=== PATIENT | female | born 1960 | race African-American/Black ===

== ENCOUNTER 2017-01-29 19:29 | Inpatient (IN) | payer OTHER ==
[2017-01-29 20:25] VITALS: BMI 20.4
--- NOTE | 2017-01-29 21:06 | HP ---
COWS - Scale Resting Pulse: 0= [place] 80 or Below Sweatin=Flushed/Facial Moisture Restless Observation: 5= Unable to Sit Still Pupil Size: 1= Pupils >than Normal Bone or Joint Aches: 4=Acute Joint/Muscle Pain Runny Nose/ Eye Tearin= Runny Nose/Eyes GI Upset > 30mins: 1= Stomach Cramp Tremor Observation: 2= Slight Tremor Visible Yawning Observation: 0= None Anxiety or Irritability: 2=Irritable/Anxious Goose Flesh Skin: 0=Smooth Skin COWS Score: 19 CIWA Score - CIWA Score Nausea/Vomitin-No Nausea/No Vomiting Muscle Tremors: 4-Moderate,w/Arms Extend Anxiety: 4-Mod. Anxious/Guarded Agitation: 4-Moderately Restless Paroxysmal Sweats: 3 Orientation: 0-Oriented Tacttile Disturbances: 2-Mild Itch/Numbness/Burn Auditory Disturbances: 2-Mild Harshness/Frighten Visual Disturbances: 2-Mild Sensitivity Headache: 3-Moderate CIWA-Ar Total Score: 24 Admission [facility] - HPI Chief Complaint: WITHDRAWAL SX'S. SEEKING DETOX TXMENT. Allergies/Adverse Reactions: Allergies Allergy/AdvReac Type Severity Reaction Status Date / Time No Known Allergies Allergy Verified 01/29/17 20:35 History of Present Illness: 56 Y.O FEMALE WITH ALCOHOL, OPIATE DEPENDENCE ADMITTED FOR DETOX TXMENT. CLIENT REPORTS A PERIOD OF 1 YEAR CLEAN TIME RELAPSING 4 MONTHS AGO. Exam Limitations: No Limitations - Ebola screening Have you traveled outside of the country in the last 21 days: No Have you had contact with anyone from an Ebola affected area: No Have you been sick,other than usual withdrawal symptoms: No Do you have a fever: No - Review of Systems Constitutional: Chills, Malaise, Night Sweats EENT: reports: Nose Congestion Respiratory: reports: Shortness of Breath Cardiac: reports: No Symptoms Reported GI: reports: Abdominal cramping : reports: Dysuria Musculoskeletal: reports: Back Pain Integumentary: reports: No Symptoms Reported Neuro: reports: No Symptoms reported Endocrine: reports: No Symptoms Reported Hematology: reports: No Symptoms Reported Psychiatric: reports: Agitated, Anxious, Depressed Other Systems: Reviewed and Negative Patient History - Patient Medical History Hx Anemia: No Hx Asthma: Yes Hx Chronic Obstructive Pulmonary Disease (COPD): No Hx Cancer: No Hx Cardiac Disorders: No Hx Congestive Heart Failure: No Hx Hypertension: Yes Hx Hypercholesterolemia: No Hx Pacemaker: No HX Cerebrovascular Accident: No Hx Seizures: No Hx Dementia: No Hx Diabetes: No Hx Gastrointestinal Disorders: No Hx Liver Disease: No Hx Genitourinary Disorders: No Hx Sexually Transmitted Disorders: Yes Hx Renal Disease (ESRD): No Hx Thyroid Disease: No Hx Human Immunodeficiency Virus (HIV): Yes (ATRIPLA) Hx Hepatitis C: No Hx Depression: Yes Hx Suicide Attempt: No Hx Bipolar Disorder: Yes Hx Schizophrenia: No Other Medical History: DENIES - Patient Surgical History Past Surgical History: Yes Hx Neurologic Surgery: No Hx Cataract Extraction: No Hx Cardiac Surgery: No Hx Lung Surgery: No Hx Breast Surgery: No Hx Breast Biopsy: No Hx Abdominal Surgery: No Hx Appendectomy: No Hx Cholecystectomy: No Hx Genitourinary Surgery: No Hx Section: Yes (IN 1992) Hx Orthopedic Surgery: No Other Surgical History: ECTOPIC Anesthesia Reaction: No - PPD History Previous Implant?: Yes Documented Results: Negative w/proof Implanted On Prior [facility] Admission?: Yes Date: 07/30/15 PPD to be Administered?: Yes - Smoking Cessation Smoking history: Current every day smoker Have you smoked in the past 12 months: Yes Aproximately how many cigarettes per day: 8 Hx Chewing Tobacco Use: No Initiated information on smoking cessation: Yes 'Breaking Loose' booklet given: 01/29/17 - Substance & Tx. History Hx Alcohol Use: Yes Hx Substance Use: Yes Substance Use Type: Alcohol, Cocaine, Heroin, Marijuana, Opiates (OXY), Tranquilizers (PCP/MDMA) Hx Substance Use Treatment: Yes ([facility]) - Substances Abused Alcohol Route: Oral Frequency: Daily Amount used: 5 beers/ 12 OZ Age of first use: 14 Date of Last Use: 01/29/17 Cocaine Route: Smoking Frequency: Daily Amount used: $100 Age of first use: 56 Date of Last Use: 01/28/17 Heroin Route: Inhalation Frequency: Daily Amount used: 3 bags Age of first use: 28 Date of Last Use: 01/29/17 Family Disease History - Family Disease History Family Disease History: CA: Father (FATHER WAS ADDICTED TO ETOH AND HAD CA. OF THE LUNGS AND ), Other: Father Admission Physical Exam BHS - Vital Signs Vital Signs: Vital Signs - 24 hr 01/29/17 20:21 Temperature 97.8 F Pulse Rate 80 Respiratory 20 Rate Blood Pressure 135/81 - Physical General Appearance: Yes: Appropriately Dressed, Irritable, Anxious HEENTM: Yes: EOMI, Normocephalic, Normal Voice, YOKASTA, Pharynx Normal, Other ( GLASSES) Respiratory: Yes: Chest Non-Tender, Lungs Clear, Normal Breath Sounds, No Respiratory Distress, No Accessory Muscle Use Neck: Yes: No masses,lesions,Nodules, Supple, Trachea in good position Breast: Yes: Breast Exam Deferred Cardiology: Yes: Regular Rhythm, Regular Rate, S1, S2 Abdominal: Yes: Normal Bowel Sounds, Non Tender, Soft Genitourinary: Yes: Within Normal Limits Back: Yes: Normal Inspection Musculoskeletal: Yes: full range of Motion, Gait Steady Extremities: Yes: Normal Range of Motion, Non-Tender, Tremors Neurological: Yes: note taker II-XII NML intact, Fully Oriented, Alert, Motor Strength 5/5 Integumentary: Yes: Warm, Moist Lymphatic: Yes: Within Normal Limits - Diagnostic (1) Asthma Current Visit: Yes Status: Chronic Qualifiers: Asthma severity: mild intermittent Asthma complication type: uncomplicated Qualified Code(s): J45.20 - Mild intermittent asthma, uncomplicated (2) AIDS Current Visit: Yes Status: Chronic (3) Nicotine dependence Current Visit: Yes Status: Chronic Qualifiers: Nicotine product type: cigarettes Substance use status: uncomplicated Qualified Code(s): F17.210 - Nicotine dependence, cigarettes, uncomplicated (4) Alcohol dependence with uncomplicated withdrawal Current Visit: Yes Status: Chronic (5) Opioid dependence with withdrawal Current Visit: Yes Status: Chronic (6) Cocaine dependence, uncomplicated Current Visit: Yes Status: Chronic (7) Cannabis dependence, uncomplicated Current Visit: Yes Status: Chronic Cleared for Admission [facility] - Detox or Rehab [facility] Level of Care: Medically Managed Detox Regimen/Protocol: Methadone/Librium [facility] Breath Alcohol Content Breath Alcohol Content: 0 Urine Pregancy Test - Result Urine Test Results: Negative- NO Line Present Urine Drug Screen - Results Drug Screen Negative: No Urine Drug Screen Results: THC-Marijuana, SKY-Cocaine, OPI-Opiates, PCP- Phencyclidine, MDMA-Ecstasy, OXY-Oxycodone
[2017-01-29] MEDS ORDERED: NICOTINE POLACRILEX 2 MG GUM BC PRN (21:18)
[2017-01-29] MEDS ORDERED: LOPERAMIDE HCL 2 MG CAPSULE PO PRN (21:18)
[2017-01-29] MEDS ORDERED: MAGNESIUM CITRATE 300 ML BOTTLE PO PRN (21:18)
[2017-01-29] MEDS ORDERED: hydrOXYzine PAMOATE 50 MG CAPSULE (FP) PO PRN (21:18)
[2017-01-29] MEDS ORDERED: MENTHOL/PHENOL 1 EACH UD MM PRN (21:18)
[2017-01-29] MEDS ORDERED: ACETAMINOPHEN 325 MG TABLET (FP) PO PRN (21:18)
[2017-01-29] MEDS ORDERED: MAGNESIUM HYDROX 2400MG/30ML ORAL SUSPENSION 30 ML CUP PO PRN (21:18)
[2017-01-29] MEDS ORDERED: P-EPHED 60MG/TRIPROLIDI 2.5MG TABLET PO PRN (21:18)
[2017-01-29] MEDS ORDERED: METHADONE HCL 10 MG TABLET (FOR DETOX USE ONLY) PO ONE ×2 (21:18→23:00)
[2017-01-29] MEDS ORDERED: MAG HYDROX/AL HYDROX/SIMETH 30 ML UNIT-DOSE CUP PO PRN (21:18)
[2017-01-29] MEDS ORDERED: chlordiazePOXIDE HCL 25 MG CAPSULE PO PRN (21:18)
[2017-01-29] MEDS ORDERED: guaiFENesin/D-METHORPHAN HB 10 ML UNIT-DOSE CUPS PO PRN (21:18)
[2017-01-29] MEDS ORDERED: IBUPROFEN 400 MG TABLET (FP) PO PRN (21:18)
[2017-01-29] MEDS ORDERED: ALBUTEROL SO4 6.7 GM HFA INHALER IH PRN (21:22)
[2017-01-29] MEDS: chlordiazePOXIDE HCL 25 MG CAPSULE PO SCH (22:35)
[2017-01-29] MEDS: THIAMINE HCL 100 MG TABLET (FP) PO SCH (22:36)
[2017-01-29] MEDS: diphenhydrAMINE HCL 50 MG CAPSULE PO PRN (22:36)
[2017-01-29] MEDS: NICOTINE 14 MG/24 HOURS TOPICAL PATCH TD SCH (22:51)
[2017-01-29 23:28] LABS: URINE APPEARANCE CLOUDY; URINE BILIRUBIN NEGATIVE (NEGATIVE); URINE COLOR YELLOW; URINE GLUCOSE (UA) NEGATIVE (NEGATIVE); URINE KETONE NEGATIVE (NEGATIVE); URINE NITRITE POSITIVE (NEGATIVE); URINE UROBILINOGEN NEGATIVE E.U./dl (0.2-1.0)
[2017-01-29 23:31] LABS: URINE BLOOD 3+ (NEGATIVE); URINE LEUK ESTERASE 3+ (NEGATIVE); URINE PROTEIN 1+ (NEGATIVE)
[2017-01-29 23:32] LABS: CALCIUM OXALATE CRYSTALS MANY /hpf (NONE SEEN); URINE BACTERIA MANY /hpf (NONE SEEN); URINE MUCUS RARE; URINE RBC 144 /hpf (0-3); URINE WBC 807 /hpf (3-5); YEAST MANY
[2017-01-30] MEDS: chlordiazePOXIDE HCL 25 MG CAPSULE PO SCH ×4 (05:50→22:36)
[2017-01-30] MEDS ORDERED: PATIENT'S OWN MEDICATION (NON-FORMULARY) (Efavirenz/Emtricitab/Tenofovir 1 TAB) PO SCH (10:00)
[2017-01-30] MEDS ORDERED: METHADONE HCL 10 MG TABLET (FOR DETOX USE ONLY) PO SCH (10:00)
[2017-01-30 10:04] LABS: MCH 24.8 pg (25.7-33.7); MCHC 32.3 g/dl (32.0-36.0); MEAN CELL VOLUME 76.7 fl (80-96); MEAN PLT VOLUME 8.8 fl (7.5-11.1); PLATELET COUNT 130 K/MM3 (134-434); RDW 15.7 % (11.6-15.6); WHITE BLOOD COUNT 4.4 K/mm3 (4.0-10.0)
[2017-01-30 10:23] LABS: ALBUMIN 3.3 g/dl (3.4-5.0); ALK PHOS 70 U/L (45-117); ANION GAP 5 (8-16); BILIRUBIN,TOTAL 0.3 mg/dL (0.2-1.0); CALCIUM 9.1 mg/dL (8.5-10.1); CO2 32 mmol/L (21-32); CREATININE 0.9 mg/dL (0.55-1.02); GLUCOSE,RANDOM 87 mg/dL (74-106); SGOT/AST 13 U/L (15-37); SGPT/ALT 12 U/L (12-78); TOT PROT 6.5 g/dl (6.4-8.2)
[2017-01-30] MEDS: PRENATAL VITAMINS W/ FOLIC ACID TABLET (FP) PO SCH (10:26)
[2017-01-30] MEDS: EFAVIRENZ 600 MG TABLET PO SCH (10:26)
[2017-01-30] MEDS: NICOTINE 14 MG/24 HOURS TOPICAL PATCH TD SCH (10:26)
--- NOTE | 2017-01-30 10:54 | PN ---
[facility] CIWA - CIWA Score Nausea/Vomitin-No Nausea/No Vomiting Muscle Tremors: 3 Anxiety: 3 Agitation: 3 Paroxysmal Sweats: 3 Orientation: 0-Oriented Tacttile Disturbances: 0-None Auditory Disturbances: 0-None Visual Disturbances: 0-None Headache: 1-Very Mild CIWA-Ar Total Score: 13 BHS COWS - Scale Resting Pulse: 0= [place] 80 or Below Sweatin=Flushed/Facial Moisture Restless Observation: 1= Difficult to Sit Still Pupil Size: 0= Normal to Room Light Bone or Joint Aches: 2= Severe Diffuse Aches Runny Nose/ Eye Tearin= Runny Nose/Eyes GI Upset > 30mins: 0= None Tremor Observation of Outstretched Hands: 2= Slight Tremor Visible Yawning Observation: 2= >3x During Session Anxiety or Irritability: 2=Irritable/Anxious Goose Flesh Skin: 3=Piloerection COWS Score: 16 S Progress Note (SOAP) Subjective: sweats shakes interrupted sleep body aches irritable agitation Objective: 01/30/17 10:52 Vital Signs Temperature 96.6 F L 01/30/17 10:15 Pulse Rate 64 01/30/17 10:15 Respiratory Rate 16 01/30/17 10:15 Blood Pressure 107/66 01/30/17 10:15 O2 Sat by Pulse Oximetry (%) Laboratory Tests 01/29/17 01/30/17 01/30/17 23:25 07:30 07:30 WBC 4.4 RBC 4.48 Hgb 11.1 Hct 34.4 MCV 76.7 L MCHC 32.3 RDW 15.7 H D Plt Count 130 L MPV 8.8 Sodium 143 Potassium 3.9 Chloride 106 Carbon Dioxide 32 Anion Gap 5 L BUN 13 Creatinine 0.9 Creat Clearance w eGFR > 60 Random Glucose 87 Calcium 9.1 Total Bilirubin 0.3 D AST 13 L ALT 12 D Alkaline Phosphatase 70 Total Protein 6.5 Albumin 3.3 L Urine Color Yellow Urine Appearance Cloudy Urine pH 5.0 Ur Specific [place] 1.023 Urine Protein 1+ H Urine Glucose (UA) Negative Urine Ketones Negative Urine Blood 3+ H Urine Nitrite Positive Urine Bilirubin Negative Urine Urobilinogen Negative Ur Leukocyte Esterase 3+ H Urine RBC 144 Urine WBC 807 Ur Epithelial Cells Moderate Calcium Oxalate Crystal Many Urine Bacteria Many Urine Mucus Rare Urine Yeast Many repeat u/a with C&S awake/alert lying in bed no acute distress Assessment: 01/30/17 10:53 withdrawal sx Plan: continue detox increase fluids f/u pending labs
[2017-01-30] MEDS: EMTRICITABINE 200MG/TENOFOVIR 300MG PO SCH (11:00)
[2017-01-30] MEDS ORDERED: PNEUMOC 13-VAL CONJ-DIP CRM/PF 0.5 ML DISP.SYRIN IM ONE (12:00)
[2017-01-30] MEDS ORDERED: INFLUENZA VACCINE 45 MCG/0.5 ML (MDV 16-17) IM ONE (12:00)
--- NOTE | 2017-01-30 12:00 | CONSULT ---
[facility] Psychiatric Consult - Data Date of interview: 01/30/17 Admission source: [facility] Identifying data: Readmission to [facility] for this 56 y/o AA female seeking detox treatment on for alcohol,cocaine,marijuana,heroin and tranquilizers (PCP/MDMA) dependence.Patient is single,a mother of three, domiciled,unemployed and supported on SSI benefits. Substance Abuse History: - Smoking Cessation. Smoking history: Current every day smoker. Have you smoked in the past 12 months: Yes. Aproximately how many cigarettes per day: 8. Hx Chewing Tobacco Use: No. Initiated information on smoking cessation: Yes. 'Breaking Loose' booklet given: 01/29/17. - Substance & Tx. History. Hx Alcohol Use: Yes. Hx Substance Use: Yes. Substance Use Type : Alcohol, Cocaine, Heroin, Marijuana, Opiates (OXY), Tranquilizers (PCP/MDMA). Hx Substance Use Treatment: Yes ([facility] - Substances Abused. Alcohol. Route: Oral. Frequency: Daily. Amount used: 5 beers/ 12 OZ. Age of first use : 14. Date of Last Use: 01/29/17. Cocaine. Route: Smoking. Frequency: Daily. Amount used: $100. Age of first use: 56. Date of Last Use: 01/28/17. Heroin. Route: Inhalation. Frequency: Daily. Amount used: 3 bags. Age of first use: 28. Date of Last Use: 01/29/17. Confirmed by patient in my interview. Medical History: HIV infection,bronchial asthma and hypertension. Psychiatric History: Patient denies history of mental illness or psychiatric hospitalizations.Review of previous records indicates a brief history of OPD care at the [facility] drug program (trazodone was utilized for insomnia).Ms Ludwig denies history of suicide attempts. Physical/Sexual Abuse/Trauma History: Patient declines to discuss this topic. Additional Comment: Urine Drug Screen Results: THC-Marijuana, SKY-Cocaine, OPI- Opiates, PCP-Phencyclidine, MDMA-Ecstasy, OXY-Oxycodone.Noted. Mental Status Exam - Mental Status Exam Alert and Oriented to: Time, Place, Person Cognitive Function: Grossly Intact Patient Appearance: Well Groomed Mood: Withdrawn Affect: Constricted Patient Behavior: Sedated (moderately), Fatigued, Cooperative (superficially cooperative.) Speech Pattern: Delayed, Slurred (slow,non-spontaneous but coherent and relevant ) Voice Loudness: Moderately Soft/Quiet Thought Process: Goal Oriented Thought Disorder: Not Present Hallucinations: Denies Suicidal Ideation: Denies Homicidal Ideation: Denies Insight/Judgement: Poor Sleep: Fair Appetite: Good Muscle strength/Tone: Normal Gait/Station: Normal (Observed walking earlier) Psychiatric Findings - Problem List ([place] 1, 2,3) (1) Alcohol dependence with uncomplicated withdrawal Current Visit: Yes Status: Acute (2) Cannabis dependence, uncomplicated Current Visit: Yes Status: Acute (3) Cocaine dependence, uncomplicated Current Visit: Yes Status: Acute (4) Opioid dependence with withdrawal Current Visit: Yes Status: Acute (5) Nicotine dependence Current Visit: Yes Status: Acute Qualifiers: Nicotine product type: cigarettes Substance use status: uncomplicated Qualified Code(s): F17.210 - Nicotine dependence, cigarettes, uncomplicated (6) PCP (phencyclidine) abuse Current Visit: Yes Status: Acute (7) MDMA abuse Current Visit: Yes Status: Acute (8) Substance induced mood disorder Current Visit: Yes Status: Chronic (9) AIDS Current Visit: Yes Status: Chronic (10) Asthma Current Visit: Yes Status: Chronic Qualifiers: Asthma severity: mild intermittent Asthma complication type: uncomplicated Qualified Code(s): J45.20 - Mild intermittent asthma, uncomplicated - Initial Treatment Plan Initial Treatment Plan: Psychoeducation.Detoxification in progress.Observation.
--- NOTE | 2017-01-30 15:19 | EKG ---
Test Reason : Blood Pressure : / mmHG Vent. Rate : 062 BPM Atrial Rate : 062 BPM P-R Int : 134 ms QRS Dur : 096 ms QT Int : 406 ms P-R-T Axes : 075 080 074 degrees QTc Int : 412 ms NORMAL SINUS RHYTHM VOLTAGE CRITERIA FOR LEFT VENTRICULAR HYPERTROPHY NONSPECIFIC ST ABNORMALITY EARLY REPOLARIZATION ABNORMAL ECG NO PREVIOUS ECGS AVAILABLE Confirmed by TR DAIGLE MD ([id number]) on 01/30/2017 3:19:08 PM Referred By: Confirmed By:TR DAIGLE MD
[2017-01-30] MEDS: THIAMINE HCL 100 MG TABLET (FP) PO SCH (22:36)
[2017-01-30] MEDS: diphenhydrAMINE HCL 50 MG CAPSULE PO PRN (22:36)
[2017-01-31] MEDS: chlordiazePOXIDE HCL 25 MG CAPSULE PO SCH ×3 (05:43→17:40)
[2017-01-31] MEDS: NICOTINE 14 MG/24 HOURS TOPICAL PATCH TD SCH (10:36)
[2017-01-31] MEDS: EFAVIRENZ 600 MG TABLET PO SCH (10:36)
[2017-01-31] MEDS: EMTRICITABINE 200MG/TENOFOVIR 300MG PO SCH (10:36)
[2017-01-31] MEDS: PRENATAL VITAMINS W/ FOLIC ACID TABLET (FP) PO SCH (10:36)
[2017-01-31] MEDS: METHADONE HCL 5 MG TABLET (FOR DETOX USE ONLY) PO SCH (10:36)
--- NOTE | 2017-01-31 12:44 | PN ---
[facility] CIWA - CIWA Score Nausea/Vomitin Muscle Tremors: 3 Anxiety: 3 Agitation: 2 Paroxysmal Sweats: 1-Minimal Palms Moist Orientation: 0-Oriented Tacttile Disturbances: 1-Very Mild Itch/Numbness Auditory Disturbances: 1-Very Mild Visual Disturbances: 1-Very Mild Sensitivity Headache: 2-Mild CIWA-Ar Total Score: 17 BHS COWS - Scale Resting Pulse: 0= [place] 80 or Below Sweatin= Chills/Flushing Restless Observation: 3= Extraneous Movement Pupil Size: 1= Pupils >than Normal Bone or Joint Aches: 2= Severe Diffuse Aches Runny Nose/ Eye Tearin= Runny Nose/Eyes GI Upset > 30mins: 2= Nausea/Diarrhea Tremor Observation of Outstretched Hands: 2= Slight Tremor Visible Yawning Observation: 1= 1-2x During Session Anxiety or Irritability: 2=Irritable/Anxious Goose Flesh Skin: 0=Smooth Skin COWS Score: 16 S Progress Note (SOAP) Subjective: ALERT,IRRITABLE,ANXIOUS,INTERRUPTED SLEEP,TREMOR Objective: 01/31/17 12:41 Vital Signs Temperature 97.7 F 01/31/17 10:26 Pulse Rate 67 01/31/17 10:26 Respiratory Rate 20 01/31/17 10:26 Blood Pressure 109/79 01/31/17 10:26 O2 Sat by Pulse Oximetry (%) 01/31/17 12:43 Laboratory Last Values WBC 4.4 K/mm3 (4.0-10.0) 01/30/17 07:30 RBC 4.48 M/mm3 (3.60-5.2) 01/30/17 07:30 Hgb 11.1 GM/dL (10.7-15.3) 01/30/17 07:30 Hct 34.4 % (32.4-45.2) 01/30/17 07:30 MCV 76.7 fl (80-96) L 01/30/17 07:30 MCHC 32.3 g/dl (32.0-36.0) 01/30/17 07:30 RDW 15.7 % (11.6-15.6) H D 01/30/17 07:30 Plt Count 130 K/MM3 (134-434) L 01/30/17 07:30 MPV 8.8 fl (7.5-11.1) 01/30/17 07:30 Sodium 143 mmol/L (136-145) 01/30/17 07:30 Potassium 3.9 mmol/L (3.5-5.1) 01/30/17 07:30 Chloride 106 mmol/L (98-107) 01/30/17 07:30 Carbon Dioxide 32 mmol/L (21-32) 01/30/17 07:30 Anion Gap 5 (8-16) L 01/30/17 07:30 BUN 13 mg/dL (7-18) 01/30/17 07:30 Creatinine 0.9 mg/dL (0.55-1.02) 01/30/17 07:30 Creat Clearance w eGFR > 60 (>60) 01/30/17 07:30 Random Glucose 87 mg/dL (74-106) 01/30/17 07:30 Calcium 9.1 mg/dL (8.5-10.1) 01/30/17 07:30 Total Bilirubin 0.3 mg/dL (0.2-1.0) D 01/30/17 07:30 AST 13 U/L (15-37) L 01/30/17 07:30 ALT 12 U/L (12-78) D 01/30/17 07:30 Alkaline Phosphatase 70 U/L (45-117) 01/30/17 07:30 Total Protein 6.5 g/dl (6.4-8.2) 01/30/17 07:30 Albumin 3.3 g/dl (3.4-5.0) L 01/30/17 07:30 Urine Color Yellow 01/29/17 23:25 Urine Appearance Cloudy 01/29/17 23:25 Urine pH 5.0 (5.0-8.0) 01/29/17 23:25 Ur Specific [place] 1.023 (1.001-1.035) 01/29/17 23:25 Urine Protein 1+ (NEGATIVE) H 01/29/17 23:25 Urine Glucose (UA) Negative (NEGATIVE) 01/29/17 23:25 Urine Ketones Negative (NEGATIVE) 01/29/17 23:25 Urine Blood 3+ (NEGATIVE) H 01/29/17 23:25 Urine Nitrite Positive (NEGATIVE) 01/29/17 23:25 Urine Bilirubin Negative (NEGATIVE) 01/29/17 23:25 Urine Urobilinogen Negative E.U./dl (0.2-1.0) 01/29/17 23:25 Ur Leukocyte Esterase 3+ (NEGATIVE) H 01/29/17 23:25 Urine RBC 144 /hpf (0-3) 01/29/17 23:25 Urine WBC 807 /hpf (3-5) 01/29/17 23:25 Ur Epithelial Cells Moderate /hpf (FEW) 01/29/17 23:25 Calcium Oxalate Crystal Many /hpf (NONE SEEN) 01/29/17 23:25 Urine Bacteria Many /hpf (NONE SEEN) 01/29/17 23:25 Urine Mucus Rare 01/29/17 23:25 Urine Yeast Many 01/29/17 23:25 RPR Titer Nonreactive (NONREACTIVE) 01/30/17 07:30 Hepatitis C Antibody 1.0 s/co ratio (0.0-0.9) H 01/29/17 07:30 01/31/17 12:51 Assessment: 01/31/17 12:51 WITHDRAWAL SYMPTOM Plan: CONTINUE DETOX,REPEAT UA AND URINE FOR C/S,R/O UTI
[2017-01-31] MEDS ORDERED: SULFAMETHOXAZOLE/TRIMETHOPRIM 800MG/160MG D.S. TABLET PO ONE (12:53)
[2017-01-31] MEDS: SULFAMETHOXAZOLE/TRIMETHOPRIM 800MG/160MG D.S. TABLET PO SCH (22:35)
[2017-01-31] MEDS: diphenhydrAMINE HCL 50 MG CAPSULE PO PRN (22:36)
[2017-01-31] MEDS: chlordiazePOXIDE 5 MG CAPSULE PO SCH (22:36)
[2017-01-31] MEDS: THIAMINE HCL 100 MG TABLET (FP) PO SCH (22:36)
[2017-02-01 00:20] LABS: URINE APPEARANCE TURBID; URINE BILIRUBIN NEGATIVE (NEGATIVE); URINE COLOR YELLOW; URINE GLUCOSE (UA) NEGATIVE (NEGATIVE); URINE KETONE NEGATIVE (NEGATIVE); URINE NITRITE POSITIVE (NEGATIVE); URINE UROBILINOGEN NEGATIVE E.U./dl (0.2-1.0)
[2017-02-01 00:34] LABS: URINE BLOOD 1+ (NEGATIVE); URINE LEUK ESTERASE 3+ (NEGATIVE); URINE PROTEIN 1+ (NEGATIVE)
[2017-02-01 01:46] LABS: URINE BACTERIA RARE /hpf (NONE SEEN); URINE RBC 40 /hpf (0-3); URINE WBC 957 /hpf (3-5)
[2017-02-01] MEDS: chlordiazePOXIDE 5 MG CAPSULE PO SCH ×3 (05:42→17:58)
[2017-02-01] MEDS: METHADONE HCL 5 MG TABLET (FOR DETOX USE ONLY) PO SCH (10:18)
[2017-02-01] MEDS: EFAVIRENZ 600 MG TABLET PO SCH (10:18)
[2017-02-01] MEDS: SULFAMETHOXAZOLE/TRIMETHOPRIM 800MG/160MG D.S. TABLET PO SCH ×2 (10:18→22:24)
[2017-02-01] MEDS: PRENATAL VITAMINS W/ FOLIC ACID TABLET (FP) PO SCH (10:18)
[2017-02-01] MEDS: EMTRICITABINE 200MG/TENOFOVIR 300MG PO SCH (10:18)
[2017-02-01] MEDS: NICOTINE 14 MG/24 HOURS TOPICAL PATCH TD SCH (10:23)
--- NOTE | 2017-02-01 12:56 | PN ---
[facility] Progress Note (SOAP) Subjective: ALERT,IRRITABLE,ANXIOUS,INTERRUPTED SLEEP, Objective: 02/01/17 12:53 Vital Signs Temperature 98.5 F 02/01/17 09:56 Pulse Rate 70 02/01/17 09:56 Respiratory Rate 20 02/01/17 09:56 Blood Pressure 105/59 02/01/17 09:56 O2 Sat by Pulse Oximetry (%) Abnormal Lab Results 01/31/17 23:03 Urine Protein 1+ H Urine Blood 1+ H Ur Leukocyte Esterase 3+ H 02/01/17 12:54 Abnormal Lab Results 01/31/17 23:03 Urine Protein 1+ H Urine Blood 1+ H Ur Leukocyte Esterase 3+ H 02/01/17 12:54 Laboratory Last Values WBC 4.4 K/mm3 (4.0-10.0) 01/30/17 07:30 RBC 4.48 M/mm3 (3.60-5.2) 01/30/17 07:30 Hgb 11.1 GM/dL (10.7-15.3) 01/30/17 07:30 Hct 34.4 % (32.4-45.2) 01/30/17 07:30 MCV 76.7 fl (80-96) L 01/30/17 07:30 MCHC 32.3 g/dl (32.0-36.0) 01/30/17 07:30 RDW 15.7 % (11.6-15.6) H D 01/30/17 07:30 Plt Count 130 K/MM3 (134-434) L 01/30/17 07:30 MPV 8.8 fl (7.5-11.1) 01/30/17 07:30 Sodium 143 mmol/L (136-145) 01/30/17 07:30 Potassium 3.9 mmol/L (3.5-5.1) 01/30/17 07:30 Chloride 106 mmol/L (98-107) 01/30/17 07:30 Carbon Dioxide 32 mmol/L (21-32) 01/30/17 07:30 Anion Gap 5 (8-16) L 01/30/17 07:30 BUN 13 mg/dL (7-18) 01/30/17 07:30 Creatinine 0.9 mg/dL (0.55-1.02) 01/30/17 07:30 Creat Clearance w eGFR > 60 (>60) 01/30/17 07:30 Random Glucose 87 mg/dL (74-106) 01/30/17 07:30 Calcium 9.1 mg/dL (8.5-10.1) 01/30/17 07:30 Total Bilirubin 0.3 mg/dL (0.2-1.0) D 01/30/17 07:30 AST 13 U/L (15-37) L 01/30/17 07:30 ALT 12 U/L (12-78) D 01/30/17 07:30 Alkaline Phosphatase 70 U/L (45-117) 01/30/17 07:30 Total Protein 6.5 g/dl (6.4-8.2) 01/30/17 07:30 Albumin 3.3 g/dl (3.4-5.0) L 01/30/17 07:30 Urine Color Yellow 01/31/17 23:03 Urine Appearance Turbid 01/31/17 23:03 Urine pH 6.0 (5.0-8.0) 01/31/17 23:03 Ur Specific [place] 1.017 (1.001-1.035) 01/31/17 23:03 Urine Protein 1+ (NEGATIVE) H 01/31/17 23:03 Urine Glucose (UA) Negative (NEGATIVE) 01/31/17 23:03 Urine Ketones Negative (NEGATIVE) 01/31/17 23:03 Urine Blood 1+ (NEGATIVE) H 01/31/17 23:03 Urine Nitrite Positive (NEGATIVE) 01/31/17 23:03 Urine Bilirubin Negative (NEGATIVE) 01/31/17 23:03 Urine Urobilinogen Negative E.U./dl (0.2-1.0) 01/31/17 23:03 Ur Leukocyte Esterase 3+ (NEGATIVE) H 01/31/17 23:03 Urine RBC 40 /hpf (0-3) 01/31/17 23:03 Urine WBC 957 /hpf (3-5) 01/31/17 23:03 Ur Epithelial Cells Many /hpf (FEW) 01/31/17 23:03 Calcium Oxalate Crystal Many /hpf (NONE SEEN) 01/29/17 23:25 Urine Bacteria Rare /hpf (NONE SEEN) 01/31/17 23:03 Urine Mucus Rare 01/29/17 23:25 Urine Yeast Many 01/29/17 23:25 RPR Titer Nonreactive (NONREACTIVE) 01/30/17 07:30 Hepatitis C Antibody 1.0 s/co ratio (0.0-0.9) H 01/29/17 07:30 Assessment: 02/01/17 12:55WITHDRAWAL SYMPTOM 02/01/17 12:56 Plan: WITHDRAWAL SYMPTOM,URINE FOR C/S PENDING
[2017-02-01] MEDS: chlordiazePOXIDE HCL 10 MG CAPSULE PO SCH (22:24)
[2017-02-01] MEDS: THIAMINE HCL 100 MG TABLET (FP) PO SCH (22:24)
[2017-02-01] MEDS: diphenhydrAMINE HCL 50 MG CAPSULE PO PRN (22:24)
[2017-02-02] MEDS: chlordiazePOXIDE HCL 10 MG CAPSULE PO SCH (05:56)
[2017-02-02] MEDS: EFAVIRENZ 600 MG TABLET PO SCH (09:25)
[2017-02-02] MEDS: SULFAMETHOXAZOLE/TRIMETHOPRIM 800MG/160MG D.S. TABLET PO SCH (09:25)
[2017-02-02] MEDS: PRENATAL VITAMINS W/ FOLIC ACID TABLET (FP) PO SCH (09:25)
[2017-02-02] MEDS: EMTRICITABINE 200MG/TENOFOVIR 300MG PO SCH (09:25)
[2017-02-02] MEDS ORDERED: METHADONE HCL 10 MG TABLET (FOR DETOX USE ONLY) PO SCH (10:00)
[2017-02-02 10:17] VITALS: BP 98/58; PULSE 75; TEMP 97.7
--- NOTE | 2017-02-02 10:20 | DS ---
[facility] Detox Discharge Summary Admission Date: 01/29/17 Discharge Date: 02/02/17 - History Present History: Alcohol Dependence, Cannabis Dependence, Cocaine Dependence, Opioid Dependence - Physical Exam Results Vital Signs: Vital Signs Temperature 98.1 F 02/02/17 06:22 Pulse Rate 71 02/02/17 06:22 Respiratory Rate 16 02/02/17 06:22 Blood Pressure 134/58 02/02/17 06:22 O2 Sat by Pulse Oximetry (%) - Treatment Hospital Course: Detox Protocol Followed, Detoxed Safely, Responded well, Discharged Condition Good - Medication Discharge Medications: Ambulatory Orders Albuterol Sulfate Inhaler - [Ventolin HFA Inhaler -] 2 inh PO Q4H PRN 12/30/13 Trazodone HCl [Desyrel -] 100 mg PO HS #30 tablet 07/30/15 Efavirenz/Emtricitab/Tenofovir [Atripla Tablet -] 1 tab PO DAILY #30 tab Gabapentin [Neurontin -] 300 mg PO BID #60 capsule 08/02/15 Clonidine HCl [Catapres] 0.1 mg PO DAILY 01/29/17 - Diagnosis (1) Alcohol dependence with uncomplicated withdrawal Current Visit: Yes Status: Chronic (2) Cannabis dependence, uncomplicated Current Visit: Yes Status: Chronic (3) Cocaine dependence, uncomplicated Current Visit: Yes Status: Chronic (4) Nicotine dependence Current Visit: Yes Status: Chronic Qualifiers: Nicotine product type: cigarettes Substance use status: uncomplicated Qualified Code(s): F17.210 - Nicotine dependence, cigarettes, uncomplicated (5) Opioid dependence with withdrawal Current Visit: Yes Status: Chronic (6) AIDS Current Visit: Yes Status: Chronic (7) Asthma Current Visit: Yes Status: Chronic Qualifiers: Asthma severity: mild intermittent Asthma complication type: uncomplicated Qualified Code(s): J45.20 - Mild intermittent asthma, uncomplicated (8) Depressive Disorder NOS Current Visit: Yes Status: Chronic - AMA Did Patient Leave Against Medical Advice: No (but was given early d/c to care for her sick mother )
[2017-02-03] MEDS ORDERED: METHADONE HCL 5 MG TABLET (FOR DETOX USE ONLY) PO SCH (06:00)
== END 2017-02-02 10:38 | disposition home or self-care (01) | DRG 773 ==
LOC: YASAS 19:29 → Y6N 21:04
PROVIDERS: ADMIT Internal Medicine Addiction Medicine; ATTEND Internal Medicine Addiction Medicine
PROC: HZ2ZZZZ Detoxification Services for Substance Abuse Treatment (ICD-10-PCS; principal; 2017-01-29)
DX: F11.23 Opioid dependence with withdrawal (principal); F10.230 Alcohol dependence with withdrawal, uncomplicated; F14.20 Cocaine dependence, uncomplicated; F16.10 Hallucinogen abuse, uncomplicated; F17.210 Nicotine dependence, cigarettes, uncomplicated; F32.9 Major depressive disorder, single episode, unspecified; B20 Human immunodeficiency virus [HIV] disease; J45.20 Mild intermittent asthma, uncomplicated; I10 Essential (primary) hypertension; Z87.42 Personal history of other diseases of the female genital tract
CPT/HCPCS: 36415; 80053; 81003; 81015; 85027; 86593; 87086; 87186; 87522; 90670; 93005; 93010

== ENCOUNTER 2017-03-17 15:56 | Inpatient (IN) | payer OTHER ==
[2017-03-17 18:08] VITALS: BMI 20.2
--- NOTE | 2017-03-17 19:43 | HP ---
COWS - Scale Resting Pulse: 0= GA 80 or Below Sweatin=Flushed/Facial Moisture Restless Observation: 3= Extraneous Movement Pupil Size: 2= Moderately Dilated Bone or Joint Aches: 2= Severe Diffuse Aches Runny Nose/ Eye Tearin= Runny Nose/Eyes GI Upset > 30mins: 3= Vomiting/Diarrhea Tremor Observation: 2= Slight Tremor Visible Yawning Observation: 2= >3x During Session Anxiety or Irritability: 2=Irritable/Anxious Goose Flesh Skin: 0=Smooth Skin COWS Score: 20 CIWA Score - CIWA Score Nausea/Vomitin Muscle Tremors: 3 Anxiety: 3 Agitation: 3 Paroxysmal Sweats: 2 Orientation: 0-Oriented Tacttile Disturbances: 2-Mild Itch/Numbness/Burn Auditory Disturbances: 2-Mild Harshness/Frighten Visual Disturbances: 2-Mild Sensitivity Headache: 2-Mild CIWA-Ar Total Score: 22 Admission ROS BHS - HPI Chief Complaint: I NEED HELP TO STOP DRINKING HEROIN,ALCOHOL,COCAINE,MARIJUANA,PCP Allergies/Adverse Reactions: Allergies Allergy/AdvReac Type Severity Reaction Status Date / Time No Known Allergies Allergy Verified 03/17/17 19:10 History of Present Illness: THIS 56 YEARS OLD FEMALE PATIENT WITH HEROIN,COCAINE,ALCOHOL,MARIJUANA,PCP DEPENDENCE,WITHDRAWAL SYMPTOM,LAST DETOX [facility] 01/29/17 TO 02/02/17 WEIGHT LOSS SYNCOPE NICOTINE DEPENDENCE BIPOLAR DISORDER AND DEPRESSION LONGEST PERIOD OF SOBRIETY 1 YEAR Exam Limitations: No Limitations - Ebola screening Have you traveled outside of the country in the last 21 days: No Have you had contact with anyone from an Ebola affected area: No Have you been sick,other than usual withdrawal symptoms: No - Review of Systems Constitutional: Chills, Diaphoresis, Loss of Appetite, Malaise, Night Sweats, Changes in sleep, Weakness, Unintentional Wgt. Loss EENT: reports: Tearing, Nose Congestion Respiratory: reports: No Symptoms reported Cardiac: reports: Palpitations GI: reports: Diarrhea, Nausea, Vomiting, Abdominal cramping : reports: No Symptoms Reported Musculoskeletal: reports: Back Pain, Joint Pain, Muscle Pain, Joint Stiffness Integumentary: reports: Dryness Neuro: reports: Headache, Tremors Endocrine: reports: No Symptoms Reported Hematology: reports: No Symptoms Reported, Other (SICE 1992) Psychiatric: reports: Judgement Intact, Mood/Affect Appropiate, Orientated x3 ( BIPOLOR DISORDER DEPRESSION), Depressed Patient History - Patient Medical History Hx Anemia: No Hx Asthma: Yes (ON ALBUTEROL INHALER) Hx Chronic Obstructive Pulmonary Disease (COPD): No Hx Cancer: No Hx Cardiac Disorders: No Hx Congestive Heart Failure: No Hx Hypertension: Yes (NON COMPLIANCE) Hx Hypercholesterolemia: No Hx Pacemaker: No HX Cerebrovascular Accident: No Hx Seizures: No Hx Dementia: No Hx Diabetes: No Hx Gastrointestinal Disorders: No Hx Liver Disease: No Hx Genitourinary Disorders: No Hx Sexually Transmitted Disorders: Yes (HIV SINCE 1992) Hx Renal Disease (ESRD): No Hx Thyroid Disease: No Hx Human Immunodeficiency Virus (HIV): Yes (ATRIPLA) Hx Hepatitis C: No Hx Depression: Yes Hx Suicide Attempt: No Hx Bipolar Disorder: Yes (ON MED) Hx Schizophrenia: No Other Medical History: NO SUICIDAL,NO HOMICIDAL - Patient Surgical History Past Surgical History: Yes Hx Neurologic Surgery: No Hx Cataract Extraction: No Hx Cardiac Surgery: No Hx Lung Surgery: No Hx Breast Surgery: No Hx Breast Biopsy: No Hx Abdominal Surgery: No Hx Appendectomy: No Hx Cholecystectomy: No Hx Genitourinary Surgery: No Hx Section: Yes (IN 1992) Hx Orthopedic Surgery: No Other Surgical History: ECTOPIC Anesthesia Reaction: No - PPD History Previous Implant?: No Implanted On Prior [facility] Admission?: No Date: 01/31/17 PPD to be Administered?: No - Reproductive History Patient is a Female of Child Bearing Age (11 -55 yrs old): Yes Patient : No - Smoking Cessation Smoking history: Current every day smoker Have you smoked in the past 12 months: Yes Aproximately how many cigarettes per day: 15 Hx Chewing Tobacco Use: No Initiated information on smoking cessation: Yes 'Breaking Loose' booklet given: 03/17/17 - Substance & Tx. History Hx Alcohol Use: Yes Hx Substance Use: Yes Substance Use Type: Alcohol, Cocaine, Heroin, Marijuana Hx Substance Use Treatment: Yes ([facility] 01/29/17 TO 02/02/17) - Substances Abused Heroin Route: Inhalation Frequency: Daily Amount used: 4 bundles Age of first use: 14 Date of Last Use: 03/17/17 Crack Route: Inhalation Frequency: Daily Amount used: $40 Age of first use: 18 Date of Last Use: 03/17/17 Family Disease History - Family Disease History Family Disease History: CA: Father (FATHER WAS ADDICTED TO ETOH AND HAD CA. OF THE LUNGS AND ), Other: Father Admission Physical Exam [facility] - Vital Signs Vital Signs: Vital Signs - 24 hr 03/17/17 18:06 Temperature 98.6 F Pulse Rate 68 Respiratory 18 Rate Blood Pressure 155/84 - Physical General Appearance: Yes: Moderate Distress, Intoxicated, Tremorous, Irritable, Anxious HEENTM: Yes: Hearing grossly Normal, Normal ENT Inspection, Nasal Congestion Respiratory: Yes: Lungs Clear, Normal Breath Sounds Neck: Yes: Supple, Trachea in good position Breast: Yes: Breast Exam Deferred Cardiology: Yes: Within Normal Limits, Regular Rhythm, Regular Rate, S1, S2 Abdominal: Yes: Within Normal Limits, Normal Bowel Sounds, Non Tender, Flat, Soft, Surgical Scar Genitourinary: Yes: Within Normal Limits Back: Yes: Normal Inspection, Muscle Spasm Musculoskeletal: Yes: Back pain, Joint Stiffness, Muscle Pain Extremities: Yes: Tremors Neurological: Yes: pipe cutter II-XII NML intact, Fully Oriented, Alert, Motor Strength 5/5 Integumentary: Yes: Dry Lymphatic: Yes: Within Normal Limits - Diagnostic (1) PCP abuse Current Visit: No Status: Acute (2) AIDS Current Visit: No Status: Chronic (3) Alcohol dependence with uncomplicated withdrawal Current Visit: No Status: Chronic (4) Asthma Current Visit: No Status: Chronic Qualifiers: Asthma severity: mild intermittent Asthma complication type: uncomplicated Qualified Code(s): J45.20 - Mild intermittent asthma, uncomplicated (5) Cocaine dependence, uncomplicated Current Visit: No Status: Chronic (6) Nicotine dependence Current Visit: No Status: Chronic Qualifiers: Nicotine product type: cigarettes Substance use status: uncomplicated Qualified Code(s): F17.210 - Nicotine dependence, cigarettes, uncomplicated (7) Opioid dependence with withdrawal Current Visit: No Status: Chronic (8) Weight loss Current Visit: Yes Status: Acute (9) Bipolar disorder Current Visit: Yes Status: Acute Cleared for Admission [facility] - Detox or Rehab [facility] Level of Care: Medically Managed Detox Regimen/Protocol: Librium [facility] Breath Alcohol Content Breath Alcohol Content: 0 Urine Pregancy Test - Result Urine Test Results: Negative- NO Line Present Urine Drug Screen - Results Drug Screen Negative: No Urine Drug Screen Results: THC-Marijuana, SKY-Cocaine, OPI-Opiates, PCP- Phencyclidine
[2017-03-17] MEDS ORDERED: MENTHOL/PHENOL 1 EACH UD MM PRN (20:02)
[2017-03-17] MEDS ORDERED: P-EPHED 60MG/TRIPROLIDI 2.5MG TABLET PO PRN (20:02)
[2017-03-17] MEDS ORDERED: MAG HYDROX/AL HYDROX/SIMETH 30 ML UNIT-DOSE CUP PO PRN (20:02)
[2017-03-17] MEDS ORDERED: MAGNESIUM CITRATE 300 ML BOTTLE PO PRN (20:02)
[2017-03-17] MEDS ORDERED: METHADONE HCL 10 MG TABLET (FOR DETOX USE ONLY) PO ONE ×2 (20:02→23:00)
[2017-03-17] MEDS ORDERED: guaiFENesin/D-METHORPHAN HB 10 ML UNIT-DOSE CUPS PO PRN (20:02)
[2017-03-17] MEDS ORDERED: chlordiazePOXIDE HCL 25 MG CAPSULE PO ONE (20:02)
[2017-03-17] MEDS ORDERED: ACETAMINOPHEN 325 MG TABLET (FP) PO PRN (20:02)
[2017-03-17] MEDS ORDERED: hydrOXYzine PAMOATE 25 MG CAPSULE (FP) PO PRN (20:02)
[2017-03-17] MEDS ORDERED: IBUPROFEN 400 MG TABLET (FP) PO PRN (20:02)
[2017-03-17] MEDS ORDERED: chlordiazePOXIDE HCL 25 MG CAPSULE PO PRN (20:02)
[2017-03-17] MEDS ORDERED: MAGNESIUM HYDROX 2400MG/30ML ORAL SUSPENSION 30 ML CUP PO PRN (20:02)
[2017-03-17] MEDS ORDERED: LOPERAMIDE HCL 2 MG CAPSULE PO PRN (20:02)
[2017-03-17] MEDS ORDERED: diphenhydrAMINE HCL 50 MG CAPSULE PO PRN (20:02)
[2017-03-17] MEDS ORDERED: ALBUTEROL SO4 6.7 GM HFA INHALER IH PRN (20:08)
[2017-03-17] MEDS ORDERED: GABAPENTIN 300 MG CAPSULE (FP) PO SCH (22:00)
[2017-03-17] MEDS: CYCLOBENZAPRINE HCL 10 MG TABLET (FP) PO PRN (22:47)
[2017-03-17] MEDS: cloNIDine HCL 0.1 MG TABLET PO SCH (22:47)
[2017-03-17] MEDS: THIAMINE HCL 100 MG TABLET (FP) PO SCH (22:48)
[2017-03-17 23:31] LABS: URINE APPEARANCE CLOUDY; URINE BILIRUBIN NEGATIVE (NEGATIVE); URINE COLOR YELLOW; URINE GLUCOSE (UA) NEGATIVE (NEGATIVE); URINE KETONE NEGATIVE (NEGATIVE); URINE NITRITE POSITIVE (NEGATIVE); URINE UROBILINOGEN NEGATIVE E.U./dl (0.2-1.0)
[2017-03-17 23:36] LABS: URINE BLOOD 1+ (NEGATIVE); URINE LEUK ESTERASE 3+ (NEGATIVE); URINE PROTEIN 1+ (NEGATIVE)
[2017-03-17 23:41] LABS: URINE MUCUS RARE; URINE RBC 90 /hpf (0-3); URINE WBC 840 /hpf (3-5); YEAST FEW
[2017-03-17] MEDS: chlordiazePOXIDE HCL 25 MG CAPSULE PO SCH (23:49)
[2017-03-17] MEDS: EFAVIRENZ 600 MG TABLET PO SCH (23:50)
[2017-03-17] MEDS: EMTRICITABINE 200MG/TENOFOVIR 300MG PO SCH (23:50)
[2017-03-17] MEDS: NICOTINE 21 MG/24 HOURS TOPICAL PATCH TD SCH (23:50)
[2017-03-18] MEDS: chlordiazePOXIDE HCL 25 MG CAPSULE PO SCH ×4 (05:52→22:23)
--- NOTE | 2017-03-18 09:13 | CONSULT ---
[facility] Psychiatric Consult - Data Date of interview: 03/18/17 Admission source: [facility] Identifying data: This is 56 years old female with no psychiatric hospitalization history intoxicated with: Cocaine, Nicotine, MDMA, Opioids Substance Abuse History: - Smoking Cessation. Smoking history: Current every day smoker. Have you smoked in the past 12 months: Yes. Aproximately how many cigarettes per day: 15. Hx Chewing Tobacco Use: No. Initiated information on smoking cessation: Yes. 'Breaking Loose' booklet given: 03/17/17. - Substance & Tx. History. Hx Alcohol Use: Yes. Hx Substance Use: Yes. Substance Use Type : Alcohol, Cocaine, Heroin, Marijuana. Hx Substance Use Treatment: Yes ([facility] TO 02/02/17). - Substances Abused. Heroin. Route: Inhalation. Frequency: Daily. Amount used: 4 bundles. Age of first use: 14. Date of Last Use: 03/17/17. Crack. Route: Inhalation. Frequency: Daily. Amount used: $ 40. Age of first use: 18. Date of Last Use: 03/17/17 Medical History: Weight loss, AIDS, Asthma, Psychiatric History: Patient reprots history of depression, Bipolar disorder type 2, reports taking prior to admision: Trazodone 100mg po qhs. Gabapentin 300mg po tid Physical/Sexual Abuse/Trauma History: Denies Additional Comment: Trazodone 100mg po qhs. Gabapentin 300mg po tid Mental Status Exam - Mental Status Exam Alert and Oriented to: Person Cognitive Function: Fair Patient Appearance: Unkempt Mood: Sad Affect: Flat Patient Behavior: Sedated Speech Pattern: Delayed Voice Loudness: Mildly Soft/Quiet Thought Process: Goal Oriented Thought Disorder: Being Controlled Hallucinations: Denies Suicidal Ideation: Denies Homicidal Ideation: Denies Insight/Judgement: Fair Sleep: Difficulty falling asleep Appetite: Weight loss Muscle strength/Tone: Normal Gait/Station: Normal Additional Comments: Trazodone 100mg po qhs. Gabapentin 300mg po tid Psychiatric Findings - Problem List ([place] 1, 2,3) (1) Bipolar disorder Current Visit: Yes Status: Acute (2) Neuropathy Current Visit: Yes Status: Acute (3) Weight loss Current Visit: Yes Status: Acute (4) Cannabis dependence, uncomplicated Current Visit: Yes Status: Chronic (5) Cocaine dependence Current Visit: Yes Status: Chronic (6) Alcohol abuse Current Visit: No Status: Acute (7) MDMA abuse Current Visit: No Status: Acute (8) Opiate addiction Current Visit: No Status: Acute (9) PCP abuse Current Visit: No Status: Acute (10) Alcohol dependence Current Visit: No Status: Chronic (11) Alcohol dependence with uncomplicated withdrawal Current Visit: No Status: Chronic (12) Cocaine abuse Current Visit: No Status: Chronic (13) Cocaine dependence, uncomplicated Current Visit: No Status: Chronic (14) Depressive Disorder NOS Current Visit: No Status: Chronic (15) Nicotine dependence Current Visit: No Status: Chronic Qualifiers: Nicotine product type: cigarettes Substance use status: uncomplicated Qualified Code(s): F17.210 - Nicotine dependence, cigarettes, uncomplicated (16) Opioid dependence Current Visit: No Status: Chronic (17) Opioid dependence with withdrawal Current Visit: No Status: Chronic (18) Substance induced mood disorder Current Visit: No Status: Chronic (19) Substance-induced sleep disorder Current Visit: No Status: Chronic - Initial Treatment Plan Initial Treatment Plan: Trazodone 100mg po qhs. Gabapentin 300mg po tid
[2017-03-18] MEDS ORDERED: METHADONE HCL 10 MG TABLET (FOR DETOX USE ONLY) PO SCH (10:00)
[2017-03-18] MEDS: cloNIDine HCL 0.1 MG TABLET PO SCH ×2 (10:33→22:23)
[2017-03-18] MEDS: SULFAMETHOXAZOLE/TRIMETHOPRIM 800MG/160MG D.S. TABLET PO SCH (10:33)
[2017-03-18] MEDS: PRENATAL VITAMINS W/ FOLIC ACID TABLET (FP) PO SCH (10:33)
--- NOTE | 2017-03-18 10:34 | EKG ---
Test Reason : Blood Pressure : / mmHG Vent. Rate : 060 BPM Atrial Rate : 060 BPM P-R Int : 134 ms QRS Dur : 088 ms QT Int : 406 ms P-R-T Axes : 072 075 075 degrees QTc Int : 406 ms NORMAL SINUS RHYTHM VOLTAGE CRITERIA FOR LEFT VENTRICULAR HYPERTROPHY ST ELEVATION, CONSIDER EARLY REPOLARIZATION, PERICARDITIS, OR INJURY ABNORMAL ECG WHEN COMPARED WITH ECG OF 29-JAN-2017 22:14, NO SIGNIFICANT CHANGE WAS FOUND Confirmed by BASILIA NAVARRO MD ([id number]) on 03/18/2017 10:34:01 AM Referred By: Confirmed By:BASILIA NAVARRO MD
[2017-03-18 11:00] LABS: MCH 25.6 pg (25.7-33.7); MEAN CELL VOLUME 77.6 fl (80-96); PLATELET COUNT 127 K/MM3 (134-434); RDW 15.6 % (11.6-15.6); WHITE BLOOD COUNT 3.1 K/mm3 (4.0-10.0)
[2017-03-18 11:14] LABS: ALBUMIN 3.5 g/dl (3.4-5.0); ALK PHOS 69 U/L (45-117); ANION GAP 7 (8-16); BILIRUBIN,TOTAL 0.4 mg/dL (0.2-1.0); CALCIUM 8.9 mg/dL (8.5-10.1); CO2 30 mmol/L (21-32); COCKROFT - GAULT 57.5705; CREATININE 0.9 mg/dL (0.55-1.02); GLUCOSE,RANDOM 120 mg/dL (74-106); SGOT/AST 14 U/L (15-37); SGPT/ALT 18 U/L (12-78); TOT PROT 6.9 g/dl (6.4-8.2)
[2017-03-18] MEDS: NICOTINE 21 MG/24 HOURS TOPICAL PATCH TD SCH (11:24)
--- NOTE | 2017-03-18 12:07 | PN ---
S CIWA - CIWA Score Nausea/Vomitin Muscle Tremors: 2 Anxiety: 3 Agitation: 2 Paroxysmal Sweats: 3 Orientation: 0-Oriented Tacttile Disturbances: 1-Very Mild Itch/Numbness Auditory Disturbances: 0-None Visual Disturbances: 0-None Headache: 0-None Present CIWA-Ar Total Score: 14 BHS COWS - Scale Resting Pulse: 0= IN 80 or Below Sweatin= Chills/Flushing Restless Observation: 1= Difficult to Sit Still Pupil Size: 1= Pupils >than Normal Bone or Joint Aches: 1= Mild Discomfort Runny Nose/ Eye Tearin= Nasal Congestion GI Upset > 30mins: 1= Stomach Cramp Tremor Observation of Outstretched Hands: 1= Tremor [place], Not Seen Yawning Observation: 0= None Anxiety or Irritability: 2=Irritable/Anxious Goose Flesh Skin: 0=Smooth Skin COWS Score: 9 BHS Progress Note (SOAP) Subjective: interrupted sleep, sweats Objective: 03/18/17 12:04 Vital Signs Temperature 97.7 F 03/18/17 06:00 Pulse Rate 63 03/18/17 06:00 Respiratory Rate 16 03/18/17 06:00 Blood Pressure 99/55 03/18/17 06:00 O2 Sat by Pulse Oximetry (%) Laboratory Tests 03/17/17 03/18/17 03/18/17 22:06 07:00 07:00 WBC 3.1 L RBC 4.61 Hgb 11.8 Hct 35.8 MCV 77.6 L MCHC 33.0 RDW 15.6 Plt Count 127 L MPV 9.0 Sodium 143 Potassium 4.1 Chloride 106 Carbon Dioxide 30 Anion Gap 7 L BUN 16 D Creatinine 0.9 Creat Clearance w eGFR > 60 Random Glucose 120 H D Calcium 8.9 Total Bilirubin 0.4 D AST 14 L ALT 18 D Alkaline Phosphatase 69 Total Protein 6.9 Albumin 3.5 Urine Color Yellow Urine Appearance Cloudy Urine pH 6.0 Ur Specific [place] 1.021 Urine Protein 1+ H Urine Glucose (UA) Negative Urine Ketones Negative Urine Blood 1+ H Urine Nitrite Positive Urine Bilirubin Negative Urine Urobilinogen Negative Ur Leukocyte Esterase 3+ H Urine RBC 90 Urine WBC 840 Ur Epithelial Cells Rare Urine Mucus Rare Urine Yeast Few pt aox3 in nad ambulating 04/09/17 10:51 Assessment: 03/18/17 12:06 withdrawal sx's abn.u/a 04/09/17 10:52 Plan: cont. detox increase fluids
[2017-03-18] MEDS: GABAPENTIN 300 MG CAPSULE (FP) PO SCH ×2 (14:27→22:22)
[2017-03-18] MEDS: CYCLOBENZAPRINE HCL 10 MG TABLET (FP) PO PRN (22:22)
[2017-03-18] MEDS: traZODone HCL 100 MG TABLET (FP) PO SCH (22:22)
[2017-03-18] MEDS: THIAMINE HCL 100 MG TABLET (FP) PO SCH (22:22)
[2017-03-18] MEDS: EMTRICITABINE 200MG/TENOFOVIR 300MG PO SCH (22:23)
[2017-03-18] MEDS: EFAVIRENZ 600 MG TABLET PO SCH (22:23)
[2017-03-19] MEDS: GABAPENTIN 300 MG CAPSULE (FP) PO SCH ×3 (07:47→23:32)
[2017-03-19] MEDS: chlordiazePOXIDE HCL 25 MG CAPSULE PO SCH ×3 (08:04→18:29)
[2017-03-19] MEDS: PRENATAL VITAMINS W/ FOLIC ACID TABLET (FP) PO SCH (11:24)
[2017-03-19] MEDS: METHADONE HCL 5 MG TABLET (FOR DETOX USE ONLY) PO SCH (11:25)
[2017-03-19] MEDS: cloNIDine HCL 0.1 MG TABLET PO SCH ×2 (11:26→22:58)
[2017-03-19] MEDS: SULFAMETHOXAZOLE/TRIMETHOPRIM 800MG/160MG D.S. TABLET PO SCH (11:26)
--- NOTE | 2017-03-19 11:58 | PN ---
S CIWA - CIWA Score Nausea/Vomitin Muscle Tremors: 2 Anxiety: 3 Agitation: 2 Paroxysmal Sweats: 3 Orientation: 0-Oriented Tacttile Disturbances: 1-Very Mild Itch/Numbness Auditory Disturbances: 0-None Visual Disturbances: 0-None Headache: 0-None Present CIWA-Ar Total Score: 13 BHS COWS - Scale Resting Pulse: 0= [place] 80 or Below Sweatin= Chills/Flushing Restless Observation: 1= Difficult to Sit Still Pupil Size: 1= Pupils >than Normal Bone or Joint Aches: 1= Mild Discomfort Runny Nose/ Eye Tearin= Nasal Congestion GI Upset > 30mins: 1= Stomach Cramp Tremor Observation of Outstretched Hands: 1= Tremor [place], Not Seen Yawning Observation: 1= 1-2x During Session Anxiety or Irritability: 1=Feels Anxious/Irritable Goose Flesh Skin: 0=Smooth Skin COWS Score: 9 S Progress Note (SOAP) Subjective: feelig ok some interrupted sleep Objective: 03/19/17 11:58 Vital Signs Temperature 97.3 F L 03/19/17 10:03 Pulse Rate 67 03/19/17 10:03 Respiratory Rate 20 03/19/17 10:03 Blood Pressure 94/58 03/19/17 10:03 O2 Sat by Pulse Oximetry (%) Laboratory Tests 03/17/17 03/18/17 03/18/17 22:06 07:00 07:00 WBC 3.1 L RBC 4.61 Hgb 11.8 Hct 35.8 MCV 77.6 L MCHC 33.0 RDW 15.6 Plt Count 127 L MPV 9.0 Sodium 143 Potassium 4.1 Chloride 106 Carbon Dioxide 30 Anion Gap 7 L BUN 16 D Creatinine 0.9 Creat Clearance w eGFR > 60 Random Glucose 120 H D Calcium 8.9 Total Bilirubin 0.4 D AST 14 L ALT 18 D Alkaline Phosphatase 69 Total Protein 6.9 Albumin 3.5 Urine Color Yellow Urine Appearance Cloudy Urine pH 6.0 Ur Specific [place] 1.021 Urine Protein 1+ H Urine Glucose (UA) Negative Urine Ketones Negative Urine Blood 1+ H Urine Nitrite Positive Urine Bilirubin Negative Urine Urobilinogen Negative Ur Leukocyte Esterase 3+ H Urine RBC 90 Urine WBC 840 Ur Epithelial Cells Rare Urine Mucus Rare Urine Yeast Few RPR Titer 03/18/17 07:00 WBC RBC Hgb Hct MCV MCHC RDW Plt Count MPV Sodium Potassium Chloride Carbon Dioxide Anion Gap BUN Creatinine Creat Clearance w eGFR Random Glucose Calcium Total Bilirubin AST ALT Alkaline Phosphatase Total Protein Albumin Urine Color Urine Appearance Urine pH Ur Specific [place] Urine Protein Urine Glucose (UA) Urine Ketones Urine Blood Urine Nitrite Urine Bilirubin Urine Urobilinogen Ur Leukocyte Esterase Urine RBC Urine WBC Ur Epithelial Cells Urine Mucus Urine Yeast RPR Titer Nonreactive 04/09/17 10:48 pt aox3 in nad ambulating Assessment: 03/19/17 11:58 withdrawal sx's abn. u/a 04/09/17 10:49 Plan: cont. detox increase fluids f/up u/cx
[2017-03-19] MEDS: NICOTINE 21 MG/24 HOURS TOPICAL PATCH TD SCH (12:36)
[2017-03-19] MEDS: EFAVIRENZ 600 MG TABLET PO SCH (23:09)
[2017-03-19] MEDS: EMTRICITABINE 200MG/TENOFOVIR 300MG PO SCH (23:11)
[2017-03-19] MEDS: THIAMINE HCL 100 MG TABLET (FP) PO SCH (23:11)
[2017-03-19] MEDS: CYCLOBENZAPRINE HCL 10 MG TABLET (FP) PO PRN (23:12)
[2017-03-19] MEDS: traZODone HCL 100 MG TABLET (FP) PO SCH (23:31)
[2017-03-19] MEDS: chlordiazePOXIDE 5 MG CAPSULE PO SCH (23:32)
[2017-03-20 01:32] LABS: URINE APPEARANCE CLOUDY; URINE BILIRUBIN NEGATIVE (NEGATIVE); URINE BLOOD NEGATIVE (NEGATIVE); URINE COLOR YELLOW; URINE GLUCOSE (UA) NEGATIVE (NEGATIVE); URINE KETONE NEGATIVE (NEGATIVE); URINE NITRITE POSITIVE (NEGATIVE); URINE PROTEIN NEGATIVE (NEGATIVE); URINE UROBILINOGEN NEGATIVE E.U./dl (0.2-1.0)
[2017-03-20 01:39] LABS: URINE LEUK ESTERASE 3+ (NEGATIVE)
[2017-03-20 01:46] LABS: URINE MUCUS RARE; URINE RBC 15 /hpf (0-3); URINE WBC 568 /hpf (3-5)
[2017-03-20] MEDS: chlordiazePOXIDE 5 MG CAPSULE PO SCH ×3 (05:56→17:22)
[2017-03-20] MEDS: GABAPENTIN 300 MG CAPSULE (FP) PO SCH ×3 (05:56→23:05)
[2017-03-20] MEDS: PRENATAL VITAMINS W/ FOLIC ACID TABLET (FP) PO SCH (11:27)
[2017-03-20] MEDS: SULFAMETHOXAZOLE/TRIMETHOPRIM 800MG/160MG D.S. TABLET PO SCH (11:28)
[2017-03-20] MEDS: cloNIDine HCL 0.1 MG TABLET PO SCH ×2 (11:28→23:05)
[2017-03-20] MEDS: METHADONE HCL 5 MG TABLET (FOR DETOX USE ONLY) PO SCH (11:28)
[2017-03-20] MEDS: NICOTINE 21 MG/24 HOURS TOPICAL PATCH TD SCH (11:28)
--- NOTE | 2017-03-20 14:13 | PN ---
BHS Progress Note (SOAP) Subjective: Sweating, Tremors. Objective: PT. A & O X 2 (DISORIENTED ABOUT DAY /DATE). 03/20/17 14:09 Vital Signs Temperature 98.1 F 03/20/17 14:02 Pulse Rate 78 03/20/17 14:02 Respiratory Rate 16 03/20/17 14:02 Blood Pressure 105/65 03/20/17 14:02 O2 Sat by Pulse Oximetry (%) Laboratory Last Values WBC 3.1 K/mm3 (4.0-10.0) L 03/18/17 07:00 RBC 4.61 M/mm3 (3.60-5.2) 03/18/17 07:00 Hgb 11.8 GM/dL (10.7-15.3) 03/18/17 07:00 Hct 35.8 % (32.4-45.2) 03/18/17 07:00 MCV 77.6 fl (80-96) L 03/18/17 07:00 MCHC 33.0 g/dl (32.0-36.0) 03/18/17 07:00 RDW 15.6 % (11.6-15.6) 03/18/17 07:00 Plt Count 127 K/MM3 (134-434) L 03/18/17 07:00 MPV 9.0 fl (7.5-11.1) 03/18/17 07:00 Sodium 143 mmol/L (136-145) 03/18/17 07:00 Potassium 4.1 mmol/L (3.5-5.1) 03/18/17 07:00 Chloride 106 mmol/L (98-107) 03/18/17 07:00 Carbon Dioxide 30 mmol/L (21-32) 03/18/17 07:00 Anion Gap 7 (8-16) L 03/18/17 07:00 BUN 16 mg/dL (7-18) D 03/18/17 07:00 Creatinine 0.9 mg/dL (0.55-1.02) 03/18/17 07:00 Creat Clearance w eGFR > 60 (>60) 03/18/17 07:00 Random Glucose 120 mg/dL (74-106) H D 03/18/17 07:00 Calcium 8.9 mg/dL (8.5-10.1) 03/18/17 07:00 Total Bilirubin 0.4 mg/dL (0.2-1.0) D 03/18/17 07:00 AST 14 U/L (15-37) L 03/18/17 07:00 ALT 18 U/L (12-78) D 03/18/17 07:00 Alkaline Phosphatase 69 U/L (45-117) 03/18/17 07:00 Total Protein 6.9 g/dl (6.4-8.2) 03/18/17 07:00 Albumin 3.5 g/dl (3.4-5.0) 03/18/17 07:00 Urine Color Yellow 03/19/17 22:00 Urine Appearance Cloudy 03/19/17 22:00 Urine pH 5.0 (5.0-8.0) 03/19/17 22:00 Ur Specific [place] 1.015 (1.001-1.035) 03/19/17 22:00 Urine Protein Negative (NEGATIVE) 03/19/17 22:00 Urine Glucose (UA) Negative (NEGATIVE) 03/19/17 22:00 Urine Ketones Negative (NEGATIVE) 03/19/17 22:00 Urine Blood Negative (NEGATIVE) 03/19/17 22:00 Urine Nitrite Positive (NEGATIVE) 03/19/17 22:00 Urine Bilirubin Negative (NEGATIVE) 03/19/17 22:00 Urine Urobilinogen Negative E.U./dl (0.2-1.0) 03/19/17 22:00 Ur Leukocyte Esterase 3+ (NEGATIVE) H 03/19/17 22:00 Urine RBC 15 /hpf (0-3) 03/19/17 22:00 Urine WBC 568 /hpf (3-5) 03/19/17 22:00 Ur Epithelial Cells Few /hpf (FEW) 03/19/17 22:00 Urine Mucus Rare 03/19/17 22:00 Urine Yeast Few 03/17/17 22:06 RPR Titer Nonreactive (NONREACTIVE) 03/18/17 07:00 LABS NOTED. Assessment: 03/20/17 14:11 WITHDRAWAL SYMPTOMS. Plan: CONTINUE DETOX. ADVISED PATIENT TO FOLLOW-UP WITH [facility] / REHAB MEDICAL PROVIDER AFTER DISCHARGE FROM DETOX FOR GENERAL MEDICAL ASSESSMENT AND FOR ABNORMAL ADMISSION LAB VALUES.
[2017-03-20] MEDS: traZODone HCL 100 MG TABLET (FP) PO SCH (23:04)
[2017-03-20] MEDS: THIAMINE HCL 100 MG TABLET (FP) PO SCH (23:04)
[2017-03-20] MEDS: chlordiazePOXIDE HCL 10 MG CAPSULE PO SCH (23:04)
[2017-03-20] MEDS: EFAVIRENZ 600 MG TABLET PO SCH (23:08)
[2017-03-20] MEDS: EMTRICITABINE 200MG/TENOFOVIR 300MG PO SCH (23:09)
[2017-03-21] MEDS: GABAPENTIN 300 MG CAPSULE (FP) PO SCH ×3 (07:36→23:12)
[2017-03-21] MEDS: chlordiazePOXIDE HCL 10 MG CAPSULE PO SCH ×3 (07:36→17:47)
[2017-03-21] MEDS ORDERED: METHADONE HCL 10 MG TABLET (FOR DETOX USE ONLY) PO SCH (10:00)
[2017-03-21] MEDS: SULFAMETHOXAZOLE/TRIMETHOPRIM 800MG/160MG D.S. TABLET PO SCH (11:03)
[2017-03-21] MEDS: PRENATAL VITAMINS W/ FOLIC ACID TABLET (FP) PO SCH (11:03)
[2017-03-21] MEDS: NICOTINE 21 MG/24 HOURS TOPICAL PATCH TD SCH (11:05)
[2017-03-21] MEDS: cloNIDine HCL 0.1 MG TABLET PO SCH ×2 (11:06→23:15)
[2017-03-21] MEDS: CYCLOBENZAPRINE HCL 10 MG TABLET (FP) PO PRN (14:22)
--- NOTE | 2017-03-21 19:37 | PN ---
S Progress Note (SOAP) Subjective: Sweating only Detox symptom reported by pt. today. Objective: PT. A & O X 1 (DISORIENTED ABOUT DAY / DATE). PT. OBSERVED AMBULATING ON UNIT. 03/21/17 19:32 Vital Signs Temperature 99.0 F 03/21/17 14:41 Pulse Rate 80 03/21/17 14:41 Respiratory Rate 16 03/21/17 14:41 Blood Pressure 100/51 03/21/17 14:41 O2 Sat by Pulse Oximetry (%) Laboratory Last Values WBC 3.1 K/mm3 (4.0-10.0) L 03/18/17 07:00 RBC 4.61 M/mm3 (3.60-5.2) 03/18/17 07:00 Hgb 11.8 GM/dL (10.7-15.3) 03/18/17 07:00 Hct 35.8 % (32.4-45.2) 03/18/17 07:00 MCV 77.6 fl (80-96) L 03/18/17 07:00 MCHC 33.0 g/dl (32.0-36.0) 03/18/17 07:00 RDW 15.6 % (11.6-15.6) 03/18/17 07:00 Plt Count 127 K/MM3 (134-434) L 03/18/17 07:00 MPV 9.0 fl (7.5-11.1) 03/18/17 07:00 Sodium 143 mmol/L (136-145) 03/18/17 07:00 Potassium 4.1 mmol/L (3.5-5.1) 03/18/17 07:00 Chloride 106 mmol/L (98-107) 03/18/17 07:00 Carbon Dioxide 30 mmol/L (21-32) 03/18/17 07:00 Anion Gap 7 (8-16) L 03/18/17 07:00 BUN 16 mg/dL (7-18) D 03/18/17 07:00 Creatinine 0.9 mg/dL (0.55-1.02) 03/18/17 07:00 Creat Clearance w eGFR > 60 (>60) 03/18/17 07:00 Random Glucose 120 mg/dL (74-106) H D 03/18/17 07:00 Calcium 8.9 mg/dL (8.5-10.1) 03/18/17 07:00 Total Bilirubin 0.4 mg/dL (0.2-1.0) D 03/18/17 07:00 AST 14 U/L (15-37) L 03/18/17 07:00 ALT 18 U/L (12-78) D 03/18/17 07:00 Alkaline Phosphatase 69 U/L (45-117) 03/18/17 07:00 Total Protein 6.9 g/dl (6.4-8.2) 03/18/17 07:00 Albumin 3.5 g/dl (3.4-5.0) 03/18/17 07:00 Urine Color Yellow 03/19/17 22:00 Urine Appearance Cloudy 03/19/17 22:00 Urine pH 5.0 (5.0-8.0) 03/19/17 22:00 Ur Specific [place] 1.015 (1.001-1.035) 03/19/17 22:00 Urine Protein Negative (NEGATIVE) 03/19/17 22:00 Urine Glucose (UA) Negative (NEGATIVE) 03/19/17 22:00 Urine Ketones Negative (NEGATIVE) 03/19/17 22:00 Urine Blood Negative (NEGATIVE) 03/19/17 22:00 Urine Nitrite Positive (NEGATIVE) 03/19/17 22:00 Urine Bilirubin Negative (NEGATIVE) 03/19/17 22:00 Urine Urobilinogen Negative E.U./dl (0.2-1.0) 03/19/17 22:00 Ur Leukocyte Esterase 3+ (NEGATIVE) H 03/19/17 22:00 Urine RBC 15 /hpf (0-3) 03/19/17 22:00 Urine WBC 568 /hpf (3-5) 03/19/17 22:00 Ur Epithelial Cells Few /hpf (FEW) 03/19/17 22:00 Urine Mucus Rare 03/19/17 22:00 Urine Yeast Few 03/17/17 22:06 RPR Titer Nonreactive (NONREACTIVE) 03/18/17 07:00 LABS NOTED. URINE CULTURE REPORT FROM 03/19/2017 NOTED. Assessment: 03/21/17 19:34 WITHDRAWAL SYMPTOMS. Plan: CONTINUE DETOX. AUGMENTIN, 875 MG PO BID ORDERED. PT. ADVISED TO COMPLETE REMAINDER OF COURSE OF AUGMENTIN AFTER DISCHARGE FROM DETOX. ADVISED PATIENT TO FOLLOW-UP WITH HEALTH INFORMATION MANAGER / REHAB MEDICAL PROVIDER AFTER DISCHARGE FROM DETOX FOR GENERAL MEDICAL ASSESSMENT AND FOR ABNORMAL ADMISSION LAB VALUES AND FOR FURTHER EVALUATION OF URINE CULTURE RESULT.
[2017-03-21] MEDS: EMTRICITABINE 200MG/TENOFOVIR 300MG PO SCH (23:12)
[2017-03-21] MEDS: EFAVIRENZ 600 MG TABLET PO SCH (23:12)
[2017-03-21] MEDS: traZODone HCL 100 MG TABLET (FP) PO SCH (23:12)
[2017-03-21] MEDS: THIAMINE HCL 100 MG TABLET (FP) PO SCH (23:12)
[2017-03-22] MEDS ORDERED: METHADONE HCL 5 MG TABLET (FOR DETOX USE ONLY) PO SCH (06:00)
[2017-03-22] MEDS ORDERED: AMOX TR/POT CLAV 875MG/125MG TABLETS (FP) PO SCH (08:00)
[2017-03-22] MEDS: GABAPENTIN 300 MG CAPSULE (FP) PO SCH (08:11)
--- NOTE | 2017-03-22 10:34 | DS ---
[facility] Detox Discharge Summary Admission Date: 03/17/17 Discharge Date: 03/22/17 - History Present History: Alcohol Dependence, Cannabis Dependence Pertinent Past History: AIDS Asthma - Physical Exam Results Vital Signs: Vital Signs Temperature 96.8 F L 03/22/17 06:00 Pulse Rate 68 03/22/17 06:00 Respiratory Rate 18 03/22/17 06:00 Blood Pressure 90/58 03/22/17 06:00 O2 Sat by Pulse Oximetry (%) Pertinent Admission Physical Exam Findings: Withdrawal sx. Laboratory Last Values WBC 3.1 K/mm3 (4.0-10.0) L 03/18/17 07:00 RBC 4.61 M/mm3 (3.60-5.2) 03/18/17 07:00 Hgb 11.8 GM/dL (10.7-15.3) 03/18/17 07:00 Hct 35.8 % (32.4-45.2) 03/18/17 07:00 MCV 77.6 fl (80-96) L 03/18/17 07:00 MCHC 33.0 g/dl (32.0-36.0) 03/18/17 07:00 RDW 15.6 % (11.6-15.6) 03/18/17 07:00 Plt Count 127 K/MM3 (134-434) L 03/18/17 07:00 MPV 9.0 fl (7.5-11.1) 03/18/17 07:00 Sodium 143 mmol/L (136-145) 03/18/17 07:00 Potassium 4.1 mmol/L (3.5-5.1) 03/18/17 07:00 Chloride 106 mmol/L (98-107) 03/18/17 07:00 Carbon Dioxide 30 mmol/L (21-32) 03/18/17 07:00 Anion Gap 7 (8-16) L 03/18/17 07:00 BUN 16 mg/dL (7-18) D 03/18/17 07:00 Creatinine 0.9 mg/dL (0.55-1.02) 03/18/17 07:00 Creat Clearance w eGFR > 60 (>60) 03/18/17 07:00 Random Glucose 120 mg/dL (74-106) H D 03/18/17 07:00 Calcium 8.9 mg/dL (8.5-10.1) 03/18/17 07:00 Total Bilirubin 0.4 mg/dL (0.2-1.0) D 03/18/17 07:00 AST 14 U/L (15-37) L 03/18/17 07:00 ALT 18 U/L (12-78) D 03/18/17 07:00 Alkaline Phosphatase 69 U/L (45-117) 03/18/17 07:00 Total Protein 6.9 g/dl (6.4-8.2) 03/18/17 07:00 Albumin 3.5 g/dl (3.4-5.0) 03/18/17 07:00 Urine Color Yellow 03/19/17 22:00 Urine Appearance Cloudy 03/19/17 22:00 Urine pH 5.0 (5.0-8.0) 03/19/17 22:00 Ur Specific [place] 1.015 (1.001-1.035) 03/19/17 22:00 Urine Protein Negative (NEGATIVE) 03/19/17 22:00 Urine Glucose (UA) Negative (NEGATIVE) 03/19/17 22:00 Urine Ketones Negative (NEGATIVE) 03/19/17 22:00 Urine Blood Negative (NEGATIVE) 03/19/17 22:00 Urine Nitrite Positive (NEGATIVE) 03/19/17 22:00 Urine Bilirubin Negative (NEGATIVE) 03/19/17 22:00 Urine Urobilinogen Negative E.U./dl (0.2-1.0) 03/19/17 22:00 Ur Leukocyte Esterase 3+ (NEGATIVE) H 03/19/17 22:00 Urine RBC 15 /hpf (0-3) 03/19/17 22:00 Urine WBC 568 /hpf (3-5) 03/19/17 22:00 Ur Epithelial Cells Few /hpf (FEW) 03/19/17 22:00 Urine Mucus Rare 03/19/17 22:00 Urine Yeast Few 03/17/17 22:06 RPR Titer Nonreactive (NONREACTIVE) 03/18/17 07:00 Microbiology 03/19/17 22:00 Urine Culture - Final Urine - Urine Clean Catch Escherichia Coli labs noted,well give nitrofurantoin 50mg q6h for 7 days - Treatment Hospital Course: Detox Protocol Followed, Detoxed Safely, Responded well, Discharged Condition Good, Rehab Referral Accepted Patient has Accepted a Rehab Referral to: [facility] - Medication Discharge Medications: Ambulatory Orders Trazodone HCl [Desyrel -] 100 mg PO HS #30 tablet 07/30/15 Gabapentin [Neurontin -] 300 mg PO BID #60 capsule 08/02/15 Clonidine HCl [Catapres] 0.1 mg PO DAILY 01/29/17 Albuterol Sulfate Inhaler - [Ventolin HFA Inhaler -] 2 inh PO Q4H PRN #1 inhaler 02/02/17 Efavirenz/Emtricitab/Tenofovir [Atripla Tablet -] 1 tab PO DAILY #30 tab Sulfamethoxazole/Trimethoprim [Bactrim DS -] 1 each PO BID #14 tablet 02/02/17 Gabapentin [Neurontin -] 300 mg PO TID #90 cap 03/18/17 Trazodone HCl [Desyrel -] 100 mg PO HS #30 tablet 03/18/17 Nitrofurantoin Macrocrystal [Macrodantin -] 50 mg PO Q6HPO #28 mg 03/22/17 - Diagnosis (1) Cannabis dependence, uncomplicated Current Visit: Yes Status: Chronic (2) Cocaine dependence Current Visit: Yes Status: Chronic Qualifiers: Substance use status: uncomplicated Qualified Code(s): F14.20 - Cocaine dependence, uncomplicated (3) AIDS Current Visit: Yes Status: Chronic (4) Alcohol dependence with uncomplicated withdrawal Current Visit: Yes Status: Chronic (5) Asthma Current Visit: Yes Status: Chronic Qualifiers: Asthma severity: mild intermittent Asthma complication type: uncomplicated Qualified Code(s): J45.20 - Mild intermittent asthma, uncomplicated (6) Nicotine dependence Current Visit: Yes Status: Chronic Qualifiers: Nicotine product type: cigarettes Substance use status: uncomplicated Qualified Code(s): F17.210 - Nicotine dependence, cigarettes, uncomplicated (7) Opioid dependence with withdrawal Current Visit: Yes Status: Chronic (8) Bipolar disorder Current Visit: Yes Status: Acute (9) Neuropathy Current Visit: Yes Status: Acute (10) Depressive Disorder NOS Current Visit: Yes Status: Chronic (11) Substance induced mood disorder Current Visit: Yes Status: Chronic (12) Substance-induced sleep disorder Current Visit: Yes Status: Chronic - AMA Did Patient Leave Against Medical Advice: No
[2017-03-22 10:56] VITALS: BP 113/72; PULSE 59; TEMP 98.4
[2017-03-22] MEDS ORDERED: NITROFURANTOIN MACROCRYSTAL 50 MG CAPSULE (FP) PO SCH (12:00)
[2017-03-22] MEDS: SULFAMETHOXAZOLE/TRIMETHOPRIM 800MG/160MG D.S. TABLET PO SCH (12:18)
[2017-03-22] MEDS: cloNIDine HCL 0.1 MG TABLET PO SCH (12:18)
[2017-03-22] MEDS: NICOTINE 21 MG/24 HOURS TOPICAL PATCH TD SCH (12:19)
[2017-03-22] MEDS: PRENATAL VITAMINS W/ FOLIC ACID TABLET (FP) PO SCH (12:19)
== END 2017-03-22 10:26 | disposition home or self-care (01) | DRG 773 ==
LOC: YASAS 15:56 → Y6N 19:22
PROVIDERS: ADMIT Internal Medicine Addiction Medicine; ATTEND Internal Medicine Addiction Medicine
PROC: HZ2ZZZZ Detoxification Services for Substance Abuse Treatment (ICD-10-PCS; principal; 2017-03-17)
DX: F11.23 Opioid dependence with withdrawal (principal); F10.230 Alcohol dependence with withdrawal, uncomplicated; F14.20 Cocaine dependence, uncomplicated; F12.20 Cannabis dependence, uncomplicated; F17.210 Nicotine dependence, cigarettes, uncomplicated; F31.9 Bipolar disorder, unspecified; F32.9 Major depressive disorder, single episode, unspecified; F19.24 Other psychoactive substance dependence with psychoactive substance-induced mood disorder; F19.282 Other psychoactive substance dependence with psychoactive substance-induced sleep disorder; I10 Essential (primary) hypertension; B20 Human immunodeficiency virus [HIV] disease; J45.20 Mild intermittent asthma, uncomplicated; G62.9 Polyneuropathy, unspecified; Z91.14 Patient's other noncompliance with medication regimen; Z87.898 Personal history of other specified conditions
CPT/HCPCS: 36415; 80053; 81003; 81015; 85027; 86593; 87086; 87186; 93005; 93010

== ENCOUNTER 2017-07-23 10:20 | Inpatient (IN) | payer OTHER ==
[2017-07-23 10:47] VITALS: BMI 18.1
--- NOTE | 2017-07-23 14:08 | HP ---
COWS - Scale Resting Pulse: 0= [place] 80 or Below Admission [facility] - HPI Chief Complaint: DETOX TX FOR HEROIN AND ALCOHOL DEPENDENCE. Allergies/Adverse Reactions: Allergies Allergy/AdvReac Type Severity Reaction Status Date / Time No Known Allergies Allergy Verified 07/23/17 12:14 History of Present Illness: 57 Y/O AA/FEMALE WITH A HX OF HEROIN, ALCOHOL, AND COCAINE DEPENDENCE NAD MARIJUANA US SEEKING DETOX TX. PT STATES WAS REFERRED TO DETOX FROM [address] BY HER MOLD [employer] [facility] [place]. PT IS ON DESCOVY 200/25 MG DAILY; NORVIR 100 MG PO DAILY; PREZISTA 800 MG DAILY. PT SAYS SHE HAS NOT BEEN TAKING IT BECAUSE OF UNPLEASANT SIDE EFFECTS AND SHE IS TO GO BACK TO HER PMD FOR GENOTYPE TESTING BEFORE STARTING ANOTHER ANTIRETROVIRAL DRUGS. Exam Limitations: No Limitations - Ebola screening Have you traveled outside of the country in the last 21 days: No Have you had contact with anyone from an Ebola affected area: No Have you been sick,other than usual withdrawal symptoms: No Do you have a fever: No - Review of Systems Constitutional: Chills, Loss of Appetite, Night Sweats, Changes in sleep, Unintentional Wgt. Loss EENT: reports: Blurred Vision (WEARS GLASSES), Tearing, Nose Congestion, Dental Problems (NO TEETH. UPPER DENTURE IN PLACE.) Respiratory: reports: Shortness of Breath (HX ASTHMA- ON MDI), Wheezing Cardiac: reports: Lightheadedness GI: reports: Constipated, Diarrhea, Nausea, Poor Appetite, Poor Fluid Intake, Vomiting : reports: Discharge (WHITISH) Musculoskeletal: reports: Back Pain, Joint Pain, Muscle Pain Integumentary: reports: No Symptoms Reported Neuro: reports: Headache, Numbness, Tingling, Tremors, Unsteady Gait, Dizziness Endocrine: reports: No Symptoms Reported Hematology: reports: Anemia Psychiatric: reports: Orientated x3, Anxious, Depressed Other Systems: Reviewed and Negative Patient History - Patient Medical History Hx Anemia: Yes (NO MEDS) Hx Asthma: Yes (MDI) Hx Chronic Obstructive Pulmonary Disease (COPD): No Hx Cancer: No Hx Cardiac Disorders: No Hx Congestive Heart Failure: No Hx Hypertension: Yes (ON/OFF) Hx Hypercholesterolemia: No Hx Pacemaker: No HX Cerebrovascular Accident: No Hx Seizures: No Hx Dementia: No Hx Diabetes: No Hx Gastrointestinal Disorders: No Hx Liver Disease: No Hx Genitourinary Disorders: No Hx Sexually Transmitted Disorders: No Hx Renal Disease (ESRD): No Hx Thyroid Disease: No Hx Human Immunodeficiency Virus (HIV): Yes (SINCE 1992;CURRENTLY ON PREZISTA, DESCOVEY & NORVIR BUT NONCOMPLIANT.) Hx Hepatitis C: No Hx Depression: Yes (ON MED) Hx Suicide Attempt: No Hx Bipolar Disorder: Yes (ON MED) Hx Schizophrenia: No Other Medical History: PT STATES WANTS TO GO BACK FOR GENOTYPE TEST BEFORE RESTARTING ARTV DRUGS - Patient Surgical History Past Surgical History: Yes Hx Neurologic Surgery: No Hx Cataract Extraction: No Hx Cardiac Surgery: No Hx Lung Surgery: No Hx Breast Surgery: No Hx Breast Biopsy: No Hx Abdominal Surgery: No Hx Appendectomy: No Hx Cholecystectomy: No Hx Genitourinary Surgery: No Hx Section: Yes (in 1992) Hx Orthopedic Surgery: No Other Surgical History: ectopic in 1986 Anesthesia Reaction: No - PPD History Previous Implant?: Yes Documented Results: Negative w/proof Implanted On Prior [facility] Admission?: Yes Date: 01/31/17 Results: 0 mm PPD to be Administered?: No - Reproductive History Patient is a Female of Child Bearing Age (11 -55 yrs old): Yes (POST MENOPAUSAL WOMAN) LMP comment: AT 48 YRS OLD Patient : No - Smoking Cessation Smoking history: Current every day smoker Have you smoked in the past 12 months: Yes Aproximately how many cigarettes per day: 10 Hx Chewing Tobacco Use: No Initiated information on smoking cessation: Yes 'Breaking Loose' booklet given: 07/23/17 - Substance & Tx. History Hx Alcohol Use: Yes (VODKA/BEER) Hx Substance Use: Yes (HEROIN/CRACK) Substance Use Type: Alcohol, Cocaine, Heroin Hx Substance Use Treatment: Yes (LAST [place] [facility]-DETOX) - Substances Abused Heroin Route: Inhalation Frequency: Daily Amount used: 7 bags Age of first use: 28 Date of Last Use: 07/22/17 Crack Route: Smoking Frequency: Daily Amount used: $100 Age of first use: 30 Date of Last Use: 07/22/17 Alcohol-vodka/beer Route: Oral Frequency: Daily Amount used: 3 pts./1-6 pk. Age of first use: 14 Date of Last Use: 07/23/17 Family Disease History - Family Disease History Family Disease History: CA: Father (FATHER WAS ADDICTED TO ETOH AND HAD CA. OF THE LUNGS AND ), Other: Father Admission Physical Exam [facility] - Vital Signs Vital Signs: Vital Signs - 24 hr 07/23/17 10:40 Temperature 97.7 F Pulse Rate 76 Respiratory 18 Rate Blood Pressure 113/75 - Physical General Appearance: Yes: Moderate Distress, Anxious HEENTM: Yes: Normocephalic, Normal Voice, YOKASTA, Pharynx Normal Respiratory: Yes: Chest Non-Tender, Lungs Clear, Normal Breath Sounds, No Respiratory Distress Neck: Yes: No masses,lesions,Nodules, Supple, Trachea in good position Breast: Yes: Breast Exam Deferred Cardiology: Yes: Regular Rhythm, Regular Rate, S1, S2 Abdominal: Yes: Normal Bowel Sounds, Non Tender, Soft Genitourinary: Yes: Other (N/C) Back: Yes: Within Normal Limits Musculoskeletal: Yes: full range of Motion, Gait Steady Extremities: Yes: Normal Range of Motion, Non-Tender Neurological: Yes: patent solicitor II-XII NML intact, Fully Oriented, Alert Integumentary: Yes: Dry, Warm Lymphatic: Yes: Within Normal Limits - Diagnostic (1) Neuropathy Current Visit: Yes Status: Chronic (2) Weight loss Current Visit: Yes Status: Chronic (3) AIDS Current Visit: Yes Status: Chronic (4) Alcohol dependence with uncomplicated withdrawal Current Visit: Yes Status: Acute (5) Asthma Current Visit: Yes Status: Chronic Qualifiers: Asthma severity: mild intermittent Asthma complication type: uncomplicated Qualified Code(s): J45.20 - Mild intermittent asthma, uncomplicated (6) Cocaine dependence, uncomplicated Current Visit: Yes Status: Chronic (7) Nicotine dependence Current Visit: Yes Status: Acute Qualifiers: Nicotine product type: cigarettes Substance use status: in withdrawal Qualified Code(s): F17.213 - Nicotine dependence, cigarettes, with withdrawal (8) Opioid dependence with withdrawal Current Visit: Yes Status: Acute Cleared for Admission [facility] - Detox or Rehab [facility] Level of Care: Medically Managed Detox Regimen/Protocol: Methadone/Librium [facility] Breath Alcohol Content Breath Alcohol Content: 0 Urine Pregancy Test - Result Urine Test Results: Negative- NO Line Present Urine Drug Screen - Results Drug Screen Negative: No Urine Drug Screen Results: SKY-Cocaine, OPI-Opiates
[2017-07-23] MEDS ORDERED: P-EPHED 60MG/TRIPROLIDI 2.5MG TABLET PO PRN (14:35)
[2017-07-23] MEDS ORDERED: chlordiazePOXIDE HCL 25 MG CAPSULE PO PRN (14:35)
[2017-07-23] MEDS ORDERED: MAG HYDROX/AL HYDROX/SIMETH 30 ML UNIT-DOSE CUP PO PRN (14:35)
[2017-07-23] MEDS ORDERED: guaiFENesin/D-METHORPHAN HB 10 ML UNIT-DOSE CUPS PO PRN (14:35)
[2017-07-23] MEDS ORDERED: MAGNESIUM HYDROX 2400MG/30ML ORAL SUSPENSION 30 ML CUP PO PRN (14:35)
[2017-07-23] MEDS ORDERED: MAGNESIUM CITRATE 300 ML BOTTLE PO PRN (14:35)
[2017-07-23] MEDS ORDERED: IBUPROFEN 400 MG TABLET (FP) PO PRN (14:35)
[2017-07-23] MEDS ORDERED: ACETAMINOPHEN 325 MG TABLET (FP) PO PRN (14:35)
[2017-07-23] MEDS ORDERED: LOPERAMIDE HCL 2 MG CAPSULE PO PRN (14:35)
[2017-07-23] MEDS ORDERED: MENTHOL/PHENOL 1 EACH UD MM PRN (14:35)
[2017-07-23] MEDS ORDERED: NICOTINE POLACRILEX 2 MG GUM BC PRN (14:35)
[2017-07-23] MEDS ORDERED: diphenhydrAMINE HCL 50 MG CAPSULE PO PRN (14:35)
[2017-07-23] MEDS ORDERED: ALBUTEROL SO4 6.7 GM HFA INHALER IH PRN (14:54)
[2017-07-23] MEDS ORDERED: METHADONE HCL 10 MG TABLET (FOR DETOX USE ONLY) PO ONE ×2 (15:00→23:00)
[2017-07-23] MEDS ORDERED: chlordiazePOXIDE HCL 25 MG CAPSULE PO ONE (15:00)
[2017-07-23] MEDS: NICOTINE 14 MG/24 HOURS TOPICAL PATCH TD SCH (15:20)
--- NOTE | 2017-07-23 16:21 | EKG ---
Test Reason : Blood Pressure : / mmHG Vent. Rate : 059 BPM Atrial Rate : 059 BPM P-R Int : 124 ms QRS Dur : 090 ms QT Int : 422 ms P-R-T Axes : 073 076 073 degrees QTc Int : 417 ms SINUS BRADYCARDIA VOLTAGE CRITERIA FOR LEFT VENTRICULAR HYPERTROPHY EARLY REPOLARIZATION ABNORMAL ECG WHEN COMPARED WITH ECG OF 17-MAR-2017 20:40, NO SIGNIFICANT CHANGE WAS FOUND Confirmed by NOHEMY HUERTA MD ([id number]) on 07/23/2017 4:20:28 PM Referred By: Confirmed By:NOHEMY HUERTA MD
[2017-07-23 17:02] LABS: MCH 26.5 pg (25.7-33.7); MCHC 32.9 g/dl (32.0-36.0); MEAN CELL VOLUME 80.4 fl (80-96); PLATELET COUNT 139 K/MM3 (134-434); RDW 15.7 % (11.6-15.6)
[2017-07-23 17:08] LABS: URINE APPEARANCE TURBID; URINE BILIRUBIN NEGATIVE (NEGATIVE); URINE BLOOD 2+ (NEGATIVE); URINE COLOR YELLOW; URINE GLUCOSE (UA) NEGATIVE (NEGATIVE); URINE KETONE NEGATIVE (NEGATIVE); URINE LEUK ESTERASE 3+ (NEGATIVE); URINE NITRITE POSITIVE (NEGATIVE); URINE PROTEIN 1+ (NEGATIVE); URINE UROBILINOGEN NEGATIVE mg/dL (0.2-1.0)
[2017-07-23 17:15] LABS: URINE RBC 38 /hpf (0-3); URINE WBC 1707 /hpf (3-5)
[2017-07-23 17:19] LABS: ALBUMIN 3.9 g/dl (3.4-5.0); ANION GAP 7 (8-16); CALCIUM 9.2 mg/dL (8.5-10.1); CO2 28 mmol/L (21-32); GLUCOSE,RANDOM 90 mg/dL (74-106)
[2017-07-23 17:22] LABS: ALK PHOS 69 U/L (45-117); BILIRUBIN,TOTAL 0.4 mg/dL (0.2-1.0); CREATININE 0.8 mg/dL (0.55-1.02); SGPT/ALT 20 U/L (12-78); TOT PROT 7.3 g/dl (6.4-8.2)
[2017-07-23 17:24] LABS: SGOT/AST 14 U/L (15-37)
[2017-07-23] MEDS: chlordiazePOXIDE HCL 25 MG CAPSULE PO SCH ×2 (17:54→22:31)
[2017-07-23] MEDS: THIAMINE HCL 100 MG TABLET (FP) PO SCH (22:31)
[2017-07-24] MEDS: chlordiazePOXIDE HCL 25 MG CAPSULE PO SCH ×4 (06:16→22:25)
[2017-07-24] MEDS ORDERED: METHADONE HCL 10 MG TABLET (FOR DETOX USE ONLY) PO SCH (10:00)
[2017-07-24] MEDS: PRENATAL VITAMINS W/ FOLIC ACID TABLET (FP) PO SCH (10:49)
[2017-07-24] MEDS: NICOTINE 14 MG/24 HOURS TOPICAL PATCH TD SCH (10:50)
--- NOTE | 2017-07-24 12:02 | PN ---
[facility] CIWA - CIWA Score Nausea/Vomitin Muscle Tremors: 3 Anxiety: 3 Agitation: 2 Paroxysmal Sweats: 1-Minimal Palms Moist Orientation: 0-Oriented Tacttile Disturbances: 1-Very Mild Itch/Numbness Auditory Disturbances: 1-Very Mild Visual Disturbances: 1-Very Mild Sensitivity Headache: 2-Mild CIWA-Ar Total Score: 17 BHS COWS - Scale Resting Pulse: 0= [place] 80 or Below Sweatin= Chills/Flushing Restless Observation: 3= Extraneous Movement Pupil Size: 1= Pupils >than Normal Bone or Joint Aches: 2= Severe Diffuse Aches Runny Nose/ Eye Tearin= Runny Nose/Eyes GI Upset > 30mins: 2= Nausea/Diarrhea Tremor Observation of Outstretched Hands: 2= Slight Tremor Visible Yawning Observation: 1= 1-2x During Session Anxiety or Irritability: 2=Irritable/Anxious Goose Flesh Skin: 0=Smooth Skin COWS Score: 16 S Progress Note (SOAP) Subjective: ALERT,IRRITABLE,ANXIOUS,INTERRUPTED SLEEP,TREMOR,PAIN IN THE BODY AND BACK Objective: 07/24/17 12:00 Vital Signs Temperature 98.2 F 07/24/17 10:21 Pulse Rate 74 07/24/17 10:21 Respiratory Rate 16 07/24/17 10:21 Blood Pressure 108/64 07/24/17 10:21 O2 Sat by Pulse Oximetry (%) EKG SINUS BRADYCARDIA,59/MIN NO CHEST PAIN,NO SOB,NO DIZZINESS 07/24/17 12:01 07/23/17 07/23/17 13:00 13:00 WBC 3.0 L RBC 4.60 Hgb 12.2 Hct 37.0 MCV 80.4 MCHC 32.9 RDW 15.7 H Plt Count 139 Sodium 143 Potassium 4.4 Chloride 108 H Carbon Dioxide 28 Anion Gap 7 L BUN 14 Creatinine 0.8 LABS PENDING Assessment: 07/24/17 12:01 WITHDRAWAL SYMPTOM Plan: CONTINUE DETOX
[2017-07-24] MEDS: MEGESTROL ACETATE 400 MG/10 ML UNIT DOSE CUP PO SCH (17:28)
--- NOTE | 2017-07-24 17:37 | CONSULT ---
[facility] Psychiatric Consult - Data Date of interview: 07/24/17 Admission source: [facility] Identifying data: Another admission to [facility] for this 57 y/o AA female seeking detox treatment on for alcohol,cocaine,marijuana and heroin dependence.Patient is single,a mother of four (claimed three dependents in my previous interview of 01/30/17),domiciled,unemployed and supported on SSI benefits. Substance Abuse History: Confirmed by patient in this interview. Smoking Cessation. Smoking history: Current every day smoker. Have you smoked in the past 12 months: Yes. Aproximately how many cigarettes per day: 10. Hx Chewing Tobacco Use: No. Initiated information on smoking cessation: Yes. 'Breaking Loose' booklet given: 07/23/17. - Substance & Tx. History. Hx Alcohol Use: Yes (VODKA/BEER). Hx Substance Use: Yes (HEROIN/CRACK). Substance Use Type: Alcohol, Cocaine, Heroin. Hx Substance Use Treatment: Yes (LAST [place] [facility]-DETOX) . - Substances Abused. Heroin. Route: Inhalation. Frequency: Daily. Amount used: 7 bags. Age of first use: 28. Date of Last Use: 07/22/17. Crack. Route: Smoking. Frequency: Daily. Amount used: $100. Age of first use : 30. Date of Last Use: 07/22/17. Alcohol-vodka/beer. Route: Oral. Frequency: Daily. Amount used: 3 pts./1-6 pk. Age of first use: 14. Date of Last Use: 07/23/17 Medical History: Remarkable for anemia,weight loss,HIV infection since 1992, bronchial asthma and hypertension.Noted remote history of ectopic pregnacy (1986 ). Psychiatric History: Patient reports a history of three psychiatric hospitalizations (all at [facility]) in this interview.Reportedly diagnosed with Bipolar Disorder.No clear information about current psychiatric OPD care (records indicate a brief history of psychiatric outpatient care at the [facility] drug program).Ms Ludwig indicates that she is prescribed ambien for insomnia.Patient denies history of suicide attempts. Physical/Sexual Abuse/Trauma History: Patient denies. Additional Comment: Urine Drug Screen Results: SKY-Cocaine, OPI-Opiates.Noted. Mental Status Exam - Mental Status Exam Alert and Oriented to: Time, Place, Person Cognitive Function: Grossly Intact Patient Appearance: Well Groomed (thin habitus,frail looking ) Mood: Nervous, Withdrawn Affect: Mood Congruent Patient Behavior: Fatigued, Appropriate, Cooperative Speech Pattern: Clear Voice Loudness: Moderately Soft/Quiet Thought Process: Goal Oriented Thought Disorder: Not Present Hallucinations: Denies Suicidal Ideation: Denies Homicidal Ideation: Denies Insight/Judgement: Poor Sleep: Poorly, Difficulty falling asleep Appetite: Poor, Weight loss Gait/Station: Normal Psychiatric Findings - Problem List ([place] 1, 2,3) (1) Alcohol dependence with uncomplicated withdrawal Current Visit: Yes Status: Acute (2) Opioid dependence with withdrawal Current Visit: Yes Status: Acute (3) Cocaine dependence, uncomplicated Current Visit: Yes Status: Acute (4) Nicotine dependence Current Visit: Yes Status: Acute Qualifiers: Nicotine product type: cigarettes Substance use status: in withdrawal Qualified Code(s): F17.213 - Nicotine dependence, cigarettes, with withdrawal (5) Substance induced mood disorder Current Visit: Yes Status: Acute (6) AIDS Current Visit: Yes Status: Chronic (7) Neuropathy Current Visit: Yes Status: Chronic (8) Weight loss Current Visit: Yes Status: Chronic (9) Asthma Current Visit: Yes Status: Chronic Qualifiers: Asthma severity: mild intermittent Asthma complication type: uncomplicated Qualified Code(s): J45.20 - Mild intermittent asthma, uncomplicated (10) Insomnia Current Visit: Yes Status: Acute - Initial Treatment Plan Initial Treatment Plan: Psychoeducation.Detoxification.Ambien 5 mg po hs prn.Patient is informed of risk of parasomnias.She is in agreement with this careplan.Observation.
[2017-07-24] MEDS: THIAMINE HCL 100 MG TABLET (FP) PO SCH (22:25)
[2017-07-24] MEDS: ZOLPIDEM TARTRATE 5 MG TABLET PO PRN (22:25)
[2017-07-25] MEDS: chlordiazePOXIDE HCL 25 MG CAPSULE PO SCH ×2 (06:33→11:09)
[2017-07-25] MEDS: NICOTINE 14 MG/24 HOURS TOPICAL PATCH TD SCH (11:09)
[2017-07-25] MEDS: PRENATAL VITAMINS W/ FOLIC ACID TABLET (FP) PO SCH (11:09)
[2017-07-25] MEDS: METHADONE HCL 5 MG TABLET (FOR DETOX USE ONLY) PO SCH (11:10)
--- NOTE | 2017-07-25 14:12 | PN ---
S CIWA - CIWA Score Nausea/Vomitin Muscle Tremors: 3 Anxiety: 3 Agitation: 2 Paroxysmal Sweats: 1-Minimal Palms Moist Orientation: 0-Oriented Tacttile Disturbances: 1-Very Mild Itch/Numbness Auditory Disturbances: 1-Very Mild Visual Disturbances: 1-Very Mild Sensitivity Headache: 2-Mild CIWA-Ar Total Score: 17 BHS COWS - Scale Resting Pulse: 0= [place] 80 or Below Sweatin= Chills/Flushing Restless Observation: 3= Extraneous Movement Pupil Size: 1= Pupils >than Normal Bone or Joint Aches: 2= Severe Diffuse Aches Runny Nose/ Eye Tearin= Runny Nose/Eyes GI Upset > 30mins: 2= Nausea/Diarrhea Tremor Observation of Outstretched Hands: 2= Slight Tremor Visible Yawning Observation: 1= 1-2x During Session Anxiety or Irritability: 2=Irritable/Anxious Goose Flesh Skin: 0=Smooth Skin COWS Score: 16 S Progress Note (SOAP) Subjective: alert,irritable,anxious,interrupted sleep,tremor,pain in the body Objective: 07/25/17 14:10 Vital Signs Temperature 98.2 F 07/25/17 10:00 Pulse Rate 68 07/25/17 10:00 Respiratory Rate 18 07/25/17 10:00 Blood Pressure 115/67 07/25/17 10:00 O2 Sat by Pulse Oximetry (%) Laboratory Last Values WBC 3.0 K/mm3 (4.0-10.0) L 07/23/17 13:00 RBC 4.60 M/mm3 (3.60-5.2) 07/23/17 13:00 Hgb 12.2 GM/dL (10.7-15.3) 07/23/17 13:00 Hct 37.0 % (32.4-45.2) 07/23/17 13:00 MCV 80.4 fl (80-96) 07/23/17 13:00 MCH 26.5 pg (25.7-33.7) 07/23/17 13:00 MCHC 32.9 g/dl (32.0-36.0) 07/23/17 13:00 RDW 15.7 % (11.6-15.6) H 07/23/17 13:00 Plt Count 139 K/MM3 (134-434) 07/23/17 13:00 MPV 9.0 fl (7.5-11.1) 07/23/17 13:00 Sodium 143 mmol/L (136-145) 07/23/17 13:00 Potassium 4.4 mmol/L (3.5-5.1) 07/23/17 13:00 Chloride 108 mmol/L (98-107) H 07/23/17 13:00 Carbon Dioxide 28 mmol/L (21-32) 07/23/17 13:00 Anion Gap 7 (8-16) L 07/23/17 13:00 BUN 14 mg/dL (7-18) 07/23/17 13:00 Creatinine 0.8 mg/dL (0.55-1.02) 07/23/17 13:00 Creat Clearance w eGFR > 60 (>60) 07/23/17 13:00 Random Glucose 90 mg/dL (74-106) D 07/23/17 13:00 Calcium 9.2 mg/dL (8.5-10.1) 07/23/17 13:00 Total Bilirubin 0.4 mg/dL (0.2-1.0) 07/23/17 13:00 AST 14 U/L (15-37) L 07/23/17 13:00 ALT 20 U/L (12-78) 07/23/17 13:00 Alkaline Phosphatase 69 U/L (45-117) 07/23/17 13:00 Total Protein 7.3 g/dl (6.4-8.2) 07/23/17 13:00 Albumin 3.9 g/dl (3.4-5.0) 07/23/17 13:00 Urine Color Yellow 07/23/17 15:00 Urine Appearance Turbid 07/23/17 15:00 Urine pH 6.0 (5.0-8.0) 07/23/17 15:00 Ur Specific [place] 1.025 (1.005-1.025) 07/23/17 15:00 Urine Protein 1+ (NEGATIVE) H 07/23/17 15:00 Urine Glucose (UA) Negative (NEGATIVE) 07/23/17 15:00 Urine Ketones Negative (NEGATIVE) 07/23/17 15:00 Urine Blood 2+ (NEGATIVE) H 07/23/17 15:00 Urine Nitrite Positive (NEGATIVE) 07/23/17 15:00 Urine Bilirubin Negative (NEGATIVE) 07/23/17 15:00 Urine Urobilinogen Negative mg/dL (0.2-1.0) 07/23/17 15:00 Ur Leukocyte Esterase 3+ (NEGATIVE) H 07/23/17 15:00 Urine RBC 38 /hpf (0-3) 07/23/17 15:00 Urine WBC 1707 /hpf (3-5) 07/23/17 15:00 Ur Epithelial Cells Few /hpf (FEW) 07/23/17 15:00 RPR Titer Nonreactive (NONREACTIVE) 07/23/17 13:00 Assessment: 07/25/17 14:11 withdrawal symptom Plan: continue detox,urine for c/s,bactrim ds 1 tab po bid for uti,encourage oral fluid
[2017-07-25] MEDS: chlordiazePOXIDE 5 MG CAPSULE PO SCH ×2 (17:19→22:26)
[2017-07-25] MEDS: MEGESTROL ACETATE 400 MG/10 ML UNIT DOSE CUP PO SCH ×2 (17:19→23:10)
[2017-07-25] MEDS: SULFAMETHOXAZOLE/TRIMETHOPRIM 800MG/160MG D.S. TABLET PO SCH (22:26)
[2017-07-25] MEDS: ZOLPIDEM TARTRATE 5 MG TABLET PO PRN (22:26)
[2017-07-25] MEDS: THIAMINE HCL 100 MG TABLET (FP) PO SCH (22:26)
[2017-07-26] MEDS: MEGESTROL ACETATE 400 MG/10 ML UNIT DOSE CUP PO SCH ×2 (06:02→16:47)
[2017-07-26] MEDS: chlordiazePOXIDE 5 MG CAPSULE PO SCH ×2 (06:02→10:53)
[2017-07-26] MEDS: PRENATAL VITAMINS W/ FOLIC ACID TABLET (FP) PO SCH (10:52)
[2017-07-26] MEDS: METHADONE HCL 5 MG TABLET (FOR DETOX USE ONLY) PO SCH (10:53)
[2017-07-26] MEDS: SULFAMETHOXAZOLE/TRIMETHOPRIM 800MG/160MG D.S. TABLET PO SCH ×2 (10:53→22:15)
[2017-07-26] MEDS: NICOTINE 14 MG/24 HOURS TOPICAL PATCH TD SCH (10:54)
--- NOTE | 2017-07-26 11:57 | PN ---
S Progress Note (SOAP) Subjective: ALERT,IRRITABLE,ANXIOUS,INTERRUPTED SLEEP Objective: 07/26/17 11:56 Vital Signs Temperature 96.8 F L 07/26/17 10:00 Pulse Rate 76 07/26/17 10:00 Respiratory Rate 18 07/26/17 10:00 Blood Pressure 108/60 07/26/17 10:00 O2 Sat by Pulse Oximetry (%) 07/26/17 11:56 Assessment: 07/26/17 11:56 WITHDRAWAL SYMPTOM Plan: CONTINUE DETOX,URINE FOR C/C PENDING,CONTINUE DETOX
[2017-07-26] MEDS: chlordiazePOXIDE HCL 10 MG CAPSULE PO SCH ×2 (16:49→22:15)
[2017-07-26] MEDS: THIAMINE HCL 100 MG TABLET (FP) PO SCH (22:15)
[2017-07-26] MEDS: ZOLPIDEM TARTRATE 5 MG TABLET PO PRN (22:15)
[2017-07-27] MEDS: chlordiazePOXIDE HCL 10 MG CAPSULE PO SCH (05:25)
[2017-07-27] MEDS: MEGESTROL ACETATE 400 MG/10 ML UNIT DOSE CUP PO SCH (06:22)
[2017-07-27 06:26] VITALS: BP 101/50; PULSE 68; TEMP 98.1
--- NOTE | 2017-07-27 08:24 | DS ---
[facility] Detox Discharge Summary Admission Date: 07/23/17 Discharge Date: 07/27/17 - History Present History: Alcohol Dependence, Cocaine Dependence, Opioid Dependence Pertinent Past History: asthma neuropathy aids weight loss nicotine dependence - Physical Exam Results Vital Signs: Vital Signs Temperature 98.1 F 07/27/17 06:25 Pulse Rate 68 07/27/17 06:25 Respiratory Rate 16 07/27/17 06:25 Blood Pressure 101/50 07/27/17 06:25 O2 Sat by Pulse Oximetry (%) Pertinent Admission Physical Exam Findings: withdrawal symptom - Treatment Hospital Course: Detox Protocol Followed, Detoxed Safely, Responded well, Discharged Condition Good Patient has Accepted a Rehab Referral to: declined - Medication Discharge Medications: Ambulatory Orders Clonidine HCl [Catapres] 0.1 mg PO DAILY 01/29/17 Albuterol Sulfate Inhaler - [Ventolin HFA Inhaler -] 2 inh PO Q4H PRN #1 inhaler 02/02/17 Sulfamethoxazole/Trimethoprim [Bactrim DS -] 1 each PO BID #14 tablet 02/02/17 Gabapentin [Neurontin -] 300 mg PO TID #90 cap 03/18/17 - Diagnosis (1) Opioid dependence with withdrawal Current Visit: Yes Status: Acute (2) UTI (urinary tract infection) Current Visit: Yes Status: Acute (3) Alcohol dependence with uncomplicated withdrawal Current Visit: Yes Status: Acute (4) Cocaine dependence, uncomplicated Current Visit: Yes Status: Acute (5) AIDS Current Visit: Yes Status: Chronic (6) Asthma Current Visit: Yes Status: Chronic Qualifiers: Asthma severity: mild intermittent Asthma complication type: uncomplicated Qualified Code(s): J45.20 - Mild intermittent asthma, uncomplicated (7) Neuropathy Current Visit: Yes Status: Chronic (8) Weight loss Current Visit: Yes Status: Chronic - AMA Did Patient Leave Against Medical Advice: No
--- NOTE | 2017-07-27 08:27 | PN ---
[facility] Progress Note (SOAP) Subjective: alert,no complaint Objective: 07/27/17 08:25 Vital Signs Temperature 98.1 F 07/27/17 06:25 Pulse Rate 68 07/27/17 06:25 Respiratory Rate 16 07/27/17 06:25 Blood Pressure 101/50 07/27/17 06:25 O2 Sat by Pulse Oximetry (%) Assessment: 07/27/17 08:25 patient is stable for discharge today Plan: follow up with after care program as arrangement
[2017-07-27] MEDS ORDERED: METHADONE HCL 10 MG TABLET (FOR DETOX USE ONLY) PO SCH (10:00)
[2017-07-28] MEDS ORDERED: METHADONE HCL 5 MG TABLET (FOR DETOX USE ONLY) PO SCH (06:00)
== END 2017-07-27 08:35 | disposition home or self-care (01) | DRG 773 ==
LOC: YASAS 10:20 → Y6N 12:40
PROVIDERS: ADMIT Internal Medicine; ATTEND Internal Medicine
PROC: HZ2ZZZZ Detoxification Services for Substance Abuse Treatment (ICD-10-PCS; principal; 2017-07-23)
DX: F11.23 Opioid dependence with withdrawal (principal); F10.230 Alcohol dependence with withdrawal, uncomplicated; F14.20 Cocaine dependence, uncomplicated; F17.213 Nicotine dependence, cigarettes, with withdrawal; F19.24 Other psychoactive substance dependence with psychoactive substance-induced mood disorder; B20 Human immunodeficiency virus [HIV] disease; J45.20 Mild intermittent asthma, uncomplicated; G62.9 Polyneuropathy, unspecified; N39.0 Urinary tract infection, site not specified; G47.00 Insomnia, unspecified; R00.1 Bradycardia, unspecified; Z86.2 Personal history of diseases of the blood and blood-forming organs and certain disorders involving the immune mechanism; Z87.898 Personal history of other specified conditions
CPT/HCPCS: 36415; 80053; 81003; 81015; 85027; 86593; 87086; 87186; 93005; 93010

== ENCOUNTER 2017-08-31 14:31 | Inpatient (IN) | payer OTHER ==
[2017-08-31 16:19] VITALS: BMI 17.8
--- NOTE | 2017-08-31 20:32 | HP ---
COWS - Scale Resting Pulse: 0= [place] 80 or Below Sweatin= Chills/Flushing Restless Observation: 5= Unable to Sit Still Pupil Size: 1= Pupils >than Normal Bone or Joint Aches: 4=Acute Joint/Muscle Pain Runny Nose/ Eye Tearin= Runny Nose/Eyes GI Upset > 30mins: 2= Nausea/Diarrhea Tremor Observation: 2= Slight Tremor Visible Yawning Observation: 0= None Anxiety or Irritability: 2=Irritable/Anxious Goose Flesh Skin: 0=Smooth Skin COWS Score: 19 CIWA Score - CIWA Score Nausea/Vomitin-Mild Nausea/No Vomiting Muscle Tremors: 3 Anxiety: 4-Mod. Anxious/Guarded Agitation: 4-Moderately Restless Paroxysmal Sweats: 3 Orientation: 0-Oriented Tacttile Disturbances: 3-Moderate Itch/Numb/Burn Auditory Disturbances: 0-None Visual Disturbances: 0-None Headache: 0-None Present CIWA-Ar Total Score: 18 Admission ROS BHS - HPI Chief Complaint: c/o withdrawal sx's. seeking detox txment. Allergies/Adverse Reactions: Allergies Allergy/AdvReac Type Severity Reaction Status Date / Time No Known Allergies Allergy Verified 08/31/17 17:00 History of Present Illness: 57 Y.O. FEMALE WITH LONG HISTORY OF SUBSTANCE ABUSE ADMITTED TO DETOX FOR ALCOHOLISM AND OPIOID DEPENDENCE. SHE IS KNOWN TO [facility] LAST HERE 06/2017. SELF REFERRED. REPORTS LONGEST CLEAN TIME 2 YEARS, RELAPSING 8 MONTHS AGO. SHE IS ALSO H/O HIV. DOES NOT WANT HER ANTIVIRALS WHILE HERE. DETOX 10 X REHAB: ONCE DID NOT COMPLETE Exam Limitations: No Limitations - Ebola screening Have you traveled outside of the country in the last 21 days: No Have you had contact with anyone from an Ebola affected area: No Have you been sick,other than usual withdrawal symptoms: No - Review of Systems Constitutional: Chills, Loss of Appetite, Malaise, Night Sweats, Unintentional Wgt. Loss EENT: reports: No Symptoms Reported Respiratory: reports: No Symptoms reported Cardiac: reports: No Symptoms Reported GI: reports: Diarrhea, Poor Appetite : reports: No Symptoms Reported Musculoskeletal: reports: Back Pain Integumentary: reports: Other (R MIDDLE FINGER CUT FROM A RAZOR) Neuro: reports: No Symptoms reported Endocrine: reports: No Symptoms Reported Hematology: reports: No Symptoms Reported Psychiatric: reports: Anxious, Depressed Other Systems: Reviewed and Negative Patient History - Patient Medical History Hx Anemia: Yes (NO MEDS) Hx Asthma: Yes (MDI) Hx Chronic Obstructive Pulmonary Disease (COPD): No Hx Cancer: No Hx Cardiac Disorders: No Hx Congestive Heart Failure: No Hx Hypertension: Yes (NO MEDS) Hx Hypercholesterolemia: No Hx Pacemaker: No HX Cerebrovascular Accident: No Hx Seizures: No Hx Dementia: No Hx Diabetes: No Hx Gastrointestinal Disorders: No Hx Liver Disease: No Hx Genitourinary Disorders: No Hx Sexually Transmitted Disorders: No Hx Renal Disease (ESRD): No Hx Thyroid Disease: No Hx Human Immunodeficiency Virus (HIV): Yes (SINCE 1992;CURRENTLY ON PREZISTA, DESCOVEY & NORVIR BUT NONCOMPLIANT.) Hx Hepatitis C: No Hx Depression: Yes (ON MED) Hx Suicide Attempt: No Hx Bipolar Disorder: Yes (ON MED) Hx Schizophrenia: No Other Medical History: DENIES - Patient Surgical History Past Surgical History: Yes Hx Neurologic Surgery: No Hx Cataract Extraction: No Hx Cardiac Surgery: No Hx Lung Surgery: No Hx Breast Surgery: No Hx Breast Biopsy: No Hx Abdominal Surgery: No Hx Appendectomy: No Hx Cholecystectomy: No Hx Genitourinary Surgery: No Hx Section: Yes (in 1992) Hx Orthopedic Surgery: No Other Surgical History: ectopic in 1986 Anesthesia Reaction: No - PPD History Previous Implant?: Yes Documented Results: Negative w/proof Date: 01/31/17 Results: 0 mm PPD to be Administered?: No - Reproductive History Patient is a Female of Child Bearing Age (11 -55 yrs old): No Patient : No (NEG [facility] [place]) - Smoking Cessation Smoking history: Current every day smoker Have you smoked in the past 12 months: Yes Aproximately how many cigarettes per day: 10 Cigars Per Day: 0 Hx Chewing Tobacco Use: No Initiated information on smoking cessation: Yes 'Breaking Loose' booklet given: 08/31/17 - Substance & Tx. History Hx Alcohol Use: Yes Hx Substance Use: Yes Substance Use Type: Alcohol, Cocaine, Heroin, Marijuana Hx Substance Use Treatment: Yes ([facility]) - Substances Abused Alcohol Route: Oral Frequency: Daily Amount used: liquor- 4 pints, beer- 3,16oz Age of first use: 14 Date of Last Use: 10/01/17 Heroin Route: Inhalation Frequency: Daily Amount used: 7 bags Age of first use: 14 Date of Last Use: 08/31/17 Crack Route: Smoking Frequency: Daily Amount used: $500 Age of first use: 14 Date of Last Use: 08/30/17 Family Disease History - Family Disease History Family Disease History: CA: Father (FATHER WAS ADDICTED TO ETOH AND HAD CA. OF THE LUNGS AND ), Other: Father Admission Physical Exam BHS - Vital Signs Vital Signs: Vital Signs - 24 hr 08/31/17 16:15 Temperature 98 F Pulse Rate 66 Respiratory 20 Rate Blood Pressure 98/57 - Physical General Appearance: Yes: Appropriately Dressed, Mild Distress, Thin, Tremorous, Anxious HEENTM: Yes: EOMI, Normocephalic, Normal Voice, Pharynx Normal, Rhinorrhea Respiratory: Yes: Chest Non-Tender, Lungs Clear, Normal Breath Sounds, No Respiratory Distress, No Accessory Muscle Use Neck: Yes: No masses,lesions,Nodules, Supple, Trachea in good position Breast: Yes: Breast Exam Deferred Cardiology: Yes: Regular Rhythm, Regular Rate, S1, S2 Abdominal: Yes: Non Tender, Soft, Increased Bowel Sounds Genitourinary: Yes: Within Normal Limits, Vaginal Discharge (PT REPORTS), Other (STATES PRESENTLY ON FLAGYL FOR BV ONLY TOOK ONE DAY) Back: Yes: Normal Inspection Musculoskeletal: Yes: full range of Motion, Gait Steady Extremities: Yes: Normal Range of Motion, Non-Tender, Tremors Neurological: Yes: Fully Oriented, Alert, Motor Strength 5/5 Integumentary: Yes: Dry, Warm, Other (BLISTER LIKE LESION TO RIGHT BUTTOCKS WITH PRURULENT SUBSTANCE) Lymphatic: Yes: Within Normal Limits - Diagnostic (1) Alcohol dependence with uncomplicated withdrawal Current Visit: Yes Status: Chronic (2) Cocaine dependence, uncomplicated Current Visit: Yes Status: Chronic (3) Nicotine dependence Current Visit: Yes Status: Chronic Qualifiers: Nicotine product type: cigarettes Substance use status: in withdrawal Qualified Code(s): F17.213 - Nicotine dependence, cigarettes, with withdrawal; F17.213 - Nicotine dependence, cigarettes, with withdrawal (4) Opioid dependence with withdrawal Current Visit: Yes Status: Chronic (5) AIDS Current Visit: Yes Status: Chronic (6) Asthma Current Visit: Yes Status: Chronic Qualifiers: Asthma severity: mild Asthma persistence: intermittent Asthma complication type: uncomplicated Qualified Code(s): J45.20 - Mild intermittent asthma, uncomplicated; J45.20 - Mild intermittent asthma, uncomplicated; J45.20 - Mild intermittent asthma, uncomplicated (7) Cannabis dependence, uncomplicated Current Visit: Yes Status: Chronic (8) BV (bacterial vaginosis) Current Visit: Yes Status: Chronic Cleared for Admission [facility] - Detox or Rehab [facility] Level of Care: Medically Managed Detox Regimen/Protocol: Methadone/Librium S Breath Alcohol Content Breath Alcohol Content: 0 Urine Pregancy Test - Result Urine Test Results: Negative- NO Line Present Urine Drug Screen - Results Drug Screen Negative: No Urine Drug Screen Results: THC-Marijuana, SKY-Cocaine, OPI-Opiates
[2017-08-31] MEDS ORDERED: ACETAMINOPHEN 325 MG TABLET (FP) PO PRN (20:37)
[2017-08-31] MEDS ORDERED: diphenhydrAMINE HCL 50 MG CAPSULE PO PRN (20:37)
[2017-08-31] MEDS ORDERED: MAG HYDROX/AL HYDROX/SIMETH 30 ML UNIT-DOSE CUP PO PRN (20:37)
[2017-08-31] MEDS ORDERED: chlordiazePOXIDE HCL 25 MG CAPSULE PO PRN (20:37)
[2017-08-31] MEDS ORDERED: NICOTINE POLACRILEX 2 MG GUM BC PRN (20:37)
[2017-08-31] MEDS ORDERED: LOPERAMIDE HCL 2 MG CAPSULE PO PRN (20:37)
[2017-08-31] MEDS ORDERED: P-EPHED 60MG/TRIPROLIDI 2.5MG TABLET PO PRN (20:37)
[2017-08-31] MEDS ORDERED: IBUPROFEN 400 MG TABLET (FP) PO PRN (20:37)
[2017-08-31] MEDS ORDERED: MAGNESIUM CITRATE 300 ML BOTTLE PO PRN (20:37)
[2017-08-31] MEDS ORDERED: MAGNESIUM HYDROX 2400MG/30ML ORAL SUSPENSION 30 ML CUP PO PRN (20:37)
[2017-08-31] MEDS ORDERED: guaiFENesin/D-METHORPHAN HB 10 ML UNIT-DOSE CUPS PO PRN (20:37)
[2017-08-31] MEDS ORDERED: MENTHOL/PHENOL 1 EACH UD MM PRN (20:37)
[2017-08-31] MEDS ORDERED: METHADONE HCL 10 MG TABLET (FOR DETOX USE ONLY) PO ONE ×2 (20:37→23:00)
[2017-08-31] MEDS ORDERED: ALBUTEROL SO4 18 GM HFA INHALER IH PRN (20:39)
[2017-08-31] MEDS: metroNIDAZOLE 250 MG TABLET PO SCH (21:38)
[2017-08-31] MEDS: NICOTINE 14 MG/24 HOURS TOPICAL PATCH TD SCH (22:23)
[2017-08-31] MEDS: MEGESTROL ACETATE 40 MG TABLET PO SCH (22:31)
[2017-08-31] MEDS: chlordiazePOXIDE HCL 25 MG CAPSULE PO SCH (22:53)
[2017-08-31] MEDS: THIAMINE HCL 100 MG TABLET (FP) PO SCH (22:53)
[2017-08-31 23:25] LABS: URINE APPEARANCE TURBID; URINE BILIRUBIN NEGATIVE (NEGATIVE); URINE BLOOD 3+ (NEGATIVE); URINE COLOR YELLOW; URINE GLUCOSE (UA) NEGATIVE (NEGATIVE); URINE KETONE NEGATIVE (NEGATIVE); URINE NITRITE POSITIVE (NEGATIVE); URINE UROBILINOGEN NEGATIVE mg/dL (0.2-1.0)
[2017-08-31 23:29] LABS: URINE LEUK ESTERASE 2+ (NEGATIVE); URINE PROTEIN 2+ (NEGATIVE)
[2017-08-31 23:31] LABS: URINE BACTERIA MANY /hpf (NONE SEEN); URINE HYALINE CAST 19 /lpf; URINE MUCUS MANY; URINE RBC 79 /hpf (0-3); URINE WBC 2424 /hpf (3-5)
[2017-09-01] MEDS: chlordiazePOXIDE HCL 25 MG CAPSULE PO SCH ×4 (06:00→22:14)
[2017-09-01 09:42] LABS: MCH 26.2 pg (25.7-33.7); MCHC 32.2 g/dl (32.0-36.0); MEAN CELL VOLUME 81.3 fl (80-96); MEAN PLT VOLUME 8.9 fl (7.5-11.1); PLATELET COUNT 134 K/MM3 (134-434); RDW 14.5 % (11.6-15.6); WHITE BLOOD COUNT 3.6 K/mm3 (4.0-10.0)
--- NOTE | 2017-09-01 09:56 | EKG ---
Test Reason : Blood Pressure : / mmHG Vent. Rate : 061 BPM Atrial Rate : 061 BPM P-R Int : 122 ms QRS Dur : 094 ms QT Int : 416 ms P-R-T Axes : 075 077 074 degrees QTc Int : 418 ms NORMAL SINUS RHYTHM EARLY REPOLARIZATION NORMAL ECG WHEN COMPARED WITH ECG OF 23-JUL-2017 14:00, NO SIGNIFICANT CHANGE WAS FOUND Confirmed by NALINI SALMON MD ([id number]) on 09/01/2017 9:56:35 AM Referred By: Pranav Sandy Confirmed By:NALINI SALMON MD
[2017-09-01] MEDS ORDERED: METHADONE HCL 10 MG TABLET (FOR DETOX USE ONLY) PO SCH (10:00)
[2017-09-01 10:08] LABS: ALK PHOS 56 U/L (45-117); ANION GAP 3 (8-16); BILIRUBIN,TOTAL 0.2 mg/dL (0.2-1.0); CALCIUM 8.8 mg/dL (8.5-10.1); CO2 31 mmol/L (21-32); CREATININE 0.9 mg/dL (0.55-1.02); GLUCOSE,RANDOM 101 mg/dL (74-106); SGOT/AST 11 U/L (15-37); SGPT/ALT 14 U/L (12-78)
[2017-09-01] MEDS: metroNIDAZOLE 250 MG TABLET PO SCH ×2 (10:39→22:13)
[2017-09-01] MEDS: NICOTINE 14 MG/24 HOURS TOPICAL PATCH TD SCH (10:40)
[2017-09-01] MEDS: PRENATAL VITAMINS W/ FOLIC ACID TABLET (FP) PO SCH (10:40)
[2017-09-01] MEDS: MEGESTROL ACETATE 40 MG TABLET PO SCH (10:40)
--- NOTE | 2017-09-01 11:26 | PN ---
[facility] CIWA - CIWA Score Nausea/Vomitin-No Nausea/No Vomiting Muscle Tremors: 4-Moderate,w/Arms Extend Anxiety: 3 Agitation: 4-Moderately Restless Paroxysmal Sweats: 3 Orientation: 0-Oriented Tacttile Disturbances: 0-None Auditory Disturbances: 0-None Visual Disturbances: 0-None Headache: 0-None Present CIWA-Ar Total Score: 14 S COWS - Scale Resting Pulse: 0= [place] 80 or Below Sweatin=Flushed/Facial Moisture Restless Observation: 1= Difficult to Sit Still Pupil Size: 0= Normal to Room Light Bone or Joint Aches: 2= Severe Diffuse Aches Runny Nose/ Eye Tearin= Nasal Congestion GI Upset > 30mins: 0= None Tremor Observation of Outstretched Hands: 2= Slight Tremor Visible Yawning Observation: 1= 1-2x During Session Anxiety or Irritability: 2=Irritable/Anxious Goose Flesh Skin: 0=Smooth Skin COWS Score: 11 [facility] Progress Note (SOAP) Subjective: sweats shakes interrupted sleep tired irritable vaginal discharge with odor Objective: 09/01/17 11:24 Vital Signs Temperature 97.7 F 09/01/17 10:00 Pulse Rate 64 09/01/17 10:00 Respiratory Rate 16 09/01/17 10:00 Blood Pressure 101/62 09/01/17 10:00 O2 Sat by Pulse Oximetry (%) Laboratory Tests 08/31/17 09/01/17 09/01/17 23:10 08:00 08:00 WBC 3.6 L RBC 4.29 Hgb 11.2 Hct 34.9 MCV 81.3 MCH 26.2 MCHC 32.2 RDW 14.5 Plt Count 134 MPV 8.9 Sodium 141 Potassium 4.3 Chloride 107 Carbon Dioxide 31 Anion Gap 3 L BUN 14 Creatinine 0.9 Creat Clearance w eGFR > 60 Random Glucose 101 Calcium 8.8 Total Bilirubin 0.2 D AST 11 L D ALT 14 D Alkaline Phosphatase 56 Total Protein 6.0 L Albumin 3.0 L D Urine Color Yellow Urine Appearance Turbid Urine pH 5.0 Urine Protein 2+ H Urine Glucose (UA) Negative Urine Ketones Negative Urine Blood 3+ H Urine Nitrite Positive Urine Bilirubin Negative Urine Urobilinogen Negative Urine RBC 79 Urine WBC 2424 Ur Epithelial Cells Few Urine Bacteria Many Hyaline Casts 19 Urine Mucus Many flagyl ordered repeat u/a AAOx3 ambulating no acute distress Assessment: 09/01/17 11:25 withdrawal sx Plan: increase fluids continue detox f/u lab
--- NOTE | 2017-09-01 14:17 | CONSULT ---
[facility] Psychiatric Consult - Data Date of interview: 09/01/17 Admission source: [facility] Identifying data: Readmission to [facility] for this 57 y/o AA female seeking detox treatment on for alcohol,cocaine,marijuana and heroin dependence.Patient is single,a mother of three,domiciled,unemployed and supported on SSI benefits. Substance Abuse History: Confirmed by patient. Smoking Cessation. Smoking history: Current every day smoker. Have you smoked in the past 12 months: Yes. Aproximately how many cigarettes per day: 10. Cigars Per Day: 0. Hx Chewing Tobacco Use: No. Initiated information on smoking cessation: Yes. 'Breaking Loose' booklet given: 08/31/17. - Substance & Tx. History. Hx Alcohol Use: Yes. Hx Substance Use: Yes. Substance Use Type: Alcohol, Cocaine, Heroin, Marijuana. Hx Substance Use Treatment: Yes ([facility]). - Substances Abused. Alcohol. Route: Oral. Frequency: Daily. Amount used: liquor- 4 pints, beer- 3 ,16oz. Age of first use: 14. Date of Last Use: 08/30/17. Heroin. Route: Inhalation. Frequency: Daily. Amount used: 7 bags. Age of first use: 14. Date of Last Use: 08/31/17. Crack. Route: Smoking. Frequency: Daily. Amount used: $500. Age of first use: 14. Date of Last Use: 08/30/17 Medical History: Anemia,weight loss,HIV infection since 1992,bronchial asthma and hypertension.Noted remote history of ectopic pregnacy (1986). Psychiatric History: History of three psychiatric hospitalizations (all at [facility]) in this interview.Diagnosed with Bipolar Disorder.No OPD care for several months as per self-report.Ms Ludwig indicates that she used to be prescribed zoloft (dose not recalled).Requests ambien for insomnia.Patient denies history of suicide attempts. Physical/Sexual Abuse/Trauma History: No reported history of abuse. Additional Comment: Urine Drug Screen Results: THC-Marijuana, SKY-Cocaine, OPI- Opiates.Noted. Mental Status Exam - Mental Status Exam Alert and Oriented to: Time, Place, Person Cognitive Function: Grossly Intact Patient Appearance: Well Groomed Mood: Hopeful, Euthymic Affect: Normal Range Patient Behavior: Appropriate, Cooperative Speech Pattern: Clear Voice Loudness: Normal Thought Process: Intact, Goal Oriented Thought Disorder: Not Present Hallucinations: Denies Suicidal Ideation: Denies Homicidal Ideation: Denies Insight/Judgement: Poor Sleep: Poorly, Difficulty falling asleep Appetite: Fair Muscle strength/Tone: Normal Gait/Station: Normal Psychiatric Findings - Problem List (Eclectic 1, 2,3) (1) Alcohol dependence with uncomplicated withdrawal Current Visit: Yes Status: Acute (2) Cannabis dependence, uncomplicated Current Visit: Yes Status: Acute (3) Cocaine dependence, uncomplicated Current Visit: Yes Status: Acute (4) Opioid dependence with withdrawal Current Visit: Yes Status: Chronic (5) Nicotine dependence Current Visit: Yes Status: Acute Qualifiers: Nicotine product type: cigarettes Substance use status: in withdrawal Qualified Code(s): F17.213 - Nicotine dependence, cigarettes, with withdrawal; F17.213 - Nicotine dependence, cigarettes, with withdrawal (6) Substance induced mood disorder Current Visit: Yes Status: Acute (7) AIDS Current Visit: Yes Status: Chronic (8) Asthma Current Visit: Yes Status: Chronic Qualifiers: Asthma severity: mild Asthma persistence: intermittent Asthma complication type: uncomplicated Qualified Code(s): J45.20 - Mild intermittent asthma, uncomplicated; J45.20 - Mild intermittent asthma, uncomplicated; J45.20 - Mild intermittent asthma, uncomplicated (9) Neuropathy Current Visit: Yes Status: Chronic (10) Weight loss Current Visit: Yes Status: Chronic (11) Insomnia Current Visit: Yes Status: Acute - Initial Treatment Plan Initial Treatment Plan: Psychoeducation.Detoxification.Patient declines to take any medication other than zolpidem and drugs for detoxification.Ambien 5 mg po hs prn.Patient is made aware of potential for parasomnias.Observation.
[2017-09-01 21:59] LABS: URINE APPEARANCE CLOUDY; URINE BILIRUBIN NEGATIVE (NEGATIVE); URINE BLOOD 1+ (NEGATIVE); URINE COLOR DKYELLOW; URINE GLUCOSE (UA) NEGATIVE (NEGATIVE); URINE KETONE NEGATIVE (NEGATIVE); URINE LEUK ESTERASE 3+ (NEGATIVE); URINE NITRITE POSITIVE (NEGATIVE); URINE PROTEIN NEGATIVE (NEGATIVE); URINE UROBILINOGEN NEGATIVE mg/dL (0.2-1.0)
[2017-09-01] MEDS: THIAMINE HCL 100 MG TABLET (FP) PO SCH (22:13)
[2017-09-01] MEDS: ZOLPIDEM TARTRATE 5 MG TABLET PO PRN (22:13)
[2017-09-01 22:34] LABS: CALCIUM OXALATE CRYSTALS MANY /hpf (NONE SEEN); URINE BACTERIA MANY /hpf (NONE SEEN); URINE MUCUS RARE; URINE RBC 35 /hpf (0-3); URINE WBC 837 /hpf (3-5)
[2017-09-02] MEDS: chlordiazePOXIDE HCL 25 MG CAPSULE PO SCH ×3 (05:34→16:51)
[2017-09-02] MEDS: metroNIDAZOLE 250 MG TABLET PO SCH ×2 (10:46→22:31)
[2017-09-02] MEDS: METHADONE HCL 5 MG TABLET (FOR DETOX USE ONLY) PO SCH (10:46)
[2017-09-02] MEDS: PRENATAL VITAMINS W/ FOLIC ACID TABLET (FP) PO SCH (10:46)
[2017-09-02] MEDS: MEGESTROL ACETATE 40 MG TABLET PO SCH (10:47)
[2017-09-02] MEDS: NICOTINE 14 MG/24 HOURS TOPICAL PATCH TD SCH (10:47)
--- NOTE | 2017-09-02 13:13 | PN ---
[facility] CIWA - CIWA Score Nausea/Vomitin Muscle Tremors: 3 Anxiety: 2 Agitation: 2 Paroxysmal Sweats: 1-Minimal Palms Moist Orientation: 0-Oriented Tacttile Disturbances: 1-Very Mild Itch/Numbness Auditory Disturbances: 1-Very Mild Visual Disturbances: 0-None Headache: 2-Mild CIWA-Ar Total Score: 15 [facility] COWS - Scale Resting Pulse: 0= [place] 80 or Below Sweatin= Chills/Flushing Restless Observation: 3= Extraneous Movement Pupil Size: 1= Pupils >than Normal Bone or Joint Aches: 2= Severe Diffuse Aches Runny Nose/ Eye Tearin= Runny Nose/Eyes GI Upset > 30mins: 3= Vomiting/Diarrhea Tremor Observation of Outstretched Hands: 2= Slight Tremor Visible Yawning Observation: 1= 1-2x During Session Anxiety or Irritability: 2=Irritable/Anxious Goose Flesh Skin: 0=Smooth Skin COWS Score: 17 S Progress Note (SOAP) Subjective: alert,irritable,anxious,interrupted sleep,tremor,pain in the body and back Objective: 09/02/17 13:11 Vital Signs Temperature 98.2 F 09/02/17 10:42 Pulse Rate 78 09/02/17 10:42 Respiratory Rate 18 09/02/17 10:42 Blood Pressure 100/51 09/02/17 10:42 O2 Sat by Pulse Oximetry (%) Laboratory Last Values WBC 3.6 K/mm3 (4.0-10.0) L 09/01/17 08:00 RBC 4.29 M/mm3 (3.60-5.2) 09/01/17 08:00 Hgb 11.2 GM/dL (10.7-15.3) 09/01/17 08:00 Hct 34.9 % (32.4-45.2) 09/01/17 08:00 MCV 81.3 fl (80-96) 09/01/17 08:00 MCH 26.2 pg (25.7-33.7) 09/01/17 08:00 MCHC 32.2 g/dl (32.0-36.0) 09/01/17 08:00 RDW 14.5 % (11.6-15.6) 09/01/17 08:00 Plt Count 134 K/MM3 (134-434) 09/01/17 08:00 MPV 8.9 fl (7.5-11.1) 09/01/17 08:00 Sodium 141 mmol/L (136-145) 09/01/17 08:00 Potassium 4.3 mmol/L (3.5-5.1) 09/01/17 08:00 Chloride 107 mmol/L (98-107) 09/01/17 08:00 Carbon Dioxide 31 mmol/L (21-32) 09/01/17 08:00 Anion Gap 3 (8-16) L 09/01/17 08:00 BUN 14 mg/dL (7-18) 09/01/17 08:00 Creatinine 0.9 mg/dL (0.55-1.02) 09/01/17 08:00 Creat Clearance w eGFR > 60 (>60) 09/01/17 08:00 Random Glucose 101 mg/dL (74-106) 09/01/17 08:00 Calcium 8.8 mg/dL (8.5-10.1) 09/01/17 08:00 Total Bilirubin 0.2 mg/dL (0.2-1.0) D 09/01/17 08:00 AST 11 U/L (15-37) L D 09/01/17 08:00 ALT 14 U/L (12-78) D 09/01/17 08:00 Alkaline Phosphatase 56 U/L (45-117) 09/01/17 08:00 Total Protein 6.0 g/dl (6.4-8.2) L 09/01/17 08:00 Albumin 3.0 g/dl (3.4-5.0) L D 09/01/17 08:00 Urine Color Dkyellow 09/01/17 21:45 Urine Appearance Cloudy 09/01/17 21:45 Urine pH 6.0 (5.0-8.0) 09/01/17 21:45 Ur Specific [place] 1.025 (1.005-1.025) 09/01/17 21:45 Urine Protein Negative (NEGATIVE) 09/01/17 21:45 Urine Glucose (UA) Negative (NEGATIVE) 09/01/17 21:45 Urine Ketones Negative (NEGATIVE) 09/01/17 21:45 Urine Blood 1+ (NEGATIVE) H 09/01/17 21:45 Urine Nitrite Positive (NEGATIVE) 09/01/17 21:45 Urine Bilirubin Negative (NEGATIVE) 09/01/17 21:45 Urine Urobilinogen Negative mg/dL (0.2-1.0) 09/01/17 21:45 Urine RBC 35 /hpf (0-3) 09/01/17 21:45 Urine WBC 837 /hpf (3-5) 09/01/17 21:45 Ur Epithelial Cells Moderate /hpf (FEW) 09/01/17 21:45 Calcium Oxalate Crystal Many /hpf (NONE SEEN) 09/01/17 21:45 Urine Bacteria Many /hpf (NONE SEEN) 09/01/17 21:45 Hyaline Casts 19 /lpf 08/31/17 23:10 Urine Mucus Rare 09/01/17 21:45 RPR Titer Nonreactive (NONREACTIVE) 09/01/17 08:00 Hepatitis C Antibody 0.8 s/co ratio (0.0-0.9) 09/01/17 08:00 Assessment: 09/02/17 13:12 withdrawal symptom Plan: continue detox,urinr for c/s pending,bactrim ds 1 tba po bid for uti
[2017-09-02] MEDS ORDERED: MEGESTROL ACETATE 400 MG/10 ML UNIT DOSE CUP PO SCH (13:42)
[2017-09-02] MEDS: SULFAMETHOXAZOLE/TRIMETHOPRIM 800MG/160MG D.S. TABLET PO SCH ×2 (14:50→22:30)
[2017-09-02] MEDS: ZOLPIDEM TARTRATE 5 MG TABLET PO PRN (22:29)
[2017-09-02] MEDS: chlordiazePOXIDE 5 MG CAPSULE PO SCH (22:31)
[2017-09-02] MEDS: THIAMINE HCL 100 MG TABLET (FP) PO SCH (22:31)
[2017-09-03] MEDS: chlordiazePOXIDE 5 MG CAPSULE PO SCH (06:14)
[2017-09-03] MEDS: METHADONE HCL 5 MG TABLET (FOR DETOX USE ONLY) PO SCH (09:40)
[2017-09-03] MEDS: metroNIDAZOLE 250 MG TABLET PO SCH (09:40)
[2017-09-03] MEDS: PRENATAL VITAMINS W/ FOLIC ACID TABLET (FP) PO SCH (09:41)
[2017-09-03] MEDS: SULFAMETHOXAZOLE/TRIMETHOPRIM 800MG/160MG D.S. TABLET PO SCH (09:41)
--- NOTE | 2017-09-03 09:52 | PN ---
S Progress Note Note: pt states she wants to go home and is signing out. refused to continue detox.
--- NOTE | 2017-09-03 10:06 | DS ---
[facility] Detox Discharge Summary Admission Date: 08/31/17 - History Present History: Alcohol Dependence, Cannabis Dependence, Cocaine Dependence, Opioid Dependence, Pcp Dependence - Physical Exam Results Vital Signs: Vital Signs Temperature 98.4 F 09/03/17 06:41 Pulse Rate 64 09/03/17 06:41 Respiratory Rate 16 09/03/17 06:41 Blood Pressure 102/63 09/03/17 06:41 O2 Sat by Pulse Oximetry (%) - Treatment Hospital Course: Detoxed Safely, Responded well, Discharged Condition Good, Rehab Referral Accepted - Medication Discharge Medications: Ambulatory Orders Clonidine HCl [Catapres] 0.1 mg PO DAILY 01/29/17 Sulfamethoxazole/Trimethoprim [Bactrim DS -] 1 each PO BID #14 tablet 02/02/17 Gabapentin [Neurontin -] 300 mg PO TID #90 cap 03/18/17 Albuterol Sulfate Inhaler - [Ventolin HFA Inhaler -] 2 inh IH Q4H PRN #1 inhaler 07/27/17 Sulfamethoxazole/Trimethoprim [Bactrim DS -] 1 each PO BID #14 tablet 07/27/17 Megestrol Acetate [Megace -] 40 mg PO DAILY 08/31/17 Metronidazole [Flagyl -] 500 mg PO DAILY 08/31/17 - Diagnosis (1) AIDS Current Visit: Yes Status: Chronic (2) Alcohol dependence with uncomplicated withdrawal Current Visit: Yes Status: Chronic (3) Asthma Current Visit: Yes Status: Chronic Qualifiers: Asthma severity: mild Asthma persistence: intermittent Asthma complication type: uncomplicated Qualified Code(s): J45.20 - Mild intermittent asthma, uncomplicated; J45.20 - Mild intermittent asthma, uncomplicated; J45.20 - Mild intermittent asthma, uncomplicated (4) BV (bacterial vaginosis) Current Visit: Yes Status: Chronic (5) Cannabis dependence, uncomplicated Current Visit: Yes Status: Chronic (6) Cocaine dependence, uncomplicated Current Visit: Yes Status: Chronic (7) Nicotine dependence Current Visit: Yes Status: Chronic Qualifiers: Nicotine product type: cigarettes Substance use status: uncomplicated Qualified Code(s): F17.210 - Nicotine dependence, cigarettes, uncomplicated; F17.210 - Nicotine dependence, cigarettes, uncomplicated (8) Opioid dependence with withdrawal Current Visit: Yes Status: Chronic (9) UTI (urinary tract infection) Current Visit: Yes Status: Chronic Qualifiers: Urinary tract infection type: urethritis Qualified Code(s): N34.2 - Other urethritis; N34.2 - Other urethritis - AMA Did Patient Leave Against Medical Advice: Yes (going home)
[2017-09-03 11:18] VITALS: BP 112/60; PULSE 67; TEMP 98.1
[2017-09-03] MEDS ORDERED: chlordiazePOXIDE HCL 10 MG CAPSULE PO SCH (23:00)
[2017-09-04] MEDS ORDERED: METHADONE HCL 10 MG TABLET (FOR DETOX USE ONLY) PO SCH (10:00)
[2017-09-05] MEDS ORDERED: METHADONE HCL 5 MG TABLET (FOR DETOX USE ONLY) PO SCH (06:00)
== END 2017-09-03 10:00 | disposition left against medical advice (07) | DRG 770 ==
LOC: YASAS 14:31 → Y6N 17:39
PROVIDERS: ADMIT Internal Medicine; ATTEND Internal Medicine
PROC: HZ2ZZZZ Detoxification Services for Substance Abuse Treatment (ICD-10-PCS; principal; 2017-08-31)
DX: F11.23 Opioid dependence with withdrawal (principal); F10.230 Alcohol dependence with withdrawal, uncomplicated; F14.20 Cocaine dependence, uncomplicated; F12.20 Cannabis dependence, uncomplicated; F17.210 Nicotine dependence, cigarettes, uncomplicated; F19.24 Other psychoactive substance dependence with psychoactive substance-induced mood disorder; B20 Human immunodeficiency virus [HIV] disease; J45.20 Mild intermittent asthma, uncomplicated; N76.0 Acute vaginitis; N34.2 Other urethritis; G62.9 Polyneuropathy, unspecified; G47.00 Insomnia, unspecified; D64.9 Anemia, unspecified; Z87.898 Personal history of other specified conditions; Z91.14 Patient's other noncompliance with medication regimen
CPT/HCPCS: 36415; 80053; 81003; 81015; 85027; 86593; 86803; 87086; 87186; 93005; 93010; J8999

== ENCOUNTER 2017-10-25 08:24 | Inpatient (IN) | payer OTHER ==
[2017-10-25 08:37] VITALS: BMI 17.5
--- NOTE | 2017-10-25 10:45 | HP ---
COWS - Scale Resting Pulse: 1= [place] 81-100 Sweatin=Flushed/Facial Moisture Restless Observation: 1= Difficult to Sit Still Pupil Size: 0= Normal to Room Light Bone or Joint Aches: 2= Severe Diffuse Aches Runny Nose/ Eye Tearin= Runny Nose/Eyes GI Upset > 30mins: 2= Nausea/Diarrhea Tremor Observation: 2= Slight Tremor Visible Yawning Observation: 2= >3x During Session Anxiety or Irritability: 2=Irritable/Anxious Goose Flesh Skin: 0=Smooth Skin COWS Score: 16 CIWA Score - CIWA Score Nausea/Vomitin-No Nausea/No Vomiting Muscle Tremors: 4-Moderate,w/Arms Extend Anxiety: 4-Mod. Anxious/Guarded Agitation: 4-Moderately Restless Paroxysmal Sweats: 3 Orientation: 0-Oriented Tacttile Disturbances: 0-None Auditory Disturbances: 0-None Visual Disturbances: 0-None Headache: 1-Very Mild CIWA-Ar Total Score: 16 Admission ROS BHS - HPI Chief Complaint: I need to get it right and try to stay sober. I will not leave AMA again this time. I will complete. Allergies/Adverse Reactions: Allergies Allergy/AdvReac Type Severity Reaction Status Date / Time No Known Allergies Allergy Verified 08/31/17 17:00 History of Present Illness: pt is a 57yr old female with a history of alcohol and heroin dependence seeking detox for treatment. pt is also HIV+ since 1992 and states has not been taking her antiviral medication as prescribed and is non compliant. pt states she is going to have a different medication she will be taking for her HIV just not sure what or when it will start. Exam Limitations: No Limitations - Ebola screening Have you traveled outside of the country in the last 21 days: No Have you had contact with anyone from an Ebola affected area: No Have you been sick,other than usual withdrawal symptoms: No Do you have a fever: No - Review of Systems Constitutional: Chills, Diaphoresis, Night Sweats, Changes in sleep, Unintentional Wgt. Loss EENT: reports: Tearing, Nose Congestion Respiratory: reports: No Symptoms reported Cardiac: reports: No Symptoms Reported GI: reports: Diarrhea, Nausea, Poor Appetite, Poor Fluid Intake : reports: No Symptoms Reported Musculoskeletal: reports: Back Pain, Joint Pain Integumentary: reports: Flushing, Sweating Neuro: reports: Headache, Tingling, Tremors Endocrine: reports: Excessive Sweating, Flushing, Intolerance to Cold, Intolerance to Heat Hematology: reports: No Symptoms Reported Psychiatric: reports: Judgement Intact, Mood/Affect Appropiate, Orientated x3, Agitated, Anxious Other Systems: Reviewed and Negative Patient History - Patient Medical History Hx Anemia: Yes Hx Asthma: Yes Hx Chronic Obstructive Pulmonary Disease (COPD): No Hx Cancer: No Hx Cardiac Disorders: No Hx Congestive Heart Failure: No Hx Hypertension: Yes (under control not taking any medication) Hx Hypercholesterolemia: No Hx Pacemaker: No HX Cerebrovascular Accident: No Hx Seizures: No Hx Dementia: No Hx Diabetes: No Hx Gastrointestinal Disorders: No Hx Liver Disease: No Hx Genitourinary Disorders: No Hx Sexually Transmitted Disorders: No Hx Renal Disease (ESRD): No Hx Thyroid Disease: No Hx Human Immunodeficiency Virus (HIV): Yes (SINCE 1992;CURRENTLY ON PREZISTA, DESCOVEY & NORVIR BUT NONCOMPLIANT.) Hx Hepatitis C: No Hx Depression: Yes Hx Suicide Attempt: No (denies) Hx Bipolar Disorder: Yes (ON MED) Hx Schizophrenia: No - Patient Surgical History Past Surgical History: Yes Hx Neurologic Surgery: No Hx Cataract Extraction: No Hx Cardiac Surgery: No Hx Lung Surgery: No Hx Breast Surgery: No Hx Breast Biopsy: No Hx Abdominal Surgery: No Hx Appendectomy: No Hx Cholecystectomy: No Hx Genitourinary Surgery: No Hx Section: Yes (in 1992) Hx Orthopedic Surgery: No Other Surgical History: ectopic in 1986 Anesthesia Reaction: No - PPD History Previous Implant?: Yes Documented Results: Negative w/proof Implanted On Prior [facility] Admission?: Yes Date: 01/31/17 Results: 0 mm PPD to be Administered?: No - Reproductive History Patient is a Female of Child Bearing Age (11 -55 yrs old): No LMP comment: age 48 Patient : No - Smoking Cessation Smoking history: Current every day smoker Have you smoked in the past 12 months: Yes Aproximately how many cigarettes per day: 10 Cigars Per Day: 0 Hx Chewing Tobacco Use: No Initiated information on smoking cessation: Yes 'Breaking Loose' booklet given: 10/25/17 - Substance & Tx. History Hx Alcohol Use: Yes Hx Substance Use: Yes Substance Use Type: Alcohol, Heroin Hx Substance Use Treatment: Yes (last detox [facility] 08/2017) - Substances Abused Alcohol Route: Oral Frequency: Daily Amount used: gin(1 piont)/vodka(1 pint) Age of first use: 14 Date of Last Use: 10/24/17 Heroin Route: Inhalation Frequency: Daily Amount used: 10 BAGS Age of first use: 14 Date of Last Use: 10/24/17 Cocaine Route: Smoking Frequency: Daily Amount used: $200-300 Age of first use: 14 Date of Last Use: 10/24/17 Family Disease History - Family Disease History Family Disease History: CA: Father (FATHER WAS ADDICTED TO ETOH AND HAD CA. OF THE LUNGS AND ), Other: Father Admission Physical Exam [facility] - Vital Signs Vital Signs: Vital Signs - 24 hr 10/25/17 08:35 Temperature 97 F L Pulse Rate 81 Respiratory 18 Rate Blood Pressure 119/75 - Physical General Appearance: Yes: Appropriately Dressed, Moderate Distress, Tremorous, Irritable, Sweating, Anxious HEENTM: Yes: Normal Voice, Nasal Congestion, Rhinorrhea Respiratory: Yes: Lungs Clear, Normal Breath Sounds, No Respiratory Distress Neck: Yes: No masses,lesions,Nodules Breast: Yes: Within Normal Limits Cardiology: Yes: Regular Rhythm, Regular Rate, S1, S2 Abdominal: Yes: Normal Bowel Sounds, Non Tender, Soft Genitourinary: Yes: Within Normal Limits Back: Yes: Normal Inspection Musculoskeletal: Yes: full range of Motion, Gait Steady, Back pain Extremities: Yes: Normal Capillary Refill, Normal Inspection, Non-Tender, Tremors Neurological: Yes: Fully Oriented, Alert, Normal Response Integumentary: Yes: Normal Color Lymphatic: Yes: Within Normal Limits - Diagnostic (1) Alcohol dependence with uncomplicated withdrawal Current Visit: Yes Status: Chronic (2) Cocaine dependence, uncomplicated Current Visit: Yes Status: Chronic (3) Nicotine dependence Current Visit: No Status: Chronic Qualifiers: Nicotine product type: cigarettes Substance use status: uncomplicated Qualified Code(s): F17.210 - Nicotine dependence, cigarettes, uncomplicated (4) Opioid dependence with withdrawal Current Visit: No Status: Chronic Cleared for Admission [facility] - Detox or Rehab [facility] Level of Care: Medically Managed Detox Regimen/Protocol: Methadone/Librium [facility] Breath Alcohol Content Breath Alcohol Content: 0 Urine Pregancy Test - Result Urine Test Results: Negative- NO Line Present Urine Drug Screen - Results Drug Screen Negative: No Urine Drug Screen Results: SKY-Cocaine, OPI-Opiates
[2017-10-25] MEDS ORDERED: METHADONE HCL 10 MG TABLET (FOR DETOX USE ONLY) PO ONE ×2 (10:49→23:00)
[2017-10-25] MEDS ORDERED: MAGNESIUM HYDROX 2400MG/30ML ORAL SUSPENSION 30 ML CUP PO PRN (10:49)
[2017-10-25] MEDS ORDERED: MAG HYDROX/AL HYDROX/SIMETH 30 ML UNIT-DOSE CUP PO PRN (10:49)
[2017-10-25] MEDS ORDERED: MAGNESIUM CITRATE 300 ML BOTTLE PO PRN (10:49)
[2017-10-25] MEDS ORDERED: IBUPROFEN 400 MG TABLET (FP) PO PRN (10:49)
[2017-10-25] MEDS ORDERED: P-EPHED 60MG/TRIPROLIDI 2.5MG TABLET PO PRN (10:49)
[2017-10-25] MEDS ORDERED: NICOTINE POLACRILEX 4 MG GUM BUC PRN (10:49)
[2017-10-25] MEDS ORDERED: ACETAMINOPHEN 325 MG TABLET (FP) PO PRN (10:49)
[2017-10-25] MEDS ORDERED: hydrOXYzine PAMOATE 50 MG CAPSULE (FP) PO PRN (10:49)
[2017-10-25] MEDS ORDERED: MENTHOL/PHENOL 1 EACH UD MM PRN (10:49)
[2017-10-25] MEDS ORDERED: guaiFENesin/D-METHORPHAN HB 10 ML UNIT-DOSE CUPS PO PRN (10:49)
[2017-10-25] MEDS ORDERED: chlordiazePOXIDE HCL 25 MG CAPSULE PO PRN (10:49)
[2017-10-25] MEDS ORDERED: LOPERAMIDE HCL 2 MG CAPSULE PO PRN (10:49)
[2017-10-25] MEDS ORDERED: ALBUTEROL SO4 18 GM HFA INHALER IH PRN (10:50)
[2017-10-25] MEDS ORDERED: chlordiazePOXIDE HCL 25 MG CAPSULE PO ONE (13:00)
[2017-10-25 14:44] LABS: URINE APPEARANCE TURBID; URINE BILIRUBIN NEGATIVE (NEGATIVE); URINE BLOOD 2+ (NEGATIVE); URINE COLOR AMBER; URINE GLUCOSE (UA) NEGATIVE (NEGATIVE); URINE KETONE NEGATIVE (NEGATIVE); URINE NITRITE POSITIVE (NEGATIVE); URINE UROBILINOGEN NEGATIVE mg/dL (0.2-1.0)
[2017-10-25 14:46] LABS: URINE PROTEIN 2+ (NEGATIVE)
[2017-10-25 14:53] LABS: URINE MUCUS RARE; URINE RBC 86 /hpf (0-3); URINE WBC 2348 /hpf (3-5); YEAST MANY
[2017-10-25] MEDS: chlordiazePOXIDE HCL 25 MG CAPSULE PO SCH ×2 (18:14→22:43)
[2017-10-25 20:14] LABS: URINE LEUK ESTERASE 2+ (NEGATIVE)
[2017-10-25] MEDS: THIAMINE HCL 100 MG TABLET (FP) PO SCH (22:42)
[2017-10-26] MEDS: chlordiazePOXIDE HCL 25 MG CAPSULE PO SCH ×4 (05:58→22:30)
--- NOTE | 2017-10-26 07:51 | CONSULT ---
[facility] Psychiatric Consult - Data Date of interview: 10/26/17 Admission source: [facility] Identifying data: This is 57 years pld female with no psychiatric hospitalization history iontoxicted with: Alcohol Cocaine and Opioids, Nicotine , history of PCP abuse a well Substance Abuse History: Smoking history: Current every day smoker. Have you smoked in the past 12 months: Yes. Aproximately how many cigarettes per day: 10. Cigars Per Day: 0. Hx Chewing Tobacco Use: No. Initiated information on smoking cessation: Yes. 'Breaking Loose' booklet given: 10/25/17. - Substance & Tx. History. Hx Alcohol Use: Yes. Hx Substance Use: Yes. Substance Use Type : Alcohol, Heroin. Hx Substance Use Treatment: Yes (last detox [facility] 2016). - Substances Abused. Alcohol. Route: Oral. Frequency: Daily. Amount used: gin(1 piont)/vodka(1 pint). Age of first use: 14. Date of Last Use: 10/24/17. Heroin. Route: Inhalation. Frequency: Daily. Amount used: 10 BAGS. Age of first use: 14. Date of Last Use: 10/24/17. Cocaine. Route : Smoking. Frequency: Daily. Amount used: $200-300. Age of first use: 14. Date of Last Use: 10/24/17 Medical History: [id number] Psychiatric History: Patient reports anxiety history, reports no [id number] taking prior to admsision Physical/Sexual Abuse/Trauma History: Denies Additional Comment: Observatopm. Detox Unit Care Protocol Mental Status Exam - Mental Status Exam Cognitive Function: Fair Patient Appearance: Unkempt Mood: Sad Affect: Flat Patient Behavior: Sedated Speech Pattern: Delayed Voice Loudness: Mildly Soft/Quiet Thought Process: Circumstantial Thought Disorder: Being Controlled Hallucinations: Denies Suicidal Ideation: Denies Homicidal Ideation: Denies Insight/Judgement: Fair Sleep: Difficulty falling asleep Appetite: Fair Muscle strength/Tone: Normal Gait/Station: Normal Additional Comments: Observatopm. Detox Unit Care Protocol Psychiatric Findings - Problem List ([place] 1, 2,3) (1) Alcohol dependence with uncomplicated withdrawal Current Visit: Yes Status: Chronic (2) Cocaine dependence, uncomplicated Current Visit: Yes Status: Chronic (3) Alcohol abuse Current Visit: No Status: Acute (4) Bipolar disorder Current Visit: No Status: Suspected (5) MDMA abuse Current Visit: No Status: Acute (6) Opiate addiction Current Visit: No Status: Acute (7) Opioid dependence Current Visit: No Status: Acute (8) PCP abuse Current Visit: No Status: Acute (9) Substance induced mood disorder Current Visit: No Status: Acute (10) Cannabis dependence, uncomplicated Current Visit: No Status: Chronic (11) Cocaine abuse Current Visit: No Status: Chronic - Initial Treatment Plan Initial Treatment Plan: Observatopm. Detox Unit Care Protocol
[2017-10-26] MEDS ORDERED: METHADONE HCL 10 MG TABLET (FOR DETOX USE ONLY) PO SCH (10:00)
[2017-10-26] MEDS ORDERED: MEGESTROL ACETATE 40 MG TABLET PO SCH (10:00)
[2017-10-26 10:03] LABS: MCH 25.6 pg (25.7-33.7); MCHC 31.9 g/dl (32.0-36.0); MEAN CELL VOLUME 80.4 fl (80-96); MEAN PLT VOLUME 9.2 fl (7.5-11.1); PLATELET COUNT 137 K/MM3 (134-434); RDW 13.8 % (11.6-15.6); WHITE BLOOD COUNT 3.9 K/mm3 (4.0-10.0)
[2017-10-26 10:11] LABS: CALCIUM 8.4 mg/dL (8.5-10.1)
[2017-10-26 10:17] LABS: ALK PHOS 66 U/L (45-117); ANION GAP 1 (8-16); BILIRUBIN,TOTAL 0.4 mg/dL (0.2-1.0); CO2 34 mmol/L (21-32); CREATININE 0.8 mg/dL (0.55-1.02); GLUCOSE,RANDOM 109 mg/dL (74-106); SGOT/AST 10 U/L (15-37); SGPT/ALT 14 U/L (12-78); TOT PROT 6.2 g/dl (6.4-8.2)
[2017-10-26] MEDS: PRENATAL VITAMINS W/ FOLIC ACID TABLET (FP) PO SCH (10:46)
[2017-10-26] MEDS: NICOTINE 21 MG/24 HOURS TOPICAL PATCH TD SCH (10:48)
--- NOTE | 2017-10-26 11:52 | PN ---
[facility] CIWA - CIWA Score Nausea/Vomitin-No Nausea/No Vomiting Muscle Tremors: 4-Moderate,w/Arms Extend Anxiety: 4-Mod. Anxious/Guarded Agitation: 3 Paroxysmal Sweats: 3 Orientation: 0-Oriented Tacttile Disturbances: 0-None Auditory Disturbances: 0-None Visual Disturbances: 0-None Headache: 0-None Present CIWA-Ar Total Score: 14 BHS COWS - Scale Resting Pulse: 0= [place] 80 or Below Sweatin=Flushed/Facial Moisture Restless Observation: 1= Difficult to Sit Still Pupil Size: 0= Normal to Room Light Bone or Joint Aches: 2= Severe Diffuse Aches Runny Nose/ Eye Tearin= Runny Nose/Eyes GI Upset > 30mins: 0= None Tremor Observation of Outstretched Hands: 2= Slight Tremor Visible Yawning Observation: 2= >3x During Session Anxiety or Irritability: 2=Irritable/Anxious Goose Flesh Skin: 0=Smooth Skin COWS Score: 13 S Progress Note (SOAP) Subjective: agitation sweats shakes interrupted sleep tired Objective: 10/26/17 11:51 Vital Signs Temperature 98.1 F 10/26/17 09:42 Pulse Rate 71 10/26/17 09:42 Respiratory Rate 16 10/26/17 09:42 Blood Pressure 108/55 10/26/17 09:42 O2 Sat by Pulse Oximetry (%) Laboratory Tests 10/25/17 10/26/17 10/26/17 14:00 07:00 07:00 WBC 3.9 L RBC 4.44 Hgb 11.4 Hct 35.7 MCV 80.4 MCH 25.6 L MCHC 31.9 L RDW 13.8 Plt Count 137 MPV 9.2 Manual Slide Review No Result Required. Sodium 140 Potassium 4.2 Chloride 105 Carbon Dioxide 34 H Anion Gap 1 L BUN 22 H D Creatinine 0.8 Creat Clearance w eGFR > 60 Random Glucose 109 H Calcium 8.4 L Total Bilirubin 0.4 D AST 10 L ALT 14 Alkaline Phosphatase 66 Total Protein 6.2 L Albumin 3.0 L Urine Color [place] Urine Appearance Turbid Urine pH 6.0 Ur Specific [place] 1.018 Urine Protein 2+ H Urine Glucose (UA) Negative Urine Ketones Negative Urine Blood 2+ H Urine Nitrite Positive Urine Bilirubin Negative Urine Urobilinogen Negative Urine WBC (Auto) 2348 Urine RBC (Auto) 86 Ur Epithelial Cells Many Urine Mucus Rare Urine Yeast Many repeat u/a aaox3 ambulating no acute distresss Assessment: 10/26/17 11:51 withdrawal sx Plan: continue detox increase fluids f/u u/a
[2017-10-26] MEDS ORDERED: FLU VACCINE QUAD 60 MCG/0.5 ML (MDV 17-18) IM ONE (12:00)
[2017-10-26] MEDS: MEGESTROL ACETATE 400 MG/10 ML UNIT DOSE CUP PO SCH (12:16)
[2017-10-26] MEDS: THIAMINE HCL 100 MG TABLET (FP) PO SCH (22:30)
--- NOTE | 2017-10-27 01:03 | EKG ---
Test Reason : Blood Pressure : / mmHG Vent. Rate : 066 BPM Atrial Rate : 066 BPM P-R Int : 120 ms QRS Dur : 090 ms QT Int : 418 ms P-R-T Axes : 072 077 073 degrees QTc Int : 438 ms N[address]AL SINUS RHYTHM ST ELEVATION, CONSIDER EARLY REPOLARIZATION BORDERLINE ECG WHEN COMPARED WITH ECG OF 31-AUG-2017 20:45, NO SIGNIFICANT CHANGE WAS FOUND Confirmed by NALINI SALMON MD ([id number]) on 10/27/2017 1:03:04 AM Referred By: Confirmed By:NALINI SALMON MD
[2017-10-27] MEDS: chlordiazePOXIDE HCL 25 MG CAPSULE PO SCH ×2 (06:11→11:07)
--- NOTE | 2017-10-27 10:53 | PN ---
[facility] CIWA - CIWA Score Nausea/Vomitin-No Nausea/No Vomiting Muscle Tremors: 3 Anxiety: 3 Agitation: 3 Paroxysmal Sweats: 3 Orientation: 0-Oriented Tacttile Disturbances: 0-None Auditory Disturbances: 0-None Visual Disturbances: 0-None Headache: 0-None Present CIWA-Ar Total Score: 12 BHS COWS - Scale Resting Pulse: 1= [place] 81-100 Sweatin= Chills/Flushing Restless Observation: 1= Difficult to Sit Still Pupil Size: 0= Normal to Room Light Bone or Joint Aches: 2= Severe Diffuse Aches Runny Nose/ Eye Tearin= Runny Nose/Eyes GI Upset > 30mins: 0= None Tremor Observation of Outstretched Hands: 1= Tremor [place], Not Seen Yawning Observation: 2= >3x During Session Anxiety or Irritability: 2=Irritable/Anxious Goose Flesh Skin: 0=Smooth Skin COWS Score: 12 S Progress Note (SOAP) Subjective: agitation anxiety sweats shakes interrupted sleep Objective: 10/27/17 10:53 Vital Signs Temperature 98.1 F 10/27/17 06:00 Pulse Rate 68 10/27/17 06:00 Respiratory Rate 16 10/27/17 06:00 Blood Pressure 105/55 10/27/17 06:00 O2 Sat by Pulse Oximetry (%) Laboratory Tests 10/25/17 10/26/17 10/26/17 14:00 07:00 07:00 WBC 3.9 L RBC 4.44 Hgb 11.4 Hct 35.7 MCV 80.4 MCH 25.6 L MCHC 31.9 L RDW 13.8 Plt Count 137 MPV 9.2 Manual Slide Review No Result Required. Sodium 140 Potassium 4.2 Chloride 105 Carbon Dioxide 34 H Anion Gap 1 L BUN 22 H D Creatinine 0.8 Creat Clearance w eGFR > 60 Random Glucose 109 H Calcium 8.4 L Total Bilirubin 0.4 D AST 10 L ALT 14 Alkaline Phosphatase 66 Total Protein 6.2 L Albumin 3.0 L Urine Color [place] Urine Appearance Turbid Urine pH 6.0 Ur Specific [place] 1.018 Urine Protein 2+ H Urine Glucose (UA) Negative Urine Ketones Negative Urine Blood 2+ H Urine Nitrite Positive Urine Bilirubin Negative Urine Urobilinogen Negative Urine WBC (Auto) 2348 Urine RBC (Auto) 86 Ur Epithelial Cells Many Urine Mucus Rare Urine Yeast Many RPR Titer 10/26/17 07:00 WBC RBC Hgb Hct MCV MCH MCHC RDW Plt Count MPV Manual Slide Review Sodium Potassium Chloride Carbon Dioxide Anion Gap BUN Creatinine Creat Clearance w eGFR Random Glucose Calcium Total Bilirubin AST ALT Alkaline Phosphatase Total Protein Albumin Urine Color Urine Appearance Urine pH Ur Specific [place] Urine Protein Urine Glucose (UA) Urine Ketones Urine Blood Urine Nitrite Urine Bilirubin Urine Urobilinogen Urine WBC (Auto) Urine RBC (Auto) Ur Epithelial Cells Urine Mucus Urine Yeast RPR Titer Nonreactive aaox3 repeated u/a with C&S; pending results ambulating no acute distress Assessment: 10/27/17 10:55 withdrawal sx Plan: continue detox increase fluids f/u pending labs
[2017-10-27] MEDS: PRENATAL VITAMINS W/ FOLIC ACID TABLET (FP) PO SCH (11:07)
[2017-10-27] MEDS: METHADONE HCL 5 MG TABLET (FOR DETOX USE ONLY) PO SCH (11:07)
[2017-10-27] MEDS: MEGESTROL ACETATE 400 MG/10 ML UNIT DOSE CUP PO SCH (11:08)
[2017-10-27] MEDS: NICOTINE 21 MG/24 HOURS TOPICAL PATCH TD SCH (11:08)
[2017-10-27] MEDS: chlordiazePOXIDE 5 MG CAPSULE PO SCH ×2 (17:30→22:16)
[2017-10-27 21:16] LABS: URINE APPEARANCE SL CLOUDY; URINE BILIRUBIN NEGATIVE (NEGATIVE); URINE COLOR LT. YELLOW; URINE GLUCOSE (UA) NEGATIVE (NEGATIVE); URINE KETONE NEGATIVE (NEGATIVE); URINE NITRITE NEGATIVE (NEGATIVE); URINE PROTEIN NEGATIVE (NEGATIVE); URINE UROBILINOGEN 0.2 mg/dL (0.2-1.0)
[2017-10-27 21:20] LABS: URINE BLOOD 1+ (NEGATIVE)
[2017-10-27] MEDS: THIAMINE HCL 100 MG TABLET (FP) PO SCH (22:16)
[2017-10-28 02:31] LABS: URINE BACTERIA MANY /hpf (NONE SEEN); URINE HYALINE CAST 2 /lpf; URINE RBC 6 /hpf (0-3); URINE WBC 200 /hpf (3-5)
[2017-10-28] MEDS: chlordiazePOXIDE 5 MG CAPSULE PO SCH ×2 (05:57→10:50)
[2017-10-28 10:29] LABS: URINE LEUK ESTERASE 3+ (NEGATIVE)
[2017-10-28] MEDS: NICOTINE 21 MG/24 HOURS TOPICAL PATCH TD SCH (10:50)
[2017-10-28] MEDS: METHADONE HCL 5 MG TABLET (FOR DETOX USE ONLY) PO SCH (10:50)
[2017-10-28] MEDS: MEGESTROL ACETATE 400 MG/10 ML UNIT DOSE CUP PO SCH (10:50)
[2017-10-28] MEDS: PRENATAL VITAMINS W/ FOLIC ACID TABLET (FP) PO SCH (10:50)
--- NOTE | 2017-10-28 13:25 | PN ---
BHS Progress Note (SOAP) Subjective: sweats agitation Objective: 10/28/17 13:23 Vital Signs Temperature 99.6 F 10/28/17 10:00 Pulse Rate 76 10/28/17 10:00 Respiratory Rate 18 10/28/17 10:00 Blood Pressure 105/53 10/28/17 10:00 O2 Sat by Pulse Oximetry (%) Laboratory Tests 10/25/17 10/26/17 10/26/17 14:00 07:00 07:00 WBC 3.9 L RBC 4.44 Hgb 11.4 Hct 35.7 MCV 80.4 MCH 25.6 L MCHC 31.9 L RDW 13.8 Plt Count 137 MPV 9.2 Manual Slide Review No Result Required. Sodium 140 Potassium 4.2 Chloride 105 Carbon Dioxide 34 H Anion Gap 1 L BUN 22 H D Creatinine 0.8 Creat Clearance w eGFR > 60 Random Glucose 109 H Calcium 8.4 L Total Bilirubin 0.4 D AST 10 L ALT 14 Alkaline Phosphatase 66 Total Protein 6.2 L Albumin 3.0 L Urine Color [place] Urine Appearance Turbid Urine pH 6.0 Ur Specific [place] 1.018 Urine Protein 2+ H Urine Glucose (UA) Negative Urine Ketones Negative Urine Blood 2+ H Urine Nitrite Positive Urine Bilirubin Negative Urine Urobilinogen Negative Ur Leukocyte Esterase Urine WBC (Auto) 2348 Urine RBC (Auto) 86 Ur Epithelial Cells Many Urine Bacteria Hyaline Casts Urine Mucus Rare Urine Yeast Many RPR Titer 10/26/17 10/27/17 07:00 19:00 WBC RBC Hgb Hct MCV MCH MCHC RDW Plt Count MPV Manual Slide Review Sodium Potassium Chloride Carbon Dioxide Anion Gap BUN Creatinine Creat Clearance w eGFR Random Glucose Calcium Total Bilirubin AST ALT Alkaline Phosphatase Total Protein Albumin Urine Color Lt. yellow Urine Appearance Sl cloudy Urine pH 7.0 Ur Specific [place] 1.010 Urine Protein Negative Urine Glucose (UA) Negative Urine Ketones Negative Urine Blood 1+ H Urine Nitrite Negative Urine Bilirubin Negative Urine Urobilinogen 0.2 Ur Leukocyte Esterase 3+ H Urine WBC (Auto) 200 Urine RBC (Auto) 6 Ur Epithelial Cells Rare Urine Bacteria Many Hyaline Casts 2 Urine Mucus Urine Yeast RPR Titer Nonreactive repeated u/a show increase WBC count 200 with bacteria pt c/o of some discomfort when she voids bactrim ds bid x 7 days ordered aaox3 no acute distress ambulating Assessment: 10/28/17 13:24 withdrawal sx Plan: continue detox increase fluids bactrim ds x 7 days d/c in am
[2017-10-28] MEDS: SULFAMETHOXAZOLE/TRIMETHOPRIM 800MG/160MG D.S. TABLET PO SCH ×2 (14:07→22:29)
[2017-10-28] MEDS: chlordiazePOXIDE HCL 10 MG CAPSULE PO SCH ×2 (17:12→22:29)
[2017-10-28] MEDS: THIAMINE HCL 100 MG TABLET (FP) PO SCH (22:28)
[2017-10-29] MEDS: chlordiazePOXIDE HCL 10 MG CAPSULE PO SCH (05:15)
[2017-10-29] MEDS: MEGESTROL ACETATE 400 MG/10 ML UNIT DOSE CUP PO SCH (09:25)
[2017-10-29] MEDS: SULFAMETHOXAZOLE/TRIMETHOPRIM 800MG/160MG D.S. TABLET PO SCH (09:25)
[2017-10-29] MEDS: PRENATAL VITAMINS W/ FOLIC ACID TABLET (FP) PO SCH (09:26)
[2017-10-29 09:35] VITALS: BP 97/56; PULSE 73; TEMP 97.2
--- NOTE | 2017-10-29 09:47 | DS ---
[facility] Detox Discharge Summary Admission Date: 10/25/17 Discharge Date: 10/29/17 - History Present History: Alcohol Dependence, Cocaine Dependence, Opioid Dependence, Pcp Dependence - Physical Exam Results Vital Signs: Vital Signs Temperature 97.2 F L 10/29/17 09:34 Pulse Rate 73 10/29/17 09:34 Respiratory Rate 16 10/29/17 09:34 Blood Pressure 97/56 10/29/17 09:34 O2 Sat by Pulse Oximetry (%) - Treatment Hospital Course: Detox Protocol Followed, Detoxed Safely, Responded well, Discharged Condition Good, Rehab Referral Accepted - Medication Discharge Medications: Ambulatory Orders Clonidine HCl [Catapres] 0.1 mg PO DAILY 01/29/17 Gabapentin [Neurontin -] 300 mg PO TID #90 cap 03/18/17 Albuterol Sulfate Inhaler - [Ventolin HFA Inhaler -] 2 inh IH Q4H PRN #1 inhaler 07/27/17 Megestrol Acetate Oral Susp [Megace Oral Suspension -] 400 mg PO DAILY cup Sulfamethoxazole/Trimethoprim [Bactrim DS -] 1 each PO BID #14 tablet 10/29/17 - Diagnosis (1) Alcohol dependence with uncomplicated withdrawal Current Visit: Yes Status: Chronic (2) Cocaine dependence, uncomplicated Current Visit: Yes Status: Chronic (3) Nicotine dependence Current Visit: Yes Status: Chronic Qualifiers: Nicotine product type: cigarettes Substance use status: uncomplicated Qualified Code(s): F17.210 - Nicotine dependence, cigarettes, uncomplicated (4) Opioid dependence with withdrawal Current Visit: Yes Status: Chronic - AMA Did Patient Leave Against Medical Advice: No
[2017-10-29] MEDS ORDERED: METHADONE HCL 10 MG TABLET (FOR DETOX USE ONLY) PO SCH (10:00)
[2017-10-30] MEDS ORDERED: METHADONE HCL 5 MG TABLET (FOR DETOX USE ONLY) PO SCH (06:00)
== END 2017-10-29 09:38 | disposition home or self-care (01) | DRG 773 ==
LOC: YASAS 08:24 → Y6N 11:03
PROVIDERS: ADMIT Internal Medicine; ATTEND Internal Medicine
PROC: HZ2ZZZZ Detoxification Services for Substance Abuse Treatment (ICD-10-PCS; principal; 2017-10-25)
DX: F11.23 Opioid dependence with withdrawal (principal); F10.230 Alcohol dependence with withdrawal, uncomplicated; F14.20 Cocaine dependence, uncomplicated; F17.210 Nicotine dependence, cigarettes, uncomplicated; F31.9 Bipolar disorder, unspecified; F19.24 Other psychoactive substance dependence with psychoactive substance-induced mood disorder; D72.824 Basophilia; R82.71 Bacteriuria; Z21 Asymptomatic human immunodeficiency virus [HIV] infection status; Z91.14 Patient's other noncompliance with medication regimen
CPT/HCPCS: 36415; 80053; 81003; 81015; 85027; 86593; 90688; 93005; 93010

== ENCOUNTER 2018-05-18 18:00 | Inpatient (IN) | payer OTHER ==
[2018-05-18 19:09] VITALS: BMI 17.6
[2018-05-18] MEDS ORDERED: ALBUTEROL SO4 18 GM HFA INHALER IH PRN (20:10)
--- NOTE | 2018-05-18 20:10 | HP ---
COWS - Scale Resting Pulse: 0= NM 80 or Below Sweatin= Chills/Flushing Restless Observation: 1= Difficult to Sit Still Pupil Size: 1= Pupils >than Normal Bone or Joint Aches: 1= Mild Discomfort Runny Nose/ Eye Tearin= Nasal Congestion GI Upset > 30mins: 2= Nausea/Diarrhea Tremor Observation: 1= Tremor [place], Not Seen Yawning Observation: 2= >3x During Session Anxiety or Irritability: 2=Irritable/Anxious Goose Flesh Skin: 0=Smooth Skin COWS Score: 12 CIWA Score - CIWA Score Nausea/Vomitin Muscle Tremors: 2 Anxiety: 2 Agitation: 1-Slight > Activity Paroxysmal Sweats: 1-Minimal Palms Moist Orientation: 0-Oriented Tacttile Disturbances: 2-Mild Itch/Numbness/Burn Auditory Disturbances: 0-None Visual Disturbances: 0-None Headache: 2-Mild CIWA-Ar Total Score: 12 Admission ROS BHS - HPI Chief Complaint: withdrawal symptoms Allergies/Adverse Reactions: Allergies Allergy/AdvReac Type Severity Reaction Status Date / Time No Known Allergies Allergy Verified 05/18/18 19:18 History of Present Illness: Patient is a 58 yo female with hx of nicotine, THC, cocaine, alcohol and heroin dependence is here seeking detox. Last detox [facility] September 2017. PMHX: HIV+, HTN , Low BMI, asthma, neuropathy, PTSD, depression, bipolar. Denies suicidal / homicidal or hx of suicide attempt. Longest period of sobriety 2 years. Exam Limitations: No Limitations - Ebola screening Have you traveled outside of the country in the last 21 days: No Have you been sick,other than usual withdrawal symptoms: No - Review of Systems Constitutional: Chills, Loss of Appetite, Changes in sleep, Weakness, Unintentional Wgt. Loss EENT: reports: Blurred Vision (wears glasses), Nose Congestion Respiratory: reports: No Symptoms reported Cardiac: reports: No Symptoms Reported GI: reports: Diarrhea, Nausea, Poor Appetite, Poor Fluid Intake, Vomiting, Abdominal cramping : reports: No Symptoms Reported Musculoskeletal: reports: Back Pain, Joint Pain Integumentary: reports: Pruritus Neuro: reports: See HPI, Tingling (both lopwer extremities) Endocrine: reports: Increased Thirst Hematology: reports: No Symptoms Reported Psychiatric: reports: Orientated x3, Depressed Other Systems: Reviewed and Negative Patient History - Patient Medical History Hx Anemia: Yes Hx Asthma: Yes Hx Chronic Obstructive Pulmonary Disease (COPD): No Hx Cancer: No Hx Cardiac Disorders: No Hx Congestive Heart Failure: No Hx Hypertension: Yes Hx Hypercholesterolemia: No Hx Pacemaker: No HX Cerebrovascular Accident: No Hx Seizures: No Hx Dementia: No Hx Diabetes: No Hx Gastrointestinal Disorders: No Hx Liver Disease: No Hx Genitourinary Disorders: No Hx Sexually Transmitted Disorders: No Hx Renal Disease (ESRD): No Hx Thyroid Disease: No Hx Human Immunodeficiency Virus (HIV): Yes (SINCE 1992;CURRENTLY ON PREZISTA, DESCOVEY & NORVIR BUT NONCOMPLIANT.) Hx Hepatitis C: No Hx Depression: Yes Hx Suicide Attempt: No (denies) Hx Bipolar Disorder: Yes (ON MED) Hx Schizophrenia: No - Patient Surgical History Past Surgical History: Yes Hx Neurologic Surgery: No Hx Cataract Extraction: No Hx Cardiac Surgery: No Hx Lung Surgery: No Hx Breast Surgery: No Hx Breast Biopsy: No Hx Abdominal Surgery: No Hx Appendectomy: No Hx Cholecystectomy: No Hx Genitourinary Surgery: No Hx Section: Yes (in 1992) Hx Orthopedic Surgery: No Other Surgical History: ectopic in 1986 Anesthesia Reaction: No - PPD History Previous Implant?: Yes Documented Results: Negative w/proof Date: 01/31/17 Results: 0 mm PPD to be Administered?: Yes - Reproductive History Patient is a Female of Child Bearing Age (11 -55 yrs old): No - Smoking Cessation Smoking history: Current every day smoker Have you smoked in the past 12 months: Yes Aproximately how many cigarettes per day: 10 Cigars Per Day: 0 Hx Chewing Tobacco Use: No Initiated information on smoking cessation: Yes 'Breaking Loose' booklet given: 05/18/18 - Substance & Tx. History Hx Alcohol Use: Yes Hx Substance Use: Yes Substance Use Type: Alcohol, Cocaine, Heroin, Marijuana Hx Substance Use Treatment: Yes ([facility] September 2017) - Substances Abused Alcohol Route: Oral Frequency: Daily Amount used: LIQUOR- 10 BAGS, BEER- 4 16oz Age of first use: 14 Date of Last Use: 05/18/18 Heroin Route: Inhalation Frequency: Daily Amount used: 10 bags Age of first use: 14 Date of Last Use: 05/18/18 Cocaine Route: Smoking Frequency: Daily Amount used: $100 Age of first use: 14 Date of Last Use: 05/18/18 Marijuana/Hashish Route: Smoking Frequency: Daily Amount used: $40 Age of first use: 14 Date of Last Use: 05/18/18 Family Disease History - Family Disease History Family Disease History: CA: Father (FATHER WAS ADDICTED TO ETOH AND HAD CA. OF THE LUNGS AND ), Other: Father Admission Physical Exam S - Vital Signs Vital Signs: Vital Signs - 24 hr 05/18/18 19:07 Temperature 98.8 F Pulse Rate 80 Respiratory 16 Rate Blood Pressure 107/59 - Physical General Appearance: Yes: Mild Distress, Thin, Sweating, Anxious HEENTM: Yes: EOMI, Hearing grossly Normal, Normal ENT Inspection, Normocephalic , Normal Voice, YOKASTA, Pharynx Normal, Tm's normal, Other (wears glassess) Respiratory: Yes: Chest Non-Tender, Lungs Clear, Normal Breath Sounds, No Respiratory Distress, No Accessory Muscle Use Neck: Yes: No masses,lesions,Nodules, Trachea in good position Breast: Yes: Breast Exam Deferred Cardiology: Yes: Regular Rhythm, Regular Rate Abdominal: Yes: Normal Bowel Sounds, Non Tender, Flat, Soft Genitourinary: Yes: Within Normal Limits Back: Yes: Normal Inspection Musculoskeletal: Yes: full range of Motion, Gait Steady, Pelvis Stable Extremities: Yes: Normal Capillary Refill, Normal Inspection, Normal Range of Motion, Non-Tender Neurological: Yes: parachute crown sewer II-XII NML intact, Fully Oriented, Alert, Motor Strength 5/5, Normal Response, Depressed Affect Integumentary: Yes: Normal Color, Warm, Moist, Other (laceration on the left wrist with renetta from prior injury no infection) Lymphatic: Yes: Within Normal Limits - Diagnostic (1) Cocaine dependence Current Visit: Yes Status: Chronic Qualifiers: Substance use status: uncomplicated Qualified Code(s): F14.20 - Cocaine dependence, uncomplicated (2) Depressed mood Current Visit: Yes Status: Acute (3) Laceration of left wrist without complication Current Visit: Yes Status: Acute (4) Alcohol dependence with uncomplicated withdrawal Current Visit: Yes Status: Chronic (5) Asthma Current Visit: Yes Status: Chronic Qualifiers: Asthma severity: mild Asthma persistence: intermittent Asthma complication type: uncomplicated Qualified Code(s): J45.20 - Mild intermittent asthma, uncomplicated (6) Cannabis dependence, uncomplicated Current Visit: Yes Status: Chronic (7) Neuropathy Current Visit: No Status: Chronic (8) Nicotine dependence Current Visit: Yes Status: Chronic Qualifiers: Nicotine product type: cigarettes Substance use status: uncomplicated Qualified Code(s): F17.210 - Nicotine dependence, cigarettes, uncomplicated (9) Opioid dependence with withdrawal Current Visit: Yes Status: Acute (10) UTI (urinary tract infection) Current Visit: Yes Status: Acute Qualifiers: Urinary tract infection type: acute cystitis (11) Weight loss Current Visit: Yes Status: Chronic Cleared for Admission S - Detox or Rehab [facility] Level of Care: Medically Managed Detox Regimen/Protocol: Methadone/Librium [facility] Breath Alcohol Content Breath Alcohol Content: 0 Urine Pregancy Test - Result Urine Test Results: Negative- NO Line Present Urine Drug Screen - Results Drug Screen Negative: No Urine Drug Screen Results: THC-Marijuana, SKY-Cocaine, OPI-Opiates
[2018-05-18] MEDS ORDERED: P-EPHED 60MG/TRIPROLIDI 2.5MG TABLET PO PRN (20:48)
[2018-05-18] MEDS ORDERED: MAG HYDROX/AL HYDROX/SIMETH 30 ML UNIT-DOSE CUP PO PRN (20:48)
[2018-05-18] MEDS ORDERED: hydrOXYzine PAMOATE 50 MG CAPSULE (FP) PO PRN (20:48)
[2018-05-18] MEDS ORDERED: MENTHOL/PHENOL 1 EACH UD MM PRN (20:48)
[2018-05-18] MEDS ORDERED: MAGNESIUM HYDROX 2400MG/30ML ORAL SUSPENSION 30 ML CUP PO PRN (20:48)
[2018-05-18] MEDS ORDERED: IBUPROFEN 400 MG TABLET (FP) PO PRN (20:48)
[2018-05-18] MEDS ORDERED: guaiFENesin/D-METHORPHAN HB 10 ML UNIT-DOSE CUPS PO PRN (20:48)
[2018-05-18] MEDS ORDERED: MAGNESIUM CITRATE 300 ML BOTTLE PO PRN (20:48)
[2018-05-18] MEDS ORDERED: NICOTINE POLACRILEX 2 MG GUM BC PRN (20:48)
[2018-05-18] MEDS ORDERED: ACETAMINOPHEN 325 MG TABLET (FP) PO PRN (20:48)
[2018-05-18] MEDS ORDERED: LOPERAMIDE HCL 2 MG CAPSULE PO PRN (20:48)
[2018-05-18] MEDS ORDERED: chlordiazePOXIDE HCL 25 MG CAPSULE PO PRN (20:48)
[2018-05-18] MEDS ORDERED: METHADONE HCL 10 MG TABLET (FOR DETOX USE ONLY) PO ONE ×2 (21:15→23:00)
[2018-05-18] MEDS ORDERED: chlordiazePOXIDE HCL 25 MG CAPSULE PO ONE (21:15)
[2018-05-18] MEDS: CEPHALEXIN MONOHYDRATE 500 MG CAPSULE (UD) PO SCH (21:55)
[2018-05-18] MEDS: GABAPENTIN 300 MG CAPSULE (FP) PO SCH (21:55)
[2018-05-18] MEDS: THIAMINE HCL 100 MG TABLET (FP) PO SCH (21:55)
[2018-05-18] MEDS: chlordiazePOXIDE HCL 25 MG CAPSULE PO SCH (21:59)
[2018-05-18] MEDS ORDERED: MELATONIN 5 MG TABLETS PO PRN (22:00)
[2018-05-19] MEDS: GABAPENTIN 300 MG CAPSULE (FP) PO SCH ×3 (06:30→22:11)
[2018-05-19] MEDS: chlordiazePOXIDE HCL 25 MG CAPSULE PO SCH ×4 (06:30→22:12)
[2018-05-19 07:24] LABS: URINE APPEARANCE TURBID; URINE BILIRUBIN NEGATIVE (<2.0 mg/dL); URINE COLOR AMBER; URINE GLUCOSE (UA) NEGATIVE (NEGATIVE); URINE KETONE NEGATIVE (NEGATIVE); URINE NITRITE NEGATIVE (NEGATIVE); URINE UROBILINOGEN NEGATIVE mg/dL (0.2-1.0)
[2018-05-19 07:54] LABS: URINE LEUK ESTERASE 3+ (NEGATIVE); URINE PROTEIN 1+ (NEGATIVE)
[2018-05-19 08:01] LABS: CALCIUM OXALATE CRYSTALS RARE /hpf (NONE SEEN); EPI CELLS FEW /HPF (FEW); URINE BACTERIA MODERATE /hpf (NONE SEEN); URINE MUCUS RARE
[2018-05-19] MEDS ORDERED: METHADONE HCL 10 MG TABLET (FOR DETOX USE ONLY) PO SCH (10:00)
[2018-05-19] MEDS: NICOTINE 14 MG/24 HOURS TOPICAL PATCH TD SCH (10:03)
[2018-05-19] MEDS: cloNIDine HCL 0.1 MG TABLET PO SCH (10:03)
[2018-05-19] MEDS: CEPHALEXIN MONOHYDRATE 500 MG CAPSULE (UD) PO SCH ×2 (10:03→22:11)
[2018-05-19] MEDS: PRENATAL VITAMINS W/ FOLIC ACID TABLET (FP) PO SCH (10:03)
[2018-05-19] MEDS: MEGESTROL ACETATE 400 MG/10 ML UNIT DOSE CUP PO SCH (10:17)
--- NOTE | 2018-05-19 10:24 | PN ---
[facility] CIWA - CIWA Score Nausea/Vomitin-Mild Nausea/No Vomiting Muscle Tremors: 3 Anxiety: 3 Agitation: 3 Paroxysmal Sweats: 1-Minimal Palms Moist Orientation: 0-Oriented Tacttile Disturbances: 0-None Auditory Disturbances: 0-None Visual Disturbances: 0-None Headache: 0-None Present CIWA-Ar Total Score: 11 [facility] COWS - Scale Resting Pulse: 0= [place] 80 or Below Sweatin= Chills/Flushing Restless Observation: 1= Difficult to Sit Still Pupil Size: 0= Normal to Room Light Bone or Joint Aches: 1= Mild Discomfort Runny Nose/ Eye Tearin= Nasal Congestion GI Upset > 30mins: 2= Nausea/Diarrhea Tremor Observation of Outstretched Hands: 2= Slight Tremor Visible Yawning Observation: 2= >3x During Session Anxiety or Irritability: 1=Feels Anxious/Irritable Goose Flesh Skin: 0=Smooth Skin COWS Score: 11 [facility] Progress Note (SOAP) Subjective: sweat trouble sleep at night tremor gi distress body ache joints pain Objective: 05/19/18 10:23 Vital Signs Temperature 98.6 F 05/19/18 09:22 Pulse Rate 70 05/19/18 09:22 Respiratory Rate 18 05/19/18 09:22 Blood Pressure 107/69 05/19/18 09:22 O2 Sat by Pulse Oximetry (%) Laboratory Last Values Urine Color Baylee 05/18/18 22:05 Urine Appearance Turbid 05/18/18 22:05 Urine pH 5.0 (5.0-8.0) D 05/18/18 22:05 Ur Specific [place] 1.025 (1.001-1.035) 05/18/18 22:05 Urine Protein 1+ (NEGATIVE) H 05/18/18 22:05 Urine Glucose (UA) Negative (NEGATIVE) 05/18/18 22:05 Urine Ketones Negative (NEGATIVE) 05/18/18 22:05 Urine Blood 2+ (NEGATIVE) H 05/18/18 22:05 Urine Nitrite Negative (NEGATIVE) 05/18/18 22:05 Urine Bilirubin Negative (<2.0 mg/dL) 05/18/18 22:05 Urine Urobilinogen Negative mg/dL (0.2-1.0) 05/18/18 22:05 Ur Leukocyte Esterase 3+ (NEGATIVE) H 05/18/18 22:05 Urine WBC (Auto) 508 /hpf (3-5) 05/18/18 22:05 Urine RBC (Auto) 42 /hpf (0-3) 05/18/18 22:05 Ur Epithelial Cells Few /HPF (FEW) 05/18/18 22:05 Calcium Oxalate Crystal Rare /hpf (NONE SEEN) 05/18/18 22:05 Urine Bacteria Moderate /hpf (NONE SEEN) 05/18/18 22:05 Urine Mucus Rare 05/18/18 22:05 05/19/18 10:28 uti completed nitrofurantin 100 mg po bid x 7 days from 05/10 to 05/17 Assessment: 05/19/18 10:29 withdrawal sx laceration Plan: continue detox would care laceration left wrist
--- NOTE | 2018-05-19 10:47 | EKG ---
Test Reason : Blood Pressure : / mmHG Vent. Rate : 067 BPM Atrial Rate : 067 BPM P-R Int : 118 ms QRS Dur : 086 ms QT Int : 410 ms P-R-T Axes : 076 082 075 degrees QTc Int : 433 ms NORMAL SINUS RHYTHM MODERATE VOLTAGE CRITERIA FOR LVH, MAY BE NORMAL VARIANT BORDERLINE ECG WHEN COMPARED WITH ECG OF 25-OCT-2017 11:54, NO SIGNIFICANT CHANGE WAS FOUND Confirmed by RAMON JAMES, BASILIA ([id number]) on 05/19/2018 10:47:04 AM Referred By: Confirmed By:BASILIA NAVARRO MD
--- NOTE | 2018-05-19 10:49 | CONSULT ---
[facility] Psychiatric Consult - Data Date of interview: 05/19/18 Admission source: [facility] Identifying data: This is a 58 years old female , single mother of four, homeless, on SSD, with history of Cocaine, Alcohol Heroin, Cannabis and Nicotine dependence, expressing withdrawal symptoms and n is here seeking detox. Substance Abuse History: - Smoking Cessation. Smoking history: Current every day smoker. Have you smoked in the past 12 months: Yes. Aproximately how many cigarettes per day: 10. Cigars Per Day: 0. Hx Chewing Tobacco Use: No. Initiated information on smoking cessation: Yes. 'Breaking Loose' booklet given : 05/18/18. - Substance & Tx. History. Hx Alcohol Use: Yes. Hx Substance Use : Yes. Substance Use Type: Alcohol, Cocaine, Heroin, Marijuana. Hx Substance Use Treatment: Yes ([facility] September 2017). - Substances Abused. Alcohol. Route: Oral. Frequency: Daily. Amount used: LIQUOR- 10 BAGS, BEER- 4 16oz. Age of first use: 14. Date of Last Use: 05/18/18. Heroin. Route: Inhalation. Frequency: Daily. Amount used: 10 bags. Age of first use: 14. Date of Last Use: 05/18/18. Cocaine. Route: Smoking. Frequency: Daily. Amount used: $100. Age of first use: 14. Date of Last Use: 05/18/18. Marijuana/Hashish. Route: Smoking. Frequency: Daily. Amount used: $40. Age of first use: 14. Date of Last Use: 05/18/18 Medical History: HIV+, HTN, Weight loss history, asthma, neuropathy UTI history, Psychiatric History: Patient reports history of Bipolar disorder with most recent hospitalization at [facility] on 2016 for safety.Reports taking prior to admission: Zoloft 50mg po qhs. Ambien 10mg po qhs Physical/Sexual Abuse/Trauma History: Denies Additional Comment: Zoloft 50mg po qhs. Ambien 10mg po qhs Mental Status Exam - Mental Status Exam Alert and Oriented to: Person Cognitive Function: Fair Patient Appearance: Unkempt Mood: Sad Affect: Mood Congruent Patient Behavior: Cooperative Speech Pattern: Delayed Voice Loudness: Mildly Soft/Quiet Thought Process: Circumstantial Thought Disorder: Being Controlled Hallucinations: Denies Suicidal Ideation: Denies Homicidal Ideation: Denies Insight/Judgement: Fair Sleep: Difficulty falling asleep Appetite: Weight loss Muscle strength/Tone: Mild Hypotonicity Gait/Station: Shuffling Additional Comments: Zoloft 50mg po qhs. Ambien 10mg po qhs Psychiatric Findings - Problem List ([place] 1, 2,3) (1) Depressed mood Current Visit: Yes Status: Acute (2) Laceration of left wrist without complication Current Visit: Yes Status: Acute (3) Opioid dependence with withdrawal Current Visit: Yes Status: Acute (4) UTI (urinary tract infection) Current Visit: Yes Status: Acute Qualifiers: Urinary tract infection type: acute cystitis (5) Alcohol dependence with uncomplicated withdrawal Current Visit: Yes Status: Chronic (6) Asthma Current Visit: Yes Status: Chronic Qualifiers: Asthma severity: mild Asthma persistence: intermittent Asthma complication type: uncomplicated Qualified Code(s): J45.20 - Mild intermittent asthma, uncomplicated (7) Cannabis dependence, uncomplicated Current Visit: Yes Status: Chronic (8) Nicotine dependence Current Visit: Yes Status: Chronic Qualifiers: Nicotine product type: cigarettes Substance use status: uncomplicated Qualified Code(s): F17.210 - Nicotine dependence, cigarettes, uncomplicated (9) MDMA abuse Current Visit: No Status: Acute (10) Opiate addiction Current Visit: No Status: Acute (11) Opioid dependence Current Visit: No Status: Acute (12) PCP abuse Current Visit: No Status: Acute (13) Substance induced mood disorder Current Visit: No Status: Acute (14) AIDS Current Visit: No Status: Chronic (15) Alcohol dependence Current Visit: No Status: Chronic (16) Cocaine abuse Current Visit: No Status: Chronic (17) Cocaine dependence, uncomplicated Current Visit: No Status: Chronic (18) Neuropathy Current Visit: No Status: Chronic (19) Substance-induced sleep disorder Current Visit: No Status: Chronic (20) Bipolar disorder Current Visit: No Status: Suspected - Initial Treatment Plan Initial Treatment Plan: Zoloft 50mg po qhs. Ambien 10mg po qhs
[2018-05-19 11:08] LABS: HEMATOCRIT 31.6 % (32.4-45.2); HEMOGLOBIN 10.4 GM/dL (10.7-15.3); MCH 26.1 pg (25.7-33.7); MCHC 32.8 g/dl (32.0-36.0); MEAN CELL VOLUME 79.5 fl (80-96); MEAN PLT VOLUME 8.6 fl (7.5-11.1); PLATELET COUNT 135 K/MM3 (134-434); RBC 3.97 M/mm3 (3.60-5.2); RDW 14.9 % (11.6-15.6); WHITE BLOOD COUNT 2.9 K/mm3 (4.0-10.0)
[2018-05-19 11:33] LABS: ALBUMIN 3.3 g/dl (3.4-5.0); ANION GAP 4 (8-16); BLOOD UREA NITROGEN 19 mg/dL (7-18); CALCIUM 8.4 mg/dL (8.5-10.1); CHLORIDE 110 mmol/L (98-107); CO2 27 mmol/L (21-32); CREATININE 0.9 mg/dL (0.55-1.02); GLUCOSE,RANDOM 154 mg/dL (74-106); POTASSIUM 4.6 mmol/L (3.5-5.1); SGOT/AST 10 U/L (15-37); SGPT/ALT 16 U/L (12-78); SODIUM 141 mmol/L (136-145)
[2018-05-19 11:35] LABS: ALK PHOS 63 U/L (45-117); BILIRUBIN,TOTAL 0.3 mg/dL (0.2-1.0); TOT PROT 6.5 g/dl (6.4-8.2)
[2018-05-19] MEDS: SERTRALINE HCL 50 MG TABLET (FP) PO SCH (22:11)
[2018-05-19] MEDS: THIAMINE HCL 100 MG TABLET (FP) PO SCH (22:11)
[2018-05-20] MEDS: GABAPENTIN 300 MG CAPSULE (FP) PO SCH ×3 (05:48→22:18)
[2018-05-20] MEDS: chlordiazePOXIDE HCL 25 MG CAPSULE PO SCH ×3 (05:48→16:49)
[2018-05-20] MEDS: CEPHALEXIN MONOHYDRATE 500 MG CAPSULE (UD) PO SCH ×2 (10:22→22:18)
[2018-05-20] MEDS: NICOTINE 14 MG/24 HOURS TOPICAL PATCH TD SCH (10:22)
[2018-05-20] MEDS: PRENATAL VITAMINS W/ FOLIC ACID TABLET (FP) PO SCH (10:22)
[2018-05-20] MEDS: cloNIDine HCL 0.1 MG TABLET PO SCH (10:22)
[2018-05-20] MEDS: METHADONE HCL 5 MG TABLET (FOR DETOX USE ONLY) PO SCH (10:22)
[2018-05-20] MEDS: MEGESTROL ACETATE 400 MG/10 ML UNIT DOSE CUP PO SCH (10:22)
--- NOTE | 2018-05-20 11:03 | PN ---
[facility] CIWA - CIWA Score Nausea/Vomitin-Mild Nausea/No Vomiting Muscle Tremors: 3 Anxiety: 3 Agitation: 2 Paroxysmal Sweats: 1-Minimal Palms Moist Orientation: 0-Oriented Tacttile Disturbances: 0-None Auditory Disturbances: 0-None Visual Disturbances: 0-None Headache: 0-None Present CIWA-Ar Total Score: 10 [facility] COWS - Scale Resting Pulse: 0= [place] 80 or Below Sweatin= Chills/Flushing Restless Observation: 1= Difficult to Sit Still Pupil Size: 0= Normal to Room Light Bone or Joint Aches: 2= Severe Diffuse Aches Runny Nose/ Eye Tearin= Nasal Congestion GI Upset > 30mins: 2= Nausea/Diarrhea Tremor Observation of Outstretched Hands: 2= Slight Tremor Visible Yawning Observation: 1= 1-2x During Session Anxiety or Irritability: 1=Feels Anxious/Irritable Goose Flesh Skin: 0=Smooth Skin COWS Score: 11 [facility] Progress Note (SOAP) Subjective: joints pain body ache tremor sweat left arm three renetta intact no signs of infection stated needed to be out 8-10 days current 7th day Objective: 05/20/18 11:03 Vital Signs Temperature 98.4 F 05/20/18 10:16 Pulse Rate 79 05/20/18 10:16 Respiratory Rate 16 05/20/18 10:16 Blood Pressure 129/67 05/20/18 10:16 O2 Sat by Pulse Oximetry (%) Laboratory Last Values WBC 2.9 K/mm3 (4.0-10.0) L 05/19/18 07:00 RBC 3.97 M/mm3 (3.60-5.2) 05/19/18 07:00 Hgb 10.4 GM/dL (10.7-15.3) L 05/19/18 07:00 Hct 31.6 % (32.4-45.2) L 05/19/18 07:00 MCV 79.5 fl (80-96) L 05/19/18 07:00 MCH 26.1 pg (25.7-33.7) 05/19/18 07:00 MCHC 32.8 g/dl (32.0-36.0) 05/19/18 07:00 RDW 14.9 % (11.6-15.6) 05/19/18 07:00 Plt Count 135 K/MM3 (134-434) 05/19/18 07:00 MPV 8.6 fl (7.5-11.1) 05/19/18 07:00 Sodium 141 mmol/L (136-145) 05/19/18 07:00 Potassium 4.6 mmol/L (3.5-5.1) 05/19/18 07:00 Chloride 110 mmol/L (98-107) H 05/19/18 07:00 Carbon Dioxide 27 mmol/L (21-32) 05/19/18 07:00 Anion Gap 4 (8-16) L 05/19/18 07:00 BUN 19 mg/dL (7-18) H 05/19/18 07:00 Creatinine 0.9 mg/dL (0.55-1.02) 05/19/18 07:00 Creat Clearance w eGFR > 60 (>60) 05/19/18 07:00 Random Glucose 154 mg/dL (74-106) H 05/19/18 07:00 Calcium 8.4 mg/dL (8.5-10.1) L 05/19/18 07:00 Total Bilirubin 0.3 mg/dL (0.2-1.0) D 05/19/18 07:00 AST 10 U/L (15-37) L 05/19/18 07:00 ALT 16 U/L (12-78) 05/19/18 07:00 Alkaline Phosphatase 63 U/L (45-117) 05/19/18 07:00 Total Protein 6.5 g/dl (6.4-8.2) 05/19/18 07:00 Albumin 3.3 g/dl (3.4-5.0) L 05/19/18 07:00 Urine Color [place]lee 05/18/18 22:05 Urine Appearance Turbid 05/18/18 22:05 Urine pH 5.0 (5.0-8.0) D 05/18/18 22:05 Ur Specific [place] 1.025 (1.001-1.035) 05/18/18 22:05 Urine Protein 1+ (NEGATIVE) H 05/18/18 22:05 Urine Glucose (UA) Negative (NEGATIVE) 05/18/18 22:05 Urine Ketones Negative (NEGATIVE) 05/18/18 22:05 Urine Blood 2+ (NEGATIVE) H 05/18/18 22:05 Urine Nitrite Negative (NEGATIVE) 05/18/18 22:05 Urine Bilirubin Negative (<2.0 mg/dL) 05/18/18 22:05 Urine Urobilinogen Negative mg/dL (0.2-1.0) 05/18/18 22:05 Ur Leukocyte Esterase 3+ (NEGATIVE) H 05/18/18 22:05 Urine WBC (Auto) 508 /hpf (3-5) 05/18/18 22:05 Urine RBC (Auto) 42 /hpf (0-3) 05/18/18 22:05 Ur Epithelial Cells Few /HPF (FEW) 05/18/18 22:05 Calcium Oxalate Crystal Rare /hpf (NONE SEEN) 05/18/18 22:05 Urine Bacteria Moderate /hpf (NONE SEEN) 05/18/18 22:05 Urine Mucus Rare 05/18/18 22:05 RPR Titer Nonreactive (NONREACTIVE) 05/19/18 07:00 lab noted 05/20/18 11:05 personal hygiene Assessment: 05/20/18 11:05 withdrawal sx left arm renetta Plan: continue detox staple removal request in placed
[2018-05-20] MEDS: SERTRALINE HCL 50 MG TABLET (FP) PO SCH (22:18)
[2018-05-20] MEDS: chlordiazePOXIDE 5 MG CAPSULE PO SCH (22:18)
[2018-05-20] MEDS: THIAMINE HCL 100 MG TABLET (FP) PO SCH (22:18)
[2018-05-21] MEDS: chlordiazePOXIDE 5 MG CAPSULE PO SCH ×3 (05:32→17:37)
[2018-05-21] MEDS: GABAPENTIN 300 MG CAPSULE (FP) PO SCH ×3 (05:32→22:07)
[2018-05-21] MEDS: PRENATAL VITAMINS W/ FOLIC ACID TABLET (FP) PO SCH (10:25)
[2018-05-21] MEDS: MEGESTROL ACETATE 400 MG/10 ML UNIT DOSE CUP PO SCH (10:26)
[2018-05-21] MEDS: CEPHALEXIN MONOHYDRATE 500 MG CAPSULE (UD) PO SCH ×2 (10:26→22:07)
[2018-05-21] MEDS: cloNIDine HCL 0.1 MG TABLET PO SCH (10:26)
[2018-05-21] MEDS: METHADONE HCL 5 MG TABLET (FOR DETOX USE ONLY) PO SCH (10:26)
[2018-05-21] MEDS: NICOTINE 14 MG/24 HOURS TOPICAL PATCH TD SCH (10:27)
--- NOTE | 2018-05-21 12:03 | PN ---
[facility] Progress Note (SOAP) Subjective: ANXIETY,SWEATS/OOB AMBULATING WITH STEADY GAIT. Objective: 05/21/18 12:03 Vital Signs 05/21/18 05/21/18 06:00 10:00 Temperature 97.2 F L 98.1 F Pulse Rate 68 74 Respiratory 18 18 Rate Blood Pressure 115/73 106/61 Laboratory Tests 05/18/18 05/19/18 05/19/18 22:05 07:00 07:00 WBC 2.9 L RBC 3.97 Hgb 10.4 L Hct 31.6 L MCV 79.5 L MCH 26.1 MCHC 32.8 RDW 14.9 Plt Count 135 MPV 8.6 Sodium 141 Potassium 4.6 Chloride 110 H Carbon Dioxide 27 Anion Gap 4 L BUN 19 H Creatinine 0.9 Creat Clearance w eGFR > 60 Random Glucose 154 H Calcium 8.4 L Total Bilirubin 0.3 D AST 10 L ALT 16 Alkaline Phosphatase 63 Total Protein 6.5 Albumin 3.3 L Urine Color Baylee Urine Appearance Turbid Urine pH 5.0 D Ur Specific [place] 1.025 Urine Protein 1+ H Urine Glucose (UA) Negative Urine Ketones Negative Urine Blood 2+ H Urine Nitrite Negative Urine Bilirubin Negative Urine Urobilinogen Negative Ur Leukocyte Esterase 3+ H Urine WBC (Auto) 508 Urine RBC (Auto) 42 Ur Epithelial Cells Few Calcium Oxalate Crystal Rare Urine Bacteria Moderate Urine Mucus Rare RPR Titer 05/19/18 07:00 WBC RBC Hgb Hct MCV MCH MCHC RDW Plt Count MPV Sodium Potassium Chloride Carbon Dioxide Anion Gap BUN Creatinine Creat Clearance w eGFR Random Glucose Calcium Total Bilirubin AST ALT Alkaline Phosphatase Total Protein Albumin Urine Color Urine Appearance Urine pH Ur Specific [place] Urine Protein Urine Glucose (UA) Urine Ketones Urine Blood Urine Nitrite Urine Bilirubin Urine Urobilinogen Ur Leukocyte Esterase Urine WBC (Auto) Urine RBC (Auto) Ur Epithelial Cells Calcium Oxalate Crystal Urine Bacteria Urine Mucus RPR Titer Nonreactive SEE PREVIOUS NOTES RE:UA Assessment: 05/21/18 12:03 WITHDRAWAL SX Plan: CONTINUE DETOX INCREASE PO FLUIDS.
--- NOTE | 2018-05-21 12:17 | PN ---
[facility] Progress Note Note: PT HAS MANOLO ON LEFT FOREARM STATING IT WAS PUT IN AT [facility] 3 WEEKS AGO. THREE METAL MAONLO REMOVED FROM LEFT INNER FOREARM WITH A STAPLE REMOVER. AREA IS HEALED AND DRY, NO DRAINAGE PLAN: BACITRACIN OINTMENT DIRECTED.
[2018-05-21] MEDS ORDERED: BACITRACIN 0.9 GM PACKET TP ONE (13:50)
[2018-05-21 14:58] LABS: URINE APPEARANCE CLEAR; URINE BILIRUBIN NEGATIVE (<2.0 mg/dL); URINE COLOR STRAW; URINE GLUCOSE (UA) NEGATIVE (NEGATIVE); URINE KETONE NEGATIVE (NEGATIVE); URINE LEUK ESTERASE TRACE (NEGATIVE); URINE NITRITE NEGATIVE (NEGATIVE); URINE PROTEIN NEGATIVE (NEGATIVE); URINE UROBILINOGEN NEGATIVE mg/dL (0.2-1.0)
[2018-05-21] MEDS: BACITRACIN 0.9 GM PACKET TP ONE ×2 (15:24→15:31)
[2018-05-21 15:25] LABS: CALCIUM OXALATE CRYSTALS RARE /hpf (NONE SEEN); URINE MUCUS RARE
[2018-05-21] MEDS: chlordiazePOXIDE HCL 10 MG CAPSULE PO SCH (22:07)
[2018-05-21] MEDS: ZOLPIDEM TARTRATE 10 MG TABLET (PARK CARE ONLY) PO PRN (22:07)
[2018-05-21] MEDS: THIAMINE HCL 100 MG TABLET (FP) PO SCH (22:07)
[2018-05-21] MEDS: SERTRALINE HCL 50 MG TABLET (FP) PO SCH (22:07)
[2018-05-22] MEDS: GABAPENTIN 300 MG CAPSULE (FP) PO SCH ×3 (05:58→22:17)
[2018-05-22] MEDS: chlordiazePOXIDE HCL 10 MG CAPSULE PO SCH ×3 (05:58→17:53)
[2018-05-22] MEDS ORDERED: METHADONE HCL 10 MG TABLET (FOR DETOX USE ONLY) PO SCH (10:00)
[2018-05-22] MEDS: PRENATAL VITAMINS W/ FOLIC ACID TABLET (FP) PO SCH (10:14)
[2018-05-22] MEDS: CEPHALEXIN MONOHYDRATE 500 MG CAPSULE (UD) PO SCH ×2 (10:14→22:17)
[2018-05-22] MEDS: cloNIDine HCL 0.1 MG TABLET PO SCH (10:15)
[2018-05-22] MEDS: MEGESTROL ACETATE 400 MG/10 ML UNIT DOSE CUP PO SCH (10:15)
[2018-05-22] MEDS: NICOTINE 14 MG/24 HOURS TOPICAL PATCH TD SCH (10:17)
--- NOTE | 2018-05-22 16:41 | PN ---
S Progress Note (SOAP) Subjective: Fatigue and generalized weakness Objective: 05/22/18 16:41 Vital Signs - 8 hr 05/22/18 05/22/18 10:47 15:04 Temperature 99.1 F 96.6 F L Pulse Rate 82 61 Respiratory 18 18 Rate Blood Pressure 132/55 110/64 Laboratory Last Values WBC 2.9 K/mm3 (4.0-10.0) L 05/19/18 07:00 RBC 3.97 M/mm3 (3.60-5.2) 05/19/18 07:00 Hgb 10.4 GM/dL (10.7-15.3) L 05/19/18 07:00 Hct 31.6 % (32.4-45.2) L 05/19/18 07:00 MCV 79.5 fl (80-96) L 05/19/18 07:00 MCH 26.1 pg (25.7-33.7) 05/19/18 07:00 MCHC 32.8 g/dl (32.0-36.0) 05/19/18 07:00 RDW 14.9 % (11.6-15.6) 05/19/18 07:00 Plt Count 135 K/MM3 (134-434) 05/19/18 07:00 MPV 8.6 fl (7.5-11.1) 05/19/18 07:00 Sodium 141 mmol/L (136-145) 05/19/18 07:00 Potassium 4.6 mmol/L (3.5-5.1) 05/19/18 07:00 Chloride 110 mmol/L (98-107) H 05/19/18 07:00 Carbon Dioxide 27 mmol/L (21-32) 05/19/18 07:00 Anion Gap 4 (8-16) L 05/19/18 07:00 BUN 19 mg/dL (7-18) H 05/19/18 07:00 Creatinine 0.9 mg/dL (0.55-1.02) 05/19/18 07:00 Creat Clearance w eGFR > 60 (>60) 05/19/18 07:00 Random Glucose 154 mg/dL (74-106) H 05/19/18 07:00 Calcium 8.4 mg/dL (8.5-10.1) L 05/19/18 07:00 Total Bilirubin 0.3 mg/dL (0.2-1.0) D 05/19/18 07:00 AST 10 U/L (15-37) L 05/19/18 07:00 ALT 16 U/L (12-78) 05/19/18 07:00 Alkaline Phosphatase 63 U/L (45-117) 05/19/18 07:00 Total Protein 6.5 g/dl (6.4-8.2) 05/19/18 07:00 Albumin 3.3 g/dl (3.4-5.0) L 05/19/18 07:00 Urine Color [place]raw 05/21/18 10:00 Urine Appearance Clear 05/21/18 10:00 Urine pH 7.0 (5.0-8.0) D 05/21/18 10:00 Ur Specific [place] 1.011 (1.001-1.035) 05/21/18 10:00 Urine Protein Negative (NEGATIVE) 05/21/18 10:00 Urine Glucose (UA) Negative (NEGATIVE) 05/21/18 10:00 Urine Ketones Negative (NEGATIVE) 05/21/18 10:00 Urine Blood Negative (NEGATIVE) 05/21/18 10:00 Urine Nitrite Negative (NEGATIVE) 05/21/18 10:00 Urine Bilirubin Negative (<2.0 mg/dL) 05/21/18 10:00 Urine Urobilinogen Negative mg/dL (0.2-1.0) 05/21/18 10:00 Ur Leukocyte Esterase Trace (NEGATIVE) 05/21/18 10:00 Urine WBC (Auto) 4 /hpf (3-5) 05/21/18 10:00 Urine RBC (Auto) 1 /hpf (0-3) 05/21/18 10:00 Ur Epithelial Cells Few /HPF (FEW) 05/18/18 22:05 Calcium Oxalate Crystal Rare /hpf (NONE SEEN) 05/21/18 10:00 Urine Bacteria Moderate /hpf (NONE SEEN) 05/18/18 22:05 Urine Mucus Rare 05/21/18 10:00 RPR Titer Nonreactive (NONREACTIVE) 05/19/18 07:00 Labs noted Assessment: 05/22/18 16:41 Withdrawal sx Plan: Continue detox
[2018-05-22] MEDS: ZOLPIDEM TARTRATE 10 MG TABLET (PARK CARE ONLY) PO PRN (22:17)
[2018-05-22] MEDS: THIAMINE HCL 100 MG TABLET (FP) PO SCH (22:17)
[2018-05-22] MEDS: SERTRALINE HCL 50 MG TABLET (FP) PO SCH (22:17)
[2018-05-23] MEDS ORDERED: METHADONE HCL 5 MG TABLET (FOR DETOX USE ONLY) PO SCH (06:00)
[2018-05-23] MEDS: GABAPENTIN 300 MG CAPSULE (FP) PO SCH (06:16)
--- NOTE | 2018-05-23 08:37 | DS ---
[facility] Detox Discharge Summary Admission Date: 05/18/18 Discharge Date: 05/23/18 - History Present History: Alcohol Dependence, Opioid Dependence Additional Comments: health teaching throughout the detox period regarding hiv art adherence and follow up with infectious disease specialist - Physical Exam Results Vital Signs: Vital Signs Temperature 97.3 F L 05/23/18 07:28 Pulse Rate 71 05/23/18 07:28 Respiratory Rate 18 05/23/18 07:28 Blood Pressure 118/66 05/23/18 07:28 O2 Sat by Pulse Oximetry (%) Pertinent Admission Physical Exam Findings: 58 years old female admitted 05/18/18 for alcohol and opiate withdrawal sx completed alcohol and opiate detox regimen patient tolerated well denies withdrawal sx aftercare revelation the provider did not have the opportunity face to face with the patient who left the unit early of the shift Vital Signs Temperature 97.3 F L 05/23/18 07:28 Pulse Rate 71 05/23/18 07:28 Respiratory Rate 18 05/23/18 07:28 Blood Pressure 118/66 05/23/18 07:28 O2 Sat by Pulse Oximetry (%) Laboratory Last Values WBC 2.9 K/mm3 (4.0-10.0) L 05/19/18 07:00 RBC 3.97 M/mm3 (3.60-5.2) 05/19/18 07:00 Hgb 10.4 GM/dL (10.7-15.3) L 05/19/18 07:00 Hct 31.6 % (32.4-45.2) L 05/19/18 07:00 MCV 79.5 fl (80-96) L 05/19/18 07:00 MCH 26.1 pg (25.7-33.7) 05/19/18 07:00 MCHC 32.8 g/dl (32.0-36.0) 05/19/18 07:00 RDW 14.9 % (11.6-15.6) 05/19/18 07:00 Plt Count 135 K/MM3 (134-434) 05/19/18 07:00 MPV 8.6 fl (7.5-11.1) 05/19/18 07:00 Sodium 141 mmol/L (136-145) 05/19/18 07:00 Potassium 4.6 mmol/L (3.5-5.1) 05/19/18 07:00 Chloride 110 mmol/L (98-107) H 05/19/18 07:00 Carbon Dioxide 27 mmol/L (21-32) 05/19/18 07:00 Anion Gap 4 (8-16) L 05/19/18 07:00 BUN 19 mg/dL (7-18) H 05/19/18 07:00 Creatinine 0.9 mg/dL (0.55-1.02) 05/19/18 07:00 Creat Clearance w eGFR > 60 (>60) 05/19/18 07:00 Random Glucose 154 mg/dL (74-106) H 05/19/18 07:00 Calcium 8.4 mg/dL (8.5-10.1) L 05/19/18 07:00 Total Bilirubin 0.3 mg/dL (0.2-1.0) D 05/19/18 07:00 AST 10 U/L (15-37) L 05/19/18 07:00 ALT 16 U/L (12-78) 05/19/18 07:00 Alkaline Phosphatase 63 U/L (45-117) 05/19/18 07:00 Total Protein 6.5 g/dl (6.4-8.2) 05/19/18 07:00 Albumin 3.3 g/dl (3.4-5.0) L 05/19/18 07:00 Urine Color Straw 05/21/18 10:00 Urine Appearance Clear 05/21/18 10:00 Urine pH 7.0 (5.0-8.0) D 05/21/18 10:00 Ur Specific [place] 1.011 (1.001-1.035) 05/21/18 10:00 Urine Protein Negative (NEGATIVE) 05/21/18 10:00 Urine Glucose (UA) Negative (NEGATIVE) 05/21/18 10:00 Urine Ketones Negative (NEGATIVE) 05/21/18 10:00 Urine Blood Negative (NEGATIVE) 05/21/18 10:00 Urine Nitrite Negative (NEGATIVE) 05/21/18 10:00 Urine Bilirubin Negative (<2.0 mg/dL) 05/21/18 10:00 Urine Urobilinogen Negative mg/dL (0.2-1.0) 05/21/18 10:00 Ur Leukocyte Esterase Trace (NEGATIVE) 05/21/18 10:00 Urine WBC (Auto) 4 /hpf (3-5) 05/21/18 10:00 Urine RBC (Auto) 1 /hpf (0-3) 05/21/18 10:00 Ur Epithelial Cells Few /HPF (FEW) 05/18/18 22:05 Calcium Oxalate Crystal Rare /hpf (NONE SEEN) 05/21/18 10:00 Urine Bacteria Moderate /hpf (NONE SEEN) 05/18/18 22:05 Urine Mucus Rare 05/21/18 10:00 RPR Titer Nonreactive (NONREACTIVE) 05/19/18 07:00 lab noted continue uti treatment of bactrim ds - Treatment Hospital Course: Detox Protocol Followed, Detoxed Safely, Responded well, Discharged Condition Good, Rehab Referral Accepted Patient has Accepted a Re[facility] Referral to: [facility] - Medication Discharge Medications: Ambulatory Orders Clonidine HCl [Catapres] 0.1 mg PO DAILY 01/29/17 Megestrol Acetate Oral Susp [Megace Oral Suspension -] 400 mg PO DAILY cup Sertraline HCl [Zoloft -] 50 mg PO HS #30 tablet 05/19/18 Albuterol Sulfate Inhaler - [Ventolin HFA Inhaler -] 2 inh IH Q4H PRN #1 inhaler 05/23/18 Cephalexin [Keflex] 500 mg PO BID #7 capsule 05/23/18 Gabapentin [Neurontin -] 300 mg PO TID #90 cap 05/23/18 Sulfamethoxazole/Trimethoprim [Bactrim DS -] 1 each PO BID #14 tablet 05/23/18 - Diagnosis (1) Opioid dependence with withdrawal Current Visit: Yes Status: Acute (2) Alcohol dependence with uncomplicated withdrawal Current Visit: Yes Status: Acute (3) Asthma Current Visit: Yes Status: Chronic Qualifiers: Asthma severity: mild Asthma persistence: intermittent Asthma complication type: uncomplicated Qualified Code(s): J45.20 - Mild intermittent asthma, uncomplicated (4) Weight loss Current Visit: Yes Status: Acute (5) AIDS Current Visit: Yes Status: Chronic (6) Neuropathy Current Visit: Yes Status: Chronic - AMA Did Patient Leave Against Medical Advice: No
[2018-05-23 10:27] VITALS: BP 106/66; PULSE 72; TEMP 98.2
[2018-05-23] MEDS: NICOTINE 14 MG/24 HOURS TOPICAL PATCH TD SCH (10:30)
[2018-05-23] MEDS: PRENATAL VITAMINS W/ FOLIC ACID TABLET (FP) PO SCH (10:30)
[2018-05-23] MEDS: cloNIDine HCL 0.1 MG TABLET PO SCH (10:30)
[2018-05-23] MEDS: MEGESTROL ACETATE 400 MG/10 ML UNIT DOSE CUP PO SCH (10:30)
== END 2018-05-23 10:40 | disposition other institution (70) | DRG 773 ==
LOC: YASAS 18:00 → Y6N 20:55
PROVIDERS: ADMIT Family Medicine Addiction Medicine; ATTEND Family Medicine Addiction Medicine
PROC: HZ2ZZZZ Detoxification Services for Substance Abuse Treatment (ICD-10-PCS; principal; 2018-05-18)
PROC: 8E0XXY8 Suture Removal from Upper Extremity (ICD-10-PCS; 2018-05-18)
DX: F11.23 Opioid dependence with withdrawal (principal); F10.230 Alcohol dependence with withdrawal, uncomplicated; F14.20 Cocaine dependence, uncomplicated; F12.20 Cannabis dependence, uncomplicated; F16.10 Hallucinogen abuse, uncomplicated; F17.210 Nicotine dependence, cigarettes, uncomplicated; F19.282 Other psychoactive substance dependence with psychoactive substance-induced sleep disorder; F31.9 Bipolar disorder, unspecified; I10 Essential (primary) hypertension; B20 Human immunodeficiency virus [HIV] disease; J45.20 Mild intermittent asthma, uncomplicated; G62.9 Polyneuropathy, unspecified; N39.0 Urinary tract infection, site not specified; D64.9 Anemia, unspecified; S61.512D Laceration without foreign body of left wrist, subsequent encounter; X58.XXXD Exposure to other specified factors, subsequent encounter; Z87.898 Personal history of other specified conditions; Z91.14 Patient's other noncompliance with medication regimen
CPT/HCPCS: 36415; 80053; 81003; 81015; 85027; 86593; 87086; 93005; 93010; J0735

== ENCOUNTER 2018-05-23 10:35 | Inpatient (IN) | payer OTHER ==
[2018-05-23 11:19] VITALS: BP 95/58; PULSE 71; TEMP 98.2
--- NOTE | 2018-05-23 12:30 | HP ---
LARISSA JAMES Rehab Assess/Revision - Admission History Admitted to Rehab from: [facility] Date of Admission to Rehab: 05/23/18 - Vital signs Vital Signs: Vital Signs Period Temp Pulse Resp BP Sys/Valerio Pulse Ox Last 24 Hr 98.2 F 71 16 95/58 - Findings Detox History & Physical reviewed: Yes Concur with findings: Yes Comments/Additional Findings: TRANSFERRED FROM DETOX TO REHAB ADMISSION PER PROTOCOL Inpatient Rehab Admission - Rehab Admission Criteria Previous failed treatment: Yes Poor recovery environment: Yes Comorbidities: Yes Lacks judgement: No Patient is meeting Inpatient Rehab admission criteria:: Yes
[2018-05-23] MEDS ORDERED: MENTHOL/PHENOL 1 EACH UD MM PRN (12:32)
[2018-05-23] MEDS ORDERED: MAG HYDROX/AL HYDROX/SIMETH 30 ML UNIT-DOSE CUP PO PRN (12:32)
[2018-05-23] MEDS ORDERED: MAGNESIUM HYDROX 2400MG/30ML ORAL SUSPENSION 30 ML CUP PO PRN (12:32)
[2018-05-23] MEDS ORDERED: guaiFENesin/D-METHORPHAN HB 10 ML UNIT-DOSE CUPS PO PRN (12:32)
[2018-05-23] MEDS ORDERED: ACETAMINOPHEN 325 MG TABLET (FP) PO PRN (12:32)
[2018-05-23] MEDS ORDERED: LOPERAMIDE HCL 2 MG CAPSULE PO PRN (12:32)
[2018-05-23] MEDS ORDERED: NICOTINE 14 MG/24 HOURS TOPICAL PATCH TD PRN (12:32)
[2018-05-23] MEDS ORDERED: MAGNESIUM CITRATE 300 ML BOTTLE PO PRN (12:32)
[2018-05-23] MEDS ORDERED: NICOTINE POLACRILEX 2 MG GUM BUC PRN (12:32)
[2018-05-23] MEDS ORDERED: P-EPHED 60MG/TRIPROLIDI 2.5MG TABLET PO PRN (12:32)
[2018-05-23] MEDS ORDERED: IBUPROFEN 400 MG TABLET (FP) PO PRN (12:32)
[2018-05-23] MEDS ORDERED: ALBUTEROL SO4 18 GM HFA INHALER IH PRN (12:34)
[2018-05-23] MEDS ORDERED: GABAPENTIN 300 MG CAPSULE (FP) PO SCH (14:00)
--- NOTE | 2018-05-23 15:41 | PN ---
[facility] Progress Note Note: Psychiatrist garment alteration examiner: Psychiatrist garment alteration examiner: oAs per nursing reports patine started on preadmission medications: Zoloft 50mg po qhs
[2018-05-23] MEDS ORDERED: SERTRALINE HCL 50 MG TABLET (FP) PO SCH (22:00)
[2018-05-23] MEDS ORDERED: SULFAMETHOXAZOLE/TRIMETHOPRIM 800MG/160MG D.S. TABLET PO SCH (22:00)
[2018-05-23] MEDS ORDERED: THIAMINE HCL 100 MG TABLET (FP) PO SCH (22:00)
[2018-05-23] MEDS ORDERED: CEPHALEXIN MONOHYDRATE 500 MG CAPSULE (UD) PO SCH (22:00)
[2018-05-23] MEDS ORDERED: MELATONIN 5 MG TABLETS PO PRN (22:00)
[2018-05-24] MEDS ORDERED: PRENATAL VITAMINS W/ FOLIC ACID TABLET (FP) PO SCH (10:00)
== END 2018-05-23 18:40 | disposition left against medical advice (07) | DRG 770 ==
LOC: YASAS 10:35 → Y3E 10:37
PROVIDERS: ADMIT Psychiatry & Neurology Psychiatry; ATTEND Psychiatry & Neurology Psychiatry
PROC: HZ42ZZZ Group Counseling for Substance Abuse Treatment, Cognitive-Behavioral (ICD-10-PCS; principal; 2018-05-23)
DX: F11.20 Opioid dependence, uncomplicated (principal); F10.20 Alcohol dependence, uncomplicated; F14.20 Cocaine dependence, uncomplicated; F12.20 Cannabis dependence, uncomplicated; F17.210 Nicotine dependence, cigarettes, uncomplicated; F32.9 Major depressive disorder, single episode, unspecified; I10 Essential (primary) hypertension; B20 Human immunodeficiency virus [HIV] disease; J45.20 Mild intermittent asthma, uncomplicated; G62.9 Polyneuropathy, unspecified; N39.0 Urinary tract infection, site not specified

== ENCOUNTER 2018-11-08 11:48 | Inpatient (IN) | payer OTHER ==
[2018-11-08 12:52] VITALS: BMI 17.2
--- NOTE | 2018-11-08 17:10 | HP ---
COWS - Scale Resting Pulse: 0= [place] 80 or Below Sweatin=Flushed/Facial Moisture Restless Observation: 3= Extraneous Movement Pupil Size: 2= Moderately Dilated (Pupils = 5 mm) Bone or Joint Aches: 1= Mild Discomfort Runny Nose/ Eye Tearin= Runny Nose/Eyes GI Upset > 30mins: 2= Nausea/Diarrhea Tremor Observation: 2= Slight Tremor Visible Yawning Observation: 0= None Anxiety or Irritability: 2=Irritable/Anxious Goose Flesh Skin: 0=Smooth Skin COWS Score: 16 CIWA Score Nausea/Vomitin Muscle Tremors: 4-Moderate,w/Arms Extend Anxiety: 1-Mildly Anxious Agitation: 4-Moderately Restless Paroxysmal Sweats: 3 (Facial moisture w/o beads) Orientation: 1-Uncertain about Date Tacttile Disturbances: 0-None Auditory Disturbances: 0-None Visual Disturbances: 0-None Headache: 2-Mild CIWA-Ar Total Score: 18 - Admission Criteria OAS Guidelines: Admission for Medically Managed Detox: Requires at least one of the followin. CIWA greater than 12 2. Seizures within the past 24 hours 3. Delirium tremens within the past 24 hours 4. Hallucinations within the past 24 hours 5. Acute intervention needed for co occurring medical disorder 6. Acute intervention needed for co occurring psychiatric disorder 7. Severe withdrawal that cannot be handled at a lower level of care (continued vomiting, continued diarrhea, abnormal vital signs) requiring intravenous medication and/or fluids 8. Patient presents the following: CIWA greater than 12 Admission Criteria Met: Admission criteria met Admission [facility] Chief Complaint: Patient states I'm here w/ heroin and alcohol withdrawal. Allergies/Adverse Reactions: Allergies Allergy/AdvReac Type Severity Reaction Status Date / Time No Known Allergies Allergy Verified 11/08/18 15:18 History of Present Illness: Patient is a 58 yo female here seeking detox for heroin, alcohol and multiple substance. Nicotine use began at age 14. THC use began at age 14. Crack/Cocaine use began at age 38. Alcohol use began at age 14. Heroin use began at age 21. Hx: overdose in April 2018 Hx: HIV+, HTN, Low BMI, Asthma, Intermittent neuropathy, Non-compliant with meds. C/o rash on buttock and (R) thumb pain. Patient informed that HIV medications will not be provided and that HIV status needs to be evaluated by her HIV-PCP to determine if medications need to be adjusted, based on non-compliance. Mental Health: reports Depression and Bipolar. States f/u with psych [id number]. Longest period of sobriety 2 years about 2013. Patient Name: Yolanda Ludwig Date: 1960 Address: [address] [place] [id number] Sex: Female Rx Written Rx Dispensed Drug Quantity Days Supply Prescriber Name 04/19/2018 06/17/2018 zolpidem tartrate 10 mg tablet 30 30 No Silva ( REGIONAL EDUCATION COORDINATOR) 04/19/2018 05/24/2018 zolpidem tartrate 10 mg tablet 30 30 No Silva ( REGIONAL EDUCATION COORDINATOR) 04/19/2018 04/20/2018 zolpidem tartrate 10 mg tablet 30 30 No Silva ( REGIONAL EDUCATION COORDINATOR) 12/11/2017 02/16/2018 zolpidem tartrate 10 mg tablet 30 30 No Silva ( REGIONAL EDUCATION COORDINATOR) 12/11/2017 01/15/2018 zolpidem tartrate 10 mg tablet 30 30 No Silva ( REGIONAL EDUCATION COORDINATOR) 12/11/2017 12/11/2017 zolpidem tartrate 10 mg tablet 30 30 No Silva ( REGIONAL EDUCATION COORDINATOR) 09/14/2017 11/11/2017 zolpidem tartrate 10 mg tablet 30 30 No Silva ( REGIONAL EDUCATION COORDINATOR) Exam Limitations: No Limitations - Ebola screening Have you traveled outside of the country in the last 21 days: No Have you had contact with anyone from an Ebola affected area: No Have you been sick,other than usual withdrawal symptoms: No Do you have a fever: No - Review of Systems Constitutional: Diaphoresis, Changes in sleep (Difficulty falling asleep) EENT: reports: Blurred Vision, Dental Problems (Missing teeth - chews and swallows okay) Respiratory: reports: No Symptoms reported Cardiac: reports: No Symptoms Reported GI: reports: Diarrhea, Nausea : reports: No Symptoms Reported Musculoskeletal: reports: Back Pain Integumentary: reports: Rash (on buttocks) Neuro: reports: Headache, Numbness ((R) leg), Tremors Endocrine: reports: No Symptoms Reported Hematology: reports: No Symptoms Reported, Other (Hx HIV(+)) Psychiatric: reports: Orientated x3 (Missed day by 1), Agitated, Anxious, Depressed (Denies thoughts of harming self or others) Patient History - Patient Medical History Hx Anemia: Yes Hx Asthma: Yes (last exacerbation 2 days ago) Hx Chronic Obstructive Pulmonary Disease (COPD): No Hx Cancer: No Hx Cardiac Disorders: No Hx Congestive Heart Failure: No Hx Hypertension: No Hx Hypercholesterolemia: No Hx Pacemaker: No HX Cerebrovascular Accident: No Hx Seizures: No Hx Dementia: No Hx Diabetes: No Hx Gastrointestinal Disorders: No Hx Liver Disease: No Hx Genitourinary Disorders: No Hx Sexually Transmitted Disorders: No Hx Renal Disease (ESRD): No Hx Thyroid Disease: No Hx Human Immunodeficiency Virus (HIV): Yes (SINCE 1992;CURRENTLY ON PREZISTA, DESCOVEY & NORVIR BUT NONCOMPLIANT.) Hx Hepatitis C: No Hx Depression: Yes (Bipolar) Hx Suicide Attempt: No (denies) Hx Bipolar Disorder: Yes (ON MED) Hx Schizophrenia: No - Patient Surgical History Past Surgical History: Yes Hx Neurologic Surgery: No Hx Cataract Extraction: No Hx Cardiac Surgery: No Hx Lung Surgery: No Hx Breast Surgery: No Hx Breast Biopsy: No Hx Abdominal Surgery: No Hx Appendectomy: No Hx Cholecystectomy: No Hx Genitourinary Surgery: No Hx Section: Yes (in 1992) Hx Orthopedic Surgery: No Other Surgical History: ectopic in 1986 Anesthesia Reaction: No - PPD History Previous Implant?: Yes Documented Results: Negative w/proof Implanted On Prior [facility] Admission?: Yes Date: 05/20/18 Results: 0 mm PPD to be Administered?: No - Reproductive History Patient is a Female of Child Bearing Age (11 -55 yrs old): No Patient : No - Smoking Cessation Smoking history: Current every day smoker Have you smoked in the past 12 months: Yes Aproximately how many cigarettes per day: 10 Cigars Per Day: 0 Hx Chewing Tobacco Use: No Initiated information on smoking cessation: Yes 'Breaking Loose' booklet given: 11/08/18 - Substance & Tx. History Hx Alcohol Use: Yes Hx Substance Use: Yes Substance Use Type: Alcohol, Cocaine, Heroin, Marijuana Hx Substance Use Treatment: Yes (detox, rehab) - Substances Abused Heroin Route: Inhalation Frequency: Daily Amount used: 4-10 bags Age of first use: 21 Date of Last Use: 11/07/18 Crack Route: Smoking Frequency: Daily Amount used: 6-500 grams Age of first use: 38 Date of Last Use: 11/07/18 Alcohol Route: Oral Frequency: 1-2 times per week Amount used: 0.5 pint of brennen Age of first use: 14 Date of Last Use: 11/07/18 marijuana Route: Smoking Frequency: Daily Amount used: 1 blunt Age of first use: 14 Date of Last Use: 11/08/18 Family Disease History - Family Disease History Family Disease History: CA: Father (FATHER WAS ADDICTED TO ETOH AND HAD CA. OF THE LUNGS AND ), Other: Father Admission Physical Exam [facility] - Vital Signs Vital Signs: Vital Signs - 24 hr 11/08/18 12:49 Temperature 97.4 F L Pulse Rate 70 Respiratory 17 Rate Blood Pressure 144/88 - Physical General Appearance: Yes: Mild Distress, Thin, Tremorous, Anxious HEENTM: Yes: EOMI, Hearing grossly Normal, Normal Voice, YOKASTA (Pupils = 4 mm), Pharynx Normal, Rhinorrhea Respiratory: Yes: Chest Non-Tender, Lungs Clear, Normal Breath Sounds, No Respiratory Distress Neck: Yes: Thyroid enlarged ((R) thyroid enlargement) Breast: Yes: Breast Exam Deferred Cardiology: Yes: Regular Rhythm, Regular Rate, S1, S2 Abdominal: Yes: Non Tender, Flat, Soft, Increased Bowel Sounds Genitourinary: Yes: Within Normal Limits Back: Yes: Normal Inspection Musculoskeletal: Yes: full range of Motion, Gait Steady, Other ((R) thumb from tip to PIP joint w/ swelling, tenderness, and increased yellowish color underneath skin) Extremities: Yes: Normal Capillary Refill, Normal Range of Motion, Tremors Neurological: Yes: enamel dipper II-XII NML intact, Motor Strength 5/5, Other (Rapid speech, very talkative,) Integumentary: Yes: Normal Color, Dry, Warm, Rash (Scratches at (L) wrist and lumbar area. Papular lesion (R) buttock (approx 2 mm), and (R) inner thigh ( approx 8 mm); No increased warmth or erythema.) Lymphatic: Yes: Within Normal Limits - Diagnostic (1) HIV (human immunodeficiency virus infection) Current Visit: Yes Status: Chronic Comment: Non-compliant w/ medications (2) Skin lesions Current Visit: Yes Status: Acute (3) Opioid dependence with withdrawal Current Visit: Yes Status: Acute (4) Weight loss Current Visit: Yes Status: Chronic (5) Asthma Current Visit: Yes Status: Chronic Qualifiers: Asthma severity: mild Asthma persistence: intermittent Asthma complication type: uncomplicated Qualified Code(s): J45.20 - Mild intermittent asthma, uncomplicated (6) Cannabis dependence, uncomplicated Current Visit: Yes Status: Chronic (7) Cocaine dependence, uncomplicated Current Visit: Yes Status: Chronic Comment: Smokes cocaine (Crack) (8) Nicotine dependence Current Visit: Yes Status: Chronic Qualifiers: Nicotine product type: cigarettes Substance use status: uncomplicated Qualified Code(s): F17.210 - Nicotine dependence, cigarettes, uncomplicated (9) Cellulitis and abscess of finger, unspecified Current Visit: Yes Status: Acute Comment: (R) Thumb Cleared for Admission [facility] - Detox or Rehab S Level of Care: Medically Managed Detox Regimen/Protocol: Methadone/Librium S Breath Alcohol Content Breath Alcohol Content: 0 Urine Pregancy Test - Result Urine Test Results: Negative- NO Line Present Urine Drug Screen - Results Drug Screen Negative: No Urine Drug Screen Results: THC-Marijuana, SKY-Cocaine, OPI-Opiates, OXY- Oxycodone, FEN-Fentanyl
[2018-11-08] MEDS ORDERED: MAGNESIUM CITRATE 300 ML BOTTLE PO PRN (18:53)
[2018-11-08] MEDS ORDERED: NICOTINE POLACRILEX 2 MG GUM BC PRN (18:53)
[2018-11-08] MEDS ORDERED: IBUPROFEN 400 MG TABLET (FP) PO PRN (18:53)
[2018-11-08] MEDS ORDERED: ACETAMINOPHEN 325 MG TABLET (FP) PO PRN (18:53)
[2018-11-08] MEDS ORDERED: METHADONE HCL 10 MG TABLET (FOR DETOX USE ONLY) PO ONE ×3 (18:53→23:06)
[2018-11-08] MEDS ORDERED: MAGNESIUM HYDROX 2400MG/30ML ORAL SUSPENSION 30 ML CUP PO PRN (18:53)
[2018-11-08] MEDS ORDERED: chlordiazePOXIDE HCL 25 MG CAPSULE PO PRN (18:53)
[2018-11-08] MEDS ORDERED: MAG HYDROX/AL HYDROX/SIMETH 30 ML UNIT-DOSE CUP PO PRN (18:53)
[2018-11-08] MEDS ORDERED: LOPERAMIDE HCL 2 MG CAPSULE PO PRN (18:53)
[2018-11-08] MEDS ORDERED: MENTHOL/PHENOL 1 EACH UD MM PRN (18:53)
[2018-11-08] MEDS ORDERED: ALBUTEROL SO4 0.083% IH SOL 2.5 MG/3 ML VIAL.NEB. NEB PRN (18:58)
[2018-11-08] MEDS ORDERED: BACITRACIN 15 GM TUBE TOPICAL OINTMENT TP SCH (22:00)
[2018-11-08] MEDS: CEPHALEXIN MONOHYDRATE 500 MG CAPSULE (UD) PO SCH (23:07)
[2018-11-08] MEDS: chlordiazePOXIDE HCL 25 MG CAPSULE PO SCH (23:07)
[2018-11-08] MEDS: THIAMINE HCL 100 MG TABLET (FP) PO SCH (23:08)
[2018-11-08] MEDS: BACITRACIN 0.9 GM PACKET TP SCH (23:08)
[2018-11-09 00:54] LABS: URINE APPEARANCE CLOUDY; URINE BILIRUBIN NEGATIVE (<2.0 mg/dL); URINE COLOR YELLOW; URINE GLUCOSE (UA) NEGATIVE (NEGATIVE); URINE KETONE NEGATIVE (NEGATIVE); URINE LEUK ESTERASE 3+ (NEGATIVE); URINE NITRITE NEGATIVE (NEGATIVE); URINE PROTEIN 1+ (NEGATIVE); URINE UROBILINOGEN NEGATIVE mg/dL (0.2-1.0)
[2018-11-09 01:03] LABS: CALCIUM OXALATE CRYSTALS RARE /hpf (NONE SEEN); EPI CELLS RARE /HPF (FEW); URINE BACTERIA MODERATE /hpf (NONE SEEN); URINE MUCUS RARE
[2018-11-09] MEDS: chlordiazePOXIDE HCL 25 MG CAPSULE PO SCH ×3 (06:27→17:14)
[2018-11-09] MEDS: CEPHALEXIN MONOHYDRATE 500 MG CAPSULE (UD) PO SCH ×4 (06:27→23:01)
[2018-11-09] MEDS ORDERED: METHADONE HCL 10 MG TABLET (FOR DETOX USE ONLY) PO SCH (10:00)
[2018-11-09] MEDS: BACITRACIN 0.9 GM PACKET TP SCH ×2 (10:29→22:25)
[2018-11-09] MEDS: PRENATAL VITAMINS W/ FOLIC ACID TABLET (FP) PO SCH (10:30)
[2018-11-09] MEDS: cloNIDine HCL 0.1 MG TABLET PO SCH (10:30)
[2018-11-09] MEDS: MEGESTROL ACETATE 400 MG/10 ML UNIT DOSE CUP PO SCH (10:31)
[2018-11-09] MEDS: NICOTINE 21 MG/24 HOURS TOPICAL PATCH TD SCH (10:31)
[2018-11-09 11:00] LABS: HEMATOCRIT 37.3 % (32.4-45.2); HEMOGLOBIN 11.6 GM/dL (10.7-15.3); MCH 24.9 pg (25.7-33.7); MCHC 31.1 g/dl (32.0-36.0); MEAN CELL VOLUME 80.1 fl (80-96); MEAN PLT VOLUME 8.7 fl (7.5-11.1); PLATELET COUNT 139 K/MM3 (134-434); RBC 4.65 M/mm3 (3.60-5.2); RDW 14.2 % (11.6-15.6)
[2018-11-09 11:05] LABS: ALK PHOS 77 U/L (45-117); ANION GAP 6 MMOL/L (8-16); BLOOD UREA NITROGEN 18 mg/dL (7-18); CALCIUM 8.4 mg/dL (8.5-10.1); CHLORIDE 109 mmol/L (98-107); CO2 29 mmol/L (21-32); CREATININE 0.9 mg/dL (0.55-1.3); GLUCOSE,RANDOM 96 mg/dL (74-106); POTASSIUM 4.2 mmol/L (3.5-5.1); SGOT/AST 20 U/L (15-37); SGPT/ALT 23 U/L (13-61); SODIUM 144 mmol/L (136-145); TOT PROT 6.2 g/dl (6.4-8.2)
[2018-11-09] MEDS ORDERED: FLU VACCINE QUAD 60 MCG/0.5 ML (MDV 18-19) IM ONE (12:00)
[2018-11-09] MEDS ORDERED: ALBUTEROL SO4 8 GM HFA INHALER IH PRN (13:42)
--- NOTE | 2018-11-09 13:49 | PN ---
[facility] CIWA - CIWA Score Nausea/Vomitin-No Nausea/No Vomiting Muscle Tremors: 3 Anxiety: 3 Agitation: 3 Paroxysmal Sweats: 3 Orientation: 0-Oriented Tacttile Disturbances: 0-None Auditory Disturbances: 0-None Visual Disturbances: 0-None Headache: 0-None Present CIWA-Ar Total Score: 12 [facility] COWS - Scale Resting Pulse: 0= [place] 80 or Below Sweatin=Flushed/Facial Moisture Restless Observation: 1= Difficult to Sit Still Pupil Size: 0= Normal to Room Light Bone or Joint Aches: 1= Mild Discomfort Runny Nose/ Eye Tearin= Nasal Congestion GI Upset > 30mins: 0= None Tremor Observation of Outstretched Hands: 1= Tremor [place], Not Seen Yawning Observation: 2= >3x During Session Anxiety or Irritability: 2=Irritable/Anxious Goose Flesh Skin: 0=Smooth Skin COWS Score: 10 S Progress Note (SOAP) Subjective: sleepy sweats chills body aches interrupted sleep tired agitation Objective: 11/09/18 13:45 Vital Signs Temperature 98.5 F 11/09/18 10:01 Pulse Rate 63 11/09/18 10:01 Respiratory Rate 18 11/09/18 10:01 Blood Pressure 108/56 L 11/09/18 10:01 O2 Sat by Pulse Oximetry (%) Laboratory Tests 11/08/18 11/09/18 11/09/18 23:40 07:00 07:00 WBC 3.0 L RBC 4.65 Hgb 11.6 Hct 37.3 D MCV 80.1 MCH 24.9 L MCHC 31.1 L RDW 14.2 Plt Count 139 MPV 8.7 Sodium 144 Potassium 4.2 Chloride 109 H Carbon Dioxide 29 Anion Gap 6 L BUN 18 Creatinine 0.9 Creat Clearance w eGFR > 60 Random Glucose 96 Calcium 8.4 L Total Bilirubin 1.0 AST 20 ALT 23 Alkaline Phosphatase 77 Total Protein 6.2 L Albumin 3.0 L Resin T3 Uptake 39.8 H Urine Color Yellow Urine Appearance Cloudy Urine pH 5.0 D Ur Specific [place] 1.024 Urine Protein 1+ H Urine Glucose (UA) Negative Urine Ketones Negative Urine Blood 1+ H Urine Nitrite Negative Urine Bilirubin Negative Urine Urobilinogen Negative Ur Leukocyte Esterase 3+ H Urine WBC (Auto) 1311 Urine RBC (Auto) 29 Ur Epithelial Cells Rare Calcium Oxalate Crystal Rare Urine Bacteria Moderate Urine Mucus Rare RPR Titer 11/09/18 07:00 WBC RBC Hgb Hct MCV MCH MCHC RDW Plt Count MPV Sodium Potassium Chloride Carbon Dioxide Anion Gap BUN Creatinine Creat Clearance w eGFR Random Glucose Calcium Total Bilirubin AST ALT Alkaline Phosphatase Total Protein Albumin Resin T3 Uptake Urine Color Urine Appearance Urine pH Ur Specific [place] Urine Protein Urine Glucose (UA) Urine Ketones Urine Blood Urine Nitrite Urine Bilirubin Urine Urobilinogen Ur Leukocyte Esterase Urine WBC (Auto) Urine RBC (Auto) Ur Epithelial Cells Calcium Oxalate Crystal Urine Bacteria Urine Mucus RPR Titer Nonreactive repeat u/a with c&S aaox3 lying in bed no acute distress pt is currently on ABX 11/09/18 13:46 Assessment: 11/09/18 13:46 withdrawal sx Plan: continue detox increase fluids u/a with c&s ordered results pending
[2018-11-09] MEDS ORDERED: chlordiazePOXIDE HCL 10 MG CAPSULE PO PRN (21:25)
[2018-11-09] MEDS: chlordiazePOXIDE 5 MG CAPSULE PO SCH (22:24)
[2018-11-09] MEDS: THIAMINE HCL 100 MG TABLET (FP) PO SCH (22:25)
[2018-11-09] MEDS: MELATONIN 5 MG TABLETS PO PRN (22:27)
[2018-11-09] MEDS ORDERED: chlordiazePOXIDE HCL 25 MG CAPSULE PO SCH (23:00)
[2018-11-10] MEDS: chlordiazePOXIDE 5 MG CAPSULE PO SCH ×4 (05:29→22:13)
[2018-11-10] MEDS: CEPHALEXIN MONOHYDRATE 500 MG CAPSULE (UD) PO SCH ×4 (05:29→23:03)
[2018-11-10] MEDS: MEGESTROL ACETATE 400 MG/10 ML UNIT DOSE CUP PO SCH (10:27)
[2018-11-10] MEDS: BACITRACIN 0.9 GM PACKET TP SCH ×2 (10:27→22:12)
[2018-11-10] MEDS: PRENATAL VITAMINS W/ FOLIC ACID TABLET (FP) PO SCH (10:27)
[2018-11-10] MEDS: METHADONE HCL 5 MG TABLET (FOR DETOX USE ONLY) PO SCH (10:27)
[2018-11-10] MEDS: NICOTINE 21 MG/24 HOURS TOPICAL PATCH TD SCH (10:28)
[2018-11-10] MEDS: cloNIDine HCL 0.1 MG TABLET PO SCH (10:28)
--- NOTE | 2018-11-10 14:06 | PN ---
[facility] CIWA - CIWA Score Nausea/Vomitin-No Nausea/No Vomiting Muscle Tremors: 3 Anxiety: 2 Agitation: 2 Paroxysmal Sweats: 3 Orientation: 0-Oriented Tacttile Disturbances: 0-None Auditory Disturbances: 0-None Visual Disturbances: 0-None Headache: 0-None Present CIWA-Ar Total Score: 10 [facility] COWS - Scale Resting Pulse: 0= [place] 80 or Below Sweatin= Chills/Flushing Restless Observation: 1= Difficult to Sit Still Pupil Size: 0= Normal to Room Light Bone or Joint Aches: 1= Mild Discomfort Runny Nose/ Eye Tearin= None GI Upset > 30mins: 0= None Tremor Observation of Outstretched Hands: 2= Slight Tremor Visible Yawning Observation: 1= 1-2x During Session Anxiety or Irritability: 2=Irritable/Anxious Goose Flesh Skin: 0=Smooth Skin COWS Score: 8 [facility] Progress Note (SOAP) Subjective: restless body aches sweats agitation Objective: 11/10/18 14:05 Vital Signs Temp 99.3 F 11/10/18 13:28 Pulse 82 11/10/18 13:28 Resp 18 11/10/18 13:28 BP 135/76 11/10/18 13:28 Pulse Ox Laboratory Tests 11/08/18 11/09/18 11/09/18 23:40 07:00 07:00 WBC 3.0 L RBC 4.65 Hgb 11.6 Hct 37.3 D MCV 80.1 MCH 24.9 L MCHC 31.1 L RDW 14.2 Plt Count 139 MPV 8.7 Sodium 144 Potassium 4.2 Chloride 109 H Carbon Dioxide 29 Anion Gap 6 L BUN 18 Creatinine 0.9 Creat Clearance w eGFR > 60 Random Glucose 96 Calcium 8.4 L Total Bilirubin 1.0 AST 20 ALT 23 Alkaline Phosphatase 77 Total Protein 6.2 L Albumin 3.0 L Resin T3 Uptake 39.8 H Urine Color Yellow Urine Appearance Cloudy Urine pH 5.0 D Ur Specific [place] 1.024 Urine Protein 1+ H Urine Glucose (UA) Negative Urine Ketones Negative Urine Blood 1+ H Urine Nitrite Negative Urine Bilirubin Negative Urine Urobilinogen Negative Ur Leukocyte Esterase 3+ H Urine WBC (Auto) 1311 Urine RBC (Auto) 29 Ur Epithelial Cells Rare Calcium Oxalate Crystal Rare Urine Bacteria Moderate Urine Mucus Rare RPR Titer 11/09/18 07:00 WBC RBC Hgb Hct MCV MCH MCHC RDW Plt Count MPV Sodium Potassium Chloride Carbon Dioxide Anion Gap BUN Creatinine Creat Clearance w eGFR Random Glucose Calcium Total Bilirubin AST ALT Alkaline Phosphatase Total Protein Albumin Resin T3 Uptake Urine Color Urine Appearance Urine pH Ur Specific [place] Urine Protein Urine Glucose (UA) Urine Ketones Urine Blood Urine Nitrite Urine Bilirubin Urine Urobilinogen Ur Leukocyte Esterase Urine WBC (Auto) Urine RBC (Auto) Ur Epithelial Cells Calcium Oxalate Crystal Urine Bacteria Urine Mucus RPR Titer Nonreactive repeat u/a pending aaox3 ambulating no acute distress Assessment: 11/10/18 14:06 withdrawal sx Plan: continue detox increase fluids
[2018-11-10] MEDS: MELATONIN 5 MG TABLETS PO PRN (22:13)
[2018-11-10] MEDS: THIAMINE HCL 100 MG TABLET (FP) PO SCH (22:13)
[2018-11-11] MEDS: CEPHALEXIN MONOHYDRATE 500 MG CAPSULE (UD) PO SCH ×4 (05:41→23:05)
[2018-11-11] MEDS: chlordiazePOXIDE 5 MG CAPSULE PO SCH ×4 (05:41→22:23)
--- NOTE | 2018-11-11 09:19 | CONSULT ---
[facility] Psychiatric Consult - Data Date of interview: 11/11/18 Admission source: [facility] Identifying data: Royce a 58 years female, single mother of five , domiciled, on PA support, with history of Bipolar Disorder, with no psychiatric hospitalization history, is here due to Alcohol dependence, reporting withdrtawal symptoms and seeking for datox. Denies suicidal, homicidal history. Substance Abuse History: Smoking history: Current every day smoker. Have you smoked in the past 12 months: Yes. Aproximately how many cigarettes per day: 10. Cigars Per Day: 0. Hx Chewing Tobacco Use: No. Initiated information on smoking cessation: Yes. 'Breaking Loose' booklet given: 11/08/18. - Substance & Tx. History. Hx Alcohol Use: Yes. Hx Substance Use: Yes. Substance Use Type : Alcohol, Cocaine, Heroin, Marijuana. Hx Substance Use Treatment: Yes (detox, rehab). - Substances Abused. Heroin. Route: Inhalation. Frequency: Daily. Amount used: 4-10 bags. Age of first use: 21. Date of Last Use: . Crack. Route: Smoking. Frequency: Daily. Amount used: 6-500 grams. Age of first use: 38. Date of Last Use: 11/07/18. Alcohol. Route: Oral. Frequency: 1-2 times per week. Amount used: 0.5 pint of brennen. Age of first use: 14. Date of Last Use: 11/07/18. marijuana. Route: Smoking. Frequency : Daily. Amount used: 1 blunt. Age of first use: 14. Date of Last Use: Medical History: Weigth loss history, Cellulitis history, HIV,AIDs, HTN, Asthma , UTI history Psychiatric History: Patient reports history of depression and anxiety, reports to carry Bipolar Disorder, reports taking p[rior to admission: Seroquel 200m,g po bid. Patient denies suicidal and homicidal history. Physical/Sexual Abuse/Trauma History: Denies, unclear Additional Comment: Seroquel 200m,g po bid Mental Status Exam - Mental Status Exam Alert and Oriented to: Place, Person Cognitive Function: Fair Patient Appearance: Well Groomed Mood: Apprehensive Affect: Mood Congruent Patient Behavior: Talkative, Cooperative Speech Pattern: Appropriate Voice Loudness: Normal Thought Process: Goal Oriented Thought Disorder: Being Controlled Hallucinations: Denies Suicidal Ideation: Denies Homicidal Ideation: Denies Insight/Judgement: Fair Sleep: Difficulty falling asleep Appetite: Weight loss Muscle strength/Tone: Normal Gait/Station: Normal Additional Comments: Seroquel 200m,g po bid Psychiatric Findings - Problem List ([place] 1, 2,3) (1) Cellulitis and abscess of finger, unspecified Current Visit: Yes Status: Acute Comment: (R) Thumb (2) Opioid dependence with withdrawal Current Visit: Yes Status: Acute (3) Asthma Current Visit: Yes Status: Chronic Qualifiers: Asthma severity: mild Asthma persistence: intermittent Asthma complication type: uncomplicated Qualified Code(s): J45.20 - Mild intermittent asthma, uncomplicated (4) Cannabis dependence, uncomplicated Current Visit: Yes Status: Chronic (5) Cocaine dependence, uncomplicated Current Visit: Yes Status: Chronic Comment: Smokes cocaine (Crack) (6) HIV (human immunodeficiency virus infection) Current Visit: Yes Status: Chronic Comment: Non-compliant w/ medications (7) Nicotine dependence Current Visit: Yes Status: Chronic Qualifiers: Nicotine product type: cigarettes Substance use status: uncomplicated Qualified Code(s): F17.210 - Nicotine dependence, cigarettes, uncomplicated (8) Weight loss Current Visit: Yes Status: Chronic (9) Alcohol abuse Current Visit: No Status: Acute (10) Alcohol dependence with uncomplicated withdrawal Current Visit: No Status: Acute (11) MDMA abuse Current Visit: No Status: Acute (12) Opiate addiction Current Visit: No Status: Acute (13) Opioid dependence Current Visit: No Status: Acute (14) PCP abuse Current Visit: No Status: Acute (15) Substance induced mood disorder Current Visit: No Status: Acute (16) UTI (urinary tract infection) Current Visit: No Status: Acute Qualifiers: Urinary tract infection type: acute cystitis (17) AIDS Current Visit: No Status: Chronic (18) Alcohol dependence Current Visit: No Status: Chronic (19) Cocaine abuse Current Visit: No Status: Chronic (20) Neuropathy Current Visit: No Status: Chronic (21) Substance-induced sleep disorder Current Visit: No Status: Chronic (22) Bipolar disorder Current Visit: No Status: Suspected - Initial Treatment Plan Initial Treatment Plan: Seroquel 200m,g po bid
[2018-11-11] MEDS ORDERED: QUEtiapine FUMARATE 200 MG TABLET PO SCH (10:00)
[2018-11-11] MEDS: METHADONE HCL 5 MG TABLET (FOR DETOX USE ONLY) PO SCH (10:22)
[2018-11-11] MEDS: BACITRACIN 0.9 GM PACKET TP SCH ×2 (10:22→22:22)
[2018-11-11] MEDS: cloNIDine HCL 0.1 MG TABLET PO SCH (10:23)
[2018-11-11] MEDS: NICOTINE 21 MG/24 HOURS TOPICAL PATCH TD SCH (10:23)
[2018-11-11] MEDS: PRENATAL VITAMINS W/ FOLIC ACID TABLET (FP) PO SCH (10:23)
[2018-11-11] MEDS: MEGESTROL ACETATE 400 MG/10 ML UNIT DOSE CUP PO SCH (10:24)
--- NOTE | 2018-11-11 14:01 | PN ---
[facility] Progress Note (SOAP) Subjective: feeling much better anxiety Objective: 11/11/18 14:00 Vital Signs Temperature 97.7 F 11/11/18 09:22 Pulse Rate 83 11/11/18 09:22 Respiratory Rate 18 11/11/18 09:22 Blood Pressure 135/84 11/11/18 09:22 O2 Sat by Pulse Oximetry (%) aaox3 ambulating no acute distress Assessment: 11/11/18 14:01 withdrawal sx Plan: continue detox increase fluids ensure bid
--- NOTE | 2018-11-11 14:35 | PN ---
[facility] Progress Note Note: pt found very groggy, sleepy and appears unstable after receiving 200mg of seroquel earlier today. seroquel d/c will continue to monitor.
--- NOTE | 2018-11-11 16:01 | PN ---
Psychiatric Progress Note Vital Signs: Vital Signs Period Temp Pulse Resp BP Sys/Valerio Pulse Ox Last 24 Hr 96.6 F-98.2 F 65-84 16-18 114-140/70-84 Date of Session: 11/11/18 Chief Complaint:: sedation HPI: As per nursing report patient became oversedated after Seroquel 200mg order , Patient evaluated at bed side, found oversedated. Rec:d/c Seroquel 200mg po bid. ssstart Seroquel 50mg po bid in am Current Medications: Active Medications Generic Name Dose Route Start Last Admin Trade Name Freq PRN Reason Stop Dose Admin Acetaminophen 650 mg 11/08/18 18:53 Tylenol - PO Q4H PRN FEVER Al Hydroxide/Mg Hydroxide 30 ml 11/08/18 18:53 Mylanta Oral Suspension - PO Q6H PRN DYSPEPSIA Albuterol Sulfate 1 amp 11/08/18 18:58 Ventolin 0.083% Nebulizer Soln - NEB Q4H PRN SHORT OF BREATH/WHEEZING Albuterol Sulfate 2 puff 11/09/18 13:42 Ventolin Hfa Inhaler - IH Q4H PRN ASTHMA Bacitracin 0.9 gm 11/08/18 22:00 11/11/18 10:22 Bacitracin - TP 0.9 gm BID CHRISTIANO Administration Cephalexin HCl 500 mg 11/09/18 00:00 11/11/18 11:05 Keflex - PO 11/18/18 18:01 500 mg Q6HPO CHRISTIANO Administration Chlordiazepoxide HCl 10 mg 11/10/18 23:00 11/11/18 10:22 Librium - PO 11/11/18 17:01 10 mg [id number] CHRISTIANO Administration Chlordiazepoxide HCl 5 mg 11/11/18 23:00 Librium - PO 11/12/18 17:01 [id number] CHRISTIANO Chlordiazepoxide HCl 10 mg 11/09/18 21:25 Librium - PO Q4H PRN WITHDRAWAL(CONT SUBST) Clonidine 0.1 mg 11/09/18 10:00 11/11/18 10:23 Catapres - PO 0.1 mg DAILY CHRISTIANO Administration Eucalyptus/Menthol/Phenol/Sorbitol 1 each 11/08/18 18:53 Cepastat Lozenge - MM Q4H PRN SORE THROAT Ibuprofen 400 mg 11/08/18 18:53 Motrin - PO Q6H PRN PAIN LEVEL 4-6 Loperamide HCl 4 mg 11/08/18 18:53 Imodium - PO Q6H PRN DIARRHEA Magnesium Citrate 300 ml 11/08/18 18:53 Citroma - PO Q48H PRN CONSTIPATION Magnesium Hydroxide 30 ml 11/08/18 18:53 Milk Of Magnesia - PO DAILY PRN CONSTIPATION Megestrol Acetate 400 mg 11/09/18 10:00 11/11/18 10:24 Megace Oral Suspension - PO 400 mg DAILY CHRISTIANO Administration Melatonin 5 mg 11/08/18 22:00 11/10/18 22:13 Melatonin PO 5 mg HS PRN Administration INSOMNIA Methadone HCl 5 mg 11/13/18 06:00 Dolophine - PO 11/13/18 06:01 DAILY@0600 CHRISTIANO Methadone HCl 10 mg 11/12/18 10:00 Dolophine - PO 11/12/18 10:01 DAILY CHRISTIANO Nicotine 21 mg 11/09/18 10:00 11/11/18 10:23 Nicoderm Patch - TD 21 mg DAILY CHRISTIANO Administration Nicotine Polacrilex 2 mg 11/08/18 18:53 Nicorette Gum - BC Q2H PRN NICOTINE REPLACEMENT RX Multivit/Folic Acid/Iron 1 tab 11/09/18 10:00 11/11/18 10:23 Vitamins (Sjr) - PO 1 tab DAILY CHRISTIANO Administration Thiamine HCl 100 mg 11/08/18 22:00 11/10/18 22:13 Vitamin B1 - PO 100 mg HS CHRISTIANO Administration Medication(s) Change(s): :d/c Seroquel 200mg po bid. ssstart Seroquel 50mg po bid in am Mental Status Exam - Mental Status Exam Alert and Oriented to: Person Patient Appearance: Unkempt Mood: Sad Affect: Flat Patient Behavior: Sedated Speech Pattern: Delayed Voice Loudness: Moderately Soft/Quiet Thought Process: Circumstantial, Goal Oriented Thought Disorder: Being Controlled Hallucinations: Denies Suicidal Ideation: Denies Homicidal Ideation: Denies Insight/Judgement: Fair Sleep: Difficulty falling asleep Appetite: Weight loss Muscle strength/Tone: Mild Hypotonicity Gait/Station: Shuffling Additional Comments: :d/c Seroquel 200mg po bid. ssstart Seroquel 50mg po bid in am Psychiatric Treatment Plan - Problem List (1) Cellulitis and abscess of finger, unspecified Current Visit: Yes Comment: (R) Thumb (2) Opioid dependence with withdrawal Current Visit: Yes (3) Asthma Current Visit: Yes Qualifiers: Asthma severity: mild Asthma persistence: intermittent Asthma complication type: uncomplicated Qualified Code(s): J45.20 - Mild intermittent asthma, uncomplicated (4) Cannabis dependence, uncomplicated Current Visit: Yes (5) Cocaine dependence, uncomplicated Current Visit: Yes Comment: Smokes cocaine (Crack) (6) HIV (human immunodeficiency virus infection) Current Visit: Yes Comment: Non-compliant w/ medications (7) Nicotine dependence Current Visit: Yes Qualifiers: Nicotine product type: cigarettes Substance use status: uncomplicated Qualified Code(s): F17.210 - Nicotine dependence, cigarettes, uncomplicated (8) Weight loss Current Visit: Yes (9) Alcohol abuse Current Visit: No (10) Alcohol dependence with uncomplicated withdrawal Current Visit: No (11) MDMA abuse Current Visit: No (12) Opiate addiction Current Visit: No (13) Opioid dependence Current Visit: No (14) PCP abuse Current Visit: No (15) Substance induced mood disorder Current Visit: No (16) UTI (urinary tract infection) Current Visit: No Qualifiers: Urinary tract infection type: acute cystitis (17) AIDS Current Visit: No (18) Alcohol dependence Current Visit: No (19) Cocaine abuse Current Visit: No (20) Neuropathy Current Visit: No (21) Substance-induced sleep disorder Current Visit: No (22) Bipolar disorder Current Visit: No Initial treatment plan: :d/c Seroquel 200mg po bid. ssstart Seroquel 50mg po bid in am
[2018-11-11] MEDS: THIAMINE HCL 100 MG TABLET (FP) PO SCH (22:22)
[2018-11-12] MEDS: chlordiazePOXIDE 5 MG CAPSULE PO SCH ×3 (05:23→16:42)
[2018-11-12] MEDS: CEPHALEXIN MONOHYDRATE 500 MG CAPSULE (UD) PO SCH ×4 (05:23→23:05)
[2018-11-12] MEDS ORDERED: METHADONE HCL 10 MG TABLET (FOR DETOX USE ONLY) PO SCH (10:00)
[2018-11-12] MEDS: cloNIDine HCL 0.1 MG TABLET PO SCH (10:05)
[2018-11-12] MEDS: MEGESTROL ACETATE 400 MG/10 ML UNIT DOSE CUP PO SCH (10:06)
[2018-11-12] MEDS: PRENATAL VITAMINS W/ FOLIC ACID TABLET (FP) PO SCH (10:06)
[2018-11-12] MEDS: BACITRACIN 0.9 GM PACKET TP SCH ×2 (10:06→22:17)
[2018-11-12] MEDS: NICOTINE 21 MG/24 HOURS TOPICAL PATCH TD SCH (10:08)
--- NOTE | 2018-11-12 10:17 | PN ---
[facility] Progress Note (SOAP) Subjective: agitation anxiety restless Objective: 11/12/18 10:16 Vital Signs Temperature 98.4 F 11/12/18 09:44 Pulse Rate 83 11/12/18 09:44 Respiratory Rate 16 11/12/18 09:44 Blood Pressure 109/62 11/12/18 09:44 O2 Sat by Pulse Oximetry (%) aaox3 ambulating no acute distress Assessment: 11/12/18 10:16 withdrawal sx Plan: continue detox increase fluids seroquel 50mg bid
[2018-11-12] MEDS: QUEtiapine FUMARATE 50 MG TABLET PO SCH ×2 (10:51→22:17)
[2018-11-12] MEDS: MELATONIN 5 MG TABLETS PO PRN (22:17)
[2018-11-12] MEDS: THIAMINE HCL 100 MG TABLET (FP) PO SCH (22:18)
[2018-11-13] MEDS: CEPHALEXIN MONOHYDRATE 500 MG CAPSULE (UD) PO SCH (05:36)
[2018-11-13] MEDS ORDERED: METHADONE HCL 5 MG TABLET (FOR DETOX USE ONLY) PO SCH (06:00)
[2018-11-13] MEDS: cloNIDine HCL 0.1 MG TABLET PO SCH (09:48)
[2018-11-13] MEDS: BACITRACIN 0.9 GM PACKET TP SCH (09:48)
[2018-11-13] MEDS: MEGESTROL ACETATE 400 MG/10 ML UNIT DOSE CUP PO SCH (09:48)
[2018-11-13] MEDS: QUEtiapine FUMARATE 50 MG TABLET PO SCH (09:49)
[2018-11-13] MEDS: PRENATAL VITAMINS W/ FOLIC ACID TABLET (FP) PO SCH (09:50)
[2018-11-13] MEDS: NICOTINE 21 MG/24 HOURS TOPICAL PATCH TD SCH (09:50)
[2018-11-13 10:00] VITALS: BP 116/61; PULSE 88; TEMP 99.3
--- NOTE | 2018-11-13 10:28 | PN ---
S Progress Note (SOAP) Subjective: Verbalized feeling great No distress noted Objective: 11/13/18 10:26 A & O x 3 Ambulating steadily on unit Vital Signs Temperature 99.3 F 11/13/18 09:59 Pulse Rate 88 11/13/18 09:59 Respiratory Rate 18 11/13/18 09:59 Blood Pressure 116/61 11/13/18 09:59 O2 Sat by Pulse Oximetry (%) Assessment: 11/13/18 10:26 detox completed Plan: for discharge
--- NOTE | 2018-11-13 10:37 | DS ---
[facility] Detox Discharge Summary Admission Date: 11/08/18 Discharge Date: 11/13/18 - History Additional Comments: Pt for discharge Will continue aftercare at [facility] Rehab Pertinent Past History: Asthma HIV - Physical Exam Results Vital Signs: Vital Signs Temperature 99.3 F 11/13/18 09:59 Pulse Rate 88 11/13/18 09:59 Respiratory Rate 11/13/18 09:59 Blood Pressure 116/61 11/13/18 09:59 O2 Sat by Pulse Oximetry (%) Pertinent Admission Physical Exam Findings: withdrawal sx - Treatment Hospital Course: Detox Protocol Followed, Detoxed Safely, Responded well, Discharged Condition Good, Rehab Referral Accepted Patient has Accepted a Rehab Referral to: [facility] Rehab - Medication Discharge Medications: Ambulatory Orders Clonidine HCl [Catapres] 0.1 mg PO DAILY 01/29/17 Megestrol Acetate Oral Susp [Megace Oral Suspension -] 400 mg PO DAILY cup Albuterol Sulfate Inhaler - [Ventolin HFA Inhaler -] 2 inh IH Q4H PRN #1 inhaler 05/23/18 Gabapentin [Neurontin -] 300 mg PO TID #90 cap 05/23/18 Quetiapine Fumarate [Seroquel] 200 mg PO BID 11/08/18 Quetiapine Fumarate [Seroquel -] 200 mg PO BID #60 tab 11/11/18 - Diagnosis (1) Cellulitis and abscess of finger, unspecified Current Visit: Yes Status: Acute (2) Opioid dependence with withdrawal Current Visit: Yes Status: Acute (3) Skin lesions Current Visit: Yes Status: Acute (4) Asthma Current Visit: Yes Status: Chronic Qualifiers: Asthma severity: mild Asthma persistence: intermittent Asthma complication type: uncomplicated Qualified Code(s): J45.20 - Mild intermittent asthma, uncomplicated (5) Cannabis dependence, uncomplicated Current Visit: Yes Status: Chronic (6) Cocaine dependence, uncomplicated Current Visit: Yes Status: Chronic (7) HIV (human immunodeficiency virus infection) Current Visit: Yes Status: Chronic (8) Nicotine dependence Current Visit: Yes Status: Chronic Qualifiers: Nicotine product type: cigarettes Substance use status: uncomplicated Qualified Code(s): F17.210 - Nicotine dependence, cigarettes, uncomplicated (9) Weight loss Current Visit: Yes Status: Chronic (10) Alcohol dependence with uncomplicated withdrawal Current Visit: No Status: Acute (11) Depressed mood Current Visit: No Status: Acute (12) Insomnia Current Visit: No Status: Acute (13) Substance induced mood disorder Current Visit: No Status: Acute (14) UTI (urinary tract infection) Current Visit: No Status: Acute Qualifiers: Urinary tract infection type: acute cystitis (15) Cocaine dependence Current Visit: No Status: Chronic Qualifiers: Substance use status: uncomplicated Qualified Code(s): F14.20 - Cocaine dependence, uncomplicated (16) Neuropathy Current Visit: No Status: Chronic (17) Substance-induced sleep disorder Current Visit: No Status: Chronic (18) Bipolar disorder Current Visit: No Status: Suspected
== END 2018-11-13 11:00 | disposition other institution (70) | DRG 773 ==
LOC: YASAS 11:48 → Y6N 16:54
PROC: HZ2ZZZZ Detoxification Services for Substance Abuse Treatment (ICD-10-PCS; principal; 2018-11-08)
DX: F11.23 Opioid dependence with withdrawal (principal); F10.230 Alcohol dependence with withdrawal, uncomplicated; F14.20 Cocaine dependence, uncomplicated; F12.20 Cannabis dependence, uncomplicated; F16.10 Hallucinogen abuse, uncomplicated; F17.210 Nicotine dependence, cigarettes, uncomplicated; F19.24 Other psychoactive substance dependence with psychoactive substance-induced mood disorder; F19.282 Other psychoactive substance dependence with psychoactive substance-induced sleep disorder; F31.9 Bipolar disorder, unspecified; G47.00 Insomnia, unspecified; B20 Human immunodeficiency virus [HIV] disease; J45.909 Unspecified asthma, uncomplicated; L98.9 Disorder of the skin and subcutaneous tissue, unspecified; L03.011 Cellulitis of right finger; L02.511 Cutaneous abscess of right hand; N39.0 Urinary tract infection, site not specified; G62.9 Polyneuropathy, unspecified; R63.6 Underweight; R21 Rash and other nonspecific skin eruption; Z91.14 Patient's other noncompliance with medication regimen; Z91.5 Personal history of self-harm
CPT/HCPCS: 36415; 80053; 81003; 81015; 84436; 84479; 85027; 86593; 90688; G0008; J0735

== ENCOUNTER 2018-11-13 11:21 | Inpatient (IN) | payer OTHER ==
--- NOTE | 2018-11-13 13:00 | HP ---
[facility] Rehab Assess/Revision - Admission History Admitted to Rehab from: [facility] Date of Admission to Rehab: 11/13/2018 - Findings Detox History & Physical reviewed: Yes Concur with findings: Yes Inpatient Rehab Admission - Initial Determination Are CD services needed?: Yes Free of communicable disease: Yes Not in need of hospitalization: Yes - Rehab Admission Criteria Previous failed treatment: Yes Poor recovery environment: Yes Comorbidities: Yes Lacks judgement: Yes Patient is meeting Inpatient Rehab admission criteria:: Yes
[2018-11-13] MEDS ORDERED: MENTHOL/PHENOL 1 EACH UD MM PRN (13:01)
[2018-11-13] MEDS ORDERED: ACETAMINOPHEN 325 MG TABLET (FP) PO PRN (13:01)
[2018-11-13] MEDS ORDERED: P-EPHED 60MG/TRIPROLIDI 2.5MG TABLET PO PRN (13:01)
[2018-11-13] MEDS ORDERED: MAGNESIUM HYDROX 2400MG/30ML ORAL SUSPENSION 30 ML CUP PO PRN (13:01)
[2018-11-13] MEDS ORDERED: IBUPROFEN 400 MG TABLET (FP) PO PRN (13:01)
[2018-11-13] MEDS ORDERED: MAGNESIUM CITRATE 300 ML BOTTLE PO PRN (13:01)
[2018-11-13] MEDS ORDERED: MAG HYDROX/AL HYDROX/SIMETH 30 ML UNIT-DOSE CUP PO PRN (13:01)
[2018-11-13] MEDS ORDERED: hydrOXYzine PAMOATE 25 MG CAPSULE (FP) PO PRN (13:01)
[2018-11-13] MEDS ORDERED: guaiFENesin/D-METHORPHAN HB 10 ML UNIT-DOSE CUPS PO PRN (13:01)
[2018-11-13] MEDS ORDERED: LOPERAMIDE HCL 2 MG CAPSULE PO PRN (13:01)
[2018-11-13] MEDS ORDERED: NICOTINE POLACRILEX 2 MG GUM BUC PRN (13:11)
[2018-11-13] MEDS: NICOTINE 14 MG/24 HOURS TOPICAL PATCH TD SCH (15:28)
[2018-11-13] MEDS: CEPHALEXIN MONOHYDRATE 500 MG CAPSULE (UD) PO SCH ×2 (19:21→23:17)
[2018-11-13] MEDS ORDERED: MELATONIN 5 MG TABLETS PO PRN (22:00)
[2018-11-13] MEDS: QUEtiapine FUMARATE 50 MG TABLET PO SCH (22:08)
[2018-11-13] MEDS: THIAMINE HCL 100 MG TABLET (FP) PO SCH (22:08)
[2018-11-14] MEDS: CEPHALEXIN MONOHYDRATE 500 MG CAPSULE (UD) PO SCH ×4 (06:34→23:19)
[2018-11-14] MEDS: NICOTINE 14 MG/24 HOURS TOPICAL PATCH TD SCH (10:12)
[2018-11-14] MEDS: QUEtiapine FUMARATE 50 MG TABLET PO SCH ×3 (10:13→21:22)
[2018-11-14] MEDS: PRENATAL VITAMINS W/ FOLIC ACID TABLET (FP) PO SCH (10:13)
[2018-11-14] MEDS ORDERED: ALBUTEROL SO4 8 GM HFA INHALER IH PRN (20:22)
[2018-11-14] MEDS: MEGESTROL ACETATE 400 MG/10 ML UNIT DOSE CUP PO SCH (21:20)
[2018-11-14] MEDS: GABAPENTIN 300 MG CAPSULE (FP) PO SCH (21:21)
[2018-11-14] MEDS: cloNIDine HCL 0.1 MG TABLET PO SCH (21:21)
[2018-11-14] MEDS: THIAMINE HCL 100 MG TABLET (FP) PO SCH (21:21)
[2018-11-15] MEDS: GABAPENTIN 300 MG CAPSULE (FP) PO SCH ×3 (06:33→21:32)
[2018-11-15] MEDS: CEPHALEXIN MONOHYDRATE 500 MG CAPSULE (UD) PO SCH ×4 (06:33→23:20)
[2018-11-15] MEDS: QUEtiapine FUMARATE 50 MG TABLET PO SCH ×4 (10:00→21:32)
[2018-11-15] MEDS: PRENATAL VITAMINS W/ FOLIC ACID TABLET (FP) PO SCH (10:00)
[2018-11-15] MEDS: MEGESTROL ACETATE 400 MG/10 ML UNIT DOSE CUP PO SCH (10:00)
[2018-11-15] MEDS: NICOTINE 14 MG/24 HOURS TOPICAL PATCH TD SCH (10:00)
[2018-11-15] MEDS: cloNIDine HCL 0.1 MG TABLET PO SCH (10:01)
--- NOTE | 2018-11-15 16:23 | HP ---
Psychiatrist Admission - Data Date of interview: 11/15/18 Admission source: detox Identifying data: This is one of th multiple admissions to [facility] inpatient rehabilitation for this 58 yo AA female single mother of 4,domiciled,supported by [facility]. Medical History: Significant for HIV+,Neuropathy. Psychiatric History: Long psychiatric history,dx with Bipolar disorder.patient reports 3 psychiatric hospitalizations-all to [facility] in the [place].No history of suicidal attempts reported.patient has poor compliance with outpatient [facility] care.She was on Ambien for insomnia.She was placed on Seroquel 200 mg po bid while bieng in detox on ,willing to switch 50 mg po bid. Physical/Sexual Abuse/Trauma History: Patient denies Vital Signs: Vital Signs - 24 hr 11/14/18 11/15/18 11/15/18 21:58 00:30 03:30 Temperature Pulse Rate 94 H Respiratory 16 16 Rate Blood Pressure 142/82 11/15/18 11/15/18 07:06 09:35 Temperature 98.2 F Pulse Rate 81 92 H Respiratory 18 Rate Blood Pressure 109/73 103/62 Allergies/Adverse Reactions: Allergies Allergy/AdvReac Type Severity Reaction Status Date / Time No Known Allergies Allergy Verified 11/08/18 15:18 Concur with the findings of this exam: Yes - Substance Abuse/Tx History Hx Alcohol Use: Yes (drinking since 14 yo,3 pints of vodka/beer) Hx Substance Use: Yes (heroin since 28 yo,7 bags daily,crack since 30 yo,$100 daily) Substance Use Type: Alcohol, Cocaine, Heroin Hx Substance Use Treatment: Yes Mental Status Exam - Mental Status Exam Alert and Oriented to: Time, Place, Person Cognitive Function: Grossly Intact Patient Appearance: Well Groomed Mood: Euthymic Affect: Mood Congruent Patient Behavior: Cooperative Speech Pattern: Clear Voice Loudness: Normal Thought Process: Goal Oriented Hallucinations: Denies Suicidal Ideation: Denies Homicidal Ideation: Denies Insight/Judgement: Fair Sleep: Fair Appetite: Good Muscle strength/Tone: Normal Gait/Station: Normal Psychiatric Findings - Problem List ([place] 1, 2,3) (1) MDMA abuse Current Visit: Yes Status: Chronic (2) Alcohol dependence Current Visit: Yes Status: Acute (3) Opioid dependence Current Visit: Yes Status: Chronic (4) HIV (human immunodeficiency virus infection) Current Visit: Yes Status: Chronic Comment: Non-compliant w/ medications (5) Neuropathy Current Visit: Yes Status: Chronic (6) Nicotine dependence Current Visit: Yes Status: Chronic Qualifiers: (7) Bipolar disorder Current Visit: Yes Status: Suspected - Initial Treatment Plan Initial Treatment Plan: Seroquel 50 mg po bid.Will monitor progress.
[2018-11-15] MEDS: THIAMINE HCL 100 MG TABLET (FP) PO SCH (21:32)
[2018-11-16] MEDS: CEPHALEXIN MONOHYDRATE 500 MG CAPSULE (UD) PO SCH (07:13)
[2018-11-16] MEDS: GABAPENTIN 300 MG CAPSULE (FP) PO SCH (07:14)
[2018-11-16 07:29] VITALS: BP 105/73; PULSE 90; TEMP 98.7
[2018-11-16] MEDS: cloNIDine HCL 0.1 MG TABLET PO SCH (10:04)
[2018-11-16] MEDS: QUEtiapine FUMARATE 50 MG TABLET PO SCH ×2 (10:04)
[2018-11-16] MEDS: MEGESTROL ACETATE 400 MG/10 ML UNIT DOSE CUP PO SCH (10:04)
[2018-11-16] MEDS: NICOTINE 14 MG/24 HOURS TOPICAL PATCH TD SCH (10:04)
[2018-11-16] MEDS: PRENATAL VITAMINS W/ FOLIC ACID TABLET (FP) PO SCH (10:04)
--- NOTE | 2018-11-16 11:49 | PN ---
[facility] Progress Note Note: Pt stated she had to leave before completion of the program. When asked why , she said "I just have to leave, I have things to do and that's just it ma'am". Pt insisted on leaving despite education by provider and counselor to complete rehab. pt stated that she will do aftercare by attending meetings. She will also f/u with her PCP MD Salomon Eastman at [address] [place] [address] pt was A & O x 3 and was in stable condition. Vital Signs Temperature 98.7 F 11/16/18 07:28 Pulse Rate 90 11/16/18 07:28 Respiratory Rate 18 11/16/18 07:28 Blood Pressure 105/73 11/16/18 07:28 O2 Sat by Pulse Oximetry (%) Albuterol inhaler and narcan scripts were sent to [facility] for case picker and pt verbalized understanding.
== END 2018-11-16 10:43 | disposition left against medical advice (07) | DRG 770 ==
LOC: YASAS 11:21 → Y3E 11:22
PROVIDERS: ADMIT Psychiatry & Neurology Psychiatry; ATTEND Psychiatry & Neurology Psychiatry
PROC: HZ42ZZZ Group Counseling for Substance Abuse Treatment, Cognitive-Behavioral (ICD-10-PCS; principal; 2018-11-13)
DX: F11.20 Opioid dependence, uncomplicated (principal); F10.20 Alcohol dependence, uncomplicated; F16.10 Hallucinogen abuse, uncomplicated; F17.210 Nicotine dependence, cigarettes, uncomplicated; F31.9 Bipolar disorder, unspecified; B20 Human immunodeficiency virus [HIV] disease; G62.9 Polyneuropathy, unspecified
CPT/HCPCS: J0735

== ENCOUNTER 2018-12-15 09:40 | Inpatient (IN) | payer OTHER ==
[2018-12-15 11:28] VITALS: BMI 16.2
--- NOTE | 2018-12-15 14:05 | HP ---
COWS - Scale Resting Pulse: 1= [place] 81-100 Sweatin= Chills/Flushing Restless Observation: 1= Difficult to Sit Still Pupil Size: 1= Pupils >than Normal Bone or Joint Aches: 2= Severe Diffuse Aches Runny Nose/ Eye Tearin= Nasal Congestion GI Upset > 30mins: 2= Nausea/Diarrhea Tremor Observation: 2= Slight Tremor Visible Yawning Observation: 0= None Anxiety or Irritability: 2=Irritable/Anxious Goose Flesh Skin: 3=Piloerection COWS Score: 16 CIWA Score Nausea/Vomitin Muscle Tremors: 2 Anxiety: 2 Agitation: 2 Paroxysmal Sweats: 2 Orientation: 1-Uncertain about Date Tacttile Disturbances: 2-Mild Itch/Numbness/Burn Auditory Disturbances: 1-Very Mild Visual Disturbances: 0-None Headache: 2-Mild CIWA-Ar Total Score: 16 - Admission Criteria [facility] Guidelines: Admission for Medically Managed Detox: Requires at least one of the followin. CIWA greater than 12 2. Seizures within the past 24 hours 3. Delirium tremens within the past 24 hours 4. Hallucinations within the past 24 hours 5. Acute intervention needed for co occurring medical disorder 6. Acute intervention needed for co occurring psychiatric disorder 7. Severe withdrawal that cannot be handled at a lower level of care (continued vomiting, continued diarrhea, abnormal vital signs) requiring intravenous medication and/or fluids 8. Admission [facility] Chief Complaint: ETOH/HEROIN WITHDRAWAL SX. Allergies/Adverse Reactions: Allergies Allergy/AdvReac Type Severity Reaction Status Date / Time No Known Allergies Allergy Verified 12/15/18 11:59 History of Present Illness: PATIENT IS KNOWN TO [facility]. SHE WAS LAST ADMITTED 10/2018 BUT LEFT BECAUSE SHE HAD "GOTTEN SICK" AND WANTED TO SEE PCP. PATIENT STATES MOTHER AND SHE RELAPSED SOON AFTER LEAVING LAST MONTH. PATIENT STARTED SNIFFING 10 BAGS OF HEROIN SINCE AGE 14 AND DRINKING 3-4 PINTS OF LIQUOR SINCE 14. +COCAINE, THC USE WELL. AMOUNT VARIES ON FINANCES. DENIES PMH OF OVERDOSE, BLACKOUTS, SEIZURES, FALLS AND DT. 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 PMH INCLUDES BIPOLAR DISORDER, HIV + (NONCOMPLIANT WITH MEDS), ASTHMA AND HTN. DENIES SI/HI AND SUICIDE ATTEMPTS. Exam Limitations: No Limitations - Ebola screening Have you traveled outside of the country in the last 21 days: No Have you had contact with anyone from an Ebola affected area: No Have you been sick,other than usual withdrawal symptoms: No Do you have a fever: No - Review of Systems Constitutional: Chills, Night Sweats, Changes in sleep, Unexplained wgt Loss EENT: reports: Tearing, Nose Congestion Respiratory: reports: Cough Cardiac: reports: No Symptoms Reported GI: reports: Diarrhea, Nausea, Poor Fluid Intake, Abdominal cramping : reports: No Symptoms Reported Musculoskeletal: reports: Back Pain, Muscle Pain Integumentary: reports: Sweating Neuro: reports: Headache, Numbness, Tingling, Tremors Endocrine: reports: Unexplained Weight Loss Hematology: reports: No Symptoms Reported Psychiatric: reports: Anxious, Depressed (FORGET TO DATE. ORIENTED TO NAME AND PLACE.) Patient History - Patient Medical History Hx Anemia: Yes Hx Asthma: Yes Hx Chronic Obstructive Pulmonary Disease (COPD): No Hx Cancer: No Hx Cardiac Disorders: No Hx Congestive Heart Failure: No Hx Hypertension: Yes Hx Hypercholesterolemia: No Hx Pacemaker: No HX Cerebrovascular Accident: No Hx Seizures: No Hx Dementia: No Hx Diabetes: No Hx Gastrointestinal Disorders: No Hx Liver Disease: No Hx Genitourinary Disorders: No Hx Sexually Transmitted Disorders: No Hx Renal Disease (ESRD): No Hx Thyroid Disease: No Hx Human Immunodeficiency Virus (HIV): Yes (NONCOMPLIANT) Hx Hepatitis C: No Hx Depression: Yes Hx Suicide Attempt: No Hx Bipolar Disorder: Yes (ON MED) Hx Schizophrenia: No - Patient Surgical History Past Surgical History: Yes Hx Neurologic Surgery: No Hx Cataract Extraction: No Hx Cardiac Surgery: No Hx Lung Surgery: No Hx Breast Surgery: No Hx Breast Biopsy: No Hx Abdominal Surgery: No Hx Appendectomy: No Hx Cholecystectomy: No Hx Genitourinary Surgery: No Hx Section: Yes (in 1992) Hx Orthopedic Surgery: No Other Surgical History: ectopic in 1986 Anesthesia Reaction: No - PPD History Previous Implant?: Yes Documented Results: Negative w/proof Implanted On Prior [facility] Admission?: Yes Date: 05/20/18 Results: 0 mm PPD to be Administered?: No - Reproductive History Patient is a Female of Child Bearing Age (11 -55 yrs old): No Patient : No - Smoking Cessation Smoking history: Current every day smoker Have you smoked in the past 12 months: Yes Aproximately how many cigarettes per day: 10 Cigars Per Day: 0 Hx Chewing Tobacco Use: No Initiated information on smoking cessation: Yes 'Breaking Loose' booklet given: 12/15/18 - Substance & Tx. History Hx Alcohol Use: Yes Hx Substance Use: Yes Substance Use Type: Alcohol, Cocaine, Heroin, Marijuana, Opiates - Substances Abused Heroin Route: Inhalation Frequency: Daily Amount used: 9-10 bags Age of first use: 14 Date of Last Use: 12/14/18 Crack Route: Smoking Frequency: Daily Amount used: $200 Age of first use: 28 Date of Last Use: 12/15/18 Alcohol-beer Route: Oral Frequency: Daily Amount used: 4 (12 oz.) Age of first use: 14 Date of Last Use: 12/14/18 Marijuana Route: Smoking Frequency: Daily Amount used: $20 Age of first use: 14 Date of Last Use: 12/14/18 Family Disease History - Family Disease History Family Disease History: CA: Father (FATHER WAS ADDICTED TO ETOH AND HAD CA. OF THE LUNGS AND ), Other: Father Admission Physical Exam [facility] - Vital Signs Vital Signs: Vital Signs - 24 hr 12/15/18 11:25 Temperature 100 F H Pulse Rate 88 Respiratory 18 Rate Blood Pressure 140/80 - Physical General Appearance: Yes: No Apparent Distress, Appropriately Dressed, Thin, Tremorous, Sweating, Anxious HEENTM: Yes: EOMI, Hearing grossly Normal, Normocephalic, Normal Voice, [place], Pharynx Normal, Nasal Congestion Respiratory: Yes: Chest Non-Tender, Lungs Clear, Normal Breath Sounds, No Respiratory Distress, No Accessory Muscle Use Neck: Yes: No masses,lesions,Nodules, Supple, Trachea in good position Breast: Yes: Breast Exam Deferred Cardiology: Yes: Regular Rhythm, Regular Rate, S1, S2 Abdominal: Yes: Normal Bowel Sounds, Non Tender, Soft Genitourinary: Yes: Within Normal Limits Back: Yes: Muscle Spasm Musculoskeletal: Yes: full range of Motion, Gait Steady, Back pain, Muscle Pain Extremities: Yes: Normal Inspection, Normal Range of Motion, Non-Tender, Tremors Neurological: Yes: picture painter II-XII NML intact, Alert, Motor Strength 5/5, Normal Response, Depressed Affect, Other (ANXIOUS) Integumentary: Yes: Normal Color, Warm, Moist Lymphatic: Yes: Within Normal Limits - Diagnostic (1) Alcohol dependence with uncomplicated withdrawal Current Visit: Yes Status: Acute (2) Opioid dependence with withdrawal Current Visit: Yes Status: Acute (3) Asthma Current Visit: Yes Status: Chronic Qualifiers: Asthma severity: mild Asthma persistence: intermittent Asthma complication type: uncomplicated Qualified Code(s): J45.20 - Mild intermittent asthma, uncomplicated (4) Cannabis dependence, uncomplicated Current Visit: Yes Status: Chronic (5) HIV (human immunodeficiency virus infection) Current Visit: Yes Status: Chronic Qualifiers: HIV symptom status: unspecified Qualified Code(s): B20 - Human immunodeficiency virus [HIV] disease Comment: Non-compliant w/ medications (6) Weight loss Current Visit: Yes Status: Acute (7) Bipolar disorder Current Visit: Yes Status: Suspected Qualifiers: Current episode severity: unspecified Cleared for Admission [facility] - Detox or Rehab [facility] Level of Care: Medically Managed Detox Regimen/Protocol: Methadone/Librium [facility] Breath Alcohol Content Breath Alcohol Content: 0 Urine Pregancy Test - Result Urine Test Results: Negative- NO Line Present Urine Drug Screen - Results Drug Screen Negative: No Urine Drug Screen Results: SKY-Cocaine, OPI-Opiates, FEN-Fentanyl
[2018-12-15] MEDS ORDERED: MAGNESIUM CITRATE 300 ML BOTTLE PO PRN (14:12)
[2018-12-15] MEDS ORDERED: NICOTINE POLACRILEX 2 MG GUM BUC PRN (14:12)
[2018-12-15] MEDS ORDERED: MAGNESIUM HYDROX 2400MG/30ML ORAL SUSPENSION 30 ML CUP PO PRN (14:12)
[2018-12-15] MEDS ORDERED: P-EPHED 60MG/TRIPROLIDI 2.5MG TABLET PO PRN (14:12)
[2018-12-15] MEDS ORDERED: hydrOXYzine PAMOATE 50 MG CAPSULE (FP) PO PRN (14:12)
[2018-12-15] MEDS ORDERED: MAG HYDROX/AL HYDROX/SIMETH 30 ML UNIT-DOSE CUP PO PRN (14:12)
[2018-12-15] MEDS ORDERED: LOPERAMIDE HCL 2 MG CAPSULE PO PRN (14:12)
[2018-12-15] MEDS ORDERED: MENTHOL/PHENOL 1 EACH UD MM PRN (14:12)
[2018-12-15] MEDS ORDERED: ACETAMINOPHEN 325 MG TABLET (FP) PO PRN (14:12)
[2018-12-15] MEDS ORDERED: IBUPROFEN 400 MG TABLET (FP) PO PRN (14:12)
[2018-12-15] MEDS ORDERED: ALBUTEROL SO4 8 GM HFA INHALER IH PRN (14:13)
[2018-12-15] MEDS ORDERED: chlordiazePOXIDE HCL 25 MG CAPSULE PO PRN (14:13)
[2018-12-15] MEDS ORDERED: METHADONE HCL 10 MG TABLET (FOR DETOX USE ONLY) PO ONE ×2 (15:15→23:00)
[2018-12-15] MEDS: chlordiazePOXIDE HCL 25 MG CAPSULE PO SCH ×2 (16:28→22:26)
[2018-12-15 19:02] LABS: URINE APPEARANCE TURBID; URINE BILIRUBIN NEGATIVE (<2.0 mg/dL); URINE COLOR DKYELLOW; URINE GLUCOSE (UA) NEGATIVE (NEGATIVE); URINE KETONE NEGATIVE (NEGATIVE); URINE LEUK ESTERASE 3+ (NEGATIVE); URINE NITRITE NEGATIVE (NEGATIVE); URINE PROTEIN NEGATIVE (NEGATIVE)
[2018-12-15 19:19] LABS: EPI CELLS FEW /HPF (FEW); URINE BACTERIA MODERATE /hpf (NONE SEEN)
[2018-12-15] MEDS: THIAMINE HCL 100 MG TABLET (FP) PO SCH (22:26)
[2018-12-16] MEDS: chlordiazePOXIDE HCL 25 MG CAPSULE PO SCH ×4 (06:39→22:14)
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
--- NOTE | 2018-12-16 09:41 | PN ---
[facility] CIWA - CIWA Score Nausea/Vomitin-Mild Nausea/No Vomiting Muscle Tremors: 3 Anxiety: 2 Agitation: 3 Paroxysmal Sweats: 1-Minimal Palms Moist Orientation: 1-Uncertain about Date Tacttile Disturbances: 0-None Auditory Disturbances: 0-None Visual Disturbances: 0-None Headache: 1-Very Mild CIWA-Ar Total Score: 12 BHS COWS - Scale Resting Pulse: 0= [place] 80 or Below Sweatin= Chills/Flushing Restless Observation: 0= Sits Still Pupil Size: 0= Normal to Room Light Bone or Joint Aches: 1= Mild Discomfort Runny Nose/ Eye Tearin= Nasal Congestion GI Upset > 30mins: 2= Nausea/Diarrhea Tremor Observation of Outstretched Hands: 2= Slight Tremor Visible Yawning Observation: 2= >3x During Session Anxiety or Irritability: 2=Irritable/Anxious Goose Flesh Skin: 0=Smooth Skin COWS Score: 11 S Progress Note (SOAP) Subjective: body aches muscle cramping tremor sweating Objective: 12/16/18 09:39 Vital Signs Temperature 96.2 F L 12/16/18 09:17 Pulse Rate 85 12/16/18 09:17 Respiratory Rate 16 12/16/18 09:17 Blood Pressure 120/71 12/16/18 09:17 O2 Sat by Pulse Oximetry (%) Laboratory Last Values Urine Color Dkyellow 12/15/18 15:54 Urine Appearance Turbid 12/15/18 15:54 Urine pH 6.0 (5.0-8.0) 12/15/18 15:54 Ur Specific [place] 1.015 (1.010-1.035) 12/15/18 15:54 Urine Protein Negative (NEGATIVE) 12/15/18 15:54 Urine Glucose (UA) Negative (NEGATIVE) 12/15/18 15:54 Urine Ketones Negative (NEGATIVE) 12/15/18 15:54 Urine Blood 1+ (NEGATIVE) H 12/15/18 15:54 Urine Nitrite Negative (NEGATIVE) 12/15/18 15:54 Urine Bilirubin Negative (<2.0 mg/dL) 12/15/18 15:54 Urine Urobilinogen 2.0 mg/dL (0.2-1.0) H 12/15/18 15:54 Ur Leukocyte Esterase 3+ (NEGATIVE) H 12/15/18 15:54 Urine WBC (Auto) 837 /hpf (3-5) 12/15/18 15:54 Urine RBC (Auto) 21 /hpf (0-3) 12/15/18 15:54 Ur Epithelial Cells Few /HPF (FEW) 12/15/18 15:54 Urine Bacteria Moderate /hpf (NONE SEEN) 12/15/18 15:54 lab noted uti Assessment: 12/16/18 09:41 alcohol and opiate withdrawal sx uti Plan: continue detox bactrim ds bid
[2018-12-16] MEDS ORDERED: METHADONE HCL 10 MG TABLET (FOR DETOX USE ONLY) PO SCH (10:00)
[2018-12-16 10:15] LABS: HEMATOCRIT 37.2 % (32.4-45.2); HEMOGLOBIN 12.5 GM/dL (10.7-15.3); MCH 26.4 pg (25.7-33.7); MCHC 33.7 g/dl (32.0-36.0); MEAN CELL VOLUME 78.5 fl (80-96); PLATELET COUNT 278 K/MM3 (134-434); RBC 4.74 M/mm3 (3.60-5.2); RDW 14.9 % (11.6-15.6); WHITE BLOOD COUNT 4.7 K/mm3 (4.0-10.0)
[2018-12-16] MEDS: NICOTINE 21 MG/24 HOURS TOPICAL PATCH TD SCH (10:28)
[2018-12-16] MEDS: PRENATAL VITAMINS W/ FOLIC ACID TABLET (FP) PO SCH (10:29)
[2018-12-16] MEDS: SULFAMETHOXAZOLE/TRIMETHOPRIM 800MG/160MG D.S. TABLET PO SCH ×2 (10:29→22:14)
[2018-12-16 11:11] LABS: ALBUMIN 3.6 g/dl (3.4-5.0); ALK PHOS 92 U/L (45-117); ANION GAP 10 MMOL/L (8-16); BILIRUBIN,TOTAL 0.5 mg/dL (0.2-1); BLOOD UREA NITROGEN 13 mg/dL (7-18); CALCIUM 8.9 mg/dL (8.5-10.1); CHLORIDE 105 mmol/L (98-107); CO2 27 mmol/L (21-32); GLUCOSE,RANDOM 95 mg/dL (74-106); SGOT/AST 23 U/L (15-37); SGPT/ALT 24 U/L (13-61); SODIUM 142 mmol/L (136-145); TOT PROT 7.7 g/dl (6.4-8.2)
[2018-12-16] MEDS: guaiFENesin/D-METHORPHAN HB 10 ML UNIT-DOSE CUPS PO PRN ×2 (14:33→22:33)
[2018-12-16] MEDS ORDERED: QUEtiapine FUMARATE 100 MG TABLET (FP) PO SCH (22:00)
[2018-12-16] MEDS: THIAMINE HCL 100 MG TABLET (FP) PO SCH (22:14)
[2018-12-16] MEDS: QUEtiapine FUMARATE 50 MG TABLET PO SCH (22:14)
[2018-12-17] MEDS: chlordiazePOXIDE HCL 25 MG CAPSULE PO SCH ×2 (05:17→10:32)
[2018-12-17] MEDS: guaiFENesin/D-METHORPHAN HB 10 ML UNIT-DOSE CUPS PO PRN ×2 (05:17→10:32)
[2018-12-17] MEDS: PRENATAL VITAMINS W/ FOLIC ACID TABLET (FP) PO SCH (10:31)
[2018-12-17] MEDS: SULFAMETHOXAZOLE/TRIMETHOPRIM 800MG/160MG D.S. TABLET PO SCH ×2 (10:31→22:27)
[2018-12-17] MEDS: METHADONE HCL 5 MG TABLET (FOR DETOX USE ONLY) PO SCH (10:32)
[2018-12-17] MEDS: NICOTINE 21 MG/24 HOURS TOPICAL PATCH TD SCH (10:32)
--- NOTE | 2018-12-17 14:18 | PN ---
[facility] CIWA - CIWA Score Nausea/Vomitin-No Nausea/No Vomiting Muscle Tremors: None Anxiety: 3 Agitation: 1-Slight > Activity Paroxysmal Sweats: 3 Orientation: 0-Oriented Tacttile Disturbances: 2-Mild Itch/Numbness/Burn Auditory Disturbances: 0-None Visual Disturbances: 2-Mild Sensitivity Headache: 3-Moderate CIWA-Ar Total Score: 14 BHS COWS - Scale Resting Pulse: 1= [place] 81-100 Sweatin= Chills/Flushing Restless Observation: 1= Difficult to Sit Still Pupil Size: 0= Normal to Room Light Bone or Joint Aches: 2= Severe Diffuse Aches Runny Nose/ Eye Tearin= Runny Nose/Eyes GI Upset > 30mins: 0= None Tremor Observation of Outstretched Hands: 0= None Yawning Observation: 1= 1-2x During Session Anxiety or Irritability: 2=Irritable/Anxious Goose Flesh Skin: 3=Piloerection COWS Score: 13 BHS Progress Note (SOAP) Subjective: Body Aches, Sweating, H/A. Patient also reports (Productive ) Cough, Nasal Congestion, and Sore Throat X approx. 3 weeks with no improvement in symptoms. Objective: PATIENT A & O X 3, OBSERVED AMBULATING ON UNIT. IN NO ACUTE DISTRESS. LUNG SOUNDS AUSCULTATED CLEAR AND EQUAL BILATERALLY. NO ERYTHEMA OR EXUDATE NOTED ON VISUAL INSPECTION OF PHARYNX. LOW-GRADE FEVER NOTED IN AFTERNOON VS ASSESSMENT. 12/17/18 14:15 Vital Signs Temperature 100.3 F H 12/17/18 13:23 Pulse Rate 100 H 12/17/18 13:23 Respiratory Rate 18 12/17/18 13:23 Blood Pressure 106/62 12/17/18 13:23 O2 Sat by Pulse Oximetry (%) Laboratory Tests 12/15/18 12/16/18 12/16/18 15:54 05:50 05:50 WBC 4.7 RBC 4.74 Hgb 12.5 Hct 37.2 MCV 78.5 L MCH 26.4 MCHC 33.7 RDW 14.9 Plt Count 278 D MPV 9.0 Sodium 142 Potassium 4.0 Chloride 105 Carbon Dioxide 27 Anion Gap 10 BUN 13 Creatinine 1.0 Creat Clearance w eGFR 56.56 Random Glucose 95 Calcium 8.9 Total Bilirubin 0.5 AST 23 ALT 24 Alkaline Phosphatase 92 Total Protein 7.7 Albumin 3.6 Urine Color Dkyellow Urine Appearance Turbid Urine pH 6.0 Ur Specific [place] 1.015 Urine Protein Negative Urine Glucose (UA) Negative Urine Ketones Negative Urine Blood 1+ H Urine Nitrite Negative Urine Bilirubin Negative Urine Urobilinogen 2.0 H Ur Leukocyte Esterase 3+ H Urine WBC (Auto) 837 Urine RBC (Auto) 21 Ur Epithelial Cells Few Urine Bacteria Moderate RPR Titer 12/16/18 05:50 WBC RBC Hgb Hct MCV MCH MCHC RDW Plt Count MPV Sodium Potassium Chloride Carbon Dioxide Anion Gap BUN Creatinine Creat Clearance w eGFR Random Glucose Calcium Total Bilirubin AST ALT Alkaline Phosphatase Total Protein Albumin Urine Color Urine Appearance Urine pH Ur Specific [place] Urine Protein Urine Glucose (UA) Urine Ketones Urine Blood Urine Nitrite Urine Bilirubin Urine Urobilinogen Ur Leukocyte Esterase Urine WBC (Auto) Urine RBC (Auto) Ur Epithelial Cells Urine Bacteria RPR Titer Nonreactive LABS NOTED. 12/17/18 14:15 Assessment: 12/17/18 14:18 WITHDRAWAL SYMPTOMS. ACUTE UPPER RESPIRATORY INFECTION. Plan: CONTINUE DETOX. Z-PACK ORDERED. INCREASE DAILY PO FLUID INTAKE. OCEAN SPRAY SALINE NASAL SPRAY PRN FOR NASAL CONGESTION. CONTINUE BACTRIM DS FOR UIT / ADMISSION UA ABNORMALITIES. REPEAT UA TO SEE IF CHANGE FROM ADMISSION UA ABNORMALITIES.
[2018-12-17] MEDS ORDERED: AZITHROMYCIN 250 MG TABLET PO ONE (14:50)
[2018-12-17] MEDS: chlordiazePOXIDE 5 MG CAPSULE PO SCH ×2 (16:59→22:25)
[2018-12-17] MEDS: QUEtiapine FUMARATE 50 MG TABLET PO SCH (22:24)
[2018-12-17] MEDS: THIAMINE HCL 100 MG TABLET (FP) PO SCH (22:24)
[2018-12-17 23:32] LABS: URINE APPEARANCE CLOUDY; URINE BILIRUBIN NEGATIVE (<2.0 mg/dL); URINE COLOR YELLOW; URINE GLUCOSE (UA) NEGATIVE (NEGATIVE); URINE KETONE NEGATIVE (NEGATIVE); URINE LEUK ESTERASE 3+ (NEGATIVE); URINE NITRITE POSITIVE (NEGATIVE); URINE PROTEIN NEGATIVE (NEGATIVE); URINE UROBILINOGEN NEGATIVE mg/dL (0.2-1.0)
[2018-12-17 23:35] LABS: EPI CELLS RARE /HPF (FEW); URINE BACTERIA RARE /hpf (NONE SEEN); YEAST RARE
[2018-12-18] MEDS: chlordiazePOXIDE 5 MG CAPSULE PO SCH ×2 (05:44→10:05)
[2018-12-18] MEDS: guaiFENesin/D-METHORPHAN HB 10 ML UNIT-DOSE CUPS PO PRN ×2 (05:49→22:37)
[2018-12-18] MEDS: SULFAMETHOXAZOLE/TRIMETHOPRIM 800MG/160MG D.S. TABLET PO SCH ×2 (10:04→22:15)
[2018-12-18] MEDS: PRENATAL VITAMINS W/ FOLIC ACID TABLET (FP) PO SCH (10:04)
[2018-12-18] MEDS: AZITHROMYCIN 250 MG TABLET PO SCH (10:04)
[2018-12-18] MEDS: METHADONE HCL 5 MG TABLET (FOR DETOX USE ONLY) PO SCH (10:05)
[2018-12-18] MEDS: NICOTINE 21 MG/24 HOURS TOPICAL PATCH TD SCH (10:07)
--- NOTE | 2018-12-18 15:50 | PN ---
S Progress Note (SOAP) Subjective: Sweating, Tremors, Nasal Congestion. Patient Reports that she feels somewhat better today then she has over the last few days. Objective: PATIENT A & O X 2 (UNCERTAIN ABOUT CURRENT DAY / DATE). PATIENT OBSERVED AMBULATING ON UNIT. IN NO ACUTE DISTRESS. PATIENT DENIES ANY URINARY COMPLAINTS (BURNING, PAIN, FREQUENCY, URGENCY, HESITANCY). 12/18/18 15:45 Vital Signs Temperature 100.0 F H 12/18/18 14:03 Pulse Rate 99 H 12/18/18 14:03 Respiratory Rate 16 12/18/18 14:03 Blood Pressure 90/63 12/18/18 14:03 O2 Sat by Pulse Oximetry (%) Laboratory Tests 12/15/18 12/16/18 12/16/18 15:54 05:50 05:50 WBC 4.7 RBC 4.74 Hgb 12.5 Hct 37.2 MCV 78.5 L MCH 26.4 MCHC 33.7 RDW 14.9 Plt Count 278 D MPV 9.0 Sodium 142 Potassium 4.0 Chloride 105 Carbon Dioxide 27 Anion Gap 10 BUN 13 Creatinine 1.0 Creat Clearance w eGFR 56.56 Random Glucose 95 Calcium 8.9 Total Bilirubin 0.5 AST 23 ALT 24 Alkaline Phosphatase 92 Total Protein 7.7 Albumin 3.6 Urine Color Dkyellow Urine Appearance Turbid Urine pH 6.0 Ur Specific [place] 1.015 Urine Protein Negative Urine Glucose (UA) Negative Urine Ketones Negative Urine Blood 1+ H Urine Nitrite Negative Urine Bilirubin Negative Urine Urobilinogen 2.0 H Ur Leukocyte Esterase 3+ H Urine WBC (Auto) 837 Urine RBC (Auto) 21 Ur Epithelial Cells Few Urine Bacteria Moderate Urine Yeast RPR Titer 12/16/18 12/17/18 05:50 18:19 WBC RBC Hgb Hct MCV MCH MCHC RDW Plt Count MPV Sodium Potassium Chloride Carbon Dioxide Anion Gap BUN Creatinine Creat Clearance w eGFR Random Glucose Calcium Total Bilirubin AST ALT Alkaline Phosphatase Total Protein Albumin Urine Color Yellow Urine Appearance Cloudy Urine pH 6.0 Ur Specific [place] 1.017 Urine Protein Negative Urine Glucose (UA) Negative Urine Ketones Negative Urine Blood Negative Urine Nitrite Positive Urine Bilirubin Negative Urine Urobilinogen Negative Ur Leukocyte Esterase 3+ H Urine WBC (Auto) 357 Urine RBC (Auto) 19 Ur Epithelial Cells Rare Urine Bacteria Rare Urine Yeast Rare RPR Titer Nonreactive LABS NOTED. RESULTS OF REPEAT UA NOTED. CONTINUE BACTRIM DS BID. 12/18/18 15:46 Assessment: 12/18/18 15:46 WITHDRAWAL SYMPTOMS. UTI. ACUTE URI. Plan: CONTINUE DETOX. INCREASE DAILY PO FLUID INTAKE. PRESCRIPTION FOR REMAINDER OF FULL COURSE OF BOTH BACTRIM DS (FOR UTI DIAGNOSED DURING DETOX ADMISSION) AND FOR REMAINDER OF Z-PACK (FOR URI DIAGNOSED DURING DETOX ADMISSION) SENT TO PATIENT'S PHARMACY ([place], [place]) FOR AFTERCARE. PATIENT MADE AWARE. PATIENT ADVISED TO COMPLETE FULL COURSE OF BOTH ANTIBIOTICS AFTER DISCHARGE FROM DETOX UNIT. PATIENT VERBALIZED UNDERSTANDING OF RECOMMENDATIONS.
[2018-12-18] MEDS: chlordiazePOXIDE HCL 10 MG CAPSULE PO SCH ×2 (18:02→22:15)
[2018-12-18] MEDS: THIAMINE HCL 100 MG TABLET (FP) PO SCH (22:15)
[2018-12-18] MEDS: QUEtiapine FUMARATE 50 MG TABLET PO SCH (22:15)
[2018-12-18] MEDS: MELATONIN 5 MG TABLETS PO PRN (22:36)
[2018-12-18] MEDS: SODIUM CHLORIDE NASAL SPRAY 44 ML BOTTLE NS PRN (23:17)
[2018-12-19] MEDS: chlordiazePOXIDE HCL 10 MG CAPSULE PO SCH ×2 (05:40→10:33)
[2018-12-19] MEDS ORDERED: METHADONE HCL 10 MG TABLET (FOR DETOX USE ONLY) PO SCH (10:00)
[2018-12-19] MEDS: SULFAMETHOXAZOLE/TRIMETHOPRIM 800MG/160MG D.S. TABLET PO SCH ×2 (10:22→22:07)
[2018-12-19] MEDS: PRENATAL VITAMINS W/ FOLIC ACID TABLET (FP) PO SCH (10:22)
[2018-12-19] MEDS: AZITHROMYCIN 250 MG TABLET PO SCH (10:22)
[2018-12-19] MEDS: NICOTINE 21 MG/24 HOURS TOPICAL PATCH TD SCH (10:33)
[2018-12-19] MEDS: SODIUM CHLORIDE NASAL SPRAY 44 ML BOTTLE NS PRN ×3 (13:01→22:06)
[2018-12-19] MEDS: guaiFENesin/D-METHORPHAN HB 10 ML UNIT-DOSE CUPS PO PRN (17:38)
--- NOTE | 2018-12-19 17:39 | PN ---
[facility] Progress Note (SOAP) Subjective: Denies any complaints. Patient is anxious Objective: 12/19/18 17:34 Last Vital Signs Temp Pulse Resp BP Pulse Ox 98.2 F 103 H 19 115/66 12/19/18 15:04 12/19/18 15:04 12/19/18 15:04 12/19/18 15:04 Laboratory Tests 12/15/18 12/16/18 12/16/18 15:54 05:50 05:50 WBC 4.7 RBC 4.74 Hgb 12.5 Hct 37.2 MCV 78.5 L MCH 26.4 MCHC 33.7 RDW 14.9 Plt Count 278 D MPV 9.0 Sodium 142 Potassium 4.0 Chloride 105 Carbon Dioxide 27 Anion Gap 10 BUN 13 Creatinine 1.0 Creat Clearance w eGFR 56.56 Random Glucose 95 Calcium 8.9 Total Bilirubin 0.5 AST 23 ALT 24 Alkaline Phosphatase 92 Total Protein 7.7 Albumin 3.6 Urine Color Dkyellow Urine Appearance Turbid Urine pH 6.0 Ur Specific [place] 1.015 Urine Protein Negative Urine Glucose (UA) Negative Urine Ketones Negative Urine Blood 1+ H Urine Nitrite Negative Urine Bilirubin Negative Urine Urobilinogen 2.0 H Ur Leukocyte Esterase 3+ H Urine WBC (Auto) 837 Urine RBC (Auto) 21 Ur Epithelial Cells Few Urine Bacteria Moderate Urine Yeast RPR Titer 12/16/18 12/17/18 05:50 18:19 WBC RBC Hgb Hct MCV MCH MCHC RDW Plt Count MPV Sodium Potassium Chloride Carbon Dioxide Anion Gap BUN Creatinine Creat Clearance w eGFR Random Glucose Calcium Total Bilirubin AST ALT Alkaline Phosphatase Total Protein Albumin Urine Color Yellow Urine Appearance Cloudy Urine pH 6.0 Ur Specific [place] 1.017 Urine Protein Negative Urine Glucose (UA) Negative Urine Ketones Negative Urine Blood Negative Urine Nitrite Positive Urine Bilirubin Negative Urine Urobilinogen Negative Ur Leukocyte Esterase 3+ H Urine WBC (Auto) 357 Urine RBC (Auto) 19 Ur Epithelial Cells Rare Urine Bacteria Rare Urine Yeast Rare RPR Titer Nonreactive Labs reviewed: UA shows nitrite positive Assessment: 12/19/18 17:35 Withdrawal symptoms Noted with Acute UTI Plan: Continue detox Encouraged PO water intake Acute UTI: on antibiotic
[2018-12-19] MEDS: THIAMINE HCL 100 MG TABLET (FP) PO SCH (22:06)
[2018-12-19] MEDS: QUEtiapine FUMARATE 50 MG TABLET PO SCH (22:07)
[2018-12-19] MEDS: MELATONIN 5 MG TABLETS PO PRN (22:08)
[2018-12-20] MEDS: SODIUM CHLORIDE NASAL SPRAY 44 ML BOTTLE NS PRN (05:43)
[2018-12-20] MEDS ORDERED: METHADONE HCL 5 MG TABLET (FOR DETOX USE ONLY) PO SCH (06:00)
[2018-12-20 06:18] VITALS: BP 102/66; PULSE 79; TEMP 97.4
--- NOTE | 2018-12-20 12:00 | DS ---
[facility] Detox Discharge Summary Admission Date: 12/15/18 Discharge Date: 12/20/18 - History Present History: Alcohol Dependence, Opioid Dependence Additional Comments: 58 years old female admitted on 12/15/18 for alcohol and opiate withdrawal stabilization [facility] - Physical Exam Results Vital Signs: Vital Signs Temperature 97.4 F L 12/20/18 06:16 Pulse Rate 79 12/20/18 06:16 Respiratory Rate 18 12/20/18 06:16 Blood Pressure 102/66 12/20/18 06:16 O2 Sat by Pulse Oximetry (%) Pertinent Admission Physical Exam Findings: alcohol and opiate withdrawal sx Laboratory Last Values WBC 4.7 K/mm3 (4.0-10.0) 12/16/18 05:50 RBC 4.74 M/mm3 (3.60-5.2) 12/16/18 05:50 Hgb 12.5 GM/dL (10.7-15.3) 12/16/18 05:50 Hct 37.2 % (32.4-45.2) 12/16/18 05:50 MCV 78.5 fl (80-96) L 12/16/18 05:50 MCH 26.4 pg (25.7-33.7) 12/16/18 05:50 MCHC 33.7 g/dl (32.0-36.0) 12/16/18 05:50 RDW 14.9 % (11.6-15.6) 12/16/18 05:50 Plt Count 278 K/MM3 (134-434) D 12/16/18 05:50 MPV 9.0 fl (7.5-11.1) 12/16/18 05:50 Sodium 142 mmol/L (136-145) 12/16/18 05:50 Potassium 4.0 mmol/L (3.5-5.1) 12/16/18 05:50 Chloride 105 mmol/L (98-107) 12/16/18 05:50 Carbon Dioxide 27 mmol/L (21-32) 12/16/18 05:50 Anion Gap 10 MMOL/L (8-16) 12/16/18 05:50 BUN 13 mg/dL (7-18) 12/16/18 05:50 Creatinine 1.0 mg/dL (0.55-1.3) 12/16/18 05:50 Creat Clearance w eGFR 56.56 (>60) 12/16/18 05:50 Random Glucose 95 mg/dL (74-106) 12/16/18 05:50 Calcium 8.9 mg/dL (8.5-10.1) 12/16/18 05:50 Total Bilirubin 0.5 mg/dL (0.2-1) 12/16/18 05:50 AST 23 U/L (15-37) 12/16/18 05:50 ALT 24 U/L (13-61) 12/16/18 05:50 Alkaline Phosphatase 92 U/L (45-117) 12/16/18 05:50 Total Protein 7.7 g/dl (6.4-8.2) 12/16/18 05:50 Albumin 3.6 g/dl (3.4-5.0) 12/16/18 05:50 Urine Color Yellow 12/17/18 18:19 Urine Appearance Cloudy 12/17/18 18:19 Urine pH 6.0 (5.0-8.0) 12/17/18 18:19 Ur Specific [place] 1.017 (1.010-1.035) 12/17/18 18:19 Urine Protein Negative (NEGATIVE) 12/17/18 18:19 Urine Glucose (UA) Negative (NEGATIVE) 12/17/18 18:19 Urine Ketones Negative (NEGATIVE) 12/17/18 18:19 Urine Blood Negative (NEGATIVE) 12/17/18 18:19 Urine Nitrite Positive (NEGATIVE) 12/17/18 18: Urine Bilirubin Negative (<2.0 mg/dL) 12/17/18 18:19 Urine Urobilinogen Negative mg/dL (0.2-1.0) 12/17/18 18:19 Ur Leukocyte Esterase 3+ (NEGATIVE) H 12/17/18 18:19 Urine WBC (Auto) 357 /hpf (3-5) 12/17/18 18:19 Urine RBC (Auto) 19 /hpf (0-3) 12/17/18 18:19 Ur Epithelial Cells Rare /HPF (FEW) 12/17/18 18:19 Urine Bacteria Rare /hpf (NONE SEEN) 12/17/18 18:19 Urine Yeast Rare 12/17/18 18:19 RPR Titer Nonreactive (NONREACTIVE) 12/16/18 05:50 lab noted - Treatment Hospital Course: Detox Protocol Followed, Detoxed Safely, Responded well, Discharged Condition Good, Rehab Referral Accepted Patient has Accepted a Rehab Referral to: [facility] rehab - Medication Discharge Medications: Ambulatory Orders Clonidine HCl [Catapres] 0.1 mg PO DAILY 01/29/17 Megestrol Acetate Oral Susp [Megace Oral Suspension -] 400 mg PO DAILY cup Gabapentin [Neurontin -] 300 mg PO TID #90 cap 05/23/18 Emtricitabine/Tenofov Alafenam [Descovy 200-25 mg Tablet (Nf)] 1 each PO DAILY 12/15/18 Quetiapine Fumarate [Seroquel] 100 tab PO HS 12/15/18 Azithromycin 250 mg PO DAILY 2 Days #2 tablet 12/18/18 Sulfamethoxazole/Trimethoprim [Bactrim Ds -] 1 tab PO BID 7 Days #14 tablet Albuterol Sulfate Inhaler - [Ventolin HFA Inhaler -] 2 puff IH Q4H PRN #1 inhaler 12/20/18 Sulfamethoxazole/Trimethoprim [Bactrim DS -] 1 each PO BID #14 tablet 12/20/18 - Diagnosis (1) HIV (human immunodeficiency virus infection) Status: Chronic Qualifiers: HIV symptom status: asymptomatic Qualified Code(s): Z21 - Asymptomatic human immunodeficiency virus [HIV] infection status (2) Alcohol dependence with uncomplicated withdrawal Status: Acute (3) Opioid dependence with withdrawal Status: Acute (4) Substance induced mood disorder Status: Suspected (5) UTI (urinary tract infection) Status: Acute Qualifiers: Urinary tract infection type: acute cystitis (6) Weight loss Status: Acute (7) COPD (chronic obstructive pulmonary disease) Status: Chronic Qualifiers: COPD type: emphysema Emphysema type: other Qualified Code(s): J43.8 - Other emphysema - AMA Did Patient Leave Against Medical Advice: No
== END 2018-12-20 08:55 | disposition home or self-care (01) | DRG 773 ==
LOC: YASAS 09:40 → Y3N 14:56
PROVIDERS: ADMIT Neuromusculoskeletal Medicine & OMM; ATTEND Neuromusculoskeletal Medicine & OMM
PROC: HZ2ZZZZ Detoxification Services for Substance Abuse Treatment (ICD-10-PCS; principal; 2018-12-15)
DX: F11.23 Opioid dependence with withdrawal (principal); F10.230 Alcohol dependence with withdrawal, uncomplicated; F14.20 Cocaine dependence, uncomplicated; F12.20 Cannabis dependence, uncomplicated; F17.210 Nicotine dependence, cigarettes, uncomplicated; F31.9 Bipolar disorder, unspecified; F43.10 Post-traumatic stress disorder, unspecified; I10 Essential (primary) hypertension; B20 Human immunodeficiency virus [HIV] disease; N30.90 Cystitis, unspecified without hematuria; J43.8 Other emphysema; J06.9 Acute upper respiratory infection, unspecified; Z91.14 Patient's other noncompliance with medication regimen
CPT/HCPCS: 36415; 80053; 81003; 81015; 85027; 86593

== ENCOUNTER 2019-01-24 12:10 | Inpatient (IN) | payer OTHER ==
[2019-01-24 13:20] VITALS: BMI 17.8
--- NOTE | 2019-01-24 15:00 | HP ---
COWS - Scale Resting Pulse: 1= [place] 81-100 Sweatin=Flushed/Facial Moisture Restless Observation: 1= Difficult to Sit Still Pupil Size: 2= Moderately Dilated Bone or Joint Aches: 2= Severe Diffuse Aches Runny Nose/ Eye Tearin= Nasal Congestion GI Upset > 30mins: 2= Nausea/Diarrhea Tremor Observation: 0= None Yawning Observation: 1= 1-2x During Session Anxiety or Irritability: 2=Irritable/Anxious Goose Flesh Skin: 0=Smooth Skin COWS Score: 14 CIWA Score - Admission Criteria OAS Guidelines: Admission for Medically Managed Detox: Requires at least one of the followin. CIWA greater than 12 2. Seizures within the past 24 hours 3. Delirium tremens within the past 24 hours 4. Hallucinations within the past 24 hours 5. Acute intervention needed for co occurring medical disorder 6. Acute intervention needed for co occurring psychiatric disorder 7. Severe withdrawal that cannot be handled at a lower level of care (continued vomiting, continued diarrhea, abnormal vital signs) requiring intravenous medication and/or fluids 8. Admission ROS [facility] Chief Complaint: JOON PRESENTS WITH HEROIN WITHDRAWAL SX. Allergies/Adverse Reactions: Allergies Allergy/AdvReac Type Severity Reaction Status Date / Time No Known Allergies Allergy Verified 12/15/18 11:59 History of Present Illness: PATIENT PRESENTS WITH HEROIN WITHDRAWAL SX AND IS KNOWN TO [facility] DUE TO MULTIPLE ADMISSIONS. PATIENT STATES SHE BEGAN SNIFFING HEROIN AT AGE 14, SNIFFS 10 BAGS DAILY, LAST TIME USED WAS TODAY. DENIES IVDA, OVERDOSE, FALLS AND BLACKOUTS. NO SEIZURES REPORTED. PATIENT ALSO SMOKES CRACK/COCAINE, 5 BAGS DAILY, LAST USE TODAY. PMH INCLUDES HIV+, BIPOLAR DISORDER, COPD, TOBACCO USE. DENIES SI/HI AND SUICIDE ATTEMPTS. Exam Limitations: No Limitations - Ebola screening Have you traveled outside of the country in the last 21 days: No Have you had contact with anyone from an Ebola affected area: No Have you been sick,other than usual withdrawal symptoms: No Do you have a fever: No - Review of Systems Constitutional: Chills, Night Sweats, Changes in sleep EENT: reports: Nose Congestion Respiratory: reports: Cough (DRY COUGH) Cardiac: reports: No Symptoms Reported GI: reports: Diarrhea, Nausea, Poor Appetite, Poor Fluid Intake : reports: No Symptoms Reported Musculoskeletal: reports: Back Pain, Muscle Pain Integumentary: reports: Sweating Neuro: reports: No Symptoms reported Endocrine: reports: No Symptoms Reported Hematology: reports: No Symptoms Reported Psychiatric: reports: Orientated x3, Anxious, Depressed Patient History - Patient Medical History Hx Anemia: Yes Hx Asthma: Yes Hx Chronic Obstructive Pulmonary Disease (COPD): No Hx Cancer: No Hx Cardiac Disorders: No Hx Congestive Heart Failure: No Hx Hypertension: Yes Hx Hypercholesterolemia: No Hx Pacemaker: No HX Cerebrovascular Accident: No Hx Seizures: No Hx Dementia: No Hx Diabetes: No Hx Gastrointestinal Disorders: No Hx Liver Disease: No Hx Genitourinary Disorders: No Hx Sexually Transmitted Disorders: No Hx Renal Disease (ESRD): No Hx Thyroid Disease: No Hx Human Immunodeficiency Virus (HIV): Yes (NONCOMPLIANT, LAST TIME MEDS TAKEN 3 WEEKS AGO) Hx Hepatitis C: No Hx Depression: Yes Hx Suicide Attempt: No Hx Bipolar Disorder: Yes (ON MED, DID NOT BRING MEDS) Hx Schizophrenia: No - Patient Surgical History Past Surgical History: Yes Hx Neurologic Surgery: No Hx Cataract Extraction: No Hx Cardiac Surgery: No Hx Lung Surgery: No Hx Breast Surgery: No Hx Breast Biopsy: No Hx Abdominal Surgery: No Hx Appendectomy: No Hx Cholecystectomy: No Hx Genitourinary Surgery: No Hx Section: Yes (in 1992) Hx Orthopedic Surgery: No Other Surgical History: ectopic in 1986 Anesthesia Reaction: No - PPD History Date: 05/20/18 Results: 0 mm PPD to be Administered?: No - Reproductive History Patient is a Female of Child Bearing Age (11 -55 yrs old): No Patient : No - Smoking Cessation Smoking history: Current every day smoker Have you smoked in the past 12 months: Yes Aproximately how many cigarettes per day: 10 Cigars Per Day: 0 Hx Chewing Tobacco Use: No Initiated information on smoking cessation: Yes 'Breaking Loose' booklet given: 01/24/19 - Substance & Tx. History Hx Alcohol Use: No Hx Substance Use: Yes Substance Use Type: Cocaine, Heroin Hx Substance Use Treatment: Yes - Substances Abused Cocaine Route: Smoking Frequency: Daily Amount used: 4 BAGS Age of first use: 14 Date of Last Use: 01/24/19 Heroin Route: Inhalation Frequency: Daily Amount used: 10 Age of first use: 14 Date of Last Use: 01/24/19 Family Disease History - Family Disease History Family Disease History: CA: Father (FATHER WAS ADDICTED TO ETOH AND HAD CA. OF THE LUNGS AND ), Other: Father Admission Physical Exam [facility] - Vital Signs Vital Signs: Vital Signs - 24 hr 01/24/19 13:17 Temperature 99.4 F Pulse Rate 85 Respiratory 18 Rate Blood Pressure 120/81 - Physical General Appearance: Yes: Disheveled, Sweating, Anxious HEENTM: Yes: EOMI, Normocephalic, Normal Voice, YOKASTA, Pharynx Normal, Nasal Congestion Respiratory: Yes: Chest Non-Tender, No Respiratory Distress, No Accessory Muscle Use, Wheezing Neck: Yes: No masses,lesions,Nodules, Supple, Trachea in good position Breast: Yes: Breast Exam Deferred Cardiology: Yes: Regular Rhythm, Regular Rate, S1, S2 Abdominal: Yes: Normal Bowel Sounds, Non Tender, Soft Genitourinary: Yes: Within Normal Limits Back: Yes: Muscle Spasm Musculoskeletal: Yes: full range of Motion, Gait Steady, Back pain, Muscle Pain Extremities: Yes: Normal Inspection, Normal Range of Motion, Non-Tender Neurological: Yes: social services II-XII NML intact, Fully Oriented, Motor Strength 5/5, Normal Response, Depressed Affect, Other (SLEEPY DUE TO HEROIN USE) Integumentary: Yes: Normal Color, Warm, Moist Lymphatic: Yes: Within Normal Limits Cleared for Admission [facility] - Detox or Rehab [facility] Level of Care: Medically Managed Detox Regimen/Protocol: Methadone [facility] Breath Alcohol Content Breath Alcohol Content: 0 Urine Pregancy Test - Result Urine Test Results: Negative- NO Line Present Urine Drug Screen - Results Drug Screen Negative: No Urine Drug Screen Results: SKY-Cocaine, OPI-Opiates Inpatient Rehab Admission - Rehab Decision to Admit Inpatient rehab admission?: No
[2019-01-24] MEDS ORDERED: MENTHOL/PHENOL 1 EACH UD MM PRN (15:16)
[2019-01-24] MEDS ORDERED: MAGNESIUM HYDROX 2400MG/30ML ORAL SUSPENSION 30 ML CUP PO PRN (15:16)
[2019-01-24] MEDS ORDERED: ACETAMINOPHEN 325 MG TABLET (FP) PO PRN (15:16)
[2019-01-24] MEDS ORDERED: MAG HYDROX/AL HYDROX/SIMETH 30 ML UNIT-DOSE CUP PO PRN (15:16)
[2019-01-24] MEDS ORDERED: NICOTINE POLACRILEX 2 MG GUM BC PRN (15:16)
[2019-01-24] MEDS ORDERED: IBUPROFEN 400 MG TABLET (FP) PO PRN (15:16)
[2019-01-24] MEDS ORDERED: MAGNESIUM CITRATE 300 ML BOTTLE PO PRN (15:16)
[2019-01-24] MEDS ORDERED: LOPERAMIDE HCL 2 MG CAPSULE PO PRN (15:16)
[2019-01-24] MEDS ORDERED: P-EPHED 60MG/TRIPROLIDI 2.5MG TABLET PO PRN (15:16)
[2019-01-24] MEDS ORDERED: METHADONE HCL 10 MG TABLET (FOR DETOX USE ONLY) PO ONE ×2 (15:19→23:00)
[2019-01-24] MEDS: diazePAM 5 MG TABLET PO PRN (18:34)
[2019-01-24] MEDS ORDERED: MELATONIN 5 MG TABLETS PO PRN (22:00)
[2019-01-24] MEDS: THIAMINE HCL 100 MG TABLET (FP) PO SCH (22:40)
[2019-01-25 01:51] LABS: URINE APPEARANCE CLOUDY; URINE BILIRUBIN NEGATIVE (<2.0 mg/dL); URINE COLOR YELLOW; URINE GLUCOSE (UA) NEGATIVE (NEGATIVE); URINE KETONE NEGATIVE (NEGATIVE); URINE LEUK ESTERASE 3+ (NEGATIVE); URINE NITRITE NEGATIVE (NEGATIVE); URINE PROTEIN NEGATIVE (NEGATIVE); URINE UROBILINOGEN NEGATIVE mg/dL (0.2-1.0)
[2019-01-25 02:28] LABS: EPI CELLS RARE /HPF (FEW); URINE BACTERIA MODERATE /hpf (NONE SEEN)
--- NOTE | 2019-01-25 09:58 | PN ---
BHS COWS - Scale Resting Pulse: 1= [place] 81-100 Sweatin=Flushed/Facial Moisture Restless Observation: 1= Difficult to Sit Still Pupil Size: 0= Normal to Room Light Bone or Joint Aches: 2= Severe Diffuse Aches Runny Nose/ Eye Tearin= Nasal Congestion GI Upset > 30mins: 0= None Tremor Observation of Outstretched Hands: 2= Slight Tremor Visible Yawning Observation: 2= >3x During Session Anxiety or Irritability: 1=Feels Anxious/Irritable Goose Flesh Skin: 0=Smooth Skin COWS Score: 12 BHS Progress Note (SOAP) Subjective: sweats tired interrupted sleep body aches irritable Objective: 01/25/19 09:56 Vital Signs Temperature 98.2 F 01/25/19 07:26 Pulse Rate 62 01/25/19 07:26 Respiratory Rate 18 01/25/19 07:26 Blood Pressure 123/68 01/25/19 07:26 O2 Sat by Pulse Oximetry (%) Laboratory Tests 01/24/19 11:53 Urine Color Yellow Urine Appearance Cloudy Urine pH 7.0 Ur Specific [place] 1.014 Urine Protein Negative Urine Glucose (UA) Negative Urine Ketones Negative Urine Blood Negative Urine Nitrite Negative Urine Bilirubin Negative Urine Urobilinogen Negative Ur Leukocyte Esterase 3+ H Urine WBC (Auto) 45 Urine RBC (Auto) 1 Ur Epithelial Cells Rare Urine Bacteria Moderate labs pending aaox3 ambulating no acute distress repeat u/a Assessment: 01/25/19 09:57 withdrawal sx Plan: continue detox increase fluids labs pending
[2019-01-25] MEDS ORDERED: METHADONE HCL 10 MG TABLET (FOR DETOX USE ONLY) PO ONE (10:00)
[2019-01-25] MEDS: PRENATAL VITAMINS W/ FOLIC ACID TABLET (FP) PO SCH (10:14)
[2019-01-25] MEDS: NICOTINE 14 MG/24 HOURS TOPICAL PATCH TD SCH (10:15)
--- NOTE | 2019-01-25 10:53 | PN ---
Psychiatric Progress Note Vital Signs: Vital Signs Period Temp Pulse Resp BP Sys/Valerio Pulse Ox Last 24 Hr 98.2 F-99.4 F 62-85 18-18 109-151/56-82 Date of Session: 01/25/19 Chief Complaint:: Self-referred HPI: Ms Ludiwg is a 58 years old single Black female, mother of 3 children, unemployed, SSI, homeless seeking detox treatment opioid and cocaine Current Medications: Active Medications Generic Name Dose Route Start Last Admin Trade Name Freq PRN Reason Stop Dose Admin Acetaminophen 650 mg 01/24/19 15:16 Tylenol - PO Q4H PRN FEVER Al Hydroxide/Mg Hydroxide 30 ml 01/24/19 15:16 Mylanta Oral Suspension - PO Q6H PRN DYSPEPSIA Albuterol Sulfate 2 puff 01/24/19 15:18 Ventolin Hfa Inhaler - IH Q4H PRN ASTHMA Diazepam 10 mg 01/24/19 15:19 01/24/19 18:34 Valium - PO 01/27/19 15:18 10 mg Q4H PRN Administration WITHDRAWAL(CONT SUBST) Eucalyptus/Menthol/Phenol/Sorbitol 1 each 01/24/19 15:16 Cepastat Lozenge - MM Q4H PRN SORE THROAT Guaifenesin 10 ml 01/24/19 15:16 Robitussin Dm - PO Q6H PRN COUGH Hydroxyzine Pamoate 50 mg 01/24/19 15:16 Vistaril - PO Q4H PRN AGITATION Ibuprofen 400 mg 01/24/19 15:16 Motrin - PO Q6H PRN PAIN LEVEL 4-6 Loperamide HCl 4 mg 01/24/19 15:16 Imodium - PO Q6H PRN DIARRHEA Magnesium Citrate 300 ml 01/24/19 15:16 Citroma - PO Q48H PRN CONSTIPATION Magnesium Hydroxide 30 ml 01/24/19 15:16 Milk Of Magnesia - PO DAILY PRN CONSTIPATION Melatonin 5 mg 01/24/19 22:00 Melatonin PO HS PRN INSOMNIA Methadone HCl 15 mg 01/26/19 10:00 Dolophine - PO 01/26/19 10:01 ONCE ONE Methadone HCl 5 mg 01/29/19 06:00 Dolophine - PO 01/29/19 06:01 ONCE@0600 ONE Methadone HCl 15 mg 01/27/19 10:00 Dolophine - PO 01/27/19 10:01 ONCE ONE Methadone HCl 10 mg 01/28/19 10:00 Dolophine - PO 01/28/19 10:01 ONCE ONE Nicotine 14 mg 01/25/19 10:00 01/25/19 10:15 Nicoderm Patch - TD 14 mg DAILY CHRISTIANO Administration Nicotine Polacrilex 2 mg 01/24/19 15:16 Nicorette Gum - BC Q2H PRN NICOTINE REPLACEMENT RX Multivit/Folic Acid/Iron 1 tab 01/25/19 10:00 01/25/19 10:14 Vitamins (Sjr) - PO 1 tab DAILY CHRISTIANO Administration Pseudoephedrine/Triprolidine 1 combo 01/24/19 15:16 Actifed - PO TID PRN NASAL CONGESTION Thiamine HCl 100 mg 01/24/19 22:00 01/24/19 22:40 Vitamin B1 - PO 100 mg HS CHRISTIANO Administration
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
[2019-01-25] MEDS: guaiFENesin/D-METHORPHAN HB 10 ML UNIT-DOSE CUPS PO PRN (12:21)
[2019-01-25] MEDS: ALBUTEROL SO4 8 GM HFA INHALER IH PRN (12:21)
[2019-01-25 12:41] LABS: ALBUMIN 2.9 g/dl (3.4-5.0); ALK PHOS 78 U/L (45-117); ANION GAP 5 MMOL/L (8-16); BILIRUBIN,TOTAL 0.6 mg/dL (0.2-1); BLOOD UREA NITROGEN 16 mg/dL (7-18); CALCIUM 8.4 mg/dL (8.5-10.1); CHLORIDE 106 mmol/L (98-107); CO2 31 mmol/L (21-32); CREATININE 0.9 mg/dL (0.55-1.3); GLUCOSE,RANDOM 88 mg/dL (74-106); POTASSIUM 4.5 mmol/L (3.5-5.1); SGOT/AST 23 U/L (15-37); SGPT/ALT 27 U/L (13-61); SODIUM 142 mmol/L (136-145); TOT PROT 6.5 g/dl (6.4-8.2)
[2019-01-25 12:45] LABS: HEMATOCRIT 35.8 % (32.4-45.2); HEMOGLOBIN 11.6 GM/dL (10.7-15.3); MCH 25.6 pg (25.7-33.7); MCHC 32.4 g/dl (32.0-36.0); MEAN CELL VOLUME 78.9 fl (80-96); MEAN PLT VOLUME 8.5 fl (7.5-11.1); PLATELET COUNT 194 K/MM3 (134-434); RBC 4.54 M/mm3 (3.60-5.2); RDW 14.9 % (11.6-15.6); WHITE BLOOD COUNT 3.6 K/mm3 (4.0-10.0)
[2019-01-25] MEDS: diazePAM 5 MG TABLET PO PRN (17:41)
[2019-01-25] MEDS: THIAMINE HCL 100 MG TABLET (FP) PO SCH (22:39)
[2019-01-25] MEDS: QUEtiapine FUMARATE 100 MG TABLET (FP) PO SCH (22:39)
[2019-01-25] MEDS: hydrOXYzine PAMOATE 50 MG CAPSULE (FP) PO PRN (22:39)
[2019-01-26] MEDS ORDERED: METHADONE HCL 5 MG TABLET (FOR DETOX USE ONLY) PO ONE (10:00)
[2019-01-26] MEDS: PRENATAL VITAMINS W/ FOLIC ACID TABLET (FP) PO SCH (10:51)
[2019-01-26] MEDS: NICOTINE 14 MG/24 HOURS TOPICAL PATCH TD SCH (10:51)
--- NOTE | 2019-01-26 11:06 | PN ---
BHS COWS - Scale Resting Pulse: 0= [place] 80 or Below Sweatin= Chills/Flushing Restless Observation: 1= Difficult to Sit Still Pupil Size: 0= Normal to Room Light Bone or Joint Aches: 1= Mild Discomfort Runny Nose/ Eye Tearin= Runny Nose/Eyes GI Upset > 30mins: 1= Stomach Cramp Tremor Observation of Outstretched Hands: 2= Slight Tremor Visible Yawning Observation: 2= >3x During Session Anxiety or Irritability: 2=Irritable/Anxious Goose Flesh Skin: 3=Piloe[place] COWS Score: 15 S Progress Note (SOAP) Subjective: sweats shakes body aches irritable Objective: 01/26/19 11:05 Vital Signs Temperature 96.8 F L 01/26/19 09:30 Pulse Rate 79 01/26/19 09:30 Respiratory Rate 18 01/26/19 09:30 Blood Pressure 103/53 L 01/26/19 09:30 O2 Sat by Pulse Oximetry (%) Laboratory Tests 01/24/19 01/25/19 01/25/19 11:53 07:00 07:00 WBC 3.6 L RBC 4.54 Hgb 11.6 Hct 35.8 MCV 78.9 L MCH 25.6 L MCHC 32.4 RDW 14.9 Plt Count 194 D MPV 8.5 Sodium 142 Potassium 4.5 Chloride 106 Carbon Dioxide 31 Anion Gap 5 L BUN 16 Creatinine 0.9 Creat Clearance w eGFR > 60 Random Glucose 88 Calcium 8.4 L Total Bilirubin 0.6 AST 23 ALT 27 Alkaline Phosphatase 78 Total Protein 6.5 Albumin 2.9 L Urine Color Yellow Urine Appearance Cloudy Urine pH 7.0 Ur Specific [place] 1.014 Urine Protein Negative Urine Glucose (UA) Negative Urine Ketones Negative Urine Blood Negative Urine Nitrite Negative Urine Bilirubin Negative Urine Urobilinogen Negative Ur Leukocyte Esterase 3+ H Urine WBC (Auto) 45 Urine RBC (Auto) 1 Ur Epithelial Cells Rare Urine Bacteria Moderate RPR Titer 01/25/19 07:00 WBC RBC Hgb Hct MCV MCH MCHC RDW Plt Count MPV Sodium Potassium Chloride Carbon Dioxide Anion Gap BUN Creatinine Creat Clearance w eGFR Random Glucose Calcium Total Bilirubin AST ALT Alkaline Phosphatase Total Protein Albumin Urine Color Urine Appearance Urine pH Ur Specific [place] Urine Protein Urine Glucose (UA) Urine Ketones Urine Blood Urine Nitrite Urine Bilirubin Urine Urobilinogen Ur Leukocyte Esterase Urine WBC (Auto) Urine RBC (Auto) Ur Epithelial Cells Urine Bacteria RPR Titer Nonreactive aaox3 ambulating no acute distress repeated u/a pending Assessment: 01/26/19 11:06 withdrawal sx Plan: continue detox increase fluids
[2019-01-26] MEDS: guaiFENesin/D-METHORPHAN HB 10 ML UNIT-DOSE CUPS PO PRN (13:21)
[2019-01-26] MEDS: diazePAM 5 MG TABLET PO PRN ×2 (16:50→22:37)
[2019-01-26] MEDS: hydrOXYzine PAMOATE 50 MG CAPSULE (FP) PO PRN (22:37)
[2019-01-26] MEDS: ALBUTEROL SO4 8 GM HFA INHALER IH PRN (22:37)
[2019-01-26] MEDS: QUEtiapine FUMARATE 100 MG TABLET (FP) PO SCH (22:37)
[2019-01-26] MEDS: THIAMINE HCL 100 MG TABLET (FP) PO SCH (22:37)
[2019-01-27] MEDS ORDERED: METHADONE HCL 5 MG TABLET (FOR DETOX USE ONLY) PO ONE (10:00)
[2019-01-27] MEDS: NICOTINE 14 MG/24 HOURS TOPICAL PATCH TD SCH (10:02)
[2019-01-27] MEDS: diazePAM 5 MG TABLET PO PRN (10:02)
[2019-01-27] MEDS: PRENATAL VITAMINS W/ FOLIC ACID TABLET (FP) PO SCH (10:02)
[2019-01-27] MEDS: guaiFENesin/D-METHORPHAN HB 10 ML UNIT-DOSE CUPS PO PRN (10:03)
--- NOTE | 2019-01-27 11:12 | PN ---
BHS Progress Note (SOAP) Subjective: sweats irritable Objective: 01/27/19 11:11 Vital Signs Temperature 98.1 F 01/27/19 09:44 Pulse Rate 83 01/27/19 09:44 Respiratory Rate 18 01/27/19 09:44 Blood Pressure 102/69 01/27/19 09:44 O2 Sat by Pulse Oximetry (%) aaox3 ambulating no acute distress Assessment: 01/27/19 11:11 mild withdrawal sx Plan: continue detox increase fluids
[2019-01-27] MEDS: hydrOXYzine PAMOATE 50 MG CAPSULE (FP) PO PRN ×2 (17:18→22:22)
[2019-01-27] MEDS: THIAMINE HCL 100 MG TABLET (FP) PO SCH (22:22)
[2019-01-27] MEDS: QUEtiapine FUMARATE 100 MG TABLET (FP) PO SCH (22:22)
[2019-01-28 06:48] VITALS: BP 104/56; PULSE 70; TEMP 97.7
[2019-01-28] MEDS ORDERED: METHADONE HCL 10 MG TABLET (FOR DETOX USE ONLY) PO ONE ×2 (08:38→10:00)
--- NOTE | 2019-01-28 08:43 | DS ---
[facility] Detox Discharge Summary Admission Date: 01/24/19 Discharge Date: 01/28/19 - History Present History: Alcohol Dependence, Cocaine Dependence, Opioid Dependence, Pcp Dependence - Physical Exam Results Vital Signs: Vital Signs Temperature 97.7 F 01/28/19 06:00 Pulse Rate 70 01/28/19 06:00 Respiratory Rate 16 01/28/19 06:00 Blood Pressure 104/56 L 01/28/19 06:00 O2 Sat by Pulse Oximetry (%) - Treatment Hospital Course: Detox Protocol Followed, Detoxed Safely, Responded well, Discharged Condition Good, Rehab Referral Accepted - Medication Discharge Medications: Ambulatory Orders Gabapentin [Neurontin -] 300 mg PO TID #90 cap 05/23/18 Emtricitabine/Tenofov Alafenam [Descovy 200-25 mg Tablet (Nf)] 1 each PO DAILY 12/15/18 Quetiapine Fumarate [Seroquel] 100 mg PO HS 12/15/18 Albuterol Sulfate Inhaler - [Ventolin HFA Inhaler -] 2 puff IH Q4H PRN #1 inhaler 12/20/18 Sulfamethoxazole/Trimethoprim [Bactrim Ds -] 1 tab PO DAILY 01/24/19 - Diagnosis (1) Opioid dependence with withdrawal Current Visit: Yes Status: Chronic (2) Cocaine dependence Current Visit: Yes Status: Chronic Qualifiers: Substance use status: uncomplicated Qualified Code(s): F14.20 - Cocaine dependence, uncomplicated (3) Depressed mood Current Visit: No Status: Acute (4) Insomnia Current Visit: No Status: Acute (5) Weight loss Current Visit: Yes Status: Chronic (6) Asthma Current Visit: Yes Status: Chronic Qualifiers: Asthma severity: mild Asthma persistence: intermittent Asthma complication type: uncomplicated Qualified Code(s): J45.20 - Mild intermittent asthma, uncomplicated (7) Bipolar disorder Current Visit: No Status: Chronic Qualifiers: Current episode severity: unspecified (8) COPD (chronic obstructive pulmonary disease) Current Visit: Yes Status: Chronic Qualifiers: COPD type: emphysema Emphysema type: other Qualified Code(s): J43.8 - Other emphysema (9) Cannabis dependence, uncomplicated Current Visit: No Status: Chronic (10) Cocaine dependence, uncomplicated Current Visit: Yes Status: Chronic (11) Depressive Disorder NOS Current Visit: No Status: Chronic (12) HIV (human immunodeficiency virus infection) Current Visit: Yes Status: Chronic Qualifiers: HIV symptom status: asymptomatic Qualified Code(s): Z21 - Asymptomatic human immunodeficiency virus [HIV] infection status (13) Nicotine dependence Current Visit: Yes Status: Chronic Qualifiers: Nicotine product type: cigarettes Substance use status: uncomplicated Qualified Code(s): F17.210 - Nicotine dependence, cigarettes, uncomplicated (14) PTSD (post-traumatic stress disorder) Current Visit: No Status: Chronic (15) Substance-induced sleep disorder Current Visit: No Status: Chronic (16) Substance induced mood disorder Current Visit: No Status: Suspected - AMA Did Patient Leave Against Medical Advice: No (pt is going home. )
[2019-01-29] MEDS ORDERED: METHADONE HCL 5 MG TABLET (FOR DETOX USE ONLY) PO ONE (06:00)
== END 2019-01-28 08:45 | disposition home or self-care (01) | DRG 773 ==
LOC: YASAS 12:10 → Y6N 16:10
PROVIDERS: ADMIT Surgery; ATTEND Surgery
PROC: HZ2ZZZZ Detoxification Services for Substance Abuse Treatment (ICD-10-PCS; principal; 2019-01-24)
DX: F11.23 Opioid dependence with withdrawal (principal); F10.230 Alcohol dependence with withdrawal, uncomplicated; F14.20 Cocaine dependence, uncomplicated; F12.20 Cannabis dependence, uncomplicated; F16.20 Hallucinogen dependence, uncomplicated; F17.210 Nicotine dependence, cigarettes, uncomplicated; F31.9 Bipolar disorder, unspecified; F43.10 Post-traumatic stress disorder, unspecified; F19.282 Other psychoactive substance dependence with psychoactive substance-induced sleep disorder; F19.24 Other psychoactive substance dependence with psychoactive substance-induced mood disorder; F32.9 Major depressive disorder, single episode, unspecified; B20 Human immunodeficiency virus [HIV] disease; I10 Essential (primary) hypertension; J45.20 Mild intermittent asthma, uncomplicated; G47.00 Insomnia, unspecified; G62.9 Polyneuropathy, unspecified; R63.4 Abnormal weight loss; Z68.1 Body mass index [BMI] 19.9 or less, adult
CPT/HCPCS: 36415; 80053; 81003; 81015; 85027; 86593

== ENCOUNTER 2019-02-19 12:03 | Inpatient (IN) | payer OTHER ==
[2019-02-19 12:37] VITALS: BMI 17.2
--- NOTE | 2019-02-19 18:06 | HP ---
COWS - Scale Resting Pulse: 0= [place] 80 or Below Sweatin= No chills or Flushing Restless Observation: 1= Difficult to Sit Still Pupil Size: 2= Moderately Dilated Bone or Joint Aches: 2= Severe Diffuse Aches Runny Nose/ Eye Tearin= Runny Nose/Eyes GI Upset > 30mins: 1= Stomach Cramp Tremor Observation: 2= Slight Tremor Visible Yawning Observation: 0= None Anxiety or Irritability: 2=Irritable/Anxious Goose Flesh Skin: 0=Smooth Skin COWS Score: 12 CIWA Score Nausea/Vomitin-Mild Nausea/No Vomiting Muscle Tremors: 3 Anxiety: 2 Agitation: 3 Paroxysmal Sweats: 1-Minimal Palms Moist Orientation: 0-Oriented Tacttile Disturbances: 0-None Auditory Disturbances: 0-None Visual Disturbances: 0-None Headache: 2-Mild CIWA-Ar Total Score: 12 - Admission Criteria OASAS Guidelines: Admission for Medically Managed Detox: Requires at least one of the followin. CIWA greater than 12 2. Seizures within the past 24 hours 3. Delirium tremens within the past 24 hours 4. Hallucinations within the past 24 hours 5. Acute intervention needed for co occurring medical disorder 6. Acute intervention needed for co occurring psychiatric disorder 7. Severe withdrawal that cannot be handled at a lower level of care (continued vomiting, continued diarrhea, abnormal vital signs) requiring intravenous medication and/or fluids 8. Admission [facility] Chief Complaint: HEROIN/ETOH WITHDRAWAL SX Allergies/Adverse Reactions: Allergies Allergy/AdvReac Type Severity Reaction Status Date / Time No Known Allergies Allergy Verified 01/24/19 15:16 History of Present Illness: PATIENT IS KNOWN TO [facility] DUE TO MULTIPLE ADMISSIONS. LAST DETOX ADMISSION 2017. PATIENT STATES SHE RELAPSE WITHING 24 HOURS OF DISCHARGE. PATIENT STARTED SNORTING HEROIN AT AGE 28, SNIFFS 10 BAGS OF HEROIN DAILY, LAST USE TODAY. PATIENT STARTED SMOKING CRACK/COCAINE, THC AND DRINKING ETOH SINCE AGE 14. AMOUNT VARIES. LAST TIME SHE SMOKED WAS LAST NIGHT. PATIENT DRINKS 1/2 TO ONE PINT DAILY. LAST DRINK THIS MORNING. + H/O BLACK OUTS AND BINGE DRINKING. 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 CURRENTLY HOMELESS. DENIES OVERDOSE. PMH INCLUDES ASTHMA, BIPOLAR DISORDER AND HIV POSITIVE. DENIES SI/HI AND SUICIDE ATTEMPTS. NONCOMPLIANT WITH ALL MEDS. Exam Limitations: No Limitations - Ebola screening Have you traveled outside of the country in the last 21 days: No (N) Have you had contact with anyone from an Ebola affected area: No Have you been sick,other than usual withdrawal symptoms: No Do you have a fever: No - Review of Systems Constitutional: Chills, Night Sweats, Changes in sleep, Unexplained wgt Loss EENT: reports: Tearing, Nose Congestion Respiratory: reports: No Symptoms reported Cardiac: reports: No Symptoms Reported GI: reports: Nausea, Poor Fluid Intake, Abdominal cramping : reports: No Symptoms Reported Musculoskeletal: reports: Back Pain, Muscle Pain Integumentary: reports: Sweating Neuro: reports: Headache, Tremors Endocrine: reports: Unexplained Weight Loss Hematology: reports: No Symptoms Reported Psychiatric: reports: Orientated x3, Anxious, Depressed Patient History - Patient Medical History Hx Anemia: Yes Hx Asthma: Yes Hx Chronic Obstructive Pulmonary Disease (COPD): No Hx Cancer: No Hx Cardiac Disorders: No Hx Congestive Heart Failure: No Hx Hypertension: No Hx Hypercholesterolemia: No Hx Pacemaker: No HX Cerebrovascular Accident: No Hx Seizures: No Hx Dementia: No Hx Diabetes: No Hx Gastrointestinal Disorders: No Hx Liver Disease: No Hx Genitourinary Disorders: No Hx Sexually Transmitted Disorders: No Hx Renal Disease (ESRD): No Hx Thyroid Disease: No Hx Human Immunodeficiency Virus (HIV): Yes (NONCOMPLIANT, LAST TIME MEDS TAKEN 6 WEEKS AGO) Hx Hepatitis C: No Hx Depression: Yes Hx Suicide Attempt: No Hx Bipolar Disorder: Yes (ON MED, DID NOT BRING MEDS) Hx Schizophrenia: No - Patient Surgical History Past Surgical History: Yes Hx Neurologic Surgery: No Hx Cataract Extraction: No Hx Cardiac Surgery: No Hx Lung Surgery: No Hx Breast Surgery: No Hx Breast Biopsy: No Hx Abdominal Surgery: No Hx Appendectomy: No Hx Cholecystectomy: No Hx Genitourinary Surgery: No Hx Section: Yes (in 1992) Hx Orthopedic Surgery: No Other Surgical History: ectopic in 1986 Anesthesia Reaction: No - PPD History Previous Implant?: Yes Documented Results: Negative w/proof Date: 05/20/18 Results: 0 mm PPD to be Administered?: No - Smoking Cessation Smoking history: Current every day smoker Have you smoked in the past 12 months: Yes Aproximately how many cigarettes per day: 10 Cigars Per Day: 0 Hx Chewing Tobacco Use: No Initiated information on smoking cessation: Yes 'Breaking Loose' booklet given: 02/19/19 - Substance & Tx. History Hx Alcohol Use: Yes Hx Substance Use: Yes Substance Use Type: Alcohol, Cocaine, Heroin, Marijuana Hx Substance Use Treatment: Yes - Substances Abused Alcohol Route: Oral Frequency: Daily Amount used: 1 PINT Age of first use: 14 Date of Last Use: 02/19/19 Cocaine Route: Smoking Frequency: Daily Amount used: VARIES Age of first use: 14 Date of Last Use: 02/18/19 Heroin Route: Inhalation Frequency: Daily Amount used: 10 Age of first use: 28 Date of Last Use: 02/19/19 Family Disease History - Family Disease History Family Disease History: CA: Father (FATHER WAS ADDICTED TO ETOH AND HAD CA. OF THE LUNGS AND ), Other: Father Admission Physical Exam S - Vital Signs Vital Signs: Vital Signs - 24 hr 02/19/19 12:35 Temperature 98.2 F Pulse Rate 80 Respiratory 17 Rate Blood Pressure 131/71 - Physical General Appearance: Yes: Appropriately Dressed, Thin, Tremorous, Anxious HEENTM: Yes: EOMI, Hearing grossly Normal, Normocephalic, Normal Voice, YOKASTA, Pharynx Normal, Nasal Congestion Respiratory: Yes: Chest Non-Tender, Lungs Clear, Normal Breath Sounds, No Respiratory Distress, No Accessory Muscle Use Neck: Yes: No masses,lesions,Nodules, Supple, Trachea in good position Breast: Yes: Breast Exam Deferred Cardiology: Yes: Regular Rhythm, Regular Rate, S1, S2 Abdominal: Yes: Normal Bowel Sounds, Non Tender, Flat, Soft Genitourinary: Yes: Within Normal Limits Back: Yes: Muscle Spasm Musculoskeletal: Yes: full range of Motion, Gait Steady, Back pain, Muscle Pain Extremities: Yes: Normal Range of Motion, Non-Tender, Tremors 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 NML intact, Fully Oriented, Alert, Motor Strength 5/5, Depressed Affect Integumentary: Yes: Normal Color, Warm, Moist Lymphatic: Yes: Within Normal Limits - Diagnostic (1) Alcohol dependence with uncomplicated withdrawal Current Visit: Yes Status: Acute (2) Bipolar disorder Current Visit: Yes Status: Chronic Qualifiers: Current episode severity: unspecified (3) Cocaine dependence Current Visit: Yes Status: Chronic Qualifiers: Substance use status: uncomplicated Qualified Code(s): F14.20 - Cocaine dependence, uncomplicated (4) HIV (human immunodeficiency virus infection) Current Visit: Yes Status: Chronic Qualifiers: HIV symptom status: asymptomatic Qualified Code(s): Z21 - Asymptomatic human immunodeficiency virus [HIV] infection status (5) Nicotine dependence Current Visit: Yes Status: Chronic Qualifiers: Nicotine product type: cigarettes Substance use status: uncomplicated Qualified Code(s): F17.210 - Nicotine dependence, cigarettes, uncomplicated (6) Opioid dependence with withdrawal Current Visit: Yes Status: Chronic Cleared for Admission [facility] - Detox or Rehab [facility] Level of Care: Medically Managed Detox Regimen/Protocol: Methadone/Librium [facility] Breath Alcohol Content Breath Alcohol Content: 0 Urine Pregancy Test - Result Urine Test Results: Negative - NO line present Urine Drug Screen - Results Drug Screen Negative: No Urine Drug Screen Results: SKY-Cocaine, OPI-Opiates, FEN-Fentanyl Inpatient Rehab Admission - Rehab Decision to Admit Inpatient rehab admission?: No
[2019-02-19] MEDS ORDERED: MAGNESIUM HYDROX 2400MG/30ML ORAL SUSPENSION 30 ML CUP PO PRN (18:16)
[2019-02-19] MEDS ORDERED: NICOTINE POLACRILEX 2 MG GUM BUC PRN (18:16)
[2019-02-19] MEDS ORDERED: MENTHOL/PHENOL 1 EACH UD MM PRN (18:16)
[2019-02-19] MEDS ORDERED: MAGNESIUM CITRATE 300 ML BOTTLE PO PRN (18:16)
[2019-02-19] MEDS ORDERED: hydrOXYzine PAMOATE 25 MG CAPSULE (FP) PO PRN (18:16)
[2019-02-19] MEDS ORDERED: METHOCARBAMOL 500 MG TABLET PO PRN (18:16)
[2019-02-19] MEDS ORDERED: MELATONIN 5 MG TABLETS PO PRN (18:16)
[2019-02-19] MEDS ORDERED: IBUPROFEN 400 MG TABLET (FP) PO PRN (18:16)
[2019-02-19] MEDS ORDERED: ACETAMINOPHEN 325 MG TABLET (FP) PO PRN (18:16)
[2019-02-19] MEDS ORDERED: MAG HYDROX/AL HYDROX/SIMETH 30 ML UNIT-DOSE CUP PO PRN (18:16)
[2019-02-19] MEDS ORDERED: BISMUTH SUBSALICYLATE 524 MG/30 ML UD PO PRN (18:16)
[2019-02-19] MEDS ORDERED: ALBUTEROL SO4 8 GM HFA INHALER IH PRN (18:18)
[2019-02-19] MEDS ORDERED: chlordiazePOXIDE HCL 10 MG CAPSULE PO PRN (18:19)
[2019-02-19] MEDS ORDERED: cloNIDine HCL 0.1 MG TABLET PO PRN (18:19)
[2019-02-19] MEDS ORDERED: METHADONE HCL 10 MG TABLET (FOR DETOX USE ONLY) PO ONE ×2 (18:21→23:00)
[2019-02-19] MEDS ORDERED: TOLNAFTATE 1% CREAM 15 GM TUBE TP SCH (22:00)
[2019-02-19] MEDS: chlordiazePOXIDE HCL 25 MG CAPSULE PO SCH (22:00)
[2019-02-19] MEDS: THIAMINE HCL 100 MG TABLET (FP) PO SCH (22:43)
[2019-02-19] MEDS: CLOTRIMAZOLE 1% CREAM 15 GM TUBE TP SCH (23:23)
[2019-02-20 00:51] LABS: EPI CELLS 1.6 /HPF (0-5); HYALINE CASTS 1 /hpf (0-8); URINE APPEARANCE CLOUDY; URINE BACTERIA 1109.412 /hpf (NEGATIVE); URINE BILIRUBIN NEGATIVE (<2.0 mg/dL); URINE COLOR YELLOW; URINE GLUCOSE (UA) NEGATIVE (NEGATIVE); URINE KETONE TRACE (NEGATIVE); URINE LEUK ESTERASE 2+ (NEGATIVE); URINE NITRITE POSITIVE (NEGATIVE); URINE PROTEIN TRACE (NEGATIVE); URINE RBC 1 /hpf (0-4); URINE UROBILINOGEN 0.2 mg/dL (0.2-1.0); URINE WBC 9 /hpf (0-5)
[2019-02-20] MEDS: chlordiazePOXIDE HCL 25 MG CAPSULE PO SCH ×2 (05:32→12:08)
[2019-02-20] MEDS: CYPROHEPTADINE HCL 4 MG TABLET PO SCH ×3 (07:36→17:09)
[2019-02-20] MEDS ORDERED: METHADONE HCL 10 MG TABLET (FOR DETOX USE ONLY) PO ONE (10:00)
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
[2019-02-20] MEDS: NICOTINE 21 MG/24 HOURS TOPICAL PATCH TD SCH (10:15)
[2019-02-20] MEDS: PRENATAL VITAMINS W/ FOLIC ACID TABLET (FP) PO SCH (10:15)
[2019-02-20] MEDS: CLOTRIMAZOLE 1% CREAM 15 GM TUBE TP SCH ×2 (10:15→22:15)
[2019-02-20 10:55] LABS: ALK PHOS 73 U/L (45-117); ANION GAP 6 MMOL/L (8-16); BILIRUBIN,TOTAL 0.3 mg/dL (0.2-1); BLOOD UREA NITROGEN 13 mg/dL (7-18); CALCIUM 7.8 mg/dL (8.5-10.1); CHLORIDE 107 mmol/L (98-107); CO2 28 mmol/L (21-32); CREATININE 0.8 mg/dL (0.55-1.3); GLUCOSE,RANDOM 94 mg/dL (74-106); POTASSIUM 3.8 mmol/L (3.5-5.1); SGOT/AST 16 U/L (15-37); SGPT/ALT 17 U/L (13-61); SODIUM 141 mmol/L (136-145); TOT PROT 6.1 g/dl (6.4-8.2)
[2019-02-20 11:07] LABS: HEMATOCRIT 32.8 % (32.4-45.2); HEMOGLOBIN 10.7 GM/dL (10.7-15.3); MCH 26.2 pg (25.7-33.7); MCHC 32.7 g/dl (32.0-36.0); MEAN CELL VOLUME 80.2 fl (80-96); PLATELET COUNT 92 K/MM3 (134-434); RBC 4.09 M/mm3 (3.60-5.2); RDW 15.1 % (11.6-15.6); WHITE BLOOD COUNT 2.9 K/mm3 (4.0-10.0)
--- NOTE | 2019-02-20 12:16 | PN ---
[facility] CIWA - CIWA Score Nausea/Vomitin-No Nausea/No Vomiting Muscle Tremors: 2 Anxiety: 2 Agitation: 1-Slight > Activity Paroxysmal Sweats: 1-Minimal Palms Moist Orientation: 2-Disoriented Date<2 days Tacttile Disturbances: 0-None Auditory Disturbances: 0-None Visual Disturbances: 0-None Headache: 0-None Present CIWA-Ar Total Score: 8 [facility] COWS - Scale Resting Pulse: 0= [place] 80 or Below Sweatin= Chills/Flushing Restless Observation: 0= Sits Still Pupil Size: 0= Normal to Room Light Bone or Joint Aches: 1= Mild Discomfort Runny Nose/ Eye Tearin= Nasal Congestion GI Upset > 30mins: 1= Stomach Cramp Tremor Observation of Outstretched Hands: 2= Slight Tremor Visible Yawning Observation: 1= 1-2x During Session Anxiety or Irritability: 1=Feels Anxious/Irritable Goose Flesh Skin: 0=Smooth Skin COWS Score: 8 S Progress Note (SOAP) Subjective: encourage oral fluid feeling ok today mild anxious about opiate addiction discuss medication assisted treatment program Objective: 02/20/19 12:14 Vital Signs Temperature 98.4 F 02/20/19 09:32 Pulse Rate 69 02/20/19 09:32 Respiratory Rate 18 02/20/19 09:32 Blood Pressure 90/53 L 02/20/19 09:32 O2 Sat by Pulse Oximetry (%) Laboratory Last Values WBC 2.9 K/mm3 (4.0-10.0) L 02/20/19 07:20 RBC 4.09 M/mm3 (3.60-5.2) 02/20/19 07:20 Hgb 10.7 GM/dL (10.7-15.3) 02/20/19 07:20 Hct 32.8 % (32.4-45.2) 02/20/19 07:20 MCV 80.2 fl (80-96) 02/20/19 07:20 MCH 26.2 pg (25.7-33.7) 02/20/19 07:20 MCHC 32.7 g/dl (32.0-36.0) 02/20/19 07:20 RDW 15.1 % (11.6-15.6) 02/20/19 07:20 Plt Count 92 K/MM3 (134-434) L D 02/20/19 07:20 MPV 9.0 fl (7.5-11.1) 02/20/19 07:20 Sodium 141 mmol/L (136-145) 02/20/19 07:20 Potassium 3.8 mmol/L (3.5-5.1) 02/20/19 07:20 Chloride 107 mmol/L (98-107) 02/20/19 07:20 Carbon Dioxide 28 mmol/L (21-32) 02/20/19 07:20 Anion Gap 6 MMOL/L (8-16) L 02/20/19 07:20 BUN 13 mg/dL (7-18) 02/20/19 07:20 Creatinine 0.8 mg/dL (0.55-1.3) 02/20/19 07:20 Creat Clearance w eGFR 73.17 (>60) 02/20/19 07:20 Random Glucose 94 mg/dL (74-106) 02/20/19 07:20 Calcium 7.8 mg/dL (8.5-10.1) L 02/20/19 07:20 Total Bilirubin 0.3 mg/dL (0.2-1) 02/20/19 07:20 AST 16 U/L (15-37) 02/20/19 07:20 ALT 17 U/L (13-61) 02/20/19 07:20 Alkaline Phosphatase 73 U/L (45-117) 02/20/19 07:20 Total Protein 6.1 g/dl (6.4-8.2) L 02/20/19 07:20 Albumin 3.0 g/dl (3.4-5.0) L 02/20/19 07:20 Urine Color Yellow 02/19/19 21:57 Urine Appearance Cloudy 02/19/19 21:57 Urine pH 6.0 (5.0-8.0) 02/19/19 21:57 Ur Specific [place] 1.022 (1.010-1.035) 02/19/19 21:57 Urine Protein Trace (NEGATIVE) 02/19/19 21:57 Urine Glucose (UA) Negative (NEGATIVE) 02/19/19 21:57 Urine Ketones Trace (NEGATIVE) H 02/19/19 21:57 Urine Blood Negative (NEGATIVE) 02/19/19 21:57 Urine Nitrite Positive (NEGATIVE) 02/19/19 21:57 Urine Bilirubin Negative (<2.0 mg/dL) 02/19/19 21:57 Urine Urobilinogen 0.2 mg/dL (0.2-1.0) 02/19/19 21:57 Ur Leukocyte Esterase 2+ (NEGATIVE) 02/19/19 21:57 Urine WBC (Auto) 9 /hpf (0-5) 02/19/19 21:57 Urine RBC (Auto) 1 /hpf (0-4) 02/19/19 21:57 Urine Casts (Auto) 1 /hpf (0-8) 02/19/19 21:57 U Epithel Cells (Auto) 1.6 /HPF (0-5) 02/19/19 21:57 Urine Bacteria (Auto) 1109.412 /hpf (NEGATIVE) 02/19/19 21:57 RPR Titer Nonreactive (NONREACTIVE) 02/20/19 07:20 lab noted low Ca++ Assessment: 02/20/19 12:15 mild withdrawal sx Plan: continue detox oscal supplement
[2019-02-20] MEDS: CALCIUM 250MG/VIT-D 125 UNITS 1 COMBO TABLET PO SCH ×2 (14:37→22:14)
[2019-02-20] MEDS: THIAMINE HCL 100 MG TABLET (FP) PO SCH (22:14)
[2019-02-20] MEDS: chlordiazePOXIDE 5 MG CAPSULE PO SCH (22:14)
[2019-02-20] MEDS: QUEtiapine FUMARATE 100 MG TABLET (FP) PO SCH (22:14)
[2019-02-21] MEDS: chlordiazePOXIDE 5 MG CAPSULE PO SCH ×2 (05:35→14:37)
[2019-02-21] MEDS: CYPROHEPTADINE HCL 4 MG TABLET PO SCH ×3 (07:07→16:46)
[2019-02-21] MEDS ORDERED: METHADONE HCL 10 MG TABLET (FOR DETOX USE ONLY) PO ONE (10:00)
[2019-02-21] MEDS: PRENATAL VITAMINS W/ FOLIC ACID TABLET (FP) PO SCH (10:05)
[2019-02-21] MEDS: CLOTRIMAZOLE 1% CREAM 15 GM TUBE TP SCH ×2 (10:05→22:07)
[2019-02-21] MEDS: NICOTINE 21 MG/24 HOURS TOPICAL PATCH TD SCH (10:06)
--- NOTE | 2019-02-21 10:43 | PN ---
[facility] CIWA - CIWA Score Nausea/Vomitin-No Nausea/No Vomiting Muscle Tremors: 2 Anxiety: 1-Mildly Anxious Agitation: 1-Slight > Activity Paroxysmal Sweats: 1-Minimal Palms Moist Orientation: 1-Uncertain about Date Tacttile Disturbances: 0-None Auditory Disturbances: 0-None Visual Disturbances: 0-None Headache: 1-Very Mild CIWA-Ar Total Score: 7 S COWS - Scale Resting Pulse: 0= [place] 80 or Below Sweatin= Chills/Flushing Restless Observation: 0= Sits Still Pupil Size: 0= Normal to Room Light Bone or Joint Aches: 1= Mild Discomfort Runny Nose/ Eye Tearin= Nasal Congestion GI Upset > 30mins: 1= Stomach Cramp Tremor Observation of Outstretched Hands: 1= Tremor [facility], Not Seen Yawning Observation: 1= 1-2x During Session Anxiety or Irritability: 1=Feels Anxious/Irritable Goose Flesh Skin: 0=Smooth Skin COWS Score: 7 [facility] Progress Note (SOAP) Subjective: social with peers in day room less irritable today Objective: 02/21/19 10:42 Vital Signs Temperature 98.8 F 02/21/19 09:25 Pulse Rate 77 02/21/19 09:25 Respiratory Rate 18 02/21/19 09:25 Blood Pressure 95/56 L 02/21/19 09:25 O2 Sat by Pulse Oximetry (%) Laboratory Last Values WBC 2.9 K/mm3 (4.0-10.0) L 02/20/19 07:20 RBC 4.09 M/mm3 (3.60-5.2) 02/20/19 07:20 Hgb 10.7 GM/dL (10.7-15.3) 02/20/19 07:20 Hct 32.8 % (32.4-45.2) 02/20/19 07:20 MCV 80.2 fl (80-96) 02/20/19 07:20 MCH 26.2 pg (25.7-33.7) 02/20/19 07:20 MCHC 32.7 g/dl (32.0-36.0) 02/20/19 07:20 RDW 15.1 % (11.6-15.6) 02/20/19 07:20 Plt Count 92 K/MM3 (134-434) L D 02/20/19 07:20 MPV 9.0 fl (7.5-11.1) 02/20/19 07:20 Sodium 141 mmol/L (136-145) 02/20/19 07:20 Potassium 3.8 mmol/L (3.5-5.1) 02/20/19 07:20 Chloride 107 mmol/L (98-107) 02/20/19 07:20 Carbon Dioxide 28 mmol/L (21-32) 02/20/19 07:20 Anion Gap 6 MMOL/L (8-16) L 02/20/19 07:20 BUN 13 mg/dL (7-18) 02/20/19 07:20 Creatinine 0.8 mg/dL (0.55-1.3) 02/20/19 07:20 Creat Clearance w eGFR 73.17 (>60) 02/20/19 07:20 Random Glucose 94 mg/dL (74-106) 02/20/19 07:20 Calcium 7.8 mg/dL (8.5-10.1) L 02/20/19 07:20 Total Bilirubin 0.3 mg/dL (0.2-1) 02/20/19 07:20 AST 16 U/L (15-37) 02/20/19 07:20 ALT 17 U/L (13-61) 02/20/19 07:20 Alkaline Phosphatase 73 U/L (45-117) 02/20/19 07:20 Total Protein 6.1 g/dl (6.4-8.2) L 02/20/19 07:20 Albumin 3.0 g/dl (3.4-5.0) L 02/20/19 07:20 Urine Color Yellow 02/19/19 21:57 Urine Appearance Cloudy 02/19/19 21:57 Urine pH 6.0 (5.0-8.0) 02/19/19 21:57 Ur Specific [place] 1.022 (1.010-1.035) 02/19/19 21:57 Urine Protein Trace (NEGATIVE) 02/19/19 21:57 Urine Glucose (UA) Negative (NEGATIVE) 02/19/19 21:57 Urine Ketones Trace (NEGATIVE) H 02/19/19 21:57 Urine Blood Negative (NEGATIVE) 02/19/19 21:57 Urine Nitrite Positive (NEGATIVE) 02/19/19 21:57 Urine Bilirubin Negative (<2.0 mg/dL) 02/19/19 21:57 Urine Urobilinogen 0.2 mg/dL (0.2-1.0) 02/19/19 21:57 Ur Leukocyte Esterase 2+ (NEGATIVE) 02/19/19 21:57 Urine WBC (Auto) 9 /hpf (0-5) 02/19/19 21:57 Urine RBC (Auto) 1 /hpf (0-4) 02/19/19 21:57 Urine Casts (Auto) 1 /hpf (0-8) 02/19/19 21:57 U Epithel Cells (Auto) 1.6 /HPF (0-5) 02/19/19 21:57 Urine Bacteria (Auto) 1109.412 /hpf (NEGATIVE) 02/19/19 21:57 RPR Titer Nonreactive (NONREACTIVE) 02/20/19 07:20 lab noted strong recommend that patient follow up with infectious disease specialist bring in lab report and medication list 02/21/19 10:44 Assessment: 02/21/19 10:45 withdrawal sx Plan: continue detox
[2019-02-21] MEDS: CALCIUM 250MG/VIT-D 125 UNITS 1 COMBO TABLET PO SCH ×2 (11:27→22:07)
[2019-02-21] MEDS ORDERED: chlordiazePOXIDE HCL 10 MG CAPSULE PO PRN (21:00)
[2019-02-21] MEDS: chlordiazePOXIDE HCL 10 MG CAPSULE PO SCH (21:07)
[2019-02-21] MEDS: QUEtiapine FUMARATE 100 MG TABLET (FP) PO SCH (22:07)
[2019-02-21] MEDS: THIAMINE HCL 100 MG TABLET (FP) PO SCH (22:07)
[2019-02-22] MEDS: chlordiazePOXIDE HCL 10 MG CAPSULE PO SCH ×3 (05:46→21:24)
[2019-02-22] MEDS: CYPROHEPTADINE HCL 4 MG TABLET PO SCH ×3 (06:26→16:43)
--- NOTE | 2019-02-22 09:50 | PN ---
[facility] CIWA - CIWA Score Nausea/Vomitin-No Nausea/No Vomiting Muscle Tremors: 1-None Visible, but [place] Anxiety: 1-Mildly Anxious Agitation: 1-Slight > Activity Paroxysmal Sweats: No Perspiration Orientation: 0-Oriented Tacttile Disturbances: 0-None Auditory Disturbances: 0-None Visual Disturbances: 0-None Headache: 1-Very Mild CIWA-Ar Total Score: 4 S COWS - Scale Resting Pulse: 1= [place] 81-100 Sweatin= No chills or Flushing Restless Observation: 0= Sits Still Pupil Size: 0= Normal to Room Light Bone or Joint Aches: 1= Mild Discomfort Runny Nose/ Eye Tearin= None GI Upset > 30mins: 0= None Tremor Observation of Outstretched Hands: 1= Tremor [place], Not Seen Yawning Observation: 1= 1-2x During Session Anxiety or Irritability: 0= None Goose Flesh Skin: 0=Smooth Skin COWS Score: 4 S Progress Note (SOAP) Subjective: feeling better discuss aftercare with staff talking about self management on uti oral fluid hand washing personal hygiene and medication adherence Objective: 02/22/19 09:52 Vital Signs Temperature 97.9 F 02/22/19 09:34 Pulse Rate 92 H 02/22/19 09:34 Respiratory Rate 18 02/22/19 09:34 Blood Pressure 98/58 L 02/22/19 09:34 O2 Sat by Pulse Oximetry (%) Laboratory Last Values WBC 2.9 K/mm3 (4.0-10.0) L 02/20/19 07:20 RBC 4.09 M/mm3 (3.60-5.2) 02/20/19 07:20 Hgb 10.7 GM/dL (10.7-15.3) 02/20/19 07:20 Hct 32.8 % (32.4-45.2) 02/20/19 07:20 MCV 80.2 fl (80-96) 02/20/19 07:20 MCH 26.2 pg (25.7-33.7) 02/20/19 07:20 MCHC 32.7 g/dl (32.0-36.0) 02/20/19 07:20 RDW 15.1 % (11.6-15.6) 02/20/19 07:20 Plt Count 92 K/MM3 (134-434) L D 02/20/19 07:20 MPV 9.0 fl (7.5-11.1) 02/20/19 07:20 Sodium 141 mmol/L (136-145) 02/20/19 07:20 Potassium 3.8 mmol/L (3.5-5.1) 02/20/19 07:20 Chloride 107 mmol/L (98-107) 02/20/19 07:20 Carbon Dioxide 28 mmol/L (21-32) 02/20/19 07:20 Anion Gap 6 MMOL/L (8-16) L 02/20/19 07:20 BUN 13 mg/dL (7-18) 02/20/19 07:20 Creatinine 0.8 mg/dL (0.55-1.3) 02/20/19 07:20 Creat Clearance w eGFR 73.17 (>60) 02/20/19 07:20 Random Glucose 94 mg/dL (74-106) 02/20/19 07:20 Calcium 7.8 mg/dL (8.5-10.1) L 02/20/19 07:20 Total Bilirubin 0.3 mg/dL (0.2-1) 02/20/19 07:20 AST 16 U/L (15-37) 02/20/19 07:20 ALT 17 U/L (13-61) 02/20/19 07:20 Alkaline Phosphatase 73 U/L (45-117) 02/20/19 07:20 Total Protein 6.1 g/dl (6.4-8.2) L 02/20/19 07:20 Albumin 3.0 g/dl (3.4-5.0) L 02/20/19 07:20 Urine Color Yellow 02/19/19 21:57 Urine Appearance Cloudy 02/19/19 21:57 Urine pH 6.0 (5.0-8.0) 02/19/19 21:57 Ur Specific [place] 1.022 (1.010-1.035) 02/19/19 21:57 Urine Protein Trace (NEGATIVE) 02/19/19 21:57 Urine Glucose (UA) Negative (NEGATIVE) 02/19/19 21:57 Urine Ketones Trace (NEGATIVE) H 02/19/19 21:57 Urine Blood Negative (NEGATIVE) 02/19/19 21:57 Urine Nitrite Positive (NEGATIVE) 02/19/19 21:57 Urine Bilirubin Negative (<2.0 mg/dL) 02/19/19 21:57 Urine Urobilinogen 0.2 mg/dL (0.2-1.0) 02/19/19 21:57 Ur Leukocyte Esterase 2+ (NEGATIVE) 02/19/19 21:57 Urine WBC (Auto) 9 /hpf (0-5) 02/19/19 21:57 Urine RBC (Auto) 1 /hpf (0-4) 02/19/19 21:57 Urine Casts (Auto) 1 /hpf (0-8) 02/19/19 21:57 U Epithel Cells (Auto) 1.6 /HPF (0-5) 02/19/19 21:57 Urine Bacteria (Auto) 1109.412 /hpf (NEGATIVE) 02/19/19 21:57 RPR Titer Nonreactive (NONREACTIVE) 02/20/19 07:20 lab noted informed low wbc low calcium calcium rich food Assessment: 02/22/19 09:53 mild alcohol and opiate withdrawal sx Plan: continue detox
[2019-02-22] MEDS ORDERED: METHADONE HCL 10 MG TABLET (FOR DETOX USE ONLY) PO ONE (10:00)
[2019-02-22] MEDS: NICOTINE 21 MG/24 HOURS TOPICAL PATCH TD SCH (10:24)
[2019-02-22] MEDS: CALCIUM 250MG/VIT-D 125 UNITS 1 COMBO TABLET PO SCH ×2 (10:24→21:41)
[2019-02-22] MEDS: PRENATAL VITAMINS W/ FOLIC ACID TABLET (FP) PO SCH (10:24)
[2019-02-22] MEDS: CLOTRIMAZOLE 1% CREAM 15 GM TUBE TP SCH ×2 (11:11→21:41)
[2019-02-22] MEDS: SODIUM CHLORIDE NASAL SPRAY 44 ML BOTTLE NS SCH ×2 (13:01→21:40)
[2019-02-22 15:24] LABS: BASO % 0.5 % (0-2.0); EOS % 5.5 % (0-4.5); HEMOGLOBIN 12.6 GM/dL (10.7-15.3); LYMPH % 26.5 % (8-40); MCH 26.6 pg (25.7-33.7); MCHC 33.3 g/dl (32.0-36.0); MEAN CELL VOLUME 79.7 fl (80-96); MEAN PLT VOLUME 10.1 fl (7.5-11.1); MONO % 5.5 % (3.8-10.2); PLATELET COUNT 122 K/MM3 (134-434); RBC 4.76 M/mm3 (3.60-5.2); RDW 15.4 % (11.6-15.6); WHITE BLOOD COUNT 4.4 K/mm3 (4.0-10.0)
[2019-02-22] MEDS: QUEtiapine FUMARATE 100 MG TABLET (FP) PO SCH (21:41)
[2019-02-22] MEDS: THIAMINE HCL 100 MG TABLET (FP) PO SCH (21:41)
[2019-02-22 21:47] VITALS: TEMP 98.8
[2019-02-23] MEDS ORDERED: METHADONE HCL 5 MG TABLET (FOR DETOX USE ONLY) PO ONE (06:00)
[2019-02-23] MEDS: SODIUM CHLORIDE NASAL SPRAY 44 ML BOTTLE NS SCH (06:26)
[2019-02-23] MEDS: CYPROHEPTADINE HCL 4 MG TABLET PO SCH (06:26)
[2019-02-23 06:55] VITALS: BP 109/63; PULSE 85
--- NOTE | 2019-02-23 10:07 | DS ---
[facility] Detox Discharge Summary Admission Date: 02/19/19 Discharge Date: 02/23/19 - History Present History: Alcohol Dependence, Opioid Dependence Additional Comments: 58 years old female admitted on 02/19/19 for alcohol and opiate withdrawal stabilization [facility] Pertinent Past History: patient agrees to return to her infectious disease specialist for follow up bring in medication list to follow up appointment update medication list when change medication bring in lab report to follow up appointment - Physical Exam Results Vital Signs: Vital Signs Temperature 98.8 F 02/23/19 06:54 Pulse Rate 85 02/23/19 06:54 Respiratory Rate 18 02/23/19 06:54 Blood Pressure 109/63 02/23/19 06:54 O2 Sat by Pulse Oximetry (%) Pertinent Admission Physical Exam Findings: alcohol and opiate withdrawal sx Laboratory Last Values WBC 4.4 K/mm3 (4.0-10.0) 02/22/19 10:40 RBC 4.76 M/mm3 (3.60-5.2) 02/22/19 10:40 Hgb 12.6 GM/dL (10.7-15.3) 02/22/19 10:40 Hct 38.0 % (32.4-45.2) D 02/22/19 10:40 MCV 79.7 fl (80-96) L 02/22/19 10:40 MCH 26.6 pg (25.7-33.7) 02/22/19 10:40 MCHC 33.3 g/dl (32.0-36.0) 02/22/19 10:40 RDW 15.4 % (11.6-15.6) 02/22/19 10:40 Plt Count 122 K/MM3 (134-434) L D 02/22/19 10:40 MPV 10.1 fl (7.5-11.1) D 02/22/19 10:40 Absolute Neuts (auto) 2.7 K/mm3 (1.5-8.0) 02/22/19 10:40 Neutrophils % 62.0 % (42.8-82.8) 02/22/19 10:40 Lymphocytes % 26.5 % (8-40) 02/22/19 10:40 Monocytes % 5.5 % (3.8-10.2) 02/22/19 10:40 Eosinophils % 5.5 % (0-4.5) H 02/22/19 10:40 Basophils % 0.5 % (0-2.0) 02/22/19 10:40 Nucleated RBC % 0 % (0-0) 02/22/19 10:40 Sodium 141 mmol/L (136-145) 02/20/19 07:20 Potassium 3.8 mmol/L (3.5-5.1) 02/20/19 07:20 Chloride 107 mmol/L (98-107) 02/20/19 07:20 Carbon Dioxide 28 mmol/L (21-32) 02/20/19 07:20 Anion Gap 6 MMOL/L (8-16) L 02/20/19 07:20 BUN 13 mg/dL (7-18) 02/20/19 07:20 Creatinine 0.8 mg/dL (0.55-1.3) 02/20/19 07:20 Creat Clearance w eGFR 73.17 (>60) 02/20/19 07:20 Random Glucose 94 mg/dL (74-106) 02/20/19 07:20 Calcium 7.8 mg/dL (8.5-10.1) L 02/20/19 07:20 Total Bilirubin 0.3 mg/dL (0.2-1) 02/20/19 07:20 AST 16 U/L (15-37) 02/20/19 07:20 ALT 17 U/L (13-61) 02/20/19 07:20 Alkaline Phosphatase 73 U/L (45-117) 02/20/19 07:20 Total Protein 6.1 g/dl (6.4-8.2) L 02/20/19 07:20 Albumin 3.0 g/dl (3.4-5.0) L 02/20/19 07:20 Urine Color Yellow 02/19/19 21:57 Urine Appearance Cloudy 02/19/19 21:57 Urine pH 6.0 (5.0-8.0) 02/19/19 21:57 Ur Specific [place] 1.022 (1.010-1.035) 02/19/19 21:57 Urine Protein Trace (NEGATIVE) 02/19/19 21:57 Urine Glucose (UA) Negative (NEGATIVE) 02/19/19 21:57 Urine Ketones Trace (NEGATIVE) H 02/19/19 21:57 Urine Blood Negative (NEGATIVE) 02/19/19 21:57 Urine Nitrite Positive (NEGATIVE) 02/19/19 21:57 Urine Bilirubin Negative (<2.0 mg/dL) 02/19/19 21:57 Urine Urobilinogen 0.2 mg/dL (0.2-1.0) 02/19/19 21:57 Ur Leukocyte Esterase 2+ (NEGATIVE) 02/19/19 21:57 Urine WBC (Auto) 9 /hpf (0-5) 02/19/19 21:57 Urine RBC (Auto) 1 /hpf (0-4) 02/19/19 21:57 Urine Casts (Auto) 1 /hpf (0-8) 02/19/19 21:57 U Epithel Cells (Auto) 1.6 /HPF (0-5) 02/19/19 21:57 Urine Bacteria (Auto) 1109.412 /hpf (NEGATIVE) 02/19/19 21:57 RPR Titer Nonreactive (NONREACTIVE) 02/20/19 07:20 lab noted encourage 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 bactrim for uti from pharmacy - Treatment Hospital Course: Detox Protocol Followed, Detoxed Safely, Responded well, Discharged Condition Good, Rehab Referral Accepted Patient has Accepted a Rehab Referral to: [facility] services - Medication Discharge Medications: Ambulatory Orders Gabapentin [Neurontin -] 300 mg PO TID #90 cap 05/23/18 Emtricitabine/Tenofov Alafenam [Descovy 200-25 mg Tablet (Nf)] 1 each PO DAILY 12/15/18 Quetiapine Fumarate [Seroquel] 100 mg PO HS 12/15/18 Albuterol Sulfate Inhaler - [Ventolin HFA Inhaler -] 2 puff IH Q4H PRN #1 inhaler 02/22/19 Sulfamethoxazole/Trimethoprim [Bactrim DS -] 1 tab PO DAILY #30 tablet 02/22/19 - Diagnosis (1) Alcohol dependence with uncomplicated withdrawal Status: Acute (2) Opioid dependence with withdrawal Status: Acute (3) Asthma Status: Chronic Qualifiers: Asthma severity: mild Asthma persistence: intermittent Asthma complication type: with status asthmaticus Qualified Code(s): J45.22 - Mild intermittent asthma with status asthmaticus (4) COPD (chronic obstructive pulmonary disease) Status: Chronic Qualifiers: COPD type: emphysema Emphysema type: unilateral Qualified Code(s): J43.0 - Unilateral pulmonary emphysema [MacLeod's syndrome] (5) HIV (human immunodeficiency virus infection) Status: Chronic Qualifiers: HIV symptom status: asymptomatic Qualified Code(s): Z21 - Asymptomatic human immunodeficiency virus [HIV] infection status (6) Nicotine dependence Status: Acute Qualifiers: Nicotine product type: cigarettes Substance use status: in withdrawal Qualified Code(s): F17.213 - Nicotine dependence, cigarettes, with withdrawal (7) Weight loss Status: Acute (8) Substance induced mood disorder Status: Suspected - AMA Did Patient Leave Against Medical Advice: No
== END 2019-02-23 08:49 | disposition home or self-care (01) | DRG 773 ==
LOC: YASAS 12:03 → Y3N 18:28
PROVIDERS: ADMIT Surgery; ATTEND Surgery
PROC: HZ2ZZZZ Detoxification Services for Substance Abuse Treatment (ICD-10-PCS; principal; 2019-02-19)
DX: F11.23 Opioid dependence with withdrawal (principal); F10.230 Alcohol dependence with withdrawal, uncomplicated; F14.20 Cocaine dependence, uncomplicated; F17.213 Nicotine dependence, cigarettes, with withdrawal; F19.24 Other psychoactive substance dependence with psychoactive substance-induced mood disorder; F31.9 Bipolar disorder, unspecified; F43.10 Post-traumatic stress disorder, unspecified; F19.282 Other psychoactive substance dependence with psychoactive substance-induced sleep disorder; B20 Human immunodeficiency virus [HIV] disease; J45.22 Mild intermittent asthma with status asthmaticus; J43.0 Unilateral pulmonary emphysema [MacLeod's syndrome]; R63.4 Abnormal weight loss; D64.9 Anemia, unspecified; B35.6 Tinea cruris; Z91.14 Patient's other noncompliance with medication regimen
CPT/HCPCS: 36415; 80053; 81003; 85025; 85027; 86593; J0735

== ENCOUNTER 2019-04-15 09:35 | Inpatient (IN) | payer OTHER ==
[2019-04-15 11:09] VITALS: BMI 14.4
[2019-04-15] MEDS ORDERED: BISMUTH SUBSALICYLATE 262 MG/15 ML BTL PO PRN (12:55)
[2019-04-15] MEDS ORDERED: guaiFENesin 200 MG/10 ML 10 ML UNIT-DOSE CUPS PO PRN (12:55)
[2019-04-15] MEDS ORDERED: MAGNESIUM CITRATE 300 ML BOTTLE PO PRN (12:55)
[2019-04-15] MEDS ORDERED: ACETAMINOPHEN 325 MG TABLET (FP) PO PRN (12:55)
[2019-04-15] MEDS ORDERED: NICOTINE POLACRILEX 2 MG GUM BUC PRN (12:55)
[2019-04-15] MEDS ORDERED: MENTHOL/PHENOL 1 EACH UD MM PRN (12:55)
[2019-04-15] MEDS ORDERED: MAGNESIUM HYDROX 2400MG/30ML ORAL SUSPENSION 30 ML CUP PO PRN (12:55)
[2019-04-15] MEDS ORDERED: MAG HYDROX/AL HYDROX/SIMETH 30 ML UNIT-DOSE CUP PO PRN (12:55)
[2019-04-15] MEDS ORDERED: IBUPROFEN 400 MG TABLET (FP) PO PRN (12:55)
[2019-04-15] MEDS ORDERED: hydrOXYzine PAMOATE 25 MG CAPSULE (FP) PO PRN (12:55)
[2019-04-15] MEDS ORDERED: QUEtiapine FUMARATE 50 MG TABLET PO PRN (12:55)
[2019-04-15] MEDS ORDERED: chlordiazePOXIDE HCL 25 MG CAPSULE PO PRN (12:58)
[2019-04-15] MEDS ORDERED: NALOXONE HCL 0.4 MG/ML VIAL IVPUSH PRN (12:58)
[2019-04-15] MEDS ORDERED: cloNIDine HCL 0.1 MG TABLET PO PRN (12:58)
--- NOTE | 2019-04-15 13:10 | HP ---
COWS - Scale Resting Pulse: 1= OK 81-100 Sweatin= No chills or Flushing Restless Observation: 1= Difficult to Sit Still Pupil Size: 0= Normal to Room Light Bone or Joint Aches: 2= Severe Diffuse Aches Runny Nose/ Eye Tearin= Runny Nose/Eyes GI Upset > 30mins: 2= Nausea/Diarrhea Tremor Observation: 1= Tremor [place], Not Seen Yawning Observation: 2= >3x During Session Anxiety or Irritability: 1=Feels Anxious/Irritable Goose Flesh Skin: 0=Smooth Skin COWS Score: 12 CIWA Score Nausea/Vomitin Muscle Tremors: 1-None Visible, but [place] Anxiety: 1-Mildly Anxious Agitation: 2 Paroxysmal Sweats: No Perspiration Orientation: 2-Disoriented Date<2 days Tacttile Disturbances: 2-Mild Itch/Numbness/Burn Auditory Disturbances: 0-None Visual Disturbances: 0-None Headache: 2-Mild CIWA-Ar Total Score: 12 - Admission Criteria OASAS Guidelines: Admission for Medically Managed Detox: Requires at least one of the followin. CIWA greater than 12 2. Seizures within the past 24 hours 3. Delirium tremens within the past 24 hours 4. Hallucinations within the past 24 hours 5. Acute intervention needed for co occurring medical disorder 6. Acute intervention needed for co occurring psychiatric disorder 7. Severe withdrawal that cannot be handled at a lower level of care (continued vomiting, continued diarrhea, abnormal vital signs) requiring intravenous medication and/or fluids 8. Admission ROS [facility] Chief Complaint: Patient presents for ETOH/Heroin withdrawal symptoms. Allergies/Adverse Reactions: Allergies Allergy/AdvReac Type Severity Reaction Status Date / Time No Known Drug Allergies Allergy Verified 04/15/19 11:01 Pork/Porcine Containing Allergy Verified 04/15/19 11:01 Products History of Present Illness: Patient presents with Heroin/Etoh withdrawal symptoms. Patient is known to [facility] due to multiple admissions, last admission 01/2019. Patient started sniffing heroin/smoking cocaine and drinking ETOH at age 14. Patient sniffs 5-6 bags daily, last use this morning, drinks 1/2 pint of ETOH daily-last drink early this morning and smokes variable amounts of crack/cocaine daily-last use last night. Patient denies hx of seizures, overdose, DT and eye openers. + hx of black outs and binge drinking. PMH includes HIV + (non-compliant with treatment) , asthma and bipolar disorder. Patient denies SI/HI and refused psych consult at this time. Exam Limitations: No Limitations - Ebola screening Have you traveled outside of the country in the last 21 days: No (N) Have you had contact with anyone from an Ebola affected area: No Have you been sick,other than usual withdrawal symptoms: No Do you have a fever: No - Review of Systems Constitutional: Chills, Night Sweats, Unexplained wgt Loss EENT: reports: Tearing, Nose Congestion Respiratory: reports: No Symptoms reported Cardiac: reports: No Symptoms Reported GI: reports: Nausea, Poor Appetite, Poor Fluid Intake : reports: No Symptoms Reported Musculoskeletal: reports: Back Pain, Muscle Pain Integumentary: reports: No Symptoms Reported Neuro: reports: Headache, Numbness, Tingling, Tremors Endocrine: reports: Unexplained Weight Loss Hematology: reports: No Symptoms Reported Psychiatric: reports: Anxious (oriented to name and place. Unsure of date- stated 04/13/19.) Patient History - Patient Medical History Hx Anemia: Yes Hx Asthma: Yes Hx Chronic Obstructive Pulmonary Disease (COPD): No Hx Cancer: No Hx Cardiac Disorders: No Hx Congestive Heart Failure: No Hx Hypertension: Yes Hx Hypercholesterolemia: No Hx Pacemaker: No HX Cerebrovascular Accident: No Hx Seizures: No Hx Dementia: No Hx Diabetes: No Hx Gastrointestinal Disorders: No Hx Liver Disease: No Hx Genitourinary Disorders: No Hx Sexually Transmitted Disorders: Yes (HIV) Hx Renal Disease (ESRD): No Hx Thyroid Disease: No Hx Human Immunodeficiency Virus (HIV): Yes (NONCOMPLIANT, LAST TIME MEDS TAKEN 6 WEEKS AGO) Hx Hepatitis C: No Hx Depression: Yes Hx Suicide Attempt: No (DENIES) Hx Bipolar Disorder: Yes (ON MED, DID NOT BRING MEDS) Hx Schizophrenia: No - Patient Surgical History Past Surgical History: Yes Hx Neurologic Surgery: No Hx Cataract Extraction: No Hx Cardiac Surgery: No Hx Lung Surgery: No Hx Breast Surgery: No Hx Breast Biopsy: No Hx Abdominal Surgery: No Hx Appendectomy: No Hx Cholecystectomy: No Hx Genitourinary Surgery: No Hx Section: Yes (in 1992) Hx Orthopedic Surgery: No Other Surgical History: ectopic in 1986 Anesthesia Reaction: No - PPD History Previous Implant?: Yes Documented Results: Negative w/proof Implanted On Prior [facility] Admission?: No Date: 05/20/18 Results: 0MM PPD to be Administered?: No - Reproductive History Patient : No - Smoking Cessation Smoking history: Current every day smoker Have you smoked in the past 12 months: Yes Aproximately how many cigarettes per day: 20 Cigars Per Day: 0 Hx Chewing Tobacco Use: No Initiated information on smoking cessation: Yes 'Breaking Loose' booklet given: 04/15/19 - Substance & Tx. History Hx Alcohol Use: Yes Hx Substance Use: Yes Substance Use Type: Alcohol, Cocaine, Heroin Hx Substance Use Treatment: Yes - Substances abused Alcohol Substance route: Oral Frequency: Daily Amount used: 1/2 PINTS OF VODKA Age of first use: 14 Date of last use: 04/14/19 Heroin Substance route: Inhalation Frequency: Daily Amount used: 5-6 bags Age of first use: 14 Date of last use: 04/14/19 Cocaine Substance route: Inhalation Frequency: Daily Amount used: $300 Age of first use: 14 Date of last use: 04/14/19 Family Disease History - Family Disease History Family Disease History: CA: Father (FATHER WAS ADDICTED TO ETOH AND HAD CA. OF THE LUNGS AND ), Other: Father Admission Physical Exam [facility] - Vital Signs Vital Signs: Vital Signs - 24 hr 04/15/19 04/15/19 11:05 11:37 Temperature 98.3 F 98.3 F Pulse Rate 84 84 Respiratory 18 18 Rate Blood Pressure 123/80 123/80 - Physical General Appearance: Yes: No Apparent Distress, Thin, Anxious HEENTM: Yes: EOMI, Hearing grossly Normal, Normocephalic, Normal Voice, [place], Nasal Congestion Respiratory: Yes: Chest Non-Tender, Lungs Clear, Normal Breath Sounds, No Respiratory Distress, No Accessory Muscle Use Neck: Yes: No masses,lesions,Nodules, Supple, Trachea in good position Breast: Yes: Breast Exam Deferred Cardiology: Yes: Regular Rhythm, Regular Rate, S1, S2 Abdominal: Yes: Normal Bowel Sounds, Non Tender, Flat, Soft Genitourinary: Yes: Within Normal Limits Back: Yes: Normal Inspection, Muscle Spasm Musculoskeletal: Yes: full range of Motion, Gait Steady, Back pain, Muscle Pain Extremities: Yes: Normal Inspection, Normal Range of Motion, Non-Tender, Tremors Neurological: Yes: 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 II-XII NML intact, Alert, Motor Strength 5/5, Normal Response, Other (anxious) Integumentary: Yes: Normal Color, Dry, Warm Lymphatic: Yes: Within Normal Limits - Diagnostic (1) Alcohol dependence with uncomplicated withdrawal Current Visit: No Status: Acute (2) Cocaine dependence Current Visit: No Status: Chronic Qualifiers: Substance use status: uncomplicated Qualified Code(s): F14.20 - Cocaine dependence, uncomplicated (3) Nicotine dependence Current Visit: No Status: Chronic Qualifiers: Nicotine product type: cigarettes Substance use status: in withdrawal Qualified Code(s): F17.213 - Nicotine dependence, cigarettes, with withdrawal (4) Opioid dependence with withdrawal Current Visit: No Status: Acute (5) Substance-induced sleep disorder Current Visit: No Status: Acute (6) Weight loss Current Visit: No Status: Acute (7) Asthma Current Visit: No Status: Chronic Qualifiers: Asthma severity: mild Asthma persistence: intermittent Asthma complication type: with status asthmaticus Qualified Code(s): J45.22 - Mild intermittent asthma with status asthmaticus (8) HIV (human immunodeficiency virus infection) Current Visit: No Status: Chronic Qualifiers: HIV symptom status: asymptomatic Qualified Code(s): Z21 - Asymptomatic human immunodeficiency virus [HIV] infection status Cleared for Admission S - Detox or Rehab [facility] Level of Care: Medically Managed Detox Regimen/Protocol: Methadone/Librium Breathalyzer - Breathalyzer Breathalyzer: 0 Urine Drug Screen - Test Device Lot number: [id number] Expiration date: 12/30/20 - Control Is test valid?: Yes - Results Drug screen NEGATIVE: No Urine drug screen results: SKY-Cocaine, MOP-Opiates Inpatient Rehab Admission - Rehab Decision to Admit Inpatient rehab admission?: No
[2019-04-15] MEDS ORDERED: ALBUTEROL SO4 8 GM HFA INHALER IH PRN (13:18)
[2019-04-15] MEDS ORDERED: METHADONE HCL 10 MG TABLET (FOR DETOX USE ONLY) PO ONE ×2 (14:00→23:00)
[2019-04-15] MEDS: chlordiazePOXIDE HCL 25 MG CAPSULE PO SCH ×2 (17:27→22:24)
[2019-04-15 18:01] LABS: HEMATOCRIT 38.9 % (32.4-45.2); HEMOGLOBIN 12.3 GM/dL (10.7-15.3); MCH 25.2 pg (25.7-33.7); MCHC 31.5 g/dl (32.0-36.0); MEAN CELL VOLUME 79.9 fl (80-96); MEAN PLT VOLUME 8.8 fl (7.5-11.1); PLATELET COUNT 140 K/MM3 (134-434); RBC 4.86 M/mm3 (3.60-5.2); RDW 14.8 % (11.6-15.6); WHITE BLOOD COUNT 3.1 K/mm3 (4.0-10.0)
[2019-04-15 18:13] LABS: ALBUMIN 3.6 g/dl (3.4-5.0); BILIRUBIN,TOTAL 0.4 mg/dL (0.2-1); CALCIUM 9.2 mg/dL (8.5-10.1); CREATININE 0.9 mg/dL (0.55-1.3); POTASSIUM 4.5 mmol/L (3.5-5.1); TOT PROT 7.3 g/dl (6.4-8.2)
[2019-04-15] MEDS: THIAMINE HCL 100 MG TABLET (FP) PO SCH (22:25)
[2019-04-15] MEDS: MELATONIN 5 MG TABLETS PO PRN (23:17)
[2019-04-16] MEDS: chlordiazePOXIDE HCL 25 MG CAPSULE PO SCH ×4 (05:19→22:53)
[2019-04-16] MEDS ORDERED: METHADONE HCL 10 MG TABLET (FOR DETOX USE ONLY) PO ONE (10:00)
--- NOTE | 2019-04-16 10:01 | PN ---
[facility] CIWA - CIWA Score Nausea/Vomitin-No Nausea/No Vomiting Muscle Tremors: 2 Anxiety: 2 Agitation: 1-Slight > Activity Paroxysmal Sweats: 2 Orientation: 1-Uncertain about Date Tacttile Disturbances: 1-Very Mild Itch/Numbness Auditory Disturbances: 0-None Visual Disturbances: 0-None Headache: 2-Mild CIWA-Ar Total Score: 11 [facility] COWS - Scale Resting Pulse: 0= ID 80 or Below Sweatin= Chills/Flushing Restless Observation: 1= Difficult to Sit Still Pupil Size: 0= Normal to Room Light Bone or Joint Aches: 4=Acute Joint/Muscle Pain Runny Nose/ Eye Tearin= None GI Upset > 30mins: 0= None Tremor Observation of Outstretched Hands: 2= Slight Tremor Visible Yawning Observation: 1= 1-2x During Session Anxiety or Irritability: 2=Irritable/Anxious Goose Flesh Skin: 0=Smooth Skin COWS Score: 11 [facility] Progress Note (SOAP) Subjective: c/o sweats, anxiety, mild headache, body aches, and tremor. Objective: 04/16/19 09:57 Vital Signs 04/16/19 04/16/19 04/16/19 03:30 06:00 09:16 Temperature 95.2 F L 97.7 F Pulse Rate 57 L 68 Respiratory 18 16 18 Rate Blood Pressure 107/84 103/51 L Lab Results WBC 3.1 K/mm3 (4.0-10.0) L 04/15/19 13:05 RBC 4.86 M/mm3 (3.60-5.2) 04/15/19 13:05 Hgb 12.3 GM/dL (10.7-15.3) 04/15/19 13:05 Hct 38.9 % (32.4-45.2) 04/15/19 13:05 MCV 79.9 fl (80-96) L 04/15/19 13:05 MCHC 31.5 g/dl (32.0-36.0) L 04/15/19 13:05 RDW 14.8 % (11.6-15.6) 04/15/19 13:05 Plt Count 140 K/MM3 (134-434) 04/15/19 13:05 Sodium 138 mmol/L (136-145) 04/15/19 13:05 Potassium 4.5 mmol/L (3.5-5.1) 04/15/19 13:05 Chloride 105 mmol/L (98-107) 04/15/19 13:05 Carbon Dioxide 29 mmol/L (21-32) 04/15/19 13:05 Anion Gap 4 MMOL/L (8-16) L 04/15/19 13:05 BUN 20 mg/dL (7-18) H 04/15/19 13:05 Creatinine 0.9 mg/dL (0.55-1.3) 04/15/19 13:05 Random Glucose 140 mg/dL (74-106) H 04/15/19 13:05 Calcium 9.2 mg/dL (8.5-10.1) 04/15/19 13:05 Labs noted. Assessment: 04/16/19 09:59 AOx3, in no respiratory distress Full ROM withdrawal symptoms persists Plan: continue detox increase fluids
[2019-04-16] MEDS: PRENATAL VITAMINS W/ FOLIC ACID TABLET (FP) PO SCH (10:21)
[2019-04-16] MEDS: NICOTINE 21 MG/24 HOURS TOPICAL PATCH TD SCH (10:22)
[2019-04-16] MEDS: THIAMINE HCL 100 MG TABLET (FP) PO SCH (22:52)
[2019-04-16] MEDS: MELATONIN 5 MG TABLETS PO PRN (23:04)
[2019-04-17] MEDS: chlordiazePOXIDE HCL 25 MG CAPSULE PO SCH ×2 (05:43→10:26)
[2019-04-17] MEDS ORDERED: METHADONE HCL 10 MG TABLET (FOR DETOX USE ONLY) PO ONE (10:00)
[2019-04-17] MEDS: PRENATAL VITAMINS W/ FOLIC ACID TABLET (FP) PO SCH (10:25)
[2019-04-17] MEDS: NICOTINE 21 MG/24 HOURS TOPICAL PATCH TD SCH (10:26)
--- NOTE | 2019-04-17 12:58 | PN ---
[facility] CIWA - CIWA Score Nausea/Vomitin-Mild Nausea/No Vomiting Muscle Tremors: 3 Anxiety: 2 Agitation: 1-Slight > Activity Paroxysmal Sweats: 3 Orientation: 0-Oriented Tacttile Disturbances: 0-None Auditory Disturbances: 0-None Visual Disturbances: 0-None Headache: 0-None Present CIWA-Ar Total Score: 10 [facility] COWS - Scale Resting Pulse: 0= [place] 80 or Below Sweatin= Chills/Flushing Restless Observation: 1= Difficult to Sit Still Pupil Size: 0= Normal to Room Light Bone or Joint Aches: 2= Severe Diffuse Aches Runny Nose/ Eye Tearin= None GI Upset > 30mins: 2= Nausea/Diarrhea Tremor Observation of Outstretched Hands: 2= Slight Tremor Visible Yawning Observation: 0= None Anxiety or Irritability: 2=Irritable/Anxious Goose Flesh Skin: 0=Smooth Skin COWS Score: 10 [facility] Progress Note (SOAP) Subjective: Tremor, interrupted sleep Objective: 04/17/19 12:55 Last Vital Signs Temp Pulse Resp BP Pulse Ox 97.9 F 68 18 100/54 L 04/17/19 09:47 04/17/19 09:47 04/17/19 09:47 04/17/19 09:47 Laboratory Tests 04/15/19 04/15/19 04/15/19 13:05 13:05 13:05 WBC 3.1 L RBC 4.86 Hgb 12.3 Hct 38.9 MCV 79.9 L MCH 25.2 L MCHC 31.5 L RDW 14.8 Plt Count 140 MPV 8.8 D Sodium 138 Potassium 4.5 Chloride 105 Carbon Dioxide 29 Anion Gap 4 L BUN 20 H Creatinine 0.9 Est GFR (CKD-EPI)AfAm 80.55 Est GFR (CKD-EPI)NonAf 69.50 Random Glucose 140 H Calcium 9.2 Total Bilirubin 0.4 AST 19 ALT 19 Alkaline Phosphatase 82 Total Protein 7.3 Albumin 3.6 RPR Titer Nonreactive Labs reviewed: bun 20, glucose 140 Assessment: 04/17/19 12:56 Withdrawal symptoms Noted with azotemia and hyperglycemia Plan: Continue detox Azotemia: encouraged PO water hydration Hyperglycemia: could be r/t withdrawal, repeat fasting bmp in AM
[2019-04-17] MEDS ORDERED: chlordiazePOXIDE HCL 10 MG CAPSULE PO PRN (17:00)
[2019-04-17] MEDS ORDERED: chlordiazePOXIDE HCL 10 MG CAPSULE PO SCH (17:00)
[2019-04-17 18:01] VITALS: BP 117/61; PULSE 76; TEMP 98.6
--- NOTE | 2019-04-17 22:18 | DS ---
[facility] Detox Discharge Summary Admission Date: 04/15/19 Discharge Date: 04/17/19 - History Present History: Alcohol Dependence, Cocaine Dependence, Opioid Dependence Additional Comments: Patient admitted with symptoms of alcohol and opiate withdrawal. Pertinent Past History: PMHx: includes HIV + (non-compliant with treatment), Asthma MHHx: Bipolar disorder. Denies SI/HI - Physical Exam Results Vital Signs: Vital Signs Temperature 98.6 F 04/17/19 16:20 Pulse Rate 76 04/17/19 16:20 Respiratory Rate 18 04/17/19 16:20 Blood Pressure 117/61 04/17/19 16:20 O2 Sat by Pulse Oximetry (%) Pertinent Admission Physical Exam Findings: Patient admitted to detox for alcohol and opioid use disorder. Has co-occurring cocaine use disorder. Hx: Asthma, and HIV+ Laboratory Last Values WBC 3.1 K/mm3 (4.0-10.0) L 04/15/19 13:05 RBC 4.86 M/mm3 (3.60-5.2) 04/15/19 13:05 Hgb 12.3 GM/dL (10.7-15.3) 04/15/19 13:05 Hct 38.9 % (32.4-45.2) 04/15/19 13:05 MCV 79.9 fl (80-96) L 04/15/19 13:05 MCH 25.2 pg (25.7-33.7) L 04/15/19 13:05 MCHC 31.5 g/dl (32.0-36.0) L 04/15/19 13:05 RDW 14.8 % (11.6-15.6) 04/15/19 13:05 Plt Count 140 K/MM3 (134-434) 04/15/19 13:05 MPV 8.8 fl (7.5-11.1) D 04/15/19 13:05 Sodium 138 mmol/L (136-145) 04/15/19 13:05 Potassium 4.5 mmol/L (3.5-5.1) 04/15/19 13:05 Chloride 105 mmol/L (98-107) 04/15/19 13:05 Carbon Dioxide 29 mmol/L (21-32) 04/15/19 13:05 Anion Gap 4 MMOL/L (8-16) L 04/15/19 13:05 BUN 20 mg/dL (7-18) H 04/15/19 13:05 Creatinine 0.9 mg/dL (0.55-1.3) 04/15/19 13:05 Est GFR (CKD-EPI)AfAm 80.55 04/15/19 13:05 Est GFR (CKD-EPI)NonAf 69.50 04/15/19 13:05 Random Glucose 140 mg/dL (74-106) H 04/15/19 13:05 Calcium 9.2 mg/dL (8.5-10.1) 04/15/19 13:05 Total Bilirubin 0.4 mg/dL (0.2-1) 04/15/19 13:05 AST 19 U/L (15-37) 04/15/19 13:05 ALT 19 U/L (13-61) 04/15/19 13:05 Alkaline Phosphatase 82 U/L (45-117) 04/15/19 13:05 Total Protein 7.3 g/dl (6.4-8.2) 04/15/19 13:05 Albumin 3.6 g/dl (3.4-5.0) 04/15/19 13:05 RPR Titer Nonreactive (NONREACTIVE) 04/15/19 13:05 Labs reviewed. - Treatment Hospital Course: Detox Protocol Followed (Patient did not complete detox protocol) - Medication Discharge Medications: Ambulatory Orders Gabapentin [Neurontin -] 300 mg PO TID #90 cap 05/23/18 Emtricitabine/Tenofov Alafenam [Descovy 200-25 mg Tablet (Nf)] 1 each PO DAILY 12/15/18 Quetiapine Fumarate [Seroquel] 100 mg PO HS 12/15/18 Albuterol Sulfate Inhaler - [Ventolin HFA Inhaler -] 2 puff IH Q4H PRN #1 inhaler 02/22/19 Sulfamethoxazole/Trimethoprim [Bactrim DS -] 1 tab PO DAILY #30 tablet 02/22/19 - Diagnosis (1) Alcohol dependence with uncomplicated withdrawal Status: Acute (2) Opioid dependence with withdrawal Status: Acute (3) Asthma Status: Chronic Qualifiers: Asthma severity: mild Asthma persistence: intermittent Asthma complication type: unspecified Qualified Code(s): J45.20 - Mild intermittent asthma, uncomplicated (4) Bipolar disorder Status: Chronic Qualifiers: Current episode severity: unspecified (5) Cocaine dependence, uncomplicated Status: Chronic (6) HIV (human immunodeficiency virus infection) Status: Chronic Qualifiers: HIV symptom status: asymptomatic Qualified Code(s): Z21 - Asymptomatic human immunodeficiency virus [HIV] infection status (7) Nicotine dependence Status: Chronic Qualifiers: Nicotine product type: cigarettes Substance use status: in withdrawal Qualified Code(s): F17.213 - Nicotine dependence, cigarettes, with withdrawal - AMA Did Patient Leave Against Medical Advice: Yes (Patient refused to meet w/ Provider)
[2019-04-18] MEDS ORDERED: METHADONE HCL 10 MG TABLET (FOR DETOX USE ONLY) PO ONE (10:00)
[2019-04-18] MEDS ORDERED: chlordiazePOXIDE HCL 10 MG CAPSULE PO SCH (17:00)
[2019-04-19] MEDS ORDERED: METHADONE HCL 5 MG TABLET (FOR DETOX USE ONLY) PO ONE (06:00)
== END 2019-04-17 16:40 | disposition left against medical advice (07) | DRG 770 ==
LOC: YASAS 09:35 → Y6N 13:24
PROVIDERS: ADMIT Surgery; ATTEND Surgery
PROC: HZ2ZZZZ Detoxification Services for Substance Abuse Treatment (ICD-10-PCS; principal; 2019-04-15)
DX: F11.23 Opioid dependence with withdrawal (principal); F10.230 Alcohol dependence with withdrawal, uncomplicated; F14.20 Cocaine dependence, uncomplicated; F17.213 Nicotine dependence, cigarettes, with withdrawal; F19.282 Other psychoactive substance dependence with psychoactive substance-induced sleep disorder; F31.9 Bipolar disorder, unspecified; Z21 Asymptomatic human immunodeficiency virus [HIV] infection status; I10 Essential (primary) hypertension; J45.20 Mild intermittent asthma, uncomplicated; R79.89 Other specified abnormal findings of blood chemistry; R73.9 Hyperglycemia, unspecified; R63.4 Abnormal weight loss; Z68.1 Body mass index [BMI] 19.9 or less, adult; Z91.14 Patient's other noncompliance with medication regimen
CPT/HCPCS: 36415; 80053; 81025; 85027; 86593; J0735

== ENCOUNTER 2019-07-05 09:54 | Inpatient (IN) | payer OTHER | END 2019-07-07 13:05 | disposition left against medical advice (07) | LOC: YASAS 09:54 → Y6N 14:43 → Y3N 15:13 ==

== ENCOUNTER 2020-12-16 08:41 | Inpatient (IN) | payer OTHER ==
[2020-12-16 09:41] VITALS: BMI 16.9
[2020-12-16] MEDS ORDERED: MAG HYDROX/AL HYDROX/SIMETH 30 ML UNIT-DOSE CUP PO PRN (14:14)
[2020-12-16] MEDS ORDERED: cloNIDine HCL 0.1 MG TABLET PO PRN (14:14)
[2020-12-16] MEDS ORDERED: METHADONE HCL 10 MG TABLET (FOR DETOX USE ONLY) PO ONE (14:14)
[2020-12-16] MEDS ORDERED: chlordiazePOXIDE HCL 25 MG CAPSULE PO PRN (14:14)
[2020-12-16] MEDS ORDERED: BISMUTH SUBSALICYLATE 524 MG/30 ML UD PO PRN (14:14)
[2020-12-16] MEDS ORDERED: MAGNESIUM CITRATE 300 ML BOTTLE PO PRN (14:14)
[2020-12-16] MEDS ORDERED: ONDANSETRON *ODT* 4 MG TABLET SL PRN (14:14)
[2020-12-16] MEDS ORDERED: MENTHOL/PHENOL 1 EACH UD MM PRN (14:14)
[2020-12-16] MEDS ORDERED: MAGNESIUM HYDROX 2400MG/30ML ORAL SUSPENSION 30 ML CUP PO PRN (14:14)
[2020-12-16] MEDS ORDERED: IBUPROFEN 400 MG TABLET (FP) PO PRN (14:14)
[2020-12-16] MEDS ORDERED: NICOTINE POLACRILEX 2 MG GUM BUC PRN (14:14)
[2020-12-16] MEDS ORDERED: METHOCARBAMOL 500 MG TABLET PO PRN (14:14)
[2020-12-16] MEDS ORDERED: ACETAMINOPHEN 325 MG TABLET (FP) PO PRN ×2 (14:14)
[2020-12-16] MEDS ORDERED: ALBUTEROL SO4 HFA INHALER IH PRN (14:26)
[2020-12-16] MEDS: chlordiazePOXIDE HCL 25 MG CAPSULE PO SCH ×2 (17:35→22:20)
[2020-12-16] MEDS: hydrOXYzine PAMOATE 25 MG CAPSULE (FP) PO SCH ×2 (17:36→22:18)
[2020-12-16] MEDS: THIAMINE HCL 100 MG TABLET (FP) PO SCH (22:18)
[2020-12-16] MEDS: HYDROCORTISONE 0.5% TOPICAL CREAM 30 GM TUBE TP SCH (22:19)
[2020-12-16] MEDS: MELATONIN 5 MG TABLETS PO SCH (22:19)
[2020-12-17] MEDS: hydrOXYzine PAMOATE 25 MG CAPSULE (FP) PO SCH ×5 (07:00→22:13)
[2020-12-17] MEDS: chlordiazePOXIDE HCL 25 MG CAPSULE PO SCH ×4 (07:00→22:14)
[2020-12-17] MEDS ORDERED: METHADONE HCL 5 MG TABLET (FOR DETOX USE ONLY) ONE (09:17)
[2020-12-17] MEDS ORDERED: METHADONE HCL 10 MG TABLET (FOR DETOX USE ONLY) ONE (09:18)
[2020-12-17] MEDS ORDERED: METHADONE (DETOX) 20 MG, METHADONE (DETOX) 5 MG PO ONE (10:00)
[2020-12-17] MEDS: HYDROCORTISONE 0.5% TOPICAL CREAM 30 GM TUBE TP SCH ×2 (10:52→22:13)
[2020-12-17] MEDS: SULFAMETHOXAZOLE/TRIMETHOPRIM 800MG/160MG D.S. TABLET PO SCH (10:52)
[2020-12-17] MEDS: PRENATAL VITAMINS W/ FOLIC ACID TABLET (FP) PO SCH (10:57)
[2020-12-17 12:05] LABS: POTASSIUM 4.2 mmol/L (3.5-5.1)
[2020-12-17 12:13] LABS: CALCIUM 8.6 mg/dL (8.5-10.1)
[2020-12-17 12:14] LABS: ALBUMIN 3.1 g/dl (3.4-5.0); BLOOD UREA NITROGEN 18.4 mg/dL (7-18)
[2020-12-17 12:17] LABS: CREATININE 0.8 mg/dL (0.55-1.3)
[2020-12-17 12:19] LABS: BILIRUBIN,TOTAL 1.1 mg/dL (0.2-1); TOT PROT 6.7 g/dl (6.4-8.2)
[2020-12-17 12:22] LABS: HEMATOCRIT 37.9 % (32.4-45.2); HEMOGLOBIN 12.2 GM/dL (10.7-15.3); MCH 25.5 pg (25.7-33.7); MCHC 32.2 g/dl (32.0-36.0); MEAN CELL VOLUME 79.3 fl (80-96); PLATELET COUNT 138 K/MM3 (134-434); RBC 4.78 M/mm3 (3.60-5.2); RDW 14.7 % (11.6-15.6); WHITE BLOOD COUNT 2.6 K/mm3 (4.0-10.0)
[2020-12-17] MEDS: MELATONIN 5 MG TABLETS PO SCH (22:13)
[2020-12-17] MEDS: THIAMINE HCL 100 MG TABLET (FP) PO SCH (22:13)
[2020-12-18] MEDS: hydrOXYzine PAMOATE 25 MG CAPSULE (FP) PO SCH ×5 (05:40→22:31)
[2020-12-18] MEDS: chlordiazePOXIDE HCL 25 MG CAPSULE PO SCH ×4 (05:41→22:31)
[2020-12-18] MEDS ORDERED: METHADONE HCL 10 MG TABLET (FOR DETOX USE ONLY) PO ONE (10:00)
[2020-12-18] MEDS: PRENATAL VITAMINS W/ FOLIC ACID TABLET (FP) PO SCH (10:30)
[2020-12-18] MEDS: SULFAMETHOXAZOLE/TRIMETHOPRIM 800MG/160MG D.S. TABLET PO SCH (10:30)
[2020-12-18] MEDS: HYDROCORTISONE 0.5% TOPICAL CREAM 30 GM TUBE TP SCH ×2 (10:31→22:33)
[2020-12-18] MEDS ORDERED: FLU VACCINE (FLULAVAL) PF 60 MCG/0.5 ML SYRINGE 2020-2021 IM ONE (12:00)
[2020-12-18] MEDS: MELATONIN 5 MG TABLETS PO SCH (22:31)
[2020-12-18] MEDS: THIAMINE HCL 100 MG TABLET (FP) PO SCH (22:31)
[2020-12-19] MEDS ORDERED: chlordiazePOXIDE HCL 10 MG CAPSULE PO PRN
[2020-12-19] MEDS: chlordiazePOXIDE HCL 10 MG CAPSULE PO SCH ×4 (05:52→22:23)
[2020-12-19] MEDS: hydrOXYzine PAMOATE 25 MG CAPSULE (FP) PO SCH ×5 (05:52→22:23)
[2020-12-19] MEDS ORDERED: METHADONE HCL 5 MG TABLET (FOR DETOX USE ONLY) ONE (09:13)
[2020-12-19] MEDS ORDERED: METHADONE HCL 10 MG TABLET (FOR DETOX USE ONLY) ONE (09:13)
[2020-12-19] MEDS ORDERED: METHADONE (DETOX) 10 MG, METHADONE (DETOX) 5 MG PO ONE (10:00)
[2020-12-19] MEDS: PRENATAL VITAMINS W/ FOLIC ACID TABLET (FP) PO SCH (10:16)
[2020-12-19] MEDS: SULFAMETHOXAZOLE/TRIMETHOPRIM 800MG/160MG D.S. TABLET PO SCH (10:16)
[2020-12-19] MEDS: HYDROCORTISONE 0.5% TOPICAL CREAM 30 GM TUBE TP SCH ×2 (10:17→22:23)
[2020-12-19 11:04] LABS: BASO % 0.5 % (0-2.0); EOS % 3.2 % (0-4.5); HEMATOCRIT 35.9 % (32.4-45.2); HEMOGLOBIN 11.6 GM/dL (10.7-15.3); MCH 25.3 pg (25.7-33.7); MCHC 32.5 g/dl (32.0-36.0); MEAN CELL VOLUME 78.1 fl (80-96); MEAN PLT VOLUME 9.1 fl (7.5-11.1); MONO % 10.6 % (3.8-10.2); NEUT % 51.7 % (42.8-82.8); PLATELET COUNT 121 K/MM3 (134-434); RBC 4.59 M/mm3 (3.60-5.2); RDW 14.9 % (11.6-15.6); WHITE BLOOD COUNT 2.8 K/mm3 (4.0-10.0)
[2020-12-19] MEDS: MELATONIN 5 MG TABLETS PO SCH (22:22)
[2020-12-19] MEDS: THIAMINE HCL 100 MG TABLET (FP) PO SCH (22:22)
[2020-12-20] MEDS: hydrOXYzine PAMOATE 25 MG CAPSULE (FP) PO SCH ×5 (05:44→22:36)
[2020-12-20] MEDS: chlordiazePOXIDE HCL 10 MG CAPSULE PO SCH ×2 (05:45→17:05)
[2020-12-20] MEDS ORDERED: METHADONE HCL 10 MG TABLET (FOR DETOX USE ONLY) PO ONE (10:00)
[2020-12-20] MEDS: SULFAMETHOXAZOLE/TRIMETHOPRIM 800MG/160MG D.S. TABLET PO SCH (10:15)
[2020-12-20] MEDS: PRENATAL VITAMINS W/ FOLIC ACID TABLET (FP) PO SCH (10:15)
[2020-12-20] MEDS: HYDROCORTISONE 0.5% TOPICAL CREAM 30 GM TUBE TP SCH ×2 (10:17→22:35)
[2020-12-20 21:21] VITALS: TEMP 97.6
[2020-12-20] MEDS: THIAMINE HCL 100 MG TABLET (FP) PO SCH (22:35)
[2020-12-20] MEDS: MELATONIN 5 MG TABLETS PO SCH (22:35)
[2020-12-21] MEDS ORDERED: chlordiazePOXIDE HCL 10 MG CAPSULE PO ONE (05:00)
[2020-12-21] MEDS ORDERED: METHADONE HCL 5 MG TABLET (FOR DETOX USE ONLY) PO ONE (06:00)
[2020-12-21] MEDS: hydrOXYzine PAMOATE 25 MG CAPSULE (FP) PO SCH (07:02)
[2020-12-21 07:13] VITALS: BP 134/76; PULSE 100
== END 2020-12-21 08:00 | disposition home or self-care (01) | DRG 773 ==
LOC: YASAS 08:41 → Y6N 13:54
PROVIDERS: ADMIT Allergy & Immunology; ATTEND Allergy & Immunology
PROC: HZ2ZZZZ Detoxification Services for Substance Abuse Treatment (ICD-10-PCS; principal; 2020-12-16)
DX: F11.23 Opioid dependence with withdrawal (principal); F10.230 Alcohol dependence with withdrawal, uncomplicated; F14.20 Cocaine dependence, uncomplicated; F12.20 Cannabis dependence, uncomplicated; F17.210 Nicotine dependence, cigarettes, uncomplicated; F31.9 Bipolar disorder, unspecified; Z21 Asymptomatic human immunodeficiency virus [HIV] infection status; J45.20 Mild intermittent asthma, uncomplicated; D72.819 Decreased white blood cell count, unspecified; R63.4 Abnormal weight loss; Z68.1 Body mass index [BMI] 19.9 or less, adult; Z91.018 Allergy to other foods
CPT/HCPCS: 36415; 80053; 85025; 85027; 86780; C9803; G0008; Q2036; U0003

== ENCOUNTER 2022-01-15 10:20 | Inpatient (IN) | payer OTHER ==
[2022-01-15] MEDS ORDERED: ONDANSETRON *ODT* 4 MG TABLET SL PRN (11:06)
[2022-01-15] MEDS ORDERED: MENTHOL/PHENOL 1 EACH UD MM PRN (11:06)
[2022-01-15] MEDS ORDERED: MAGNESIUM HYDROX 2400MG/30ML ORAL SUSPENSION 30 ML CUP PO PRN (11:06)
[2022-01-15] MEDS ORDERED: MAG HYDROX/AL HYDROX/SIMETH 30 ML UNIT-DOSE CUP PO PRN (11:06)
[2022-01-15] MEDS ORDERED: METHOCARBAMOL 500 MG TABLET PO PRN (11:06)
[2022-01-15] MEDS ORDERED: BISMUTH SUBSALICYLATE 524 MG/30 ML PO PRN (11:06)
[2022-01-15] MEDS ORDERED: MAGNESIUM CITRATE 300 ML BOTTLE PO PRN (11:06)
[2022-01-15] MEDS ORDERED: ACETAMINOPHEN 325 MG TABLET (FP) PO PRN ×2 (11:06)
[2022-01-15] MEDS ORDERED: IBUPROFEN 400 MG TABLET (FP) PO PRN (11:06)
[2022-01-15] MEDS ORDERED: cloNIDine HCL 0.1 MG TABLET PO PRN (11:06)
[2022-01-15] MEDS ORDERED: LOPERAMIDE HCL 2 MG CAPSULE PO PRN (11:06)
[2022-01-15] MEDS ORDERED: ALBUTEROL SO4 HFA INHALER IH PRN (11:13)
[2022-01-15 12:22] VITALS: BMI 18.8
[2022-01-15] MEDS ORDERED: methaDONE HCL 10 MG TABLET (FOR DETOX USE ONLY) PO ONE (14:00)
[2022-01-15] MEDS: NICOTINE 14 MG/24 HOURS TOPICAL PATCH TD SCH (14:57)
[2022-01-15] MEDS: PRENATAL VITAMINS W/ FOLIC ACID TABLET (FP) PO SCH (15:07)
[2022-01-15] MEDS: hydrOXYzine PAMOATE 25 MG CAPSULE (FP) PO SCH ×3 (15:07→22:44)
[2022-01-15 18:09] LABS: HEMATOCRIT 35.9 % (32.4-45.2); HEMOGLOBIN 11.6 GM/dL (10.7-15.3); MCH 25.3 pg (25.7-33.7); MCHC 32.3 g/dl (32.0-36.0); MEAN CELL VOLUME 78.4 fl (80-96); MEAN PLT VOLUME 8.5 fl (7.5-11.1); PLATELET COUNT 118 10^3/uL (134-434); RBC 4.58 M/mm3 (3.60-5.2); RDW 15.1 % (11.6-15.6)
[2022-01-15 18:14] LABS: ALBUMIN 3.5 g/dl (3.4-5.0); CALCIUM 9.1 mg/dL (8.5-10.1)
[2022-01-15 18:19] LABS: BILIRUBIN,TOTAL 0.6 mg/dL (0.2-1); TOT PROT 7.1 g/dl (6.4-8.2)
[2022-01-15] MEDS: MELATONIN 5 MG TABLETS PO SCH (22:42)
[2022-01-15] MEDS: THIAMINE HCL 100 MG TABLET (FP) PO SCH (22:44)
[2022-01-16] MEDS: hydrOXYzine PAMOATE 25 MG CAPSULE (FP) PO SCH ×5 (08:22→22:16)
[2022-01-16] MEDS ORDERED: methaDONE HCL 10 MG TABLET (FOR DETOX USE ONLY) ONE (10:28)
[2022-01-16] MEDS: EMTRICITABINE/TENOFOV ALAFENAM (DESCOVY) TABLET PO SCH (10:30)
[2022-01-16] MEDS: SULFAMETHOXAZOLE/TRIMETHOPRIM 800MG/160MG D.S. TABLET PO SCH (10:30)
[2022-01-16] MEDS: cloNIDine HCL 0.1 MG TABLET PO SCH (10:30)
[2022-01-16] MEDS: NICOTINE 14 MG/24 HOURS TOPICAL PATCH TD SCH (10:37)
[2022-01-16] MEDS: PRENATAL VITAMINS W/ FOLIC ACID TABLET (FP) PO SCH (10:37)
[2022-01-16] MEDS: QUEtiapine FUMARATE 50 MG TABLET PO SCH (22:16)
[2022-01-16] MEDS: MELATONIN 5 MG TABLETS PO SCH (22:17)
[2022-01-16] MEDS: THIAMINE HCL 100 MG TABLET (FP) PO SCH (22:17)
[2022-01-17] MEDS: hydrOXYzine PAMOATE 25 MG CAPSULE (FP) PO SCH ×5 (07:39→22:26)
[2022-01-17] MEDS ORDERED: methaDONE HCL 10 MG TABLET (FOR DETOX USE ONLY) PO ONE (10:00)
[2022-01-17] MEDS: PRENATAL VITAMINS W/ FOLIC ACID TABLET (FP) PO SCH (10:52)
[2022-01-17] MEDS: SULFAMETHOXAZOLE/TRIMETHOPRIM 800MG/160MG D.S. TABLET PO SCH (10:52)
[2022-01-17] MEDS: cloNIDine HCL 0.1 MG TABLET PO SCH (11:06)
[2022-01-17] MEDS: EMTRICITABINE/TENOFOV ALAFENAM (DESCOVY) TABLET PO SCH (11:08)
[2022-01-17] MEDS: NICOTINE 14 MG/24 HOURS TOPICAL PATCH TD SCH (13:01)
[2022-01-17] MEDS: MELATONIN 5 MG TABLETS PO SCH (22:26)
[2022-01-17] MEDS: THIAMINE HCL 100 MG TABLET (FP) PO SCH (22:26)
[2022-01-17] MEDS: QUEtiapine FUMARATE 50 MG TABLET PO SCH (22:26)
[2022-01-18] MEDS: hydrOXYzine PAMOATE 25 MG CAPSULE (FP) PO SCH ×6 (06:53→22:35)
[2022-01-18] MEDS ORDERED: methaDONE HCL 10 MG TABLET (FOR DETOX USE ONLY) ONE (10:03)
[2022-01-18] MEDS: SULFAMETHOXAZOLE/TRIMETHOPRIM 800MG/160MG D.S. TABLET PO SCH (10:21)
[2022-01-18] MEDS: PRENATAL VITAMINS W/ FOLIC ACID TABLET (FP) PO SCH (10:21)
[2022-01-18] MEDS: NICOTINE 14 MG/24 HOURS TOPICAL PATCH TD SCH (10:21)
[2022-01-18] MEDS: cloNIDine HCL 0.1 MG TABLET PO SCH (10:23)
[2022-01-18] MEDS: EMTRICITABINE/TENOFOV ALAFENAM (DESCOVY) TABLET PO SCH (10:23)
[2022-01-18] MEDS: THIAMINE HCL 100 MG TABLET (FP) PO SCH (22:34)
[2022-01-18] MEDS: QUEtiapine FUMARATE 50 MG TABLET PO SCH (22:34)
[2022-01-18] MEDS: MELATONIN 5 MG TABLETS PO SCH (22:35)
[2022-01-19] MEDS: hydrOXYzine PAMOATE 25 MG CAPSULE (FP) PO SCH ×5 (06:43→22:34)
[2022-01-19] MEDS ORDERED: methaDONE HCL 10 MG TABLET (FOR DETOX USE ONLY) PO ONE (10:00)
[2022-01-19] MEDS: PRENATAL VITAMINS W/ FOLIC ACID TABLET (FP) PO SCH (10:30)
[2022-01-19] MEDS: SULFAMETHOXAZOLE/TRIMETHOPRIM 800MG/160MG D.S. TABLET PO SCH (10:30)
[2022-01-19] MEDS: NICOTINE 14 MG/24 HOURS TOPICAL PATCH TD SCH (10:31)
[2022-01-19] MEDS: cloNIDine HCL 0.1 MG TABLET PO SCH (10:51)
[2022-01-19] MEDS: EMTRICITABINE/TENOFOV ALAFENAM (DESCOVY) TABLET PO SCH (10:51)
[2022-01-19] MEDS: NICOTINE 10 MG CARTRIDGE (INHALER) IH PRN (18:38)
[2022-01-19] MEDS: QUEtiapine FUMARATE 50 MG TABLET PO SCH (22:34)
[2022-01-19] MEDS: MELATONIN 5 MG TABLETS PO SCH (22:34)
[2022-01-19] MEDS: THIAMINE HCL 100 MG TABLET (FP) PO SCH (22:34)
[2022-01-20] MEDS: NICOTINE 10 MG CARTRIDGE (INHALER) IH PRN (03:45)
[2022-01-20] MEDS: hydrOXYzine PAMOATE 25 MG CAPSULE (FP) PO SCH (06:09)
[2022-01-20 07:50] VITALS: BP 120/60; PULSE 74; TEMP 97.4
== END 2022-01-20 08:55 | disposition home or self-care (01) | DRG 773 ==
LOC: YASAS 10:20 → Y3N 13:33
PROVIDERS: ADMIT Allergy & Immunology; ATTEND Allergy & Immunology
PROC: HZ2ZZZZ Detoxification Services for Substance Abuse Treatment (ICD-10-PCS; principal; 2022-01-15)
DX: F11.23 Opioid dependence with withdrawal (principal); F10.230 Alcohol dependence with withdrawal, uncomplicated; F14.20 Cocaine dependence, uncomplicated; F12.20 Cannabis dependence, uncomplicated; F17.210 Nicotine dependence, cigarettes, uncomplicated; F19.282 Other psychoactive substance dependence with psychoactive substance-induced sleep disorder; F19.24 Other psychoactive substance dependence with psychoactive substance-induced mood disorder; F31.9 Bipolar disorder, unspecified; F43.10 Post-traumatic stress disorder, unspecified; Z21 Asymptomatic human immunodeficiency virus [HIV] infection status; I10 Essential (primary) hypertension; J43.0 Unilateral pulmonary emphysema [MacLeod's syndrome]; R79.89 Other specified abnormal findings of blood chemistry
CPT/HCPCS: 36415; 80053; 84520; 85027; 86780; C9803; J0735; U0003; U0005

== ENCOUNTER 2024-07-15 12:42 | Inpatient (IN) | payer OTHER ==
[2024-07-15 13:52] VITALS: BMI 17.2
[2024-07-15] MEDS ORDERED: IBUPROFEN 600 MG TABLET (FP) PO PRN (16:25)
[2024-07-15] MEDS ORDERED: LOPERAMIDE HCL 2 MG CAPSULE PO PRN (16:25)
[2024-07-15] MEDS ORDERED: BISMUTH SUBSALICYLATE 524 MG/30 ML PO PRN (16:25)
[2024-07-15] MEDS ORDERED: MAG HYDROX/AL HYDROX/SIMETH 30 ML UNIT-DOSE CUP PO PRN (16:25)
[2024-07-15] MEDS ORDERED: guaiFENesin 600 MG TABLET.ER (FP) PO PRN (16:25)
[2024-07-15] MEDS ORDERED: NICOTINE POLACRILEX 2 MG GUM BUC PRN (16:25)
[2024-07-15] MEDS ORDERED: POLYETHYLENE GLYCOL (HEALTHYLAX) 3350 17 GM PACKET PO PRN (16:25)
[2024-07-15] MEDS ORDERED: BENZOCAINE/MENTHOL (CHLORASEPTIC ) LOZENGE MM PRN (16:25)
[2024-07-15] MEDS ORDERED: IBUPROFEN 400 MG TABLET (FP) PO PRN (16:25)
[2024-07-15] MEDS ORDERED: ACETAMINOPHEN 325 MG TABLET (FP) PO PRN (16:25)
[2024-07-15] MEDS ORDERED: BENZONATATE 200 MG CAPSULE PO PRN (16:25)
[2024-07-15] MEDS ORDERED: NICOTINE POLACRILEX 2 MG LOZENGE BC PRN (16:25)
[2024-07-15] MEDS ORDERED: NALOXONE (NARCAN) HCL 4 MG/0.1 ML SPRAY NS PRN (16:25)
[2024-07-15] MEDS ORDERED: P-EPHED 60MG/TRIPROLIDI 2.5MG TABLET PO PRN (16:25)
[2024-07-15] MEDS ORDERED: ONDANSETRON *ODT* 4 MG TABLET SL PRN (16:25)
[2024-07-15] MEDS ORDERED: MAGNESIUM HYDROX 2400MG/30ML ORAL SUSPENSION 30 ML CUP PO PRN (16:25)
[2024-07-15] MEDS ORDERED: NALOXONE HCL 0.4 MG/ML VIAL IM PRN (16:25)
[2024-07-15] MEDS ORDERED: DOCUSATE SODIUM 100 MG CAPSULE (FP) PO PRN (22:00)
[2024-07-15] MEDS: THIAMINE 100 MG TABLET PO SCH (22:07)
[2024-07-15] MEDS: MELATONIN 5 MG TABLETS PO SCH (22:07)
[2024-07-16] MEDS: PRENATAL VITAMINS W/ FOLIC ACID TABLET (FP) PO SCH (09:37)
[2024-07-16] MEDS: methaDONE HCL 10 MG TABLET (FOR DETOX USE ONLY) PO ONE (12:29)
[2024-07-17] MEDS: cloNIDine HCL 0.1 MG TABLET PO PRN (09:25)
[2024-07-17] MEDS ORDERED: ALBUTEROL SO4 HFA INHALER IH PRN (16:21)
[2024-07-17] MEDS: cloNIDine HCL 0.1 MG TABLET PO SCH (17:03)
[2024-07-18] MEDS: methaDONE HCL 10 MG TABLET (FOR DETOX USE ONLY) PO ONE (09:57)
[2024-07-18] MEDS: SULFAMETHOXAZOLE/TRIMETHOPRIM 800MG/160MG D.S. TABLET PO SCH (09:57)
[2024-07-18] MEDS: EMTRICITABINE/TENOFOV ALAFENAM (DESCOVY) TABLET PO SCH (12:16)
[2024-07-20 06:28] VITALS: RESP 16
[2024-07-20] MEDS: methaDONE HCL 10 MG TABLET (FOR DETOX USE ONLY) PO ONE (09:41)
[2024-07-21 06:52] VITALS: TEMP 97.1
[2024-07-21 08:59] VITALS: BP 142/84; PULSE 69
== END 2024-07-21 09:00 | disposition home or self-care (01) | DRG 897 ==
LOC: YASAS 12:42 → Y6N 16:43
PROVIDERS: ADMIT Allergy & Immunology; ATTEND Surgery
PROC: HZ2ZZZZ Detoxification Services for Substance Abuse Treatment (ICD-10-PCS; principal; 2024-07-15)
DX: F11.23 Opioid dependence with withdrawal (principal); F14.20 Cocaine dependence, uncomplicated; F11.220 Opioid dependence with intoxication, uncomplicated; F17.210 Nicotine dependence, cigarettes, uncomplicated; F19.94 Other psychoactive substance use, unspecified with psychoactive substance-induced mood disorder; F41.9 Anxiety disorder, unspecified; I10 Essential (primary) hypertension; J45.20 Mild intermittent asthma, uncomplicated; J34.89 Other specified disorders of nose and nasal sinuses; Z21 Asymptomatic human immunodeficiency virus [HIV] infection status; Z91.148 Patient's other noncompliance with medication regimen for other reason; Z56.0 Unemployment, unspecified
CPT/HCPCS: 80305; 80307; 93005; 93010

== ENCOUNTER 2024-11-30 11:54 | Inpatient (IN) | payer OTHER ==
[2024-11-30 12:48] VITALS: BMI 15.4
[2024-11-30] MEDS ORDERED: NICOTINE POLACRILEX 2 MG GUM BUC PRN (13:55)
[2024-11-30] MEDS ORDERED: BISMUTH SUBSALICYLATE 524 MG/30 ML PO PRN (13:55)
[2024-11-30] MEDS ORDERED: ACETAMINOPHEN 325 MG TABLET (FP) PO PRN (13:55)
[2024-11-30] MEDS ORDERED: guaiFENesin 600 MG TABLET.ER (FP) PO PRN (13:55)
[2024-11-30] MEDS ORDERED: ONDANSETRON *ODT* 4 MG TABLET SL PRN (13:55)
[2024-11-30] MEDS ORDERED: DICYCLOMINE HCL 10 MG CAPSULE PO PRN (13:55)
[2024-11-30] MEDS ORDERED: LORazepam 1 MG TABLET PO PRN (13:55)
[2024-11-30] MEDS ORDERED: BENZOCAINE/MENTHOL (CHLORASEPTIC ) LOZENGE MM PRN (13:55)
[2024-11-30] MEDS ORDERED: IBUPROFEN 400 MG TABLET (FP) PO PRN (13:55)
[2024-11-30] MEDS ORDERED: IBUPROFEN 600 MG TABLET (FP) PO PRN (13:55)
[2024-11-30] MEDS ORDERED: MAGNESIUM HYDROX 2400MG/30ML ORAL SUSPENSION 30 ML CUP PO PRN (13:55)
[2024-11-30] MEDS ORDERED: POLYETHYLENE GLYCOL (HEALTHYLAX) 3350 17 GM PACKET PO PRN (13:55)
[2024-11-30] MEDS ORDERED: BENZONATATE 200 MG CAPSULE PO PRN (13:55)
[2024-11-30] MEDS ORDERED: NALOXONE (NARCAN) HCL 4 MG/0.1 ML SPRAY NS PRN (13:55)
[2024-11-30] MEDS ORDERED: MAG HYDROX/AL HYDROX/SIMETH 30 ML UNIT-DOSE CUP PO PRN (13:55)
[2024-11-30] MEDS ORDERED: LOPERAMIDE HCL 2 MG CAPSULE PO PRN (13:55)
[2024-11-30] MEDS ORDERED: ALBUTEROL SO4 HFA INHALER IH PRN (13:58)
[2024-11-30] MEDS: LORazepam 2 MG TABLET PO SCH (17:32)
[2024-11-30] MEDS: BACLOFEN 10 MG TABLET (FP) PO PRN (17:34)
[2024-11-30] MEDS ORDERED: QUEtiapine FUMARATE 100 MG TABLET (FP) PO SCH (22:00)
[2024-11-30] MEDS: THIAMINE 100 MG TABLET PO SCH (22:03)
[2024-11-30] MEDS: QUEtiapine FUMARATE 50 MG TABLET PO SCH (22:03)
[2024-11-30] MEDS: MELATONIN 5 MG TABLETS PO SCH (22:03)
[2024-11-30] MEDS: hydrOXYzine PAMOATE 25 MG CAPSULE (FP) PO PRN (22:05)
[2024-12-01] MEDS ORDERED: METHADONE PO SCH (09:15)
[2024-12-01] MEDS: SULFAMETHOXAZOLE/TRIMETHOPRIM 800MG/160MG D.S. TABLET PO SCH (10:16)
[2024-12-01] MEDS: NICOTINE 14 MG/24 HOURS TOPICAL PATCH TD SCH (10:16)
[2024-12-01] MEDS: PRENATAL VITAMINS W/ FOLIC ACID TABLET (FP) PO SCH (10:34)
[2024-12-02] MEDS: LORazepam 1 MG TABLET PO SCH (05:39)
[2024-12-02 11:27] LABS: HEMATOCRIT 35.7 % (32.4-45.2); HEMOGLOBIN 11.1 GM/dL (10.7-15.3); MCH 24.6 pg (25.7-33.7); MEAN CELL VOLUME 79.5 fl (80-96); PLATELET COUNT 132 10^3/uL (134-434); RBC 4.49 M/mm3 (3.60-5.2); RDW 14.1 % (11.6-15.6); WHITE BLOOD COUNT 2.7 K/mm3 (4.0-10.0)
[2024-12-02] MEDS: LORazepam 0.5 MG TABLET PO SCH (13:40)
[2024-12-02 14:15] LABS: POTASSIUM 4.3 mmol/L (3.5-5.1)
[2024-12-02 14:19] LABS: CALCIUM 8.9 mg/dL (8.5-10.1)
[2024-12-02 14:20] LABS: BLOOD UREA NITROGEN 15.2 mg/dL (7-18)
[2024-12-02 14:23] LABS: CREATININE 0.8 mg/dL (0.55-1.3)
[2024-12-02 14:24] LABS: BILIRUBIN,TOTAL 0.4 mg/dL (0.2-1)
[2024-12-02 14:27] LABS: TOT PROT 7.1 g/dl (6.4-8.2)
[2024-12-03] MEDS ORDERED: LORazepam 0.5 MG TABLET PO PRN
[2024-12-03] MEDS: LORazepam 0.5 MG TABLET PO SCH (05:45)
[2024-12-03 06:11] VITALS: BP 134/82; PULSE 90; RESP 16; TEMP 98
[2024-12-03] MEDS: NALOXONE (NYS OPIOID OVERDOSE PROGRAM) 4 MG/0.1 ML SPRAY NS SCH (08:23)
[2024-12-04] MEDS ORDERED: LORazepam 0.5 MG TABLET PO ONE (05:00)
== END 2024-12-03 08:51 | disposition home or self-care (01) | DRG 897 ==
LOC: YASAS 11:54 → Y3N 14:51
PROVIDERS: ADMIT Psychiatry & Neurology Pain Medicine; ATTEND Psychiatry & Neurology Pain Medicine
PROC: HZ2ZZZZ Detoxification Services for Substance Abuse Treatment (ICD-10-PCS; principal; 2024-11-30)
DX: F11.23 Opioid dependence with withdrawal (principal); F14.20 Cocaine dependence, uncomplicated; F10.230 Alcohol dependence with withdrawal, uncomplicated; F12.20 Cannabis dependence, uncomplicated; F17.210 Nicotine dependence, cigarettes, uncomplicated; F31.9 Bipolar disorder, unspecified; F19.24 Other psychoactive substance dependence with psychoactive substance-induced mood disorder; F43.10 Post-traumatic stress disorder, unspecified; Z21 Asymptomatic human immunodeficiency virus [HIV] infection status; G47.00 Insomnia, unspecified; J43.0 Unilateral pulmonary emphysema [MacLeod's syndrome]; J45.20 Mild intermittent asthma, uncomplicated
CPT/HCPCS: 36415; 80053; 80305; 80307; 85027; 86780; 93005; 93010; J0475